=== PATIENT | female | born 2005 | race Caucasian/White ===

== ENCOUNTER → 2024-05-12 | Outpatient (CLI) | payer BC, SELFPAY ==
[2024-05-20 09:32] LABS: HPV Reflexed? NOT INDICATED
== END | disposition home or self-care (01) ==
PROVIDERS: PCP Physician Assistant Medical; Referring Provider Nurse Practitioner Family; Visit Provider Nurse Practitioner Family
DX: Z12.4 Encounter for screening for malignant neoplasm of cervix (principal)
CPT/HCPCS: 88175; G0145

== ENCOUNTER → 2024-06-06 | Outpatient (CLI) | payer BC, SELFPAY ==
--- NOTE | 2024-06-06 14:28 | US_ITS ---
STUDY: ULTRASOUND OF THE FEMALE PELVIS - COMPLETE REASON FOR EXAM: Female, 19 years old. Amenorrhea LMP: One year ago. TECHNIQUE: Transabdominal and Transvaginal TECHNICAL QUALITY: Adequate. COMPARISON: None. FINDINGS: The uterus is anteverted and is in a midline position. The uterus measures 6.2 cm x 4.4 cm x 2.9 cm. Normal uterine cervix. The endometrium measures 7.3 mm in thickness, and is hyperechoic. There is no demonstrated endometrial mass. There is no demonstrated myometrial mass. I.U.D. - The patient does not have an I.U.D. The right ovary is visualized. The right ovary measures 3.9 cm x 3.3 cm x 2.7 cm. There is no right ovarian cyst or ovarian mass. There is no visualized right adnexal mass or complex lesion. There is normal arterial and normal venous vascularity. The left ovary is visualized. The left ovary measures 3.5 cm x 3.4 cm x 2.2 cm. There is no left ovarian cyst or ovarian mass. There is no visualized left adnexal mass or complex lesion. There is normal arterial and normal venous vascularity. There is no fluid in the cul-de-sac. The pre void volume of the bladder was ml. The post void volume of the bladder was ml. Polycystic ovary disease: Yes. US/Pelvic w/ Transvaginal IMPRESSION: Multiple small follicles in the periphery of the ovary suggestive of a polycystic ovarian syndrome. Electronically Signed: Helio Palma MD at 14:46 EDT ,
== END | disposition home or self-care (01) ==
PROVIDERS: PCP Physician Assistant Medical; Referring Provider Nurse Practitioner Family; Visit Provider Nurse Practitioner Family
DX: N91.2 Amenorrhea, unspecified (principal)
CPT/HCPCS: 76830; 76856

== ENCOUNTER → 2024-09-21 | Outpatient (CLI) | payer BC, SELFPAY ==
[2024-09-25 07:06] LABS: Chlamydia By Nucleic Acid AMP Negative (Negative); Gonococcus By Nucleic Acid AMP Negative (Negative)
== END | disposition home or self-care (01) ==
PROVIDERS: PCP Physician Assistant Medical; Referring Provider Nurse Practitioner Family; Visit Provider Nurse Practitioner Family
DX: N89.8 Other specified noninflammatory disorders of vagina (principal); Z20.2 Contact with and (suspected) exposure to infections with a predominantly sexual mode of transmission
CPT/HCPCS: 87070; 87205; 87491; 87591

== ENCOUNTER → 2025-06-15 | Outpatient (CLI) | payer BC, SELFPAY ==
[2025-06-15 16:46] LABS: Hematocrit 39.1 % (37-47); Hemoglobin 13.4 g/dL (12.0-15.0); Immature Granulocytes Count 0.050 X10^3/uL (0.0-0.0); Mean Corp Hgb Conc 34.3 g/dL (32-36); Mean Corpuscular Volume 86.1 fL (81-99); Mean Platelet Vol. 10.0 fl (6.2-12.0); NRBC Flagged by Analyzer 0 % (0-5); Platelet Count 455 K/mm3 (150-450); RBC Distribution Width CV 12.7 % (11.6-14.6); RBC Distribution Width SD 39.8 fl (35.1-43.9); Red Blood Count 4.54 M/mm3 (4.2-5.4); White Blood Count 11.5 K/mm3 (4.4-11.0)
[2025-06-15 18:09] LABS: AST(SGOT) 86 U/L (<=31); Alanine Aminotransfer ALT/SGPT 149 U/L (<=34); Albumin, Serum 4.7 g/dL (3.5-5.0); Alkaline Phosphatase 43 U/L (35-104); Anion Gap 14 (5-15); BUN 10 mg/dL (4-19); BUN/Creat Ratio 15.4 RATIO (10-20); Calcium,Total 9.9 mg/dL (7.6-11.0); Carbon Dioxide 21.1 mmol/L (21.0-32.0); Chloride 103 mmol/L (98-108); Globulin 3.4 g/dL (2.2-4.2); Glucose 127 mg/dL (70-99); Potassium 3.6 mmol/L (3.3-5.1)
[2025-06-17 04:07] LABS: PROLACTIN 21.5 ng/mL (4.8-33.4)
== END | disposition home or self-care (01) ==
PROVIDERS: PCP Physician Assistant Medical; Visit Provider Nurse Practitioner Family
DX: E28.2 Polycystic ovarian syndrome (principal); Z31.9 Encounter for procreative management, unspecified
CPT/HCPCS: 36415; 80053; 82627; 82670; 83498; 84146; 84403; 84439; 84443; 85025; 82626

== ENCOUNTER → 2025-07-03 | Outpatient (CLI) | payer BC, SELFPAY ==
--- NOTE | 2025-07-03 07:49 | US_ITS ---
PROCEDURE: PELVIC W/ TRANSVAGINAL REASON FOR EXAM: INFERTILITY; HX PCOS TECHNIQUE: Procedure Code: [id number] Modality: US Procedure: PELVIC W/ TRANSVAGINAL COMPARISON: June 06, 2024. FINDINGS: LMP: June 12, 2025. Measurements: Uterus: 8.2 cm x 5.2 cm x 3.5 cm with a volume of 78.7 mL Endometrial Thickness: 11 mm. It is hyperechoic. Right Ovary: 4.4 cm x 3.3 cm x 2.4 cm with a volume of 18.1 mL. Left Ovary: 4.2 cm x 2.9 cm x 2.1 cm with a volume of 13.2 mL. TRANSABDOMINAL: Uterus: Normal size, myometrial echotexture, and contour. Endometrium: Unremarkable. Right ovary: Multiple small follicle seen along the peripheral aspect of the right ovary. Left ovary: Multiple small follicle seen along the peripheral aspect of the left ovary. Other: No large pelvic mass identified. Transvaginal sonography was performed to better visualize the endometrium. TRANSVAGINAL: Uterus: Anteverted. Endometrium: Normal echotexture. Right ovary: Multiple peripheral follicles. Left ovary: Multiple peripheral follicles. Other adnexal findings: None. Cul-de-sac: Minimal amount of free fluid in the cul-de-sac. Tenderness: No tenderness US/Pelvic w/ Transvaginal IMPRESSION: Multiple tiny peripheral follicles in both ovaries suggestive of polycystic ova ry. Reading Location: [id number]
[2025-07-04 04:07] LABS: PROGESTERONE 0.3 ng/mL (.)
== END | disposition home or self-care (01) ==
PROVIDERS: PCP Physician Assistant Medical; Referring Provider Nurse Practitioner Family; Visit Provider Nurse Practitioner Family
DX: Z31.9 Encounter for procreative management, unspecified (principal); E28.2 Polycystic ovarian syndrome
CPT/HCPCS: 36415; 76830; 76856; 84144

== ENCOUNTER → 2025-07-25 | Outpatient (CLI) | payer BC, SELFPAY ==
--- NOTE | 2025-07-25 07:30 | US_ITS ---
PROCEDURE: LIVER 07/25/2025 REASON FOR EXAM: ELEVATED LFTS TECHNIQUE: Procedure Code: USLI Modality: US Procedure: LIVER COMPARISON: None FINDINGS: Liver: The liver is enlarged measuring 23.6 cm in length. It is heterogeneous in echo architecture with increased echogenicity throughout the liver parenchyma consistent with underlying hepatic steatosis. No focal liver mass detected. Patent portal vein and hepatic veins. Gallbladder: Status post cholecystectomy Common bile duct: Normal measuring 3.2 mm. Pancreas: Increased echogenicity of the pancreas. No dominant mass. The right kidney is visualized and measures 11.8 x 6.1 x 4.7 cm. No hydronephrosis present. US/Liver IMPRESSION: Status post cholecystectomy. Hepatomegaly with diffuse hepatic steatosis. No focal liver mass. No biliary ductal dilatation. Reading Location: [id number]
--- OUTSIDE RECORDS SUMMARY | 2025-07-25 07:33 | XMS RPT_ITS | CCD ---
Author Organization [facility] Inform ion Partnership [facility] Care Team Providers Care Pediatric Registered Nurse Name Role Phone GUERA HERNANDEZY Unavailable Unavailable JAYLEN SEXTON Unavailable Unavailable Jose Ramesh Unavailable Unavailabl Jose Frias Unavailable Unavailabl e EladiaGueraNikita Unavailable Unavailable JORGE LUIS SHIELDS Unavailable Unavailable Eladia Nikita Unavailable Unavailable EladiaGueraNikita Unavailable Unavailable Loreto Scanlon Unavailable [phone] Unavailable Unavailable Sabina Lam Unavailable Sarah Alcazar MD Primary Care Provider Sabina Lam Unavailable Jourdan Koo APRN.CNP Primary Care Provider SARAH ALCAZAR Primary Care Unavailable JOSE MANUEL MOELLER Attending Unavailable SARAH ALCAZAR Primary Care Unavailable JOSE MANUEL MOELLER Attending Unavailable SARAH ALCAZAR Referring Unavailable HAYES, JOURDAN Primary Care Unavailable SARAH ALCAZAR Referring Unavailable HAYES JOURDAN Primary Care Unavailable SARAH ALCAZAR S Primary Care Unavailable SARAH ALCAZAR Referring Unavailable Sabina Lam Unavailable Sarah Alcazar MD Primary Care Provider JOURDAN KOO Primary Care Unavailable SARAH ALCAZAR Referring Unavailable Loreto Scanlon MD Primary Care Provider Ori Vidal PA-C Primary Care Provider EVE CRUZ Referring Unavailable LORETO SCANLON Primary Care Unavailable MARCY, ORI B Primary Care Unavailable MARCY ORI B Primary Care Unavailable Guera Gibson MD Unavailable [phone] Ori Vidal PA-C Primary Care Provider Guera Gibson MD Unavailable [phone] Ori Vidal PA-C Primary Care Provider Marcy SILVER, Ori Chopra Primary Care Provid er ORI VIDAL Referring Unavaila ble MARCY, ORI CHOPRA Primary Care Unavaila ble MARCY, ORI CHOPRA Admitting Unavaila ble SABINA PUENTE Attending Unavailable ORI VIDAL Referring Unavaila ble MARCY, ORI CHOPRA Primary Care Unavaila ble SABINA PUENTE Attending Unavailable ORI VIDAL Admitting Unavaila ble MARCY, ORI CHOPRA Referring Unavaila ble MARCY, ORI CHOPRA Primary Care Unavaila ble SABINA PUENTE Attending Unavailable ORI VIDAL Admitting Unavaila ble RYAN LOZANO Attending Unavailable ERIN LUTHER RYAN Referring Unavailable MARCY, ORI B Primary Care Unavailable MARCY, ORI B Attending Unavailable MARCY, ORI B Primary Care Unavailable GUERA GIBSON Attending Unavailable FAISAL RODRIGUEZ Referring Unavailable MARCY, ORI B Primary Care Unavailable ORI VIDAL B Attending Unavailable FAISAL RODRIGUEZ Referring Unavailable MARCY ORI B Primary Care Unavailable MITCHELL TELLES Attending Unavailable MARCY, ORI B Primary Care Unavailable MARCY, ORI B Attending Unavailable MARCY, ORI B Primary Care Unavailable RYAN LOZANO Attending Unavailable MARCY, ORI B Referring Unavailable MARCY, ORI B Primary Care Unavailable MARCY, ORI B Attending Unavailable MARCY, ORI B Primary Care Unavailable MARCY, ORI B Attending Unavailable MARCY, ORI B Primary Care Unavailable MARCY, ORI B Referring Unavailable MARCY, ORI B Primary Care Unavailable MARCY, ORI B Referring Unavailable MARCY, ORI B Primary Care Unavailable ERIN LUTHER, RYAN Referring Unavailable MARCY, ORI B Primary Care Unavailable ERIN LUTHERRYAN Referring Unavailable MARCY, ORI B Primary Care Unavailable MARCY, ORI B Primary Care Unavailable IVETTE HARDING Attending Unavailable MARCY, ORI B Referring Unavailable MARCY, ORI B Primary Care Unavailable MARCY, ORI B Primary Care Unavailable FAISAL RODRIGUEZ Attending Unavailable GUERA GIBSON Admitting Unavailable GUERA GIBSON Attending Unavailable FAISAL RODRIGUEZ Referring Unavailable MARCY, ORI B Primary Care Unavailable MARCY, ORI KEYSHA Referring Unavaila ble Marcy PA, Ori Primary Care Physician Hastings PA, Ori Referring Provider Barbara POWELL-C, Drea Attending Physician [phone] Drea Jimenez Attending Unavailable Marcy PA, Ori Primary Care Unavailabl e Hastings PA, Ori Referring Unavailabl e Drea Jimenez Referring Unavailable Drea Jimenez Attending Unavailable Hastings PA, Ori Primary Care Unavailabl e Drea Jimenez Attending Unavailable Hastings PA, Ori Primary Care Unavailabl e Drea Jimenez Attending Unavailable Marcy PA, Ori Primary Care Unavailabl e Marcy PA, Ori Referring Unavailabl e Drea Jimenez Attending Unavailable Marcy PA, Ori Primary Care Unavailabl e Hastings PA, Ori Referring Unavailabl e Drea Jimenez Attending Unavailable Drea Jimenez Referring Unavailable Hastings PA, Ori Primary Care Unavailabl e Allergies Allergy Classification Reported Allergen(s) Allergy Type Date of Onset Reaction(s) Facility (7 sources) house dust Allergy to substance (finding) [facility] Work Phone: (7 sources) Animal dander - Cats Allergy to substance (finding) [facility] Work Phone: (1 source) ALLERGIES NOT ON FILE; Translations: [ALLERGIES NOT ON FILE] Propensity to adverse reactions (disorder) [facility] Medications Current Medications Medication Drug Class(es) Dates Sig (Normalized) Sig (Original) acetaminophen 325 mg / oxyCODONE hydrochloride 5 mg oral tablet (1 source) Opioid Agonist Start: 09-07-2024 End: 09-09-2024 take 1 tablet by mouth every six hours for pain oxyCODONE-acetami nophen (Percocet) 5-325 mg tablet Indications: Post-operative pain Take 1 tablet by mouth every 6 hours if needed for severe pain (7 - 10) (post-operative pain) for up to 2 days. 8 tablet 09/07/2024 09/09/2024 Active amoxicillin 875 mg / clavulanate 125 mg oral tablet (3 sources) Penicillin-class Antibacterial Start: 04-14-2024 End: 04-24-2024 take 1 tablet by mouth twice daily amoxicillin-pot clavulanate (Augmentin) 875-125 mg tablet Indications: Rash and other nonspecific skin eruption Take 1 tablet (875 mg) by mouth 2 times a day for 10 days. 20 tablet 04/14/2024 04/24/2024 Active Start: 11-01-2021 take 1 tablet by shawna once daily Amoxicillin-Pot Clavulanate 875-125 MG Oral Tablet TAKE 1 TABLET EVERY 12 HOURS DAILY. Quantity: 20 Refills: 0 Ordered: 01-Nov-2021 [employer] SITE TECHNICIAN-TOURS CAPTAIN, Rita Start : 01-Nov-2021 Active blood-glucose meter misc (11 sources) Start: 10-21-2024 blood-glucose meter misc Indications: Type 2 diabetes mellitus with hyperglycemia, without long-term current use of insulin Use as directed- check BS daily and PRN symptoms 1 each 10/21/2024 Active calcium chloride 0.0014 meq/ml / potassium chloride 0.004 meq/ml / sodium chloride 0.103 meq/ml / sodium lactate 0.028 meq/ml injectable solution (1 source) Start: 09-07-2024 End: 09-08-2024 take 100 mL intravenously every hour 100 mL/hr, intravenous, Continuous, Starting on Thu09/07/24 at 1100, For 1 day, Recovery (only) cephalexin 500 mg oral capsule (1 source) Cephalosporin Antibacterial Start: 10-18-2024 End: 10-28-2024 take 1 capsule by mouth three times daily cephalexin (Keflex) 500 mg capsule Indications: Open abdominal incision with drainage, subsequent encounter Take 1 capsule (500 mg) by mouth 3 times a day for 10 days. 30 capsule 10/18/2024 10/28/2024 Active dicyclomine hydrochloride 20 mg oral tablet (4 sources) Anticholinergic Start: 08-18-2024 End: 09-22-2024 take 1 tablet by mouth four times daily before mealtime dicyclomine (Bentyl) 20 mg tablet Indications: Left flank pain Take 1 tablet (20 mg) by mouth 4 times a day before meals. 30 tablet 08/18/2024 09/22/2024 Discontinued (Therapy completed) ergocalciferol 1.25 mg oral capsule (20 sources) Provitamin D2 Compound Start: 12-18-2024 take 1 capsule by mouth every week ergocalciferol (Vitamin D-2) 1250 mcg (50,000 units) capsule Indications: Vitamin D deficiency TAKE 1 CAPSULE (10377 UNITS) BY MOUTH ONE TIME PER WEEK 4 capsule 12/18/2024 Active Start: 12-18-2024 take 1 capsule by mo uth every week ergocalciferol (Vitamin D-2) 1250 mcg (50,000 units) capsule Indications: Vitamin D deficiency TAKE 1 CAPSULE (01384 UNITS) BY MOUTH ONE TIME PER WEEK 4 capsule 12/18/2024 Active Start: 05-12-2024 Ergocalciferol (Vitamin D2) (Vitamin D2) 1,250 mcg (50,000 unit) capsule Active 1250 ug PO EVERY WEEK May 12, 2024 12:00am Complies with drug therapy Start: 01-17-2024 End: 12-13-2024 take 1 capsule by mouth every week ergocalciferol (Vitamin D-2) 1.25 MG (90015 UT) capsule Indications: Vitamin D deficiency Take 1 capsule (50,000 Units) by mouth 1 (one) time per week. 4 capsule 01/17/2024 12/13/2024 Discontinued Start: 01-17-2024 take 1 capsule by mo uth every week ergocalciferol (Vitamin D-2) 1.25 MG (94612 UT) capsule Indications: Vitamin D deficiency Take 1 capsule (50,000 Units) by mouth 1 (one) time per week. 4 capsule 01/17/2024 Active Start: 05-21-2020 End: 03-03-2022 take 1 capsule by mouth every week ergocalciferol 50,000 unit capsule (VITAMIN D2, DRISDOL) Take 1 capsule by mouth one time a week. 12 capsule 3 05/21/2020 03/03/2022 Discontinued Comment on above: Take 1 capsule by mo [facility] one time a week. flash glucose scanning reader (FREESTYLE IVAN 2 READER MISC) (7 sources) flash glucose scanning reader (FREESTYLE IVAN 2 READER MISC) Active fluticasone propionate 0.05 mg/actuat metered dose nasal spray (5 sources) Corticosteroid Start: 03-09-20 End: 04-06-20 take 1 spray(s) nasal route once daily at bedtime fluticasone (FLONASE) 50 mcg/actuation nasal spray Use 1 [place] in each nostril daily at bedtime for 28 days. Use before lying down for bed. 9.9 mL 0 03/09/2022 04/06/2022 Active Start: 05-29-2021 take 1 spray(s) nasa l route twice daily Fluticasone Propionate 50 MCG/ACT Nasal Suspension USE 1 SPRAY IN EACH NOSTRIL TWICE DAILY. Quantity: 1 Refills: 1 Ordered: 29-May-2021 Giovanna REILLY Pebbles Start : 29-May-2021 Active Start: 01-13-2020 End: 03-03-2022 take 1 spray(s) nasal route once daily at bedtime fluticasone (FLONASE) 50 mcg/actuation nasal spray Use 1 [place] in each nostril daily at bedtime. 1 Bottle 0 01/13/2020 03/03/2022 Discontinued Comment on above: Use 1 [place] in each nostril daily at bedtime. Use 1 [place] in each nostril daily at bedtime for 28 days. Use before lying down for bed. labetalol hydrochloride 5 mg/ml injectable solution (1 source) beta-Adrenergic Mariama Start: 2024 5 mg, intravenous, Administer over 1 Minutes, Once as needed, systolic blood pressure greater than 180 mmHg, dystolic blood pressure greater than 100 mmHg and heart rate greater than 60 BPM, Starting on Thu09/07/24 at 1032, For 1 dose, Recovery (only) lisinopril 10 mg oral tablet (18 sources) Angiotensin Converting Enzyme Inhibitor Start: 2023 take 1 tablet by mouth once daily lisinopril 10 mg tablet Indications: Hypertension associated with diabetes TAKE 1 TABLET BY MOUTH EVERY DAY 30 tablet 11 04/11/2025 Active Mecobalamin (Vitamin B12) (1 source) Start: 2023 Mecobalamin (Vitamin B12) 2,500 mcg tablet,chewable Active ug PO May 12, 2024 12:00am Complies with drug therapy medroxyPROGESTERone acetate 10 mg oral tablet (14 sources) Progestin Start: 2024 medroxyPROGESTERone (Provera) 10 mg tablet TAKE 1 TABLET ORALLY DAILY FOR 5 DAYS TAKE X 5 DAYS IF NO MENSES FOR GREATER THAN 60 DAYS. 09/22/2024 Active Start: 06-09-2024 End: 06-14-2024 take 1 tablet by mouth once daily Medroxyprogesterone 10 mg tablet Discontinued 10 mg PO daily 5 5 0 June 09, 2024 12:00am June 13, 2024 12:00am June 14, 2024 12:08am omeprazole 20 mg delayed release oral capsule (20 sources) Proton Pump Inhibitor Start: 12-24-2023 End: 10-10-2025 take 1 capsule by mouth once daily Omeprazole 20 mg capsule,delayed release(DR/EC) Active 20 mg PO daily May 12, 2024 12:00am Complies with drug therapy oxyCODONE hydrochloride 5 mg oral tablet (1 source) Opioid Agonist Start: 09-07-2024 take 1 tablet by mouth every four hours as needed 5 mg, oral, Every 4 hours PRN, pain mild (1-3), first line, Starting on Thu09/07/24 at 1032, Recovery (only), When able to take oral medications., If ordered PRN for pain, nurse is permitted to administer this medication for higher pain scores based on patient preference? Yes perflutren lipid microspheres 1.3 mL in NaCl (PF) 0.9% 10 mL injection (DEFINITY) (5 sources) Start: 03-03-2022 End: 06-02-2023 perflutren lipid microspheres 1.3 mL in NaCl (PF) 0.9% 10 mL injection (DEFINITY) polyethylene glycol 3350 04491 mg powder for oral solution (2 sources) Osmotic Laxative Start: 08-18-2024 End: 08-25-2024 polyethylene glycol (Glycolax, Miralax) 17 gram packet Indications: Constipation, unspecified constipation type Take 17 g by mouth once daily for 7 days. 7 packet 08/18/2024 08/24/2024 Discontinued (Therapy completed) 115/iron/folic acid ( 19 ORAL) (4 sources) take 1 tablet by mouth once daily 115/iron/folic acid ( 19 ORAL) Take 1 tablet by mouth once daily. Active 0.25 mg, 0.5 mg dose 1.5 ml semaglutide 1.34 mg/ml pen injector (1 source) Start: 05-12-2024 Semaglutide (Ozempic) 0.25 mg or 0.5 mg(2 mg/1.5 mL) pen injector Active 0.5 mg SC EVERY WEEK May 12, 2024 12:00am Complies with drug therapy semaglutide 0.25 mg or 0.5 mg (2 mg/3 mL) pen injector (14 sources) Start: 12-18-2024 inject 0.5 mg by subcutaneous injection every week semaglutide 0.25 mg or 0.5 mg (2 mg/3 mL) pen injector Indications: Type 2 diabetes mellitus with hyperglycemia, without long-term current use of insulin Inject 0.5 mg under the skin 1 (one) time per week. 3 mL 5 12/18/2024 Active Start: 02-15-2024 End: 08-24-2024 semaglutide 0.25 mg or 0.5 m g (2 mg/3 mL) pen injector Indications: PCOS (polycystic ovarian syndrome) , Type 2 diabetes mellitus with hyperglycemia, without long-term current use of insulin , Class 2 obesity due to excess calories without serious comorbidity with body mass index (BMI) of 39.0 to 39.9 in adult Inject 0.5 mg under the skin 1 (one) time per week. 3 mL 2 02/15/2024 08/24/2024 Discontinued (Therapy completed) Start: 02-15-2024 semaglutide 0. 25 mg or 0.5 mg (2 mg/3 mL) pen injector Indications: PCOS (polycystic ovarian syndrome) , Type 2 diabetes mellitus with hyperglycemia, without long-term current use of insulin , Class 2 obesity due to excess calories without serious comorbidity with body mass index (BMI) of 39.0 to 39.9 in adult Inject 0.5 mg under the skin 1 (one) time per week. 3 mL 2 02/15/2024 Active Start: 02-15-2024 semaglutide 0. 25 mg or 0.5 mg (2 mg/3 mL) pen injector Indications: PCOS (polycystic ovarian syndrome) , Type 2 diabetes mellitus with hyperglycemia, without long-term current use of insulin (Multi) , Class 2 obesity due to excess calories without serious comorbidity with body mass index (BMI) of 39.0 to 39.9 in adult Inject 0.5 mg under the skin 1 (one) time per week. 3 mL 2 02/15/2024 Active Start: 01-17-2024 semaglutide 0. 25 mg or 0.5 mg (2 mg/3 mL) pen injector Indications: PCOS (polycystic ovarian syndrome) , Type 2 diabetes mellitus with hyperglycemia, without long-term current use of insulin (Multi) , Class 2 obesity due to excess calories without serious comorbidity with body mass index (BMI) of 39.0 to 39.9 in adult Inject 0.25 mg under the skin 1 (one) time per week. 3 mL 1 01/17/2024 Active 125 ml sodium chloride 9 mg/ml prefilled syringe (5 sources) Start: 03-03-2022 End: 06-02-2023 sodium chloride 0.9 % (flush) 10 mL (BD POSIFLUSH) spironolactone 50 mg oral tablet (13 sources) Aldosterone Antagonist Start: 04-11-2025 take 1 tablet by mouth once daily spironolactone (Aldactone) 50 mg tablet Indications: PCOS (polycystic ovarian syndrome) , Type 2 diabetes mellitus with hyperglycemia, without long-term current use of insulin TAKE 1 TABLET BY MOUTH EVERY DAY 30 tablet 5 04/11/2025 Active Start: 10-18-2024 take 1 tablet by shawna th once daily spironolactone (Aldactone) 50 mg tablet Indications: PCOS (polycystic ovarian syndrome) , Type 2 diabetes mellitus with hyperglycemia, without long-term current use of insulin Take 1 tablet (50 mg) by mouth once daily. 30 tablet 5 10/18/2024 Active Start: 05-03-2020 End: 03-03-2022 take 1 tablet by mouth once daily spironolactone (ALDACTONE) 25 mg tablet Take 1 tablet by mouth once daily. 90 tablet 1 05/03/2020 03/03/2022 Discontinued Comment on above: Take 1 tablet by shawna once daily. traMADol hydrochloride 50 mg oral tablet (1 source) Opioid Agonist Start: 5 End: 5 take 1 tablet by mouth every eight hours for pain traMADol (Ultram) 50 mg tablet Indications: Flank pain Take 1 tablet (50 mg) by mouth every 8 hours if needed for severe pain (7 - 10) for up to 3 days. 9 tablet 03/01/2025 03/04/2025 Active vitamin b12 1 mg oral tablet (17 sources) Vitamin B12 Start: 4 End: 5 take 1 tablet by mouth once daily cyanocobalamin (Vitamin B-12) 1,000 mcg tablet Indications: Low vitamin B12 level TAKE 1 TABLET (1,000 MCG) BY MOUTH ONCE DAILY 30 tablet 11 04/11/2025 Active Completed/Discontinued Medications Medication Drug Class(es) Dates Sig (Normalized) Sig (Original) acetaminophen 325 mg oral tablet (1 source) Start: 09-07-2024 End: 09-07-2024 take 975 mg by mouth once as needed for pain 975 mg, oral, Once, On Thu09/07/24 at 0845, For 1 dose, Preprocedure, Administer with small amount of water preoperatively., If ordered PRN for pain, nurse is permitted to administer this medication for higher pain scores based on patient preference? Yes amitriptyline hydrochloride 10 mg oral tablet (1 source) Tricyclic Antidepressant End: 03-03-2022 take 2 tablets by mouth once daily at bedtime amitriptyline (ELAVIL) 10 mg tablet Take 20 mg by mouth daily at bedtime. 0 03/03/2022 Discontinued Comment on above: Take 20 mg by mouth daily at bedtime. amoxicillin 875 mg oral tablet (2 sources) Penicillin-class Antibacterial Start: 05-29-2021 take 1 tablet by mouth once daily Amoxicillin 875 MG Oral Tablet TAKE 1 TABLET EVERY 12 HOURS DAILY. Quantity: 20 Refills: 0 Ordered: 29-May-2021 Pebbles Godoy Start : 29-May-2021 Active brompheniramine maleate 0.4 mg/ml / dextromethorphan hydrobromide 2 mg/ml / pseudoephedrine hydrochloride 6 mg/ml oral solution (2 sources) alpha-Adrenergic Agonist, Uncompetitive A-urppyf-O-aspartat e Receptor Antagonist, Sigma-1 Agonist Start: 11-01-2021 take 5 mL by mouth every four to six hours as needed Pseudoeph-Bromphen -DM 30-2-10 MG/5ML Oral Syrup TAKE 5 ML EVERY 4 TO 6 HOURS NEEDED. Quantity: 3 Refills: 0 Ordered: 01-Nov-2021 [employer] SITE TECHNICIAN-TOURS CAPTAIN, Rita Start : 01-Nov-2021 Active cefdinir 300 mg oral capsule (2 sources) Cephalosporin Antibacterial Start: 09-26-2024 End: 10-18-2024 take 1 capsule by mouth once daily cefdinir (Omnicef) 300 mg capsule TAKE 1 CAPSULE BY MOUTH TWCIE DAILY FOR 7 DAYS 09/26/2024 10/18/2024 Discontinued (Therapy completed) Start: 09-26-2024 End: 10-03-2024 take 1 capsule by mouth twice daily Cefdinir 300 mg capsule Discontinued 300 mg PO TWICE A DAY 14 7 0 September 26, 2024 1:00am October 02, 2024 1:00am October 03, 2024 1:15am cefOXitin 2000 mg injection (1 source) Cephalosporin Antibacterial Start: 09-07-2024 End: 09-07-2024 2 g, intravenous, at 100 mL/hr, Administer over 30 Minutes, Once, On Thu09/07/24 at 0845, For 1 dose, Preprocedure, Duplex bag - activate before hanging., Suspected Indication (Select all that apply): Surgical Prophylaxis, Indications: Surgical Prophylaxis cetirizine hydrochloride 10 mg oral tablet (1 source) Histamine-1 Receptor Antagonist End: 03-03-2022 take 1 tablet by mouth once daily cetirizine (ZYRTEC) 10 mg tablet Take 10 mg by mouth once daily. 0 03/03/2022 Discontinued Comment on above: Take 10 mg by mouth once daily. 1 ml dexamethasone phosphate 10 mg/ml injection (1 source) Corticosteroid Start: 09-07-2024 End: 09-07-2024 8 mg, intravenous, Once, On Thu09/07/24 at 0845, For 1 dose, Preprocedure doxycycline monohydrate 100 mg oral tablet (3 sources) Tetracycline-class Drug Start: 10-10-2021 take 1 tablet by mouth once daily Doxycycline Monohydrate 100 MG Oral Tablet TAKE 1 TABLET EVERY 12 HOURS DAILY. Quantity: 20 Refills: 0 Ordered: 10-Oct-2021 [employer] SITE TECHNICIAN-TOURS CAPTAIN, Rita Start : 10-Oct-2021 Active Start: 03-06-2021 End: 03-16-2021 take 1 tablet by mouth twice daily Doxycycline Monohydrate 100 MG Oral Tablet TAKE 1 TABLET TWICE DAILY. Quantity: 20 Refills: 0 Ordered: 06-Mar-2021 [employer] SITE TECHNICIAN-TOURS CAPTAIN, Rita Start : 06-Mar-2021 End : 16-Mar-2021 Complete Ethinyl Estradiol / norgestimate (1 source) Progestin, Estrogen Start: 10-02-2020 End: 03-03-2022 take 1 tablet by mouth once daily Norgestimate-Ethinyl Estradiol (TRI FEMYNOR) 0.18/0.215/0.25 mg-35 mcg (28) Take 1 tablet by mouth once daily. 84 tablet 3 10/02/2020 03/03/2022 Discontinued Comment on above: Take 1 tablet by shawna th once daily. flash glucose scanning reader (FreeStyle Ivan 2 [place] [facility] [place] (17 sources) Start: 01-13-2024 End: 04-20-2025 flash glucose scanning reader (FreeStyle Ivan 2 [place]) [facility] [place] Indications: Type 2 diabetes mellitus with hyperglycemia, without long-term current use of insulin Use as instructed 1 each 01/13/2024 04/20/2025 Discontinued (Med List Cleanup) Start: 01-13-2024 flash glucose scanning reader (FreeStyle Ivan 2 [place]) [facility] [place] Indications: Type 2 diabetes mellitus with hyperglycemia, without long-term current use of insulin Use as instructed 1 each 01/13/2024 Active Start: 01-13-2024 flash glucose scanning reader (FreeStyle Ivan 2 [place]) [facility] [place] Indications: Type 2 diabetes mellitus with hyperglycemia, without long-term current use of insulin (Multi) Use as instructed 1 each 01/13/2024 Active flash glucose sensor kit (FreeStyle Ivan 2 Sensor) kit (17 sources) Start: 06-16-2024 End: 04-20-2025 flash glucose sensor kit (FreeStyle Ivan 2 Sensor) kit Indications: Type 2 diabetes mellitus with hyperglycemia, without long-term current use of insulin USE INSTRUCTED 2 each 5 06/16/2024 04/20/2025 Discontinued (Med List Cleanup) Start: 06-16-2024 flash glucose sensor kit (FreeStyle Ivan 2 Sensor) kit Indications: Type 2 diabetes mellitus with hyperglycemia, without long-term current use of insulin USE INSTRUCTED 2 each 5 06/16/2024 Active Start: 01-13-2024 flash glucose sensor kit (FreeStyle Ivan 2 Sensor) kit Indications: Type 2 diabetes mellitus with hyperglycemia, without long-term current use of insulin (Multi) Use as instructed 2 each 5 01/13/2024 Active FreeStyle Ivan 3 Sensor device (10 sources) Start: 10-21-2024 End: 04-20-2025 FreeStyle Ivan 3 Sensor dev ice Indications: Type 2 diabetes mellitus with hyperglycemia, without long-term current use of insulin USE TO CHECK GLUCOSE BID 2 each 3 10/21/2024 04/20/2025 Discontinued (Med List Cleanup) Start: 10-21-2024 FreeStyle Libr e 3 Sensor device Indications: Type 2 diabetes mellitus with hyperglycemia, without long-term current use of insulin USE TO CHECK GLUCOSE BID 2 each 3 10/21/2024 Active 0.5 ml HYDROmorphone hydrochloride 1 mg/ml prefilled syringe (1 source) Opioid Agonist Start: 03-01-2025 End: 03-01-2025 0.5 mg, intravenous, Once, On Thu03/01/25 at 1945, For 1 dose ibuprofen 400 mg oral tablet (4 sources) Nonsteroidal Anti-inflammatory Drug Start: 03-09-2022 take 1 tablet by mouth every six hours as needed ibuprofen (MOTRIN) 400 mg tablet Take 1 tablet by mouth every 6 hours as needed for pain or fever (specify). 30 tablet 0 03/09/2022 Active Comment on above: Take 1 tablet by shawna th every 6 hours as needed for pain or fever (specify). 1 ml ketorolac tromethamine 30 mg/ml injection (5 sources) Nonsteroidal Anti-inflammatory Drug, Cyclooxygenase Inhibitor Start: 03-01-2025 End: 03-01-2025 15 mg, intravenous, Once, On Thu03/01/25 at 1800, For 1 dose Start: 03-01-2025 End: 03-06-2025 take 1 tablet by mouth every six hours for pain ketorolac (Toradol) 10 mg tablet Indications: Flank pain Take 1 tablet (10 mg) by mouth every 6 hours if needed for moderate pain (4 - 6) for up to 5 days. 20 tablet 03/01/2025 03/06/2025 Active Start: 08-18-2024 End: 08-24-2024 take 1 tablet by mouth every six hours for pain ketorolac (Toradol) 10 mg tablet Indications: Left flank pain Take 1 tablet (10 mg) by mouth every 6 hours if needed for moderate pain (4 - 6) for up to 5 days. 20 tablet 08/18/2024 08/24/2024 Discontinued (Therapy completed) Start: 03-06-2021 Ketorolac Trom ethamine 10 MG Oral Tablet TAKE TABLET PRN Quantity: 0 Refills: 0 Ordered: 06-Mar-2021 DO Start : 06-Mar-2021 Active 5 ml midazolam 1 mg/ml injection (1 source) Benzodiazepine Start: 09-07-2024 End: 09-07-2024 1 mg, intravenous, Once, On Thu09/07/24 at 0845, For 1 dose, Preprocedure 1 ml morphine sulfate 4 mg/ml prefilled syringe (3 sources) Opioid Agonist Start: 03-01-2025 End: 03-01-2025 4 mg, intravenous, Once, On Thu03/01/25 at 1800, For 1 dose Start: 09-07-2024 4 mg, intraven ous, Every 5 min PRN, pain severe (7-10), first line, Starting on Thu09/07/24 at 1032, Recovery (only), Max total of 20 mg regardless of dose. Start: 09-07-2024 2 mg, intraven ous, Every 5 min PRN, pain moderate (4-6), first line, Starting on Thu09/07/24 at 1032, Recovery (only), Max total of 20 mg regardless of dose. mupirocin 0.02 mg/mg topical ointment (4 sources) RNA Synthetase Inhibitor Antibacterial Start: 10-10-2021 Mupirocin 2 % External Ointment APPLY A SMALL AMOUNT 3 TIMES DAILY DIRECTED. Quantity: 1 Refills: 0 Ordered: 10-Oct-2021 Rita Cazares Start : 10-Oct-2021 Active nebivolol 5 mg oral tablet (2 sources) Start: 11-03-2022 take 1 tablet by mouth once daily nebivolol (BYSTOLIC) 5 mg tablet TAKE 1 TABLET BY MOUTH EVERY DAY 30 tablet 0 11/03/2022 Active Comment on above: TAKE 1 TABLET BY SHAWNA TH EVERY DAY 2 ml ondansetron 2 mg/ml injection (7 sources) Serotonin-3 Receptor Antagonist Start: 03-01-2025 End: 03-01-2025 4 mg, intravenous, Once, On Thu03/01/25 at 1800, For 1 dose, When administering via IV Push, administer over 3-5 minutes. Start: 09-07-2024 End: 09-07-2024 4 mg, intravenous, Once as n eeded, nausea/vomiting, first line, Starting on Thu09/07/24 at 1032, For 1 dose, Recovery (only), When administering via IV Push, administer over 3-5 minutes. Start: 08-18-2024 End: 09-22-2024 take 1 tablet by mouth every eight hours for nausea ondansetron ODT (Zofran-ODT) 4 mg disintegrating tablet Indications: Left flank pain Dissolve 1 tablet (4 mg) in the mouth every 8 hours if needed for nausea or vomiting. 15 tablet 08/18/2024 09/22/2024 Discontinued (Therapy completed) 2 ml orphenadrine citrate 30 mg/ml injection (1 source) Muscle Relaxant Start: 03-01-2025 End: 03-01-2025 inject 60 mg by intramuscular injection once 60 mg, intramuscular, Once, On Thu03/01/25 at 1945, For 1 dose predniSONE 20 mg oral tablet (2 sources) Start: 03-01-2025 End: 03-01-2025 take 60 mg by mouth once 60 mg, oral, Once, On Thu03/01/25 at 194, For 1 dose Start: 03-01-2025 End: 03-06-2025 take 2 tablets by mouth once daily predniSONE (Deltasone) 20 mg tablet Indications: Flank pain Take 2 tablets (40 mg) by mouth once daily for 5 days. 10 tablet 03/01/2025 03/06/2025 Active promethazine (Phenergan) 6.2 5 mg in sodium chloride 0.9% 50 mL IV (1 source) Start: 09-07-2024 End: 09-07-2024 6.25 mg, intravenous, Admini ster over 15 Minutes, Once as needed, Nausea/vomiting, second line, Starting on Thu09/07/24 at 1032, For 1 dose, Recovery (only) semaglutide (OZEMPIC) 1 mg/dose (4 mg/3 mL) pen injector (8 sources) Start: 04-14-2024 End: 12-14-2024 semaglutide (OZEMPIC) 1 mg/d ose (4 mg/3 mL) pen injector Indications: Type 2 diabetes mellitus with hyperglycemia, without long-term current use of insulin , Class 2 obesity due to excess calories without serious comorbidity with body mass index (BMI) of 39.0 to 39.9 in adult Inject 1 mg under the skin 1 (one) time per week. 3 mL 04/14/2024 12/14/2024 Discontinued (Therapy completed) Start: 04-14-2024 semaglutide (O ZEMPIC) 1 mg/dose (4 mg/3 mL) pen injector Indications: Type 2 diabetes mellitus with hyperglycemia, without long-term current use of insulin , Class 2 obesity due to excess calories without serious comorbidity with body mass index (BMI) of 39.0 to 39.9 in adult Inject 1 mg under the skin 1 (one) time per week. 3 mL 04/14/2024 Active Start: 04-14-2024 semaglutide (O ZEMPIC) 1 mg/dose (4 mg/3 mL) pen injector Indications: Type 2 diabetes mellitus with hyperglycemia, without long-term current use of insulin (Multi) , Class 2 obesity due to excess calories without serious comorbidity with body mass index (BMI) of 39.0 to 39.9 in adult Inject 1 mg under the skin 1 (one) time per week. 3 mL 04/14/2024 Active tiZANidine 2 mg oral tablet (3 sources) Central alpha-2 Adrenergic Agonist Start: 03-01-2025 End: 04-20-2025 take 1 tablet by mouth every eight hours for muscle spasms tiZANidine (Zanaflex) 2 mg tablet Indications: Flank pain Take 1 tablet (2 mg) by mouth every 8 hours if needed for muscle spasms for up to 5 days. 15 tablet 03/01/2025 04/20/2025 Discontinued (Med List Cleanup) topiramate 50 mg oral tablet (6 sources) Start: 04-19-2022 topiramate (TOPAMAX) 50 mg tablet TAKE 1 AND 1/2 (HALF) TABLET BY MOUTH TWICE A DAY 0 04/19/2022 Active Start: 06-20-2020 End: 03-03-2022 take 1 tablet by mouth twice daily Topamax 25 MG Oral Tablet TAKE 1 TABLET TWICE DAILY. Quantity: 0 Refills: 0 Ordered: 06-Mar-2021 DO Start : 06-Mar-2021 Active Comment on above: TAKE 1 TABLET BY SHAWNA TWICE A DAY TAKE 1 AND 1/2 (HALF ) TABLET BY MOUTH TWICE A DAY Tri Femynor 0.18/0.215/0.25 MG-35 MCG Oral Tablet (4 sources) Start: 10-02-2020 Tri Femynor 0.18/0.215/0.25 MG-35 MCG Oral Tablet Quantity: 84 Refills: 0 Ordered: 23-Mar-2021 DO Start : 02-Oct-2020 Active triamcinolone acetonide 1 mg/ml topical cream (4 sources) Corticosteroid Start: 10-10-2021 Triamcinolone Acetonide 0.1 % External Cream APPLY 2-3 TIMES DAILY TO AFFECTED AREA(S). Quantity: 1 Refills: 0 Ordered: 10-Oct-2021 [employer] TECHNICIAN[employer]TOURS CAPTAIN, Rita Start : 10-Oct-2021 Active Problems Active Problems Problem Classification Problem Date Documented Da te Episodic/Chronic Abdominal pain (14 sources) Right upper quadrant pain; Translations: [Abdominal pain, right upper quadrant] Onset: 5 Resolved: 7 08-24-2024 Episodic Calculus of urinary tract (20 sources) Calculus of kidney; Translations: [Kidney stone] Onset: 2 04-24-2022 Episodic Contraceptive and procreative management (1 source) Encounter for procreative management, unspecified; Translations: [Encounter for procreative management, unspecified] Onset: 5 Episodic Diabetes mellitus with complications (20 sources) Type 2 diabetes mellitus; Translations: [Type 2 diabetes mellitus with hyperglycemia] Onset: 4 01-13-2024 Chronic Diabetes mellitus without complication (1 source) Diabetes mellitus without complication Onset: 8 Disorders of lipid metabolism (20 sources) Hypercholesterolemia; Translations: [Pure hypercholesterolemia, unspecified] Onset: 4 12-24-2023 Chronic Esophageal disorders (20 sources) Gastroesophageal reflux disease without esophagitis; Translations: [Gastro-esophageal reflux disease without esophagitis] Onset: 4 12-24-2023 Chronic Essential hypertension (20 sources) Hypertensive disorder; Translations: [Essential (primary) hypertension] Onset: 2 Chronic Genitourinary symptoms and ill-defined conditions (1 source) Hematuria, unspecified; Translations: [Urinary tract infection with hematuria, site unspecified] Onset: 2 Episodic Headache; including migraine (1 source) Migraine without aura, not refractory ; Translations: [Chronic migraine without aura, not intractable, without status migrainosus] Chronic Hypertension with complications and secondary hypertension (2 sources) Hypertension secondary to endocrine disorders; Translations: [Hypertension secondary to endocrine disorders] Onset: 4 Chronic Immunizations and screening for infectious disease (8 sources) Patient encounter status; Translations: [Other specified vaccination] Resolved: 7 12-14-2024 Episodic Menstrual disorders (5 sources) Missed period; Translations: [Irregular menstruation, unspecified] Onset: 4 12-24-2023 Chronic Comment on above: x 2 years. Mood disorders (3 sources) Mood disorders; Translations: [Major depressive disorder, single episode, unspecified] Onset: 8 Neoplasms of unspecified nature or uncertain behavior (1 source) Thrombocytosis; Translations: [Thrombocytosis] 10-18-2024 Episodic Nutritional deficiencies (20 sources) Vitamin D deficiency; Translations: [Vitamin D deficiency, unspecified] Onset: 4 12-24-2023 Chronic Other acquired deformities (1 source) Scoliosis deformity of spine; Translations: [Scoliosis, unspecified] Chronic Other aftercare (1 source) Postoperative visit; Translations: [Encounter for other specified surgical aftercare] 09-22-2024 Episodic Other aftercare (1 source) Open wound of abdomen; Translations: [Open abdominal incision with drainage, subsequent encounter] 10-18-2024 Episodic Other connective tissue disease (1 source) Spasm; Translations: [Other muscle spasm] 09-21-2024 Episodic Other ear and sense organ disorders (14 sources) Otalgia; Translations: [Otalgia, unspecified] Episodic Other ear and sense organ disorders (7 sources) Impacted cerumen; Translations: [Impacted cerumen] Episodic Other endocrine disorders (20 sources) Polycystic ovary syndrome; Translations: [Polycystic ovarian syndrome] Onset: 4 01-13-2024 Chronic Other endocrine disorders (1 source) Polycystic ovarian syndrome; Translations: [Polycystic ovarian syndrome] Onset: 5 Chronic Other female genital disorders (1 source) Vaginal discharge; Translations: [Other specified noninflammatory disorders of vagina] 09-21-2024 Episodic Other gastrointestinal disorders (1 source) Constipation; Translations: [Constipation, unspecified] 08-24-2024 Episodic Other liver diseases (1 source) Fatty (change of) liver, not elsewhere classified; Translations: [Fatty liver] Onset: 2 Chronic Other liver diseases (20 sources) Steatosis of liver; Translations: [Fatty (change of) liver, not elsewhere classified] Onset: 2 04-24-2022 Chronic Other non-traumatic joint disorders (2 sources) Pain in elbow; Translations: [Pain in left elbow] 11-09-2023 Episodic Other non-traumatic joint disorders (3 sources) Pain in right shoulder; Translations: [Pain in joint, shoulder region] Onset: 5 05-02-2025 Episodic Other nutritional; endocrine; and metabolic disorders (2 sources) Severe obesity; Translations: [Morbid (severe) obesity due to excess calories] Onset: 4 12-24-2023 Chronic Other nutritional; endocrine; and metabolic disorders (20 sources) Obesity caused by energy imbalance; Translations: [Other obesity due to excess calories] Onset: 4 01-13-2024 Chronic Other upper respiratory disease (1 source) Bleeding from nose; Translations: [Epistaxis] Episodic Residual codes; unclassified (1 source) Treatment not available; Translations: [Procedure and treatment not carried out for other reasons] Episodic Unclassified (1 source) Anxiety disorder, unspecified / F41.9(ICD-9) Onset: 8 Unclassified (1 source) Poisoning by propionic acid derivatives, self-harm, init / T39.312A(ICD-9) Onset: 8 Unclassified (1 source) Patient encounter status 12-14-2024 Unclassified (2 sources) Low back pain, unspecified; Translations: [Low back pain, unspecified] Onset: 5 Unclassified (1 source) Disruption or dehiscence of closure of internal operation (surgical) wound of abdominal wall muscle or fascia, subsequent encounter; Translations: [Disruption or dehiscence of closure of internal operation (surgical) wound of abdominal wall muscle or fascia, subsequent encounter] Onset: 5 Unclassified (1 source) Acute pain of right shoulder 05-02-2025 Past or Other Problems Problem Classification Problem Date Documented Da te Episodic/Chronic Administrative/social admission (3 sources) Encounter for other administrative examinations; Translations: [Dietary counseling and surveillance] Onset: 2 Episodic Anxiety disorders (20 sources) Anxiety disorder, unspecified; Translations: [Anxiety] Onset: 8 Resolved: 4 12-24-2023 Chronic Biliary tract disease (20 sources) Calculus of gallbladder without cholecystitis without obstruction; Translations: [Gallstone] Onset: 2 04-24-2022 Episodic Blindness and vision defects (7 sources) Disorder of vision; Translations: [Problems with sight] Resolved: 7 Chronic Diabetes mellitus without complication (4 sources) Impaired glucose tolerance; Translations: [Impaired glucose tolerance (oral)] Onset: 4 12-24-2023 Episodic Other ear and sense organ disorders (20 sources) Pain of ear structure; Translations: [Otalgia, bilateral] Onset: 4 Resolved: 4 12-24-2023 Episodic Other ear and sense organ disorders (19 sources) Impacted cerumen in left ear; Translations: [Impacted cerumen, left ear] Onset: 4 Resolved: 4 12-24-2023 Episodic Other female genital disorders (1 source) Other specified noninflammatory disorders of vagina; Translations: [Other specified noninflammatory disorders of vagina] Onset: 5 Episodic Other gastrointestinal disorders (7 sources) Diarrhea; Translations: [Diarrhea] Resolved: 7 Episodic Other gastrointestinal disorders (7 sources) H/O: gastrointestinal disease; Translations: [Personal history of other diseases of digestive system] Resolved: 7 Episodic Other gastrointestinal disorders (4 sources) Constipation, unspecified; Translations: [Constipation, unspecified] Onset: 5 Episodic Other inflammatory condition of skin (20 sources) Acute erythematous eruption of skin; Translations: [Other specified erythematous conditions] Onset: 4 Resolved: 4 12-24-2023 Episodic Other nervous system disorders (16 sources) Postoperative pain ; Translations: [Other acute postprocedural pain] Onset: 5 09-07-2024 Episodic Other non-traumatic joint disorders (2 sources) Pain in left elbow; Translations: [Pain in left elbow] Onset: 4 Episodic Other nutritional; endocrine; and metabolic disorders (20 sources) Insulin resistance; Translations: [Dysmetabolic syndrome X] Onset: 4 Resolved: 4 12-24-2023 Chronic Other nutritional; endocrine; and metabolic disorders (20 sources) Body mass index 30+ - obesity; Translations: [Body Mass Index 35.0-35.9, adult] Onset: 4 Resolved: 4 12-24-2023 Chronic Other nutritional; endocrine; and metabolic disorders (20 sources) Obesity; Translations: [Obesity, unspecified] Onset: 4 Resolved: 4 12-24-2023 Chronic Other nutritional; endocrine; and metabolic disorders (20 sources) Obese class II; Translations: [Obesity, unspecified] Onset: 2 Resolved: 4 04-07-2022 Chronic Other nutritional; endocrine; and metabolic disorders (20 sources) Overweight; Translations: [Overweight] Onset: 4 Resolved: 4 12-24-2023 Episodic Other nutritional; endocrine; and metabolic disorders (20 sources) Abnormal weight gain; Translations: [Abnormal weight gain] Onset: 4 Resolved: 12-24-2023 Episodic Other screening for suspected conditions (not mental disorders or infectious disease) (20 sources) Decreased vitamin B12 level; Translations: [Other specified abnormal findings of blood chemistry] Onset: 4 01-13-2024 Episodic Other skin disorders (20 sources) Acquired acanthosis nigricans; Translations: [Acquired acanthosis nigricans] Onset: 4 Resolved: 4 12-24-2023 Episodic Other skin disorders (10 sources) H/O: skin disorder; Translations: [Personal history of diseases of skin and subcutaneous tissue] Resolved: Episodic Other skin disorders (20 sources) Folliculitis; Translations: [Other specified diseases of hair and hair follicles] Onset: 4 Resolved: 12-24-2023 Episodic Other skin disorders (20 sources) Hypertrichosis; Translations: [Hypertrichosis, unspecified] Onset: 4 12-24-2023 Episodic Other skin disorders (2 sources) Hypertrichosis, unspecified; Translations: [Hypertrichosis, unspecified] Onset: Episodic Other skin disorders (1 source) Eruption; Translations: [Rash and other nonspecific skin eruption] 04-14-2024 Episodic Other upper respiratory disease (20 sources) Allergic rhinitis; Translations: [Allergic rhinitis, cause unspecified] Onset: Resolved: 4 12-24-2023 Chronic Other upper respiratory infections (20 sources) Acute bacterial sinusitis; Translations: [Acute sinusitis, unspecified] Onset: 4 Resolved: 4 12-24-2023 Episodic Comment on above: Added by Rodney Nava t Migration; 2012-11-14; Moved to [facility] Jul 11 2013 9:35PM; Otitis media and related conditions (20 sources) Acute bilateral otitis media ; Translations: [Unspecified otitis media] Onset: Resolved: 12-24-2023 Episodic Residual codes; unclassified (20 sources) H/O: endocrine disorder; Translations: [Personal history of other endocrine, metabolic, and immunity disorders] Onset: 4 Resolved: 4 12-24-2023 Episodic Skin and subcutaneous tissue infections (20 sources) Paronychia of toe of right foot; Translations: [Onychia and paronychia of toe] Onset: 4 Resolved: 4 12-24-2023 Episodic Spondylosis; intervertebral disc disorders; other back problems (17 sources) Acute low back pain; Translations: [Acute thoracic back pain] Onset: 5 01-18-2025 Episodic Unclassified (1 source) Poisoning by propionic acid derivatives, self-harm, init; Translations: [Poisoning by propionic acid derivatives, self-harm, init] Onset: 8 Unclassified (19 sources) Onset: 4 Resolved: 5 12-24-2023 Unclassified (2 sources) Low back pain, unspecified; Translations: [Low back pain, unspecified] Onset: 5 Unclassified (1 source) Disruption or dehiscence of closure of internal operation (surgical) wound of abdominal wall muscle or fascia, subsequent encounter; Translations: [Disruption or dehiscence of closure of internal operation (surgical) wound of abdominal wall muscle or fascia, subsequent encounter] Onset: 5 Urinary tract infections (20 sources) Urinary tract infection, site not specified; Translations: [Urinary tract infectious disease] Onset: 2 Resolved: 4 04-24-2022 Episodic Results Test Name Value Interpretation Reference Range Facility 17-Hydroxyprogesteroneon 17ALPHA [place]-PROG 34 ng/dL Normal . [facility] Comment on above: Order Comment: Test( s) [id number] Progesterone LCMS was developed and its performance characteristics determined by [facility]. It has not been cleared or approved by the Food and Drug Administration. day 3 N Result Comment: Adul t Female Follicular 15 - 70 Luteal 35 - 290 Performed at: [address] [id number] Marriage Therapist: Rena Enriquez MD, Phone: [phone] Performed By: #### L 900.0111, L3300.1500, L100.0100, L3100.9000, L509.3001, L506.0400, L500.4050, L3100.5400, L501.9520, L3300.1750 #### [facility] [address] [place], [place], [id number] DHEA Sulfateon 06-17-2025 DHEA SULFATE 515.0 ug/dL High 110.0-431.7 [facility] Comment on above: Order Comment: day 3 N Performed By: #### L 900.0111, L3300.1500, L100.0100, L3100.9000, L509.3001, L506.0400, L500.4050, L3100.5400, L501.9520, L3300.1750 #### [facility] [address] [place], [place], [id number] PROLACTIN 4465on 06-17-2025 PROLACTIN 21.5 ng/mL Normal 4.8-33.4 [facility] Comment on above: Result Comment: Perf ormed at: [facility] [id number] Marriage Therapist: Daryl Hatfield PhD, Phone: [phone] Performed By: #### L 900.0111, L3300.1500, L100.0100, L3100.9000, L509.3001, L506.0400, L500.4050, L3100.5400, L501.9520, L3300.1750 #### [facility] [address] [place], [place], [id number] CBC W/Diff, Automatedon 10-3 Absolute Lymph 2.85 X10 3/uL Normal 0.83-4.51 [facility] Comment on above: Performed By: #### L 900.0111, L3300.1500, L100.0100, L3100.9000, L509.3001, L506.0400, L500.4050, L3100.5400, L501.9520, L3300.1750 #### [facility] [address] [place], [address] Absolute Neut 7.6 X10 3/uL Normal 2.0-7.7 [facility] Comment on above: Performed By: #### L 900.0111, L3300.1500, L100.0100, L3100.9000, L509.3001, L506.0400, L500.4050, L3100.5400, L501.9520, L3300.1750 #### [facility] [address] [place], [address] Basophils/100 WBC (Bld) 0.4 % Normal 0-1 [facility] Comment on above: Performed By: #### L 900.0111, L3300.1500, L100.0100, L3100.9000, L509.3001, L506.0400, L500.4050, L3100.5400, L501.9520, L3300.1750 #### [facility] [address] [place], [address] Eosinophils/100 WBC (Bld) 2.4 % Normal 0-5 [facility] Comment on above: Performed By: #### L 900.0111, L3300.1500, L100.0100, L3100.9000, L509.3001, L506.0400, L500.4050, L3100.5400, L501.9520, L3300.1750 #### [facility] [address] [place], [address] Erythrocyte distribution width (RBC) [Ratio] 12.7 % Normal 11.6-14.6 [facility] Comment on above: Performed By: #### L 900.0111, L3300.1500, L100.0100, L3100.9000, L509.3001, L506.0400, L500.4050, L3100.5400, L501.9520, L3300.1750 #### [facility] [address] [place], [address] Hematocrit (Bld) [Volume fraction] 39.1 % Normal 37-47 [facility] Comment on above: Performed By: #### L 900.0111, L3300.1500, L100.0100, L3100.9000, L509.3001, L506.0400, L500.4050, L3100.5400, L501.9520, L3300.1750 #### [facility] [address] [place], [address] Hemoglobin (Bld) [Mass/Vol] 13.4 g/dL Normal 12.0-15.0 [facility] Comment on above: Performed By: #### L 900.0111, L3300.1500, L100.0100, L3100.9000, L509.3001, L506.0400, L500.4050, L3100.5400, L501.9520, L3300.1750 #### [facility] [address] [place], [address] IG% 0.400 Normal 0.0-0.9 [facility] Comment on above: Result Comment: IG% - Immature Granulocytes (promyelocytes, myelocytes and metamyelocytes) > 1% indicates that a LEFT SHIFT is Present. Performed By: #### L 900.0111, L3300.1500, L100.0100, L3100.9000, L509.3001, L506.0400, L500.4050, L3100.5400, L501.9520, L3300.1750 #### [facility] [address] [place], [address] Lymphocytes/100 WBC (Bld) 24.7 % Normal 19-41 [facility] Comment on above: Performed By: #### L 900.0111, L3300.1500, L100.0100, L3100.9000, L509.3001, L506.0400, L500.4050, L3100.5400, L501.9520, L3300.1750 #### [facility] [address] [place], [address] MCH (RBC) [Entitic mass] 29.5 pg Normal 27.0-32.0 [facility] Comment on above: Performed By: #### L 900.0111, L3300.1500, L100.0100, L3100.9000, L509.3001, L506.0400, L500.4050, L3100.5400, L501.9520, L3300.1750 #### [facility] [address] [place], [address] MCHC (RBC) [Mass/Vol] 34.3 g/dL Normal 32-36 [facility] Comment on above: Performed By: #### L 900.0111, L3300.1500, L100.0100, L3100.9000, L509.3001, L506.0400, L500.4050, L3100.5400, L501.9520, L3300.1750 #### [facility] [address] [place], [address] MCV (RBC) [Entitic vol] 86.1 fL Normal 81-99 [facility] Comment on above: Performed By: #### L 900.0111, L3300.1500, L100.0100, L3100.9000, L509.3001, L506.0400, L500.4050, L3100.5400, L501.9520, L3300.1750 #### [facility] [address] [place], [address] Monocytes/100 WBC (Bld) 6.2 % Normal 0-10 [facility] Comment on above: Performed By: #### L 900.0111, L3300.1500, L100.0100, L3100.9000, L509.3001, L506.0400, L500.4050, L3100.5400, L501.9520, L3300.1750 #### [facility] [address] [place], [address] Neutrophils/100 WBC (Bld) 65.9 % Normal 47-70 [facility] Comment on above: Performed By: #### L 900.0111, L3300.1500, L100.0100, L3100.9000, L509.3001, L506.0400, L500.4050, L3100.5400, L501.9520, L3300.1750 #### [facility] [address] [place], [address] Nucleated RBC (Bld) [#/Vol] 0 10*3/uL Normal 0-5 [facility] Comment on above: Performed By: #### L 900.0111, L3300.1500, L100.0100, L3100.9000, L509.3001, L506.0400, L500.4050, L3100.5400, L501.9520, L3300.1750 #### [facility] [address] [place], [address] Platelet mean volume (Bld) [Entitic vol] 10.0 fL Normal 6.2-12.0 [facility] Comment on above: Performed By: #### L 900.0111, L3300.1500, L100.0100, L3100.9000, L509.3001, L506.0400, L500.4050, L3100.5400, L501.9520, L3300.1750 #### [facility] [address] [place], [address] Platelets (Bld) [#/Vol] 455 10*3/uL High 150-450 [facility] [facility] Comment on above: Performed By: #### L 900.0111, L3300.1500, L100.0100, L3100.9000, L509.3001, L506.0400, L500.4050, L3100.5400, L501.9520, L3300.1750 #### [facility] [address] [place], [address] RBC (Bld) [#/Vol] 4.54 10*6/uL Normal 4.2-5.4 [facility] Comment on above: Performed By: #### L 900.0111, L3300.1500, L100.0100, L3100.9000, L509.3001, L506.0400, L500.4050, L3100.5400, L501.9520, L3300.1750 #### [facility] [address] [place], [address] RDW SD 39.8 fl Normal 35.1-43.9 [facility] Comment on above: Performed By: #### L 900.0111, L3300.1500, L100.0100, L3100.9000, L509.3001, L506.0400, L500.4050, L3100.5400, L501.9520, L3300.1750 #### [facility] [address] [place], [address] WBC (Bld) [#/Vol] 11.5 10*3/uL High 4.4-11.0 [facility] Comment on above: Performed By: #### L 900.0111, L3300.1500, L100.0100, L3100.9000, L509.3001, L506.0400, L500.4050, L3100.5400, L501.9520, L3300.1750 #### [facility] [address] [place], [address] Comprehensive Metabolic Prof ilon 06-15-2025 Albumin [Mass/Vol] 4.7 g/dL Normal 3.5-5.0 [facility] Comment on above: Order Comment: day 3 Performed By: #### L 900.0111, L3300.1500, L100.0100, L3100.9000, L509.3001, L506.0400, L500.4050, L3100.5400, L501.9520, L3300.1750 #### [facility] [address] [place], [place], [id number] Albumin/Globulin [Mass ratio] 1.4 {ratio} Normal 0.9-2.4 [facility] Comment on above: Order Comment: day 3 Performed By: #### L 900.0111, L3300.1500, L100.0100, L3100.9000, L509.3001, L506.0400, L500.4050, L3100.5400, L501.9520, L3300.1750 #### [facility] [address] [facility] [place], [address] ALK PHOS 43 U/L Normal 35-104 [facility] Comment on above: Order Comment: day 3 Performed By: #### L 900.0111, L3300.1500, L100.0100, L3100.9000, L509.3001, L506.0400, L500.4050, L3100.5400, L501.9520, L3300.1750 #### [facility] [address] [facility] [place], [address] ALT [Catalytic activity/Vol] 149 U/L High <=34 [facility] Comment on above: Order Comment: day 3 Performed By: #### L 900.0111, L3300.1500, L100.0100, L3100.9000, L509.3001, L506.0400, L500.4050, L3100.5400, L501.9520, L3300.1750 #### [facility] [address] [place], [address] AST [Catalytic activity/Vol] 86 U/L High <=31 [facility] Comment on above: Order Comment: day 3 Performed By: #### L 900.0111, L3300.1500, L100.0100, L3100.9000, L509.3001, L506.0400, L500.4050, L3100.5400, L501.9520, L3300.1750 #### [facility] [address] [place], [address] Bilirubin [Mass/Vol] 0.54 mg/dL Normal 0.00-1.30 [facility] Comment on above: Order Comment: day 3 Performed By: #### L 900.0111, L3300.1500, L100.0100, L3100.9000, L509.3001, L506.0400, L500.4050, L3100.5400, L501.9520, L3300.1750 #### [facility] [address] [place], [address] BUN/CRE 15.4 RATIO Normal 10-20 [facility] Comment on above: Order Comment: day 3 Performed By: #### L 900.0111, L3300.1500, L100.0100, L3100.9000, L509.3001, L506.0400, L500.4050, L3100.5400, L501.9520, L3300.1750 #### [facility] [address] [place], [address] Calcium [Mass/Vol] 9.9 mg/dL Normal 7.6-11.0 [facility] Comment on above: Order Comment: day 3 Performed By: #### L 900.0111, L3300.1500, L100.0100, L3100.9000, L509.3001, L506.0400, L500.4050, L3100.5400, L501.9520, L3300.1750 #### [facility] [address] [place], [address] Chloride [Moles/Vol] 103 mmol/L Normal 98-108 [facility] Comment on above: Order Comment: day 3 Performed By: #### L 900.0111, L3300.1500, L100.0100, L3100.9000, L509.3001, L506.0400, L500.4050, L3100.5400, L501.9520, L3300.1750 #### [facility] [address] [place], [address] (368) CO2 [Moles/Vol] 21.1 mmol/L Normal 21.0-32.0 [facility] Comment on above: Order Comment: day 3 Performed By: #### L 900.0111, L3300.1500, L100.0100, L3100.9000, L509.3001, L506.0400, L500.4050, L3100.5400, L501.9520, L3300.1750 #### [facility] [address] [place], [address] (623) Creatinine [Mass/Vol] 0.66 mg/dL Low 0.70-1.20 [facility] Comment on above: Order Comment: day 3 Performed By: #### L 900.0111, L3300.1500, L100.0100, L3100.9000, L509.3001, L506.0400, L500.4050, L3100.5400, L501.9520, L3300.1750 #### [facility] [address] [place], [address] GAP 14 Normal 5-15 [facility] Comment on above: Order Comment: day 3 Performed By: #### L 900.0111, L3300.1500, L100.0100, L3100.9000, L509.3001, L506.0400, L500.4050, L3100.5400, L501.9520, L3300.1750 #### [facility] [address] [place], [address] (056) GFR/1.73 sq M.predicted among non-blacks MDRD (S/P/Bld) [Vol rate/Area] 127 mL/min/{1.73_m2} Normal >60 [facility] Comment on above: Order Comment: day 3 Result Comment: mL/m in/1.73m2 CKD-EPI Creatinine Equation (2020) Performed By: #### L 900.0111, L3300.1500, L100.0100, L3100.9000, L509.3001, L506.0400, L500.4050, L3100.5400, L501.9520, L3300.1750 #### [facility] [address] [place], [address] Globulin (S) [Mass/Vol] 3.4 g/dL Normal 2.2-4.2 [facility] Comment on above: Order Comment: day 3 Performed By: #### L 900.0111, L3300.1500, L100.0100, L3100.9000, L509.3001, L506.0400, L500.4050, L3100.5400, L501.9520, L3300.1750 #### [facility] [address] [place], [place], [id number] (133) Glucose [Mass/Vol] 127 mg/dL High 70-99 [facility] Comment on above: Order Comment: day 3 Performed By: #### L 900.0111, L3300.1500, L100.0100, L3100.9000, L509.3001, L506.0400, L500.4050, L3100.5400, L501.9520, L3300.1750 #### [facility] [address] [place], [address] Potassium [Moles/Vol] 3.6 mmol/L Normal 3.3-5.1 [facility] Comment on above: Order Comment: day 3 Performed By: #### L 900.0111, L3300.1500, L100.0100, L3100.9000, L509.3001, L506.0400, L500.4050, L3100.5400, L501.9520, L3300.1750 #### [facility] [address] [place], [place], [id number] (037) Sodium [Moles/Vol] 138 mmol/L Normal 133-145 [facility] Comment on above: Order Comment: day 3 Performed By: #### L 900.0111, L3300.1500, L100.0100, L3100.9000, L509.3001, L506.0400, L500.4050, L3100.5400, L501.9520, L3300.1750 #### [facility] [address] [facility] [place], [place], [id number] T PROT 8.2 g/dL Normal 5.9-8.4 [facility] Comment on above: Order Comment: day 3 Performed By: #### L 900.0111, L3300.1500, L100.0100, L3100.9000, L509.3001, L506.0400, L500.4050, L3100.5400, L501.9520, L3300.1750 #### [facility] [address] [facility] [place], [place], [id number] Urea nitrogen [Mass/Vol] 10 mg/dL Normal 4-19 [facility] Comment on above: Order Comment: day 3 Performed By: #### L 900.0111, L3300.1500, L100.0100, L3100.9000, L509.3001, L506.0400, L500.4050, L3100.5400, L501.9520, L3300.1750 #### [facility] [address] [place], [address] Estradiolon 06-15-2025 ESTRADIOL 44.4 pg/mL Normal [facility] Comment on above: Result Comment: FEMA LES ADULT FEMALE: Premenopausal: 15-350 pg/mL(E2 levels vary widely through the menstrual cycle) Postmenopausal: <10 pg/mL HERB STAGES MEAN AGE REFERENCE RANGES Stage I(>14 days and prepubertal) 7.1 years Undetectable-20 pg/mLL Stage II 10.5 years Undetectable-24 pg/mL Stage III 11.6 years Undetectable-60 pg/mL Stage IV 12.3 years 15-85 pg/mL Stage V 14.5 years 15-350 pg/mL Puberty onset (transition from Herb stage I to Herb stage II) occurs for girls at a median age of 10.5 (/- 2) years. There is evidence that it may occur up to 1 year earlier in obese girls and in girls. Progression through Herb stages is variable. Herb stage V (adult) should be reached by age 18. Performed By: #### L 900.0111, L3300.1500, L100.0100, L3100.9000, L509.3001, L506.0400, L500.4050, L3100.5400, L501.9520, L3300.1750 #### [facility] [address] [place], [address] L509.3001on 06-15-2025 Testosterone [Mass/Vol] 67.10 ng/dL High 9-58 [facility] Comment on above: Performed By: #### L 900.0111, L3300.1500, L100.0100, L3100.9000, L509.3001, L506.0400, L500.4050, L3100.5400, L501.9520, L3300.1750 #### [facility] [address] [place], [address] L900.0111on 06-15-2025 REPROSOURCE SEE SCANNED REPORT Normal [facility] Comment on above: Order Comment: Comme nts: day 3 Performed By: #### L 900.0111, L3300.1500, L100.0100, L3100.9000, L509.3001, L506.0400, L500.4050, L3100.5400, L501.9520, L3300.1750 #### [facility] [address] [place], [address] T4 Free Directon 06-15-2025 T4 FREE DIRECT 0.80 ng/dL Normal 0.76-1.46 [facility] Comment on above: Order Comment: day 3 Performed By: #### L 900.0111, L3300.1500, L100.0100, L3100.9000, L509.3001, L506.0400, L500.4050, L3100.5400, L501.9520, L3300.1750 #### [facility] [address] [place], [address] Thyroid Stim Hormone (TSH)on 06-15-2025 TSH 2.340 uIU/mL Normal 0.300-4.200 [facility] Comment on above: Performed By: #### L 900.0111, L3300.1500, L100.0100, L3100.9000, L509.3001, L506.0400, L500.4050, L3100.5400, L501.9520, L3300.1750 #### [facility] [address] 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 Is patient in pain?: No Allergies No Known Allergies Allergy (Verified 05/18/25 15:39) Medications ???Medication ???Instructions ???Recorded ???Confirmed ???Type ergocalciferol (vitamin D2) 1,250 1,250 mcg PO QWEEK 05/12/2405/18 History mcg (50,000 unit) capsule (Vitamin D2) lisinopril 10 mg tablet 10 mg PO QDAY 05/12/24 05/18/25 Hi story mecobalamin (vitamin B12) 2,500 mcg PO 05/12/24 05/18/25 History mcg chewable tablet omeprazole 20 mg capsule,delayed 20 mg PO QDAY 05/12/24 05/18/25 Hi story release semaglutide 0.25 mg or 0.5 mg (2 0.5 mg subcut QWEEK 05/12/2405/18 History mg/1.5 mL) subcutaneous pen injector ([employer]) medroxyprogesterone 10 mg tablet 10 mg PO QDAY 5 days #5 tabs 09/2205/18/25 Rx Is last menstrual period known: Yes Last Menstrual Period: 04/13/25 Post menopausal: No Patient : No : No PFSH Medical History Diabetes Surgical History Hx of cholecystectomy Family History Grandfather CVA (cerebral vascular accident) Social History adopted: No household members: significant other number of children: 0 current occupational status: employed current occupation: [employer] current occupational exposures/hazards: No pets and animals: No sexually active: Yes Smoking Status: Never smoker alcohol intake: current alcohol intake frequency: holidays/special occasions only substance use type: does not use caffeine: No what type of physical activity do you participate in: walking khushboo/synagogue: AGNOSTIC seatbelt use: always do you feel safe at home: Yes History 0 Elective abortions Hx Para 0 Spontaneous abortions Hx # Term Pregnancies Ectopic pregnancies Hx # Pregnancies Multiple births # of living children 0 HPI Encounter for routine gynecological examination Details: GREGORY LACY is a 20 year old who presents for annual exam. She continues to have infertility issues. Has been utilizing progesterone to initiate her periods. Does have menses after taking this. Interested in perusing infertility work up. Had some spotting a few days ago and again today but does not feel she has started a full menses. Last PAP: 2023; normal HPV neg History of abnormal PAP: no Last mammogram: age 38 History of abnormal mammogram: no Colon cancer screening: age 43 Other preventative health care screenings: ROYAL Ronquillo; PCP Female Reproductive History Last Menstrual Period: 04/13/25 Cycle Length: >35 Questions: metrorrhagia: No, sexually active: Yes, dyspareunia: No and PCB: No ROS Const Constitutional: Denies chills, fatigue, fever(s), headache(s) or weight loss Eyes Eyes: Denies change in vision ENT ENT: Denies dizziness Resp Resp: Denies cough GI GI: Denies abdominal pain, constipation or nausea : Denies difficulty voiding, dysuria, hematuria, nipple discharge, pelvic pain, prolapse symptoms, urinary incontinence, vaginal discharge, vaginal dryness, vaginal odor or vaginal pruritus Skin Skin/Breast: Denies alopecia, rash, breast mass, breast pain, breast skin changes or nipple discharge Neuro Neuro: Denies dizziness Psych Psych: Denies anxiety or depression Endo Endo: Denies cold intolerance, excessive sweating or heat intolerance Exam Const General: cooperative, healthy appearing, comfortable, no acute distress, well groomed and well hydrated Nutritional Appearance: well nourished Orientation: alert, awake and oriented x3 HENMT Head: normal to inspection and normocephalic Ears: hearing grossly normal bilaterally and external ears normal Nose: external nose normal Face and sinus: normal facial exam Eyes General: appearance normal, both eyes and all related structures Neck Neck: normal visual inspection, full ROM and no lymphadenopathy Thyroid: thyroid normal Chest Chest palpation inspection: normal inspection of the chest Breast inspection: normal inspection of the breasts and normal inspection of the axillae Breast palpation: normal palpation of the b (more content not included)... Normal [facility] XR SHOULDER RIGHT 2+ VIEWSon 05-02-2025 XR SHOULDER RIGHT 2+ VIEWS Interpreted By: Myriam Rodriguez, STUDY: XR SHOULDER RIGHT 2+ VIEWS INDICATION: Signs/Symptoms:pain. COMPARISON: None. ACCESSION NUMBER(S): [id number] ORDERING CLINICIAN: ORI VIDAL FINDINGS: No acute fracture or malalignment. No significant degenerative changes. Soft tissues are unremarkable. IMPRESSION: 1. Unremarkable right shoulder radiographs. MACRO: None. Signed by: Myriam Rodriguez 05/05/2025 7:01 AM Dictation workstation: [id number] [facility], RANDOM URINE W/CREA Bárbara 04-18-2025 ALBUMIN, URINE 3.9 mg/dL Normal See Note: [facility] Comment on above: Result Comment: Jaxon khoruy Range: Reference Range Not established Performed By: #### 9 27, 622, 25356, 42728, 6517, 7600, 6399, 00428, 866, 899 #### [facility] [address], [address] [place] [address] Lead Java J2Ee Developer: Chalo Riddle MD ALBUMIN/CREATININE RATIO, RANDOM URINE 105 mg/g creat High <30 [facility] Comment on above: Result Comment: The ADA defines abnormalities in albumin excretion as follows: Albuminuria Category Result (mg/g creatinine) Normal to Mildly increased <30 Moderately increased 30-299 Severely increased > OR = 300 The ADA recommends that at least two of three specimens collected within a 3-6 month period be abnormal before considering a patient to be within a diagnostic category. Performed By: #### 9 27, 622, 88438, 20453, 6517, 7600, 6399, 07448, 866, 899 #### [facility] [address], [address] [place] [address] Lead Java J2Ee Developer: Chalo Riddle MD Creatinine (U) [Mass/Vol] 37 mg/dL Normal 20-275 [facility] Comment on above: Performed By: #### 9 27, 622, 72169, 25694, 6517, 7600, 6399, 19569, 866, 899 #### [facility] [address], [address] [place] [address] Lead Java J2Ee Developer: Chalo Riddle MD CBC (INCLUDES DIFF/PLT)on Basophils (Bld) [#/Vol] 0.044 10*3/uL Normal 0-200 [facility] Comment on above: Performed By: #### 9 27, 622, 61922, 10182, 6517, 7600, 6399, 32301, 866, 899 #### [facility] [address], [address] [place] [address] Lead Java J2Ee Developer: Chalo Riddle MD Basophils/100 WBC (Bld) 0.5 % Normal [facility] Comment on above: Performed By: #### 9 27, 622, 03568, 25058, 6517, 7600, 6399, 99649, 866, 899 #### [facility] [place] [address] Lead Java J2Ee Developer: Chalo Riddle MD Eosinophils (Bld) [#/Vol] 0.238 10*3/uL Normal 15-500 [facility] Comment on above: Performed By: #### 9 27, 622, 64663, 84495, 6517, 7600, 6399, 73470, 866, 899 #### [facility] [place] [address] Lead Java J2Ee Developer: Chalo Riddle MD Eosinophils/100 WBC (Bld) 2.7 % Normal [facility] Comment on above: Performed By: #### 9 27, 622, 51806, 21484, 6517, 7600, 6399, 27546, 866, 899 #### [facility] [place] [address] Lead Java J2Ee Developer: Chalo Riddle MD Erythrocyte distribution width (RBC) [Ratio] 12.8 % Normal 11.0-15.0 [facility] Comment on above: Performed By: #### 9 27, 622, 41192, 20096, 6517, 7600, 6399, 00531, 866, 899 #### [facility] [place] [address] Lead Java J2Ee Developer: Chalo Riddle MD Hematocrit (Bld) [Volume fraction] 40.5 % Normal 35.0-45.0 [facility] Comment on above: Performed By: #### 9 27, 622, 13172, 15398, 6517, 7600, 6399, 09713, 866, 899 #### [facility] [place] [address] Lead Java J2Ee Developer: Chalo Riddle MD Hemoglobin (Bld) [Mass/Vol] 13.2 g/dL Normal 11.7-15.5 [facility] Comment on above: Performed By: #### 9 27, 622, 11913, 43820, 6517, 7600, 6399, 52120, 866, 899 #### [facility] [place] [address] Lead Java J2Ee Developer: Chalo Riddle MD Lymphocytes (Bld) [#/Vol] 2.473 10*3/uL Normal 850-3900 [facility] Comment on above: Performed By: #### 9 27, 622, 54613, 10596, 6517, 7600, 6399, 22709, 866, 899 #### [facility] [place] [address] Lead Java J2Ee Developer: Chalo Riddle MD Lymphocytes/100 WBC (Bld) 28.1 % Normal [facility] Comment on above: Performed By: #### 9 27, 622, 33174, 56284, 6517, 7600, 6399, 13526, 866, 899 #### [facility] [place] [address] Lead Java J2Ee Developer: Chalo Riddle MD MCH (RBC) [Entitic mass] 29.3 pg Normal 27.0-33.0 [facility] Comment on above: Performed By: #### 9 27, 622, 67222, 00576, 6517, 7600, 6399, 48997, 866, 899 #### [facility] [place] [address] Lead Java J2Ee Developer: Chalo Riddle MD MCHC (RBC) [Mass/Vol] 32.6 g/dL Normal 32.0-36.[address] [facility] Comment on above: Result Comment: For adults, a slight decrease in the calculated MCHC value (in the range of 30 to 32 g/dL) is most likely not clinically significant; however, it should be interpreted with caution in correlation with other red cell parameters and the patient's clinical condition. Performed By: #### 9 27, 622, 61241, 00177, 6517, 7600, 6399, 23101, 866, 899 #### [facility] [place] [address] Lead Java J2Ee Developer: Chalo Riddle MD MCV (RBC) [Entitic vol] 90.0 fL Normal 80.0-100.0 [facility] Comment on above: Performed By: #### 9 27, 622, 03908, 03353, 6517, 7600, 6399, 06662, 866, 899 #### [facility] [place] [address] Lead Java J2Ee Developer: Chalo Riddle MD Monocytes (Bld) [#/Vol] 0.81 10*3/uL Normal 200-950 [facility] Comment on above: Performed By: #### 9 27, 622, 13003, 61636, 6517, 7600, 6399, 14555, 866, 899 #### [facility] [place] [address] Lead Java J2Ee Developer: Chalo Riddle MD Monocytes/100 WBC (Bld) 9.2 % Normal [facility] Comment on above: Performed By: #### 9 27, 622, 44540, 93466, 6517, 7600, 6399, 35982, 866, 899 #### [facility] [place] [address] Lead Java J2Ee Developer: Chalo Riddle MD Neutrophils (Bld) [#/Vol] 5.236 10*3/uL Normal 7546-6919 [facility] Comment on above: Performed By: #### 9 27, 622, 64007, 53254, 6517, 7600, 6399, 59689, 866, 899 #### [facility] [place] [address] Lead Java J2Ee Developer: Chalo Riddle MD Neutrophils/100 WBC (Bld) 59.5 % Normal [facility] Comment on above: Performed By: #### 9 27, 622, 75114, 81272, 6517, 7600, 6399, 95542, 866, 899 #### [facility] [place] [address] Lead Java J2Ee Developer: Chalo Riddle MD Platelet mean volume (Bld) [Entitic vol] 9.6 fL Normal 7.5-12.5 [facility] Comment on above: Performed By: #### 9 27, 622, 02617, 80673, 6517, 7600, 6399, 22039, 866, 899 #### [facility] [place] [address] Lead Java J2Ee Developer: Chalo Riddle MD Platelets (Bld) [#/Vol] 418 10*3/uL High 140-400 [facility] Comment on above: Performed By: #### 9 27, 622, 64022, 35783, 6517, 7600, 6399, 31843, 866, 899 #### [facility] [place] [address] Lead Java J2Ee Developer: Chalo Riddle MD RBC (Bld) [#/Vol] 4.50 10*6/uL Normal 3.80-5.10 [facility] Comment on above: Performed By: #### 9 27, 622, 70228, 42447, 6517, 7600, 6399, 39297, 866, 899 #### [facility] [place] [address] Lead Java J2Ee Developer: Chalo Riddle MD WBC (Bld) [#/Vol] 8.8 10*3/uL Normal 3.8-10.8 [facility] Comment on above: Performed By: #### 9 27, 622, 51993, 57536, 6517, 7600, 6399, 68682, 866, 899 #### [facility] [place] [address] Lead Java J2Ee Developer: Chalo Riddle MD COMPREHENSIVE METABOLIC PANE L W/ANION GAPon 04-18-2025 Albumin [Mass/Vol] 4.4 g/dL Normal 3.6-5.1 [facility] Comment on above: Performed By: #### 9 27, 622, 12703, 24011, 6517, 7600, 6399, 55386, 866, 899 #### [facility] [place] [address] Lead Java J2Ee Developer: Chalo Riddle MD ALP [Catalytic activity/Vol] 29 U/L Low 31-125 [facility] Comment on above: Performed By: #### 9 27, 622, 03596, 88726, 6517, 7600, 6399, 22477, 866, 899 #### [facility] [place] [address] Lead Java J2Ee Developer: Chalo Riddle MD ALT [Catalytic activity/Vol] 86 U/L High 6-29 [facility] Comment on above: Performed By: #### 9 27, 622, 22489, 61794, 6517, 7600, 6399, 11914, 866, 899 #### [facility] [place] [address] Lead Java J2Ee Developer: Chalo Riddle MD AST [Catalytic activity/Vol] 51 U/L High 10-30 [facility] Comment on above: Performed By: #### 9 27, 622, 56131, 87012, 6517, 7600, 6399, 77322, 866, 899 #### [facility] [place] [address] Lead Java J2Ee Developer: Chalo Riddle MD Bilirubin [Mass/Vol] 0.5 mg/dL Normal 0.2-1.2 [facility] Comment on above: Performed By: #### 9 27, 622, 87623, 55865, 6517, 7600, 6399, 42083, 866, 899 #### [facility] [place] [address] Lead Java J2Ee Developer: Chalo Riddle MD Calcium [Mass/Vol] 9.8 mg/dL Normal 8.6-10.2 [facility] Comment on above: Performed By: #### 9 27, 622, 44354, 54949, 6517, 7600, 6399, 77985, 866, 899 #### [facility] [place] [address] Lead Java J2Ee Developer: Chalo Riddle MD Chloride [Moles/Vol] 107 mmol/L Normal 98-110 [facility] Comment on above: Performed By: #### 9 27, 622, 55303, 23623, 6517, 7600, 6399, 44596, 866, 899 #### [facility] [place] [address] Lead Java J2Ee Developer: Chalo Riddle MD CO2 [Moles/Vol] 25 mmol/L Normal 20-32 [facility] Comment on above: Performed By: #### 9 27, 622, 42298, 47479, 6517, 7600, 6399, 08218, 866, 899 #### [facility] [place] [address] Lead Java J2Ee Developer: Chalo Riddle MD Creatinine [Mass/Vol] 0.60 mg/dL Normal 0.50-0.96 [facility] st [facility] Comment on above: Performed By: #### 9 27, 622, 81967, 33629, 6517, 7600, 6399, 39150, 866, 899 #### [facility] [place] [address] Lead Java J2Ee Developer: Chalo Riddle MD ELECTROLYTE BALANCE 9 mmol/L (calc) Normal 7-17 [facility] Comment on above: Performed By: #### 9 27, 622, 26923, 26599, 6517, 7600, 6399, 38026, 866, 899 #### [facility] [place] [address] Lead Java J2Ee Developer: Chalo Riddle MD GFR/1.73 sq M.predicted among non-blacks MDRD (S/P/Bld) [Vol rate/Area] 130 mL/min/{1.73_m2} Normal > OR = 60 [facility] Comment on above: Performed By: #### 9 27, 622, 58997, 48340, 6517, 7600, 6399, 26086, 866, 899 #### [facility] [place] [address] Lead Java J2Ee Developer: Chalo Riddle MD Glucose [Mass/Vol] 87 mg/dL Normal 65-99 [facility] Comment on above: Result Comment: Fasting reference interval Performed By: #### 9 27, 622, 90113, 63018, 6517, 7600, 6399, 89828, 866, 899 #### [facility] [place] [address] Lead Java J2Ee Developer: Chalo Riddle MD Potassium [Moles/Vol] 4.2 mmol/L Normal 3.5-5.3 [facility] st [facility] Comment on above: Performed By: #### 9 27, 622, 66013, 38468, 6517, 7600, 6399, 51535, 866, 899 #### [facility] [place] [address] Lead Java J2Ee Developer: Chalo Riddle MD Protein [Mass/Vol] 7.3 g/dL Normal 6.1-8.1 [facility] Comment on above: Performed By: #### 9 27, 622, 42060, 19641, 6517, 7600, 6399, 35606, 866, 899 #### [facility] [place] [address] Lead Java J2Ee Developer: Chalo Riddle MD Sodium [Moles/Vol] 141 mmol/L Normal 135-146 [facility] Comment on above: Performed By: #### 9 27, 622, 41080, 79101, 6517, 7600, 6399, 33358, 866, 899 #### [facility] [place] [id number] Lead Java J2Ee Developer: Chalo Riddle MD Urea nitrogen [Mass/Vol] 9 mg/dL Normal 7-25 [facility] Comment on above: Performed By: #### 9 27, 622, 68561, 95511, 6517, 7600, 6399, 19009, 866, 899 #### [facility] [address], [address] [place] [address] Lead Java J2Ee Developer: Chalo Riddle MD HEMOGLOBIN A1c WITH eAGon eAG (mmol/L) 6.6 mmol/L Normal [facility] Comment on above: Performed By: #### 9 27, 622, 75029, 28302, 6517, 7600, 6399, 72922, 866, 899 #### [facility] [address], [address] [place] [address] Lead Java J2Ee Developer: Chalo Riddle MD HbA1c (Bld) [Mass fraction] 5.8 % High <5.7 [facility] Comment on above: Result Comment: For someone without known diabetes, a hemoglobin A1c value between 5.7% and 6.4% is consistent with prediabetes and should be confirmed with a follow-up test. For someone with known diabetes, a value <7% indicates that their diabetes is well controlled. A1c targets should be individualized based on duration of diabetes, age, comorbid conditions, and other considerations. This assay result is consistent with an increased risk of diabetes. Currently, no consensus exists regarding use of hemoglobin A1c for diagnosis of diabetes for children. Performed By: #### 9 27, 622, 79275, 06202, 6517, 7600, 6399, 12369, 866, 899 #### [facility] [address], [address] [place] [address] Lead Java J2Ee Developer: Chalo Riddle MD Magnesium [Mass/Vol] 120 mg/dL Normal [facility] Comment on above: Performed By: #### 9 27, 622, 81019, 08677, 6517, 7600, 6399, 25573, 866, 899 #### [facility] [address], [address] [place] [address] Lead Java J2Ee Developer: Chalo Riddle MD LIPID PANEL, [facility] [place] Cholesterol [Mass/Vol] 157 mg/dL Normal <200 [facility] Comment on above: Order Comment: FASTI NG:YES FASTING: YES Performed By: #### 9 27, 622, 81547, 23479, 6517, 7600, 6399, 79377, 866, 899 #### [facility] [place] [address] Lead Java J2Ee Developer: Chalo Riddle MD Cholesterol in HDL [Mass/Vol] 41 mg/dL Low > OR = 50 [facility] Comment on above: Order Comment: FASTI NG:YES FASTING: YES Performed By: #### 9 27, 622, 15073, 56438, 6517, 7600, 6399, 38765, 866, 899 #### [facility] [place] [address] Lead Java J2Ee Developer: Chalo Riddle MD Cholesterol in LDL [Mass/Vol] 98 mg/dL Normal [facility] Comment on above: Order Comment: FASTI NG:YES FASTING: YES Result Comment: Refe rence range: <100 Desirable range <100 mg/dL for primary prevention; <70 mg/dL for patients with CHD or diabetic patients with > or = 2 CHD risk factors. LDL-C is now calculated using the Emil-Nikko calculation, which is a validated novel method providing better accuracy than the Friedewald equation in the estimation of LDL-C. Emil JAUREGUI et al. ZAFAR. 2013;310(19): 7051-2161 (http://education.Racktivity.OrthoSensor/faq/WJY143) Performed By: #### 9 27, 622, 92707, 94802, 6517, 7600, 6399, 81739, 866, 899 #### [facility] [address], [address] [place] [address] Lead Java J2Ee Developer: Chalo Riddle MD Cholesterol.total/Chol esterol in HDL [Mass ratio] 3.8 {ratio} Normal <5.0 [facility] Comment on above: Order Comment: FASTI NG:YES FASTING: YES Performed By: #### 9 27, 622, 00529, 71184, 6517, 7600, 6399, 76558, 866, 899 #### [facility] [place] [address] Lead Java J2Ee Developer: Chalo Riddle MD NON HDL CHOLESTEROL 116 mg/dL (calc) Normal <130 [facility] Comment on above: Order Comment: FASTI NG:YES FASTING: YES Result Comment: For patients with diabetes plus 1 major ASCVD risk factor, treating to a non-HDL-C goal of <100 mg/dL (LDL-C of <70 mg/dL) is considered a therapeutic option. Performed By: #### 9 27, 622, 40375, 04105, 6517, 7600, 6399, 23150, 866, 899 #### [facility] [place] [address] Lead Java J2Ee Developer: Chalo Riddle MD Triglyceride [Mass/Vol] 90 mg/dL Normal <150 [facility] Comment on above: Order Comment: FASTI NG:YES FASTING: YES Performed By: #### 9 27, 622, 86184, 02383, 6517, 7600, 6399, 70075, 866, 899 #### [facility] [place] [address] Lead Java J2Ee Developer: Chalo Riddle MD MAGNESIUMon 04-18-2025 Magnesium [Mass/Vol] 2.0 mg/dL Normal 1.5-2.5 [facility] Comment on above: Performed By: #### 9 27, 622, 30782, 29579, 6517, 7600, 6399, 80062, 866, 899 #### [facility] [place] [address] Lead Java J2Ee Developer: Chalo Riddle MD T4, FREEon 04-18-2025 Free T4 [Mass/Vol] 1.0 ng/dL Normal 0.8-1.8 [facility] Comment on above: Performed By: #### 9 27, 622, 16413, 95734, 6517, 7600, 6399, 51445, 866, 899 #### [facility] [place] [address] Lead Java J2Ee Developer: Chalo Riddle MD TSHon 04-18-2025 TSH Qn 2.57 m[IU]/L Normal [facility] Comment on above: Result Comment: Refe rence Range > or = 20 Years 0.40-4.50 Ranges First trimester 0.26-2.66 Second trimester 0.55-2.73 Third trimester 0.43-2.91 Performed By: #### 9 27, 622, 91722, 69630, 6517, 7600, 6399, 80796, 866, 899 #### [facility] [place] [address] Lead Java J2Ee Developer: Chalo Riddle MD VITAMIN B12on 04-18-2025 Cobalamin (Vitamin B12) [Mass/Vol] 580 pg/mL Normal 200-1100 [facility] Comment on above: Performed By: #### 9 27, 622, 39320, 93617, 6517, 7600, 6399, 50120, 866, 899 #### [facility] [place] [address] Lead Java J2Ee Developer: Chalo Riddle MD VITAMIN D,25-OH,TOTAL,IAon 0 04-18-2025 VITAMIN D,25-OH,TOTAL,IA 42 ng/mL Normal 30-100 [facility] Comment on above: Result Comment: Felicita min D Status 25-OH Vitamin D: Deficiency: <20 ng/mL Insufficiency: 20 - 29 ng/mL Optimal: > or = 30 ng/mL For 25-OH Vitamin D testing on patients on D2-supplementation and patients for whom quantitation of D2 and D3 fractions is required, the QuestAssureD(TM) 25-OH VIT D, (D2,D3), LC/MS/MS is recommended: order code 10334 (patients >2yrs). See Note 1 Note 1 For additional information, please refer to http://education.Racktivity.OrthoSensor/faq/UWY657 (This link is being provided for informational/ educational purposes only.) Performed By: #### 9 89, 934, 29708, 37250, 7916, 3287, 0158, 38250, 860, 914 #### [facility] [address] [facility], [address] [place] [address] Lead Java J2Ee Developer: Chalo Riddle MD CBC W Auto Differential pane l (Bld)on 03-01-2025 Basophils (Bld) [#/Vol] 0.07 10*3/uL [facility] Basophils/100 WBC (Bld) 0.6 % 0.0 - 2.0 % [facility] Eosinophils (Bld) [#/Vol] 0.40 10*3/uL [facility] Eosinophils/100 WBC (Bld) 3.3 % 0.0 - 6.0 % [facility] Erythrocyte distribution width (RBC) [Ratio] 12.6 % 11.5 - 14.5 % [facility] Hematocrit (Bld) [Volume fraction] 39.3 % 36.0 - 46.0 % [facility] Hemoglobin (Bld) [Mass/Vol] 13.5 g/dL 12.0 - 16.0 g/dL [facility] Immature granulocytes (Bld) [#/Vol] 0.04 10*3/uL [facility] Immature granulocytes/100 WBC (Bld) 0.3 % 0.0 - 0.9 % [facility] Comment on above: Immature Granulocyte Count (IG) includes promyelocytes, myelocytes and metamyelocytes but does not include bands. Percent differential counts (%) should be interpreted in the context of the absolute cell counts (cells/UL). Interpretation and review of laboratory results Abnormal [facility] Lymphocytes (Bld) [#/Vol] 3.41 10*3/uL [facility] Lymphocytes/100 WBC (Bld) 28.2 % 13.0 - 44.0 % [facility] MCH (RBC) [Entitic mass] 29.0 pg 26.0 - 34.0 pg [facility] MCHC (RBC) [Mass/Vol] 34.4 g/dL 32.0 - 36.0 g/dL [facility] MCV (RBC) [Entitic vol] 84 fL 80 - 100 fL [facility] Monocytes (Bld) [#/Vol] 1.07 10*3/uL High [facility] Monocytes/100 WBC (Bld) 8.9 % 2.0 - 10.0 % [facility] Neutrophils (Bld) [#/Vol] 7.10 10*3/uL [facility] Comment on above: Percent differential counts (%) should be interpreted in the context of the absolute cell counts (cells/uL). Neutrophils/100 WBC (Bld) 58.7 % 40.0 - 80.0 % [facility] Nucleated RBC/100 WBC (Bld) [Ratio] 0.0 % [facility] Platelets (Bld) [#/Vol] 441 10*3/uL [facility] RBC (Bld) [#/Vol] 4.66 10*6/uL [facility] WBC (Bld) [#/Vol] 12.1 10*3/uL High [facility] Basophils (Bld) [#/Vol] 0.07 x10*3/uL Normal 0.00-0.10 [facility] Comment on above: Performed By: #### 2 4323-8 #### JIMMY RODRIGUEZ ([id number]) [facility] ([facility]) [address] [place] [address] Basophils/100 WBC (Bld) 0.6 % Normal 0.0-2.0 [facility] Comment on above: Performed By: #### 2 4323-8 #### JIMMY RODRIGUEZ ([id number]) [facility] ([facility]) [facility] [place] [address] Eosinophils (Bld) [#/Vol] 0.40 x10*3/uL Normal 0.00-0.70 [facility] Comment on above: Performed By: #### 2 4323-8 #### JIMMY RODRIGUEZ ([id number]) [facility] ([facility]) [facility] [place] [address] Eosinophils/100 WBC (Bld) 3.3 % Normal 0.0-6.0 [facility] Comment on above: Performed By: #### 2 4323-8 #### JIMMY RODRIGUEZ ([id number]) [facility] ([facility]) [address] [place] [address]67[address] Erythrocyte distribution width (RBC) [Ratio] 12.6 % Normal 11.5-14.5 [facility] Comment on above: Performed By: #### 2 4323-8 #### JIMMY RODRIGUEZ ([id number]) [facility] ([facility]) [address] [place] [address] Hematocrit (Bld) [Volume fraction] 39.3 % Normal 36.0-46.0 [facility] Comment on above: Performed By: #### 2 432-8 #### JIMMY RODRIGUEZ ([id number]) [facility] ([facility]) [address] [place] [address] Hemoglobin (Bld) [Mass/Vol] 13.5 g/dL Normal 12.0-16.0 [facility] Comment on above: Performed By: #### 2 432-8 #### JIMMY RODRIGUEZ ([id number]) [facility] ([facility]) [address] [place] [address]56[address] Immature granulocytes (Bld) [#/Vol] 0.04 x10*3/uL Normal 0.00-0.70 [facility] Comment on above: Performed By: #### 2 4323-8 #### JIMMY RODRIGUEZ ([id number]) [facility] ([facility]) [address] [place] [address] Immature granulocytes/100 WBC (Bld) 0.3 % Normal 0.0-0.9 [facility] Comment on above: Result Comment: Lisa ture Granulocyte Count (IG) includes promyelocytes, myelocytes and metamyelocytes but does not include bands. Percent differential counts (%) should be interpreted in the context of the absolute cell counts (cells/UL). Performed By: #### 2 4323-8 #### JIMMY RODRIGUEZ ([id number]) [facility] ([facility]) [address] [place] [address] Lymphocytes (Bld) [#/Vol] 3.41 x10*3/uL Normal 1.20-4.80 [facility] Comment on above: Performed By: #### 2 4323-8 #### JIMMY RODRIGUEZ ([id number]) [facility] ([facility]) [address] [place] [address] Lymphocytes/100 WBC (Bld) 28.2 % Normal 13.0-44.0 [facility] Comment on above: Performed By: #### 2 432-8 #### JIMMY RODRIGUEZ ([id number]) [facility] ([facility]) [address] [place] [address] 96909 MCH (RBC) [Entitic mass] 29.0 pg Normal 26.0-34.0 [facility] Comment on above: Performed By: #### 2 432-8 #### JIMMY RODRIGUEZ ([id number]) [facility] ([facility]) [address] [place] [address] 29786 MCHC (RBC) [Mass/Vol] 34.4 g/dL Normal 32.0-36.0 [facility] Comment on above: Performed By: #### 2 432-8 #### JIMMY RODRIGUEZ ([id number]) [facility] ([facility]) [address] [place] [address] 33331 MCV (RBC) [Entitic vol] 84 fL Normal 80-100 [facility] Comment on above: Performed By: #### 2 4323-8 #### JIMMY RODRIGUEZ ([id number]) [facility] ([facility]) [address] [place] [address] 79723 Monocytes (Bld) [#/Vol] 1.07 x10*3/uL High 0.10-1.00 [facility] Comment on above: Performed By: #### 2 432-8 #### JIMMY RODRIGUEZ ([id number]) [facility] ([facility]) [address] [place] [address] Monocytes/100 WBC (Bld) 8.9 % Normal 2.0-10.0 [facility] Comment on above: Performed By: #### 2 4323-8 #### JIMMY RODRIGUEZ ([id number]) [facility] ([facility]) [address] [place] [address] Neutrophils (Bld) [#/Vol] 7.10 x10*3/uL Normal 1.20-7.70 [facility] Comment on above: Result Comment: Perc ent differential counts (%) should be interpreted in the context of the absolute cell counts (cells/uL). Performed By: #### 2 4323-8 #### JIMMY RODRIGUEZ ([id number]) [facility] ([facility]) [address] [place] [address] Neutrophils/100 WBC (Bld) 58.7 % Normal 40.0-80.0 [facility] Comment on above: Performed By: #### 2 4323-8 #### JIMMY RODRIGUEZ ([id number]) [facility] ([facility]) [address] [place] [address] 35023 Nucleated RBC/100 WBC (Bld) [Ratio] 0.0 /100 WBCs Normal 0.0-0.0 [facility] Comment on above: Performed By: #### 2 4323-8 #### JIMMY RODRIGUEZ ([id number]) [facility] ([facility]) [address] [place] [address] 31321 Platelets (Bld) [#/Vol] 441 x10*3/uL Normal 150-450 [facility] Comment on above: Performed By: #### 2 4323-8 #### JIMMY RODRIGUEZ ([id number]) [facility] ([facility]) [address] [place] [address] 95783 RBC (Bld) [#/Vol] 4.66 x10*6/uL Normal 4.00-5.20 [facility] Comment on above: Performed By: #### 2 4323-8 #### JIMMY RORDIGUEZ ([id number]) [facility] ([facility]) [address] [place] [address] 18845 WBC (Bld) [#/Vol] 12.1 x10*3/uL High 4.4-11.3 [facility] Comment on above: Performed By: #### 2 4323-8 #### MARQUEZ MICHAEL ([id number]) [facility] ([facility]) [address] [place] [address] CT ABDOMEN PELVIS WO IV CONT RASNelson 03-01-2025 CT ABDOMEN PELVIS WO IV CONTRAST Interpreted By: Han Ag, STUDY: CT ABDOMEN PELVIS WO IV CONTRAST; 03/01/2025 6:29 pm INDICATION: Signs/Symptoms:Left flank pain COMPARISON: None. ACCESSION NUMBER(S): [id number] ORDERING CLINICIAN: IVETTE HARDING TECHNIQUE: CT of the abdomen and pelvis was performed. Contiguous axial images were obtained at 3 mm through the abdomen and pelvis. Coronal and sagittal reconstructions at 3 mm slice thickness were performed. FINDINGS: URINARY TRACT: No hydronephrosis or hydroureter. No ureteral stones. Small nonobstructing left kidney stone. No suspicious appearing renal masses. No bladder focal wall thickening or mass. LUNG BASES: No mass, consolidation or pleural effusion. ABDOMEN: No free air. No free fluid. Gallbladder absent. Liver enlarged 24 cm, diffusely low-density. Stomach unremarkable. Noncontrast appearance of the spleen, adrenal glands, and pancreas is unremarkable. No bowel obstruction, mass, or inflammation. PELVIS: No significant pelvic free fluid. No bowel mass or inflammation. Uterus unremarkable. No adnexal mass. BONES AND VESSELS: No destructive osseous lesions or acute osseous abnormalities. No aneurysms. IMPRESSION: 1. No acute findings or obstructive uropathy. 2. Small nonobstructing left kidney stone. 3. Hepatic steatosis and mild hepatomegaly. MACRO: None Signed by: Han Ag 03/01/2025 6:51 PM Dictation workstation: [id number] [facility] CT Abdomen WO contraston 1. No acute findings or obstructive uropathy. 2. Small nonobstructing left kidney stone. 3. Hepatic steatosis and mild hepatomegaly. MACRO: None Signed by: Han Ag 03/01/2025 6:51 PM Dictation workstation: [id number] MMODAL Interpreted By: Han Ag, STUDY: CT ABDOMEN PELVIS WO IV CONTRAST; 03/01/2025 6:29 pm INDICATION: Signs/Symptoms:Left flank pain COMPARISON: None. ACCESSION NUMBER(S): [id number] ORDERING CLINICIAN: IVETTE HARDING TECHNIQUE: CT of the abdomen and pelvis was performed. Contiguous axial images were obtained at 3 mm through the abdomen and pelvis. Coronal and sagittal reconstructions at 3 mm slice thickness were performed. FINDINGS: URINARY TRACT: No hydronephrosis or hydroureter. No ureteral stones. Small nonobstructing left kidney stone. No suspicious appearing renal masses. No bladder focal wall thickening or mass. LUNG BASES: No mass, consolidation or pleural effusion. ABDOMEN: No free air. No free fluid. Gallbladder absent. Liver enlarged 24 cm, diffusely low-density. Stomach unremarkable. Noncontrast appearance of the spleen, adrenal glands, and pancreas is unremarkable. No bowel obstruction, mass, or inflammation. PELVIS: No significant pelvic free fluid. No bowel mass or inflammation. Uterus unremarkable. No adnexal mass. BONES AND VESSELS: No destructive osseous lesions or acute osseous abnormalities. No aneurysms. MMODAL Han Ag M D - 03/01/2025 Interpreted By: Han Ag, STUDY: CT ABDOMEN PELVIS WO IV CONTRAST; 03/01/2025 6:29 pm INDICATION: Signs/Symptoms:Left flank pain COMPARISON: None. ACCESSION NUMBER(S): [id number] ORDERING CLINICIAN: IVETTE HARDING TECHNIQUE: CT of the abdomen and pelvis was performed. Contiguous axial images were obtained at 3 mm through the abdomen and pelvis. Coronal and sagittal reconstructions at 3 mm slice thickness were performed. FINDINGS: URINARY TRACT: No hydronephrosis or hydroureter. No ureteral stones. Small nonobstructing left kidney stone. No suspicious appearing renal masses. No bladder focal wall thickening or mass. LUNG BASES: No mass, consolidation or pleural effusion. ABDOMEN: No free air. No free fluid. Gallbladder absent. Liver enlarged 24 cm, diffusely low-density. Stomach unremarkable. Noncontrast appearance of the spleen, adrenal glands, and pancreas is unremarkable. No bowel obstruction, mass, or inflammation. PELVIS: No significant pelvic free fluid. No bowel mass or inflammation. Uterus unremarkable. No adnexal mass. BONES AND VESSELS: No destructive osseous lesions or acute osseous abnormalities. No aneurysms. IMPRESSION: 1. No acute findings or obstructive uropathy. 2. Small nonobstructing left kidney stone. 3. Hepatic steatosis and mild hepatomegaly. MACRO: None Signed by: Han Ag 03/01/2025 6:51 PM Dictation workstation: [id number] [facility] Work Phone: Radiology Study observation (narrative) [facility] Work Phone: CT Abdomen WO contrastOrdere d By: Han Ag on 03-01-2025 [facility] Work Phone: Comprehensive metabolic 2000 panelon 03-01-2025 Albumin BCP dye [Mass/Vol] 4.8 g/dL 3.4 - 5.0 g/dL [facility] ALP [Catalytic activity/Vol] 36 U/L 33 - 110 U/L [facility] ALT With P-5'-P [Catalytic activity/Vol] 96 U/L High 7 - 45 U/L [facility] Comment on above: Patients treated wit h Sulfasalazine may generate falsely decreased results for ALT. Anion gap [Moles/Vol] 13 mmol/L 10 - 20 mmol/L [facility] AST With P-5'-P [Catalytic activity/Vol] 45 U/L High 9 - 39 U/L [facility] Bilirubin [Mass/Vol] 0.8 mg/dL 0.0 - 1 .2 mg/dL [facility] Calcium [Mass/Vol] 9.9 mg/dL 8.6 - 10. 3 mg/dL [facility] Chloride [Moles/Vol] 104 mmol/L 98 - 10 7 mmol/L [facility] CO2 [Moles/Vol] 25 mmol/L 21 - 32 mmol/L [facility] Creatinine [Mass/Vol] 0.68 mg/dL 0.50 - 1.05 mg/dL [facility] eGFR - PINF [facility] Comment on above: Calculations of mumtaz mated GFR are performed using the 2020 CKD-EPI Study Refit equation without the race variable for the IDMS-Traceable creatinine methods. https://jasn.asnjournals.org/content//ASN.03902 03898 Glucose [Mass/Vol] 86 mg/dL 74 - 99 mg/dL [facility] Interpretation and review of laboratory results Abnormal [facility] Potassium [Moles/Vol] 3.9 mmol/L 3.5 - 5.3 mmol/L [facility] Protein [Mass/Vol] 8.3 g/dL High 6.4 - 8.2 g/dL Un [facility] Sodium [Moles/Vol] 138 mmol/L 136 - 145 mmol/L [facility] Urea nitrogen [Mass/Vol] 10 mg/dL 6 - 23 mg/dL [facility] Albumin BCP dye [Mass/Vol] 4.8 g/dL Normal 3.4-5.0 [facility] Comment on above: Performed By: #### 2 4323-8 #### JIMMY RODRIGUEZ ([id number]) [facility] ([facility]) [address] [place] [address] ALP [Catalytic activity/Vol] 36 U/L Normal 33-110 [facility] Comment on above: Performed By: #### 2 4323-8 #### JIMMY RODRIGUEZ ([id number]) [facility] ([facility]) [facility] [place] [address] ALT With P-5'-P [Catalytic activity/Vol] 96 U/L High 7-45 [facility] Comment on above: Result Comment: Gabrielle ents treated with Sulfasalazine may generate falsely decreased results for ALT. Performed By: #### 2 4323-8 #### JIMMY RODRIGUEZ ([id number]) [facility] [facility] [address] [place] [address] 23154 Anion gap [Moles/Vol] 13 mmol/L Normal 10-20 [facility] Comment on above: Performed By: #### 2 4323-8 #### JIMMY RODRIGUEZ ([id number]) [facility] ([facility]) [address] [place] [address] 20880 AST With P-5'-P [Catalytic activity/Vol] 45 U/L High 9-39 [facility] Comment on above: Performed By: #### 2 4323-8 #### JIMMY RODRIGUEZ ([id number]) [facility] ([facility]) [address] [place] [address] Bilirubin [Mass/Vol] 0.8 mg/dL Normal 0.0-1.2 [facility] Comment on above: Performed By: #### 2 4323-8 #### JIMMY RODRIGUEZ ([id number]) [facility] ([facility]) [address] [place] [address] Calcium [Mass/Vol] 9.9 mg/dL Normal 8.6-10.3 [facility] Comment on above: Performed By: #### 2 4323-8 #### JIMMY RODRIGUEZ ([id number]) [facility] ([facility]) [facility] [place] [address] Chloride [Moles/Vol] 104 mmol/L Normal 98-107 [facility] Comment on above: Performed By: #### 2 4323-8 #### JIMMY RODRIGUEZ ([id number]) [facility] ([facility]) [address] [place] [address] CO2 [Moles/Vol] 25 mmol/L Normal 21-32 [facility] Comment on above: Performed By: #### 2 4323-8 #### JIMMY RODRIGUEZ ([id number]) [facility] ([facility]) [address] [place] [address] Creatinine [Mass/Vol] 0.68 mg/dL Normal 0.50-1.05 [facility] Comment on above: Performed By: #### 2 4323-8 #### JIMMY RODRIGUEZ ([id number]) [facility] ([facility]) [address] [place] [address] GFR/1.73 sq M.predicted MDRD (S/P/Bld) [Vol rate/Area] mL/min/{1.73_m2} Normal >60 [facility] Comment on above: Result Comment: Calc ulations of estimated GFR are performed using the 2020 CKD-EPI Study Refit equation without the race variable for the IDMS-Traceable creatinine methods. https://jasn.asnjournals.org/content/early//ASN.15074 73963 Performed By: #### 2 4323-8 #### JIMMY RODRIGUEZ ([id number]) [facility] ([facility]) [address] [place] [address] 71051 Glucose [Mass/Vol] 86 mg/dL Normal 74-99 [facility] Comment on above: Performed By: #### 2 4323-8 #### JIMMY RODRIGUEZ ([id number]) [facility] ([facility]) [address] [place] [address] 53025 Potassium [Moles/Vol] 3.9 mmol/L Normal 3.5-5.3 [facility] Comment on above: Performed By: #### 2 4323-8 #### JIMMY RODRIGUEZ ([id number]) [facility] ([facility]) [address] [place] [address] 00677 Protein [Mass/Vol] 8.3 g/dL High 6.4-8.2 [facility] Comment on above: Performed By: #### 2 4323-8 #### JIMMY RODRIGUEZ ([id number]) [facility] ([facility]) [address] [place] [address] 66940 Sodium [Moles/Vol] 138 mmol/L Normal 136-145 [facility] Comment on above: Performed By: #### 2 4323-8 #### JIMMY RODRIGUEZ ([id number]) [facility] ([facility]) [address] [place] [address] 81905 Urea nitrogen [Mass/Vol] 10 mg/dL Normal 6-23 [facility] Comment on above: Performed By: #### 2 4323-8 #### JIMMY RODRIGUEZ ([id number]) [facility] ([facility]) [address] [place] [address] 50966 HCG ( test) Christiano phelan Ql (U)Ordered By: Vernon Nguyen on 03-01-2025 HCG ( test) Ql (U) Negative NEGATIVE [facility] Interpretation and review of laboratory results Normal [facility] HCG ( test) [place].rapi d Ql (U)on 03-01-2025 HCG ( test) Ql (U) Negative Normal NEGATIVE [facility] Comment on above: Performed By: #### 2 4323-8 #### JIMMY RODRIGUEZ ([id number]) [facility] ([facility]) [address] [place] [address] Urinalysis complete W Reflex Culture panel (U)on 03-01-2025 Appearance (U) Clear Clear [facility] Bilirubin (U) [Mass/Vol] Negative NEGATIVE mg/dL [facility] Color (U) Light-Yellow Light-Yellow, Yellow, Dark-Yellow [facility] Glucose Auto test strip (U) [Mass/Vol] Normal Normal mg/dL [facility] Interpretation and review of laboratory results Normal [facility] Ketones (U) [Mass/Vol] Negative NEGATIVE mg/d L [facility] Leukocyte esterase Auto test strip Ql (U) Negative NEGATIVE [facility] Nitrite Auto test strip Ql (U) Negative NEGATIVE [facility] pH (U) 6.0 [pH] 5.0, 5.5, 6.0, 6.5, 7.0, 7.5, 8.0 [facility] Protein (U) [Mass/Vol] Negative NEGAT ELDER, 10 (TRACE), 20 (TRACE) mg/dL [facility] RBC (U) [#/Vol] Negative NEGATIVE mg/dL [facility] Specific gravity (U) [Rel density] 1.014 1.005 - 1.035 [facility] Urobilinogen (U) [Mass/Vol] Normal Normal mg/dL [facility] Appearance (U) Clear Normal Clear [facility] Comment on above: Performed By: #### 2 4323-8 #### JIMMY RODRIGUEZ ([id number]) [facility] ([facility]) [address] [place] [address] Bilirubin (U) [Mass/Vol] Negative Normal NEGATIVE [facility] Comment on above: Performed By: #### 2 4323-8 #### JIMMY RODRIGUEZ ([id number]) [facility] ([facility]) [address] [place] [address] 02170 Color (U) Light-Yellow Normal Light-Yellow, Yellow, Dark-Yellow [facility] Comment on above: Performed By: #### 2 432-8 #### JIMMY RODRIGUEZ ([id number]) [facility] ([facility]) [address] [place] [address] 57208 Glucose Auto test strip (U) [Mass/Vol] Normal Normal Normal [facility] Comment on above: Performed By: #### 2 4323-8 #### JIMMY RODRIGUEZ ([id number]) [facility] ([facility]) [address] [place] [address] 07284 Ketones (U) [Mass/Vol] Negative Normal NEGATIVE [facility] Comment on above: Performed By: #### 2 432-8 #### JIMMY RODRIGUEZ ([id number]) [facility] ([facility]) [address] [place] [address] 37192 Leukocyte esterase Auto test strip Ql (U) Negative Normal NEGATIVE [facility] Comment on above: Performed By: #### 2 432-8 #### JIMMY RODRIGUEZ ([id number]) [facility] ([facility]) [address] [place] [address] 78369 Nitrite Auto test strip Ql (U) Negative Normal NEGATIVE [facility] Comment on above: Performed By: #### 2 4323-8 #### JIMMY RODRIGUEZ ([id number]) [facility] ([facility]) [address] [place] [address] 71991 pH (U) 6.0 [pH] Normal 5.0, 5.5, 6.0, 6.5, 7.0, 7.5, 8.0 [facility] Comment on above: Performed By: #### 2 4323-8 #### JIMMY RODRIGUEZ ([id number]) [facility] ([facility]) [address] [place] [address] 83286 Protein (U) [Mass/Vol] Negative Normal NEGAT ELDER, 10 (TRACE), 20 (TRACE) [facility] Comment on above: Performed By: #### 2 4323-8 #### JIMMY RODRIGUEZ ([id number]) [facility] ([facility]) [address] [place] [address] RBC (U) [#/Vol] Negative Normal NEGATIVE [facility] Comment on above: Performed By: #### 2 4323-8 #### JIMMY RODRIGUEZ ([id number]) [facility] ([facility]) [address] [place] [address] Specific gravity (U) [Rel density] 1.014 Normal 1.005-1.035 [facility] Comment on above: Performed By: #### 2 4323-8 #### JIMMY RODRIGUEZ ([id number]) [facility] ([facility]) [address] [place] [address] Urobilinogen (U) [Mass/Vol] Normal Normal Normal [facility] Comment on above: Performed By: #### 2 4323-8 #### JIMMY RODRIGUEZ ([id number]) [facility] ([facility]) [address] [place] [address] US RENAL COMPLETEon 02-17-20 US RENAL COMPLETE Interpreted By: Salvatore Dias, STUDY: US RENAL COMPLETE; 02/16/2025 4:00 pm INDICATION: Signs/Symptoms:Kidney Stone. COMPARISON: CT abdomen and pelvis 08/18/2024 ACCESSION NUMBER(S): [id number] ORDERING CLINICIAN: RYAN LUTHER TECHNIQUE: Grayscale and color Doppler sonographic images of the kidneys were obtained . FINDINGS: RIGHT KIDNEY: The right kidney measures 11.7 cm in length. The renal cortical echogenicity and thickness are within normal limits. No hydronephrosis. No sonographic evidence of nephrolithiasis. LEFT KIDNEY: The left kidney measures 11.6 cm in length. The renal cortical echogenicity and thickness are within normal limits. No hydronephrosis. 7 x 7 x 3 mm upper pole calculus. BLADDER: The urinary bladder is unremarkable in appearance. Bilateral ureteral jets visualized. Prevoid volume 704 cc, postvoid volume 3 cc. IMPRESSION: 7 mm left upper pole calculus, without hydronephrosis. Signed by: Salvatore Dias 02/17/2025 1:22 PM Dictation workstation: [id number] [facility] XR ABDOMEN 1 VIEWon 02-17-20 XR ABDOMEN 1 VIEW Interpreted By: Jaqueline Lujan, STUDY: XR ABDOMEN 1 VIEW; 02/16/2025 2:42 pm INDICATION: Signs/Symptoms:Kidney Stone. ,N20.0 Calculus of kidney COMPARISON: 10/19/2016 ACCESSION NUMBER(S): [id number] ORDERING CLINICIAN: RYAN LUTHER FINDINGS: Nonobstructive bowel gas pattern. Limited evaluation of pneumoperitoneum on supine imaging, however no gross evidence of free air is noted. Visualized lungs are clear. No definite renal stones are visualized over the expected course of the bilateral kidneys or ureters or bladder. Surgical clips overlie the right upper abdominal quadrant. Osseous structures demonstrate no acute bony changes. IMPRESSION: 1. No definite nephroureteral stones are visualized. CT of the abdomen and pelvis can be considered for more sensitive characterization. MACRO: None Signed by: Jaqueline Lujan 02/17/2025 9:30 AM Dictation workstation: [id number] [facility] XR LUMBAR SPINE 2-3 VIEWSon 01-25-2025 XR LUMBAR SPINE 2-3 VIEWS Interpreted By: Peter Bhakta, STUDY: XR LUMBAR SPINE 2-3 VIEWS; ; 01/25/2025 3:45 pm INDICATION: Signs/Symptoms:pain. ,M54.50 Low back pain, unspecified COMPARISON: None. ACCESSION NUMBER(S): [id number] ORDERING CLINICIAN: ORI VIDAL FINDINGS: Lumbar spine, three views There is mild scoliosis. There is no fracture. There is no spondylolisthesis. There is no disc space narrowing or osteophytosis. The prevertebral soft tissues are within normal limits. IMPRESSION: Mild scoliosis. No acute abnormality MACRO: None Signed by: Peter Bhakta 01/26/2025 5:42 PM Dictation workstation: [id number] [facility] XR THORACIC SPINE 3 VIEWSon 01-25-2025 XR THORACIC SPINE 3 VIEWS Interpreted By: Peter Bhakta, STUDY: XR THORACIC SPINE 3 VIEWS; ; 01/25/2025 3:47 pm INDICATION: Signs/Symptoms:pain. ,M54.9 Dorsalgia, unspecified COMPARISON: None. ACCESSION NUMBER(S): [id number] ORDERING CLINICIAN: ORI VIDAL FINDINGS: Thoracic spine, three views There is mild scoliosis. There is no fracture. There is no spondylolisthesis. There is no disc space narrowing or osteophytosis. The prevertebral soft tissues are within normal limits. IMPRESSION: Mild thoracolumbar scoliosis. No other abnormality seen. MACRO: None Signed by: Peter Bhakta 01/26/2025 5:42 PM Dictation workstation: [id number] [facility] CBC (INCLUDES DIFF/PLT)on Basophils (Bld) [#/Vol] 0.047 10*3/uL Normal 0-200 [facility] Comment on above: Order Comment: FASTI NG:YES FASTING: YES Performed By: #### 9 27, 622, 03771, 00640, 6517, 7600, 6399, 66954, 866, 899 #### [facility] [address], [address] [place] [address] Lead Java J2Ee Developer: Chalo Riddle MD Basophils/100 WBC (Bld) 0.5 % Normal [facility] Comment on above: Order Comment: FASTI NG:YES FASTING: YES Performed By: #### 9 27, 622, 37901, 87311, 6517, 7600, 6399, 63188, 866, 899 #### [facility] [address], [address] [place] [address] Lead [employer] J[employer] Developer: Chalo Riddle MD Eosinophils (Bld) [#/Vol] 0.316 10*3/uL Normal 15-500 [facility] Comment on above: Order Comment: FASTI NG:YES FASTING: YES Performed By: #### 9 27, 622, 82396, 89264, 6517, 7600, 6399, 50514, 866, 899 #### [facility] [address], [address] [place] [address] Lead [employer] J[employer] Developer: Chalo Riddle MD Eosinophils/100 WBC (Bld) 3.4 % Normal [facility] Comment on above: Order Comment: FASTI NG:YES FASTING: YES Performed By: #### 9 27, 622, 36207, 78176, 6517, 7600, 6399, 48178, 866, 899 #### [facility] [place] [address] Lead [employer] J2[employer] Developer: Chalo Riddle MD Erythrocyte distribution width (RBC) [Ratio] 12.3 % Normal 11.0-15.0 [facility] Comment on above: Order Comment: FASTI NG:YES FASTING: YES Performed By: #### 9 27, 622, 82455, 39201, 6517, 7600, 6399, 64215, 866, 899 #### [facility] [place] [address] Lead [employer] J[employer] Developer: Cahlo Riddle MD Hematocrit (Bld) [Volume fraction] 41.5 % Normal 35.0-45.0 [facility] Comment on above: Order Comment: FASTI NG:YES FASTING: YES Performed By: #### 9 27, 622, 56910, 71128, 6517, 7600, 6399, 23669, 866, 899 #### [facility] [place] [address] Lead [employer] J[employer] Developer: Chalo Riddle MD Hemoglobin (Bld) [Mass/Vol] 13.4 g/dL Normal 11.7-15.5 [facility] Comment on above: Order Comment: FASTI NG:YES FASTING: YES Performed By: #### 9 27, 622, 66992, 43597, 6517, 7600, 6399, 83082, 866, 899 #### [facility] [place] [address] Lead [employer] J[employer] Developer: Chalo Riddle MD Lymphocytes (Bld) [#/Vol] 2.446 10*3/uL Normal 850-3900 [facility] Comment on above: Order Comment: FASTI NG:YES FASTING: YES Performed By: #### 9 27, 622, 23483, 98798, 6517, 7600, 6399, 58115, 866, 899 #### [facility] [address], [address] [place] [address] Lead Java J2E[employer] Developer: Chalo Riddle MD Lymphocytes/100 WBC (Bld) 26.3 % Normal [facility] Comment on above: Order Comment: FASTI NG:YES FASTING: YES Performed By: #### 9 27, 622, 75323, 66066, 6517, 7600, 6399, 76192, 866, 899 #### [facility] [address], [address] [place] [address] Lead [employer] J[employer] Developer: Chalo Riddle MD MCH (RBC) [Entitic mass] 28.7 pg Normal 27.0-33.0 [facility] Comment on above: Order Comment: FASTI NG:YES FASTING: YES Performed By: #### 9 27, 622, 72565, 98584, 6517, 7600, 6399, 56506, 866, 899 #### [facility] [address], [address] [place] [address] Lead [employer] J[employer] Developer: Chalo Riddle MD MCHC (RBC) [Mass/Vol] 32.3 g/dL Normal 32.0-36.[address] [facility] Comment on above: Order Comment: FASTI NG:YES FASTING: YES Result Comment: For adults, a slight decrease in the calculated MCHC value (in the range of 30 to 32 g/dL) is most likely not clinically significant; however, it should be interpreted with caution in correlation with other red cell parameters and the patient's clinical condition. Performed By: #### 9 27, 622, 54566, 50432, 6517, 7600, 6399, 26897, 866, 899 #### [facility] [address], [address] [place] [address] Lead [employer] J[employer] Developer: Chalo Riddle MD MCV (RBC) [Entitic vol] 88.9 fL Normal 80.0-100.0 [facility] Comment on above: Order Comment: FASTI NG:YES FASTING: YES Performed By: #### 9 27, 622, 10906, 79699, 6517, 7600, 6399, 04587, 866, 899 #### [facility] [address], [address] [place] [address] Lead [employer] J[employer] Developer: Chalo Riddle MD Monocytes (Bld) [#/Vol] 0.679 10*3/uL Normal 200-950 [facility] Comment on above: Order Comment: FASTI NG:YES FASTING: YES Performed By: #### 9 27, 622, 80271, 84703, 6517, 7600, 6399, 75608, 866, 899 #### [facility] [address], [address] [place] [address] Lead [employer] J[employer] Developer: Chalo Riddle MD Monocytes/100 WBC (Bld) 7.3 % Normal [facility] Comment on above: Order Comment: FASTI NG:YES FASTING: YES Performed By: #### 9 27, 622, 03408, 69429, 6517, 7600, 6399, 88401, 866, 899 #### [facility] [place] [address] Lead [employer] J[employer] Developer: Chalo Riddle MD Neutrophils (Bld) [#/Vol] 5.813 10*3/uL Normal 9458-2024 [facility] Comment on above: Order Comment: FASTI NG:YES FASTING: YES Performed By: #### 9 27, 622, 95843, 27707, 6517, 7600, 6399, 35493, 866, 899 #### [facility] [address], [address] [place] [address] Lead [employer] J[employer] Developer: Chalo Riddle MD Neutrophils/100 WBC (Bld) 62.5 % Normal [facility] Comment on above: Order Comment: FASTI NG:YES FASTING: YES Performed By: #### 9 27, 622, 22258, 53899, 6517, 7600, 6399, 50316, 866, 899 #### [facility] [address], [address] [place] [address] Lead [employer] J[employer] Developer: Chalo Riddle MD Platelet mean volume (Bld) [Entitic vol] 9.9 fL Normal 7.5-12.5 [facility] Comment on above: Order Comment: FASTI NG:YES FASTING: YES Performed By: #### 9 27, 622, 84481, 01350, 6517, 7600, 6399, 09223, 866, 899 #### [facility] [place] [address] Lead [employer] J[employer] Developer: Chalo Riddle MD Platelets (Bld) [#/Vol] 449 10*3/uL High 140-400 [facility] Comment on above: Order Comment: FASTI NG:YES FASTING: YES Performed By: #### 9 27, 622, 09532, 89094, 6517, 7600, 6399, 28068, 866, 899 #### [facility] [place] [address] Lead [employer] J2[employer] Developer: Chalo Riddle MD RBC (Bld) [#/Vol] 4.67 10*6/uL Normal 3.80-5.10 [facility] Comment on above: Order Comment: FASTI NG:YES FASTING: YES Performed By: #### 9 27, 622, 86217, 99496, 6517, 7600, 6399, 70844, 866, 899 #### [facility] [place] [address] Lead [employer] J[employer] Developer: Chalo Riddle MD WBC (Bld) [#/Vol] 9.3 10*3/uL Normal 3.8-10.8 [facility] Comment on above: Order Comment: FASTI NG:YES FASTING: YES Performed By: #### 9 27, 622, 66722, 85688, 6517, 7600, 6399, 01649, 866, 899 #### [facility] [place] [address] Lead [employer] J2E[employer] Developer: Chalo Riddle MD HEMOGLOBIN A1c WITH eAGon eAG (mmol/L) 6.5 mmol/L Normal [facility] Comment on above: Performed By: #### 1 6802 #### [facility] [place] [address] Lead [employer] J2[employer] Developer: Chalo Riddle MD HbA1c (Bld) [Mass fraction] 5.7 % High <5.7 [facility] Comment on above: Result Comment: For someone without known diabetes, a hemoglobin A1c value between 5.7% and 6.4% is consistent with prediabetes and should be confirmed with a follow-up test. For someone with known diabetes, a value <7% indicates that their diabetes is well controlled. A1c targets should be individualized based on duration of diabetes, age, comorbid conditions, and other considerations. This assay result is consistent with an increased risk of diabetes. Currently, no consensus exists regarding use of hemoglobin A1c for diagnosis of diabetes for children. Performed By: #### 1 6802 #### [facility] [place] [address] Lead Java J2E[employer] Developer: Chalo Riddle MD Magnesium [Mass/Vol] 117 mg/dL Normal [facility] Comment on above: Performed By: #### 1 6802 #### [facility] [place] [address] Lead Java J2E[employer] Developer: Chalo Riddle MD CBC (INCLUDES DIFF/PLT)on Basophils (Bld) [#/Vol] 0.053 10*3/uL Normal 0-200 [facility] Comment on above: Performed By: #### 9 27, 622, 90556, 41165, 6517, 7600, 6399, 07444, 866, 899 #### [facility] [place] [address] Lead [employer] J2E[employer] Developer: Chalo Riddle MD Basophils/100 WBC (Bld) 0.5 % Normal [facility] Comment on above: Performed By: #### 9 27, 622, 31720, 80593, 6517, 7600, 6399, 00299, 866, 899 #### [facility] [place] [address] Lead [employer] J[employer] Developer: Chalo Riddle MD Eosinophils (Bld) [#/Vol] 0.223 10*3/uL Normal 15-500 [facility] Comment on above: Performed By: #### 9 27, 622, 69492, 37381, 6517, 7600, 6399, 45539, 866, 899 #### [facility] [place] [address] Lead Java J2E[employer] Developer: Chalo Riddle MD Eosinophils/100 WBC (Bld) 2.1 % Normal [facility] Comment on above: Performed By: #### 9 27, 622, 86265, 93783, 6517, 7600, 6399, 30059, 866, 899 #### [facility] [place] [address] Lead Java J2[employer] Developer: Chalo Riddle MD Erythrocyte distribution width (RBC) [Ratio] 12.7 % Normal 11.0-15.0 [facility] Comment on above: Performed By: #### 9 27, 622, 11271, 90548, 6517, 7600, 6399, 67146, 866, 899 #### [facility] [place] [address] Lead [employer] J2[employer] Developer: Chalo Riddle MD Hematocrit (Bld) [Volume fraction] 42.8 % Normal 35.0-45.0 [facility] Comment on above: Performed By: #### 9 27, 622, 67064, 76314, 6517, 7600, 6399, 23484, 866, 899 #### [facility] [place] [address] Lead [employer] J[employer] Developer: Chalo Riddle MD Hemoglobin (Bld) [Mass/Vol] 14.0 g/dL Normal 11.7-15.5 [facility] Comment on above: Performed By: #### 9 27, 622, 74051, 77002, 6517, 7600, 6399, 55496, 866, 899 #### [facility] [place] [address] Lead Java J2[employer] Developer: Chalo Riddle MD Lymphocytes (Bld) [#/Vol] 3.053 10*3/uL Normal 850-3900 [facility] Comment on above: Performed By: #### 9 27, 622, 15659, 18928, 6517, 7600, 6399, 94186, 866, 899 #### [facility] [place] [address] Lead Java J2E[employer] Developer: Chalo Riddle MD Lymphocytes/100 WBC (Bld) 28.8 % Normal [facility] Comment on above: Performed By: #### 9 27, 622, 94566, 43878, 6517, 7600, 6399, 89525, 866, 899 #### [facility] [place] [address] Lead [employer] J[employer] Developer: Chalo Riddle MD MCH (RBC) [Entitic mass] 29.4 pg Normal 27.0-33.0 [facility] Comment on above: Performed By: #### 9 27, 622, 29581, 40481, 6517, 7600, 6399, 51000, 866, 899 #### [facility] [place] [address] Lead [employer] J[employer] Developer: Chalo Riddle MD MCHC (RBC) [Mass/Vol] 32.7 g/dL Normal 32.0-36.[address] [facility] Comment on above: Result Comment: For adults, a slight decrease in the calculated MCHC value (in the range of 30 to 32 g/dL) is most likely not clinically significant; however, it should be interpreted with caution in correlation with other red cell parameters and the patient's clinical condition. Performed By: #### 9 27, 622, 55140, 53112, 6517, 7600, 6399, 83357, 866, 899 #### [facility] [place] [address] Lead [employer] J[employer] Developer: Chalo Riddle MD MCV (RBC) [Entitic vol] 89.9 fL Normal 80.0-100.0 [facility] Comment on above: Performed By: #### 9 27, 622, 48829, 97552, 6517, 7600, 6399, 72848, 866, 899 #### [facility] [place] [address] Lead Java J[employer] Developer: Chalo Riddle MD Monocytes (Bld) [#/Vol] 0.806 10*3/uL Normal 200-950 [facility] Comment on above: Performed By: #### 9 27, 622, 67277, 71090, 6517, 7600, 6399, 06720, 866, 899 #### [facility] [place] [address] Lead Java J[employer] Developer: Chalo Riddle MD Monocytes/100 WBC (Bld) 7.6 % Normal [facility] Comment on above: Performed By: #### 9 27, 622, 24109, 36110, 6517, 7600, 6399, 94700, 866, 899 #### [facility] [place] [address] Lead [employer] J[employer] Developer: Chalo Riddle MD Neutrophils (Bld) [#/Vol] 6.466 10*3/uL Normal 4608-0024 [facility] Comment on above: Performed By: #### 9 27, 622, 78973, 24950, 6517, 7600, 6399, 59977, 866, 899 #### [facility] [place] [address] Lead [employer] J[employer] Developer: Chalo Riddle MD Neutrophils/100 WBC (Bld) 61 % Normal [facility] Comment on above: Performed By: #### 9 27, 622, 08515, 82960, 6517, 7600, 6399, 32000, 866, 899 #### [facility] [place] [address] Lead [employer] J[employer] Developer: Chalo Riddle MD Platelet mean volume (Bld) [Entitic vol] 10.1 fL Normal 7.5-12.5 [facility] Comment on above: Performed By: #### 9 27, 622, 26619, 33260, 6517, 7600, 6399, 81390, 866, 899 #### [facility] [place] [address] Lead Java J2Ee Developer: Chalo Riddle MD Platelets (Bld) [#/Vol] 503 10*3/uL High 140-400 [facility] Comment on above: Performed By: #### 9 27, 622, 64698, 09521, 6517, 7600, 6399, 96272, 866, 899 #### [facility] [place] [address] Lead Java J2Ee Developer: Chalo Riddle MD RBC (Bld) [#/Vol] 4.76 10*6/uL Normal 3.80-5.10 [facility] Comment on above: Performed By: #### 9 27, 622, 74688, 51300, 6517, 7600, 6399, 43143, 866, 899 #### [facility] [place] [address] Lead Java J2Ee Developer: Chalo Riddle MD WBC (Bld) [#/Vol] 10.6 10*3/uL Normal 3.8-10.8 [facility] Comment on above: Performed By: #### 9 27, 622, 31718, 69640, 6517, 7600, 6399, 01967, 866, 899 #### [facility] [place] [address] Lead Java J2Ee Developer: Chalo Riddle MD COMPREHENSIVE METABOLIC PANE L W/ANION GAPon 10-05-2024 Albumin [Mass/Vol] 4.9 g/dL Normal 3.6-5.1 [facility] Comment on above: Performed By: #### 9 27, 622, 96475, 40152, 6517, 7600, 6399, 41130, 866, 899 #### [facility] [place] [address] Lead Java J2Ee Developer: Chalo Riddle MD ALP [Catalytic activity/Vol] 31 U/L Normal 31-125 [facility] Comment on above: Performed By: #### 9 27, 622, 84516, 76210, 6517, 7600, 6399, 23299, 866, 899 #### [facility] [place] [address] Lead Java J2Ee Developer: Chalo Riddle MD ALT [Catalytic activity/Vol] 49 U/L High 6-29 [facility] Comment on above: Performed By: #### 9 27, 622, 84875, 87625, 6517, 7600, 6399, 18597, 866, 899 #### [facility] [place] [address] Lead Java J2Ee Developer: Chalo Riddle MD AST [Catalytic activity/Vol] 28 U/L Normal 10-30 [facility] Comment on above: Performed By: #### 9 27, 622, 14873, 29314, 6517, 7600, 6399, 04980, 866, 899 #### [facility] [place] [address] Lead Java J2Ee Developer: Chalo Riddle MD Bilirubin [Mass/Vol] 0.7 mg/dL Normal 0.2-1.2 [facility] Comment on above: Performed By: #### 9 27, 622, 13272, 66116, 6517, 7600, 6399, 64298, 866, 899 #### [facility] [place] [address] Lead Java J2Ee Developer: Chalo Riddle MD Calcium [Mass/Vol] 9.8 mg/dL Normal 8.6-10.2 [facility] Comment on above: Performed By: #### 9 27, 622, 13491, 69733, 6517, 7600, 6399, 26483, 866, 899 #### [facility] [place] [address] Lead Java J2Ee Developer: Chalo Riddle MD Chloride [Moles/Vol] 104 mmol/L Normal 98-110 [facility] Comment on above: Performed By: #### 9 27, 622, 45224, 11451, 6517, 7600, 6399, 10612, 866, 899 #### [facility] [address], [address] [place] [address] Lead Java J2Ee Developer: Chalo Riddle MD CO2 [Moles/Vol] 26 mmol/L Normal 20-32 [facility] Comment on above: Performed By: #### 9 27, 622, 16778, 22319, 6517, 7600, 6399, 93900, 866, 899 #### [facility] [place] [address] Lead Java J2Ee Developer: Chalo Riddle MD Creatinine [Mass/Vol] 0.68 mg/dL Normal 0.50-0.96 [facility] Comment on above: Performed By: #### 9 27, 622, 95141, 57701, 6517, 7600, 6399, 99666, 866, 899 #### [facility] [place] [address] Lead Java J2Ee Developer: Chalo Riddle MD ELECTROLYTE BALANCE 9 mmol/L (calc) Normal 7-17 [facility] Comment on above: Performed By: #### 9 27, 622, 12884, 43169, 6517, 7600, 6399, 01087, 866, 899 #### [facility] [place] [address] Lead Java J2Ee Developer: Chalo Riddle MD GFR/1.73 sq M.predicted among non-blacks MDRD (S/P/Bld) [Vol rate/Area] 127 mL/min/{1.73_m2} Normal > OR = 60 [facility] Comment on above: Performed By: #### 9 27, 622, 21039, 06757, 6517, 7600, 6399, 46993, 866, 899 #### [facility] [place] [address] Lead Java J2Ee Developer: Chalo Riddle MD Glucose [Mass/Vol] 94 mg/dL Normal 65-99 [facility] Comment on above: Result Comment: Fasting reference interval Performed By: #### 9 27, 622, 32239, 37954, 6517, 7600, 6399, 33834, 866, 899 #### [facility] [address], [address] [place] [address] Lead Java J2Ee Developer: Chalo Riddle MD Potassium [Moles/Vol] 4.3 mmol/L Normal 3.5-5.3 [facility] Comment on above: Performed By: #### 9 27, 622, 86206, 26874, 6517, 7600, 6399, 49010, 866, 899 #### [facility] [address], [address] [place] [address] Lead Java J2Ee Developer: Chalo Riddle MD Protein [Mass/Vol] 8.0 g/dL Normal 6.1-8.1 [facility] Comment on above: Performed By: #### 9 27, 622, 85992, 81711, 6517, 7600, 6399, 97664, 866, 899 #### [facility] [address], [address] [place] [address] Lead Java J2Ee Developer: Chalo Riddle MD Sodium [Moles/Vol] 139 mmol/L Normal 135-146 [facility] Comment on above: Performed By: #### 9 27, 622, 29881, 40579, 6517, 7600, 6399, 07822, 866, 899 #### [facility] [address], [address] [place] [address] Lead Java J2Ee Developer: Chalo Riddle MD Urea nitrogen [Mass/Vol] 11 mg/dL Normal 7-25 [facility] Comment on above: Performed By: #### 9 27, 622, 95377, 26888, 6517, 7600, 6399, 50746, 866, 899 #### [facility] [address], [address] [place] [address] Lead Java J2Ee Developer: Chalo Riddle MD HEMOGLOBIN A1c WITH eAGon eAG (mmol/L) 6.2 mmol/L Normal [facility] Comment on above: Performed By: #### 9 27, 622, 90182, 33241, 6517, 7600, 6399, 06464, 866, 899 #### [facility] [place] [address] Lead Java J2Ee Developer: Chalo Riddle MD HEMOGLOBIN A1c 5.5 % of total Hgb Normal <5.7 [facility] Comment on above: Result Comment: For the purpose of screening for the presence of diabetes: <5.7% Consistent with the absence of diabetes 5.7-6.4% Consistent with increased risk for diabetes (prediabetes) > or =6.5% Consistent with diabetes This assay result is consistent with a decreased risk of diabetes. Currently, no consensus exists regarding use of hemoglobin A1c for diagnosis of diabetes in children. According to [place] Diabetes [employer] (ADA) guidelines, hemoglobin A1c <7.0% represents optimal control in non- diabetic patients. Different metrics may apply to specific patient populations. Standards of Medical Care in Diabetes(ADA). Performed By: #### 9 27, 622, 79866, 87159, 6517, 7600, 6399, 04054, 866, 899 #### [facility] [place] [address] Lead Java J2Ee Developer: Chalo Riddle MD Magnesium [Mass/Vol] 111 mg/dL Normal [facility] Comment on above: Performed By: #### 9 27, 622, 88539, 07493, 6517, 7600, 6399, 96200, 866, 899 #### [place] [address] Lead Java J2Ee Developer: Chalo Riddle MD MAGNESIUMon 10-05-2024 Magnesium [Mass/Vol] 1.8 mg/dL Normal 1.5-2.5 [facility] Comment on above: Performed By: #### 9 27, 622, 06652, 82079, 6517, 7600, 6399, 75194, 866, 899 #### [facility] [address], [address] [place] [address] Lead Java J2Ee Developer: Chalo Riddle MD VITAMIN B12on 10-05-2024 Cobalamin (Vitamin B12) [Mass/Vol] 557 pg/mL Normal 200-1100 [facility] Comment on above: Performed By: #### 9 27, 622, 51703, 61762, 6517, 7600, 6399, 20058, 866, 899 #### [facility] [address], [address] [place], [place] [address] Lead Java J2Ee Developer: Chalo Riddle MD VITAMIN D,25-OH,TOTAL,IAon 0 10-05-2024 VITAMIN D,25-OH,TOTAL,IA 43 ng/mL Normal 30-100 [facility] Comment on above: Result Comment: Felicita min D Status 25-OH Vitamin D: Deficiency: <20 ng/mL Insufficiency: 20 - 29 ng/mL Optimal: > or = 30 ng/mL For 25-OH Vitamin D testing on patients on D2-supplementation and patients for whom quantitation of D2 and D3 fractions is required, the QuestAssureD(TM) 25-OH VIT D, (D2,D3), LC/MS/MS is recommended: order code 36628 (patients >2yrs). See Note 1 Note 1 For additional information, please refer to http://education.Racktivity.OrthoSensor/faq/AEJ244 (This link is being provided for informational/ educational purposes only.) Performed By: #### 9 27, 622, 65256, 62307, 6517, 7600, 6399, 81026, 866, 899 #### [facility] [address] [place] [address] Lead Java J2Ee Developer: Chalo Riddle MD Chlamydia/GC MEREDITH aptimaon CHLAMY,NUC ACID Negative Normal Negative [facility] Comment on above: Performed By: #### L 900.0111, L3300.1500, L100.0100, L3100.9000, L509.3001, L506.0400, L500.4050, L3100.5400, L501.9520, L3300.1750 #### [facility] [address] [place], [place], [id number] GC BY NUC ACID Negative Normal Negative [facility] Comment on above: Result Comment: Perf ormed at: =G - [facility] [address] [place] [id number] Marriage Therapist: Ariana Chery MD, Phone: [phone] Performed By: #### L 900.0111, L3300.1500, L100.0100, L3100.9000, L509.3001, L506.0400, L500.4050, L3100.5400, L501.9520, L3300.1750 #### [facility] [address] [place], [place], [id number] Genital Culture Comprehensiv seven 09-23-2024 [facility] Reason for Exam: vaginal discharge Normal vaginal mariela isolated. No yeast, Gardnerella, Neisseria or beta-hemolytic Streptococcus isolated. 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 [place], [place], [id number] Gram Stainon 09-21-2024 Reason for Exam: vaginal discharge Gram Stain Rare Epithelial cells 2+ Gram positive rods 1+ Gram positive cocci Score =2 Interpretation: 0-3 Normal, 4-6 Intermediate, 7-10 Positive BV Normal [facility] Comment on above: Performed By: #### L 900.0111, L3300.1500, L100.0100, L3100.9000, L509.3001, L506.0400, L500.4050, L3100.5400, L501.9520, L3300.1750 #### [facility] [address] 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 Is patient in pain?: No Allergies No Known Allergies Allergy (Verified 09/21/24 15:54) Medications ???Medication ???Instructions ???Recorded ???Confirmed ???Type ergocalciferol (vitamin D2) 1,250 1,250 mcg PO QWEEK 05/12/2409/21 History mcg (50,000 unit) capsule (Vitamin D2) lisinopril 10 mg tablet 10 mg PO QDAY 05/12/24 09/21/24 Hi story mecobalamin (vitamin B12) 2,500 mcg PO 05/12/24 09/21/24 History mcg chewable tablet omeprazole 20 mg capsule,delayed 20 mg PO QDAY 05/12/24 09/21/24 Hi story release semaglutide 0.25 mg or 0.5 mg (2 0.5 mg subcut QWEEK 05/12/2409/21 History mg/1.5 mL) subcutaneous pen injector (Ozempic) Is last menstrual period known: Yes Last Menstrual Period: 06/29/24 Post menopausal: No Patient : No : No PFSH Medical History (Updated 09/21/24 @ 17:00 by SARAN Duggan) Diabetes Surgical History (Updated 09/21/24 @ 16:02 by Mima Deleon) Hx of cholecystectomy Family History Grandfather CVA (cerebral vascular accident) Social History adopted: No household members: significant other number of children: 0 current occupational status: employed current occupation: [employer] current occupational exposures/hazards: No pets and animals: No sexually active: Yes Smoking Status: Never smoker alcohol intake: current alcohol intake frequency: holidays/special occasions only substance use type: does not use caffeine: No what type of physical activity do you participate in: walking khushboo/synagogue: AGNOSTIC seatbelt use: always do you feel safe at home: Yes HPI 12 week follow up cycles Details: GREGORY LACY is a 19 year old who presents for painful intercourse; she reports there is pain with insertion as well as penetration--she reports this has been going on for a couple months. She denies odor, discharge, fever, chills. Denies concerns for STI's She recently had cholecystectomy 2 weeks ago as well. She reports her menses continue to be irregular; she will go greater than 60 days at a time without a menses-her last menses was in June after provera challenge--interested in treatment for this. Female Reproductive History Last Menstrual Period: 06/29/24 History 0 Elective abortions Hx Para 0 Spontaneous abortions Hx # Term Pregnancies Ectopic pregnancies Hx # Pregnancies Multiple births # of living children 0 ROS Const Constitutional: Denies body ache, fatigue or fever(s) GI GI: Denies constipation, cramping or nausea : Reports as per HPI and sexual dysfunction (painful); Denies pelvic pain, vaginal discharge, vaginal dryness, vaginal odor or vaginal pruritus Exam Const General: cooperative, healthy appearing, comfortable, no acute distress, well groomed and well hydrated Nutritional Appearance: well nourished Orientation: alert, awake and oriented x3 Resp Effort Inspection: normal respiratory effort, able to speak in complete sentences and symmetric chest movement General: bladder normal to palpation External Female Exam: normal external appearance and normal appearance of the urethra Urethra: normal appearance of the urethra Speculum Exam - Vagina: normal appearance of the vagina, normal vaginal discharge, no lesions, nontender and other (de dios discharge) Speculum Exam - Cervix: normal appearance of the cervix, no lesions and no masses Bimanual Exam- Vagina Uterus: normal bimanual exam, uterine size normal, bladder normal to palpation, normal palpation and non-tender Bimanual Exam- Adnexa, other: normal adnexae, no masses, normal and non-tender Pelvic Support: normal Skin General: no rashes or lesions noted Neuro General: patient alert, patient awake, patient oriented x3 and moves all extremities Psych Appearance: grossly normal Mental Status: mental status grossly normal Affect: normal affect Speech and Movement: speech and movement normal Attitude: cooperative Coding Level of Care Code Established Pt Off vis,est,level 3 Patient Type Established Diagnoses Amenorrhea N91.2 PCOS (polycystic ovarian syndrome) E28.2 Leva (more content not included)... Normal [facility] Glucose Test strip manual (B ld) [Mass/Vol]on 09-07-2024 Glucose [Mass/Vol] 100 mg/dL High 74 - 99 mg/dL [facility] Interpretation and review of laboratory results Abnormal [facility] Glucose [Mass/Vol] 100 mg/dL High 74-99 [facility] Comment on above: Performed By: #### 2 341-6 #### JIMMY RODRIGUEZ ([id number]) [facility] ([facility]) [facility] [place] [address] HCG ( test) IA.rapi d Ql (U)Ordered By: Doris Sutton on 09-07-2024 HCG ( test) Ql (U) Negative NEGATIVE [facility] Interpretation and review of laboratory results Normal [facility] HCG ( test) IA.rapi d Ql (U)on 09-07-2024 HCG ( test) Ql (U) Negative Normal NEGATIVE [facility] Comment on above: Performed By: #### 8 0384-1 #### JIMMY RODRIGUEZ ([id number]) [facility] ([facility]) [address] [place] [address] Surgical pathology studyon 0 09-07-2024 Surgical pathology study Pathology report.total SEE COMMENT Surgical Pathology Case: [id number] Authorizing Provider: Mitchell Telles MD Collected: 09/07/2024 0930 Ordering Location: [facility] Received: 09/07/2024 1620 Center OR Pathologist: Leela Johnson MD PhD Specimen: GALLBLADDER CHOLECYSTECTOMY, gallbladder Path report.final diagnosis SEE COMMENT A. Gallbladder, cholecystectomy: -Cholelithiasis. Laboratory comment By the signature on this report, the individual or group listed as making the Final Interpretation/Diagnos is certifies that they have reviewed this case. Path report.relevant Hx SEE COMMENT Pre-op diagnosis: Calculus of gallbladder without cholecystitis without obstruction [K80.20] Path report.gross observation SEE COMMENT A: Received in formalin, labeled with the patient's name and hospital number and gallbladder, is an intact gallbladder, opened for fixation, measuring 5.8 x 3.9 x 2.6 cm. The serosal surface is green, smooth and glistening. There are no transmural defects grossly identified. The hepatic surface is inked black. The wall measures up to 0.2 cm in greatest thickness. The lumen contains green bile. Calculi are present and are brown-black, roughened, ovoid and range from 0.3 cm to 0.9 cm in greatest dimension with brown crystalline cut surfaces. The mucosal surface is bile-stained and velvety. 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 [facility] Comment on above: Order Comment: Pre-o p diagnosis: Calculus of gallbladder without cholecystitis without obstruction [K80.20] CBC W Auto Differential pane l (Bld)on 08-18-2024 Basophils (Bld) [#/Vol] 0.05 x10*3/uL Normal 0.00-0.10 [facility] Comment on above: Performed By: #### 5 7021-8 #### JIMMY RODRIGUEZ ([id number]) [facility] ([facility]) [address] [place] [address] Basophils/100 WBC (Bld) 0.5 % Normal 0.0-2.0 [facility] Comment on above: Performed By: #### 5 7021-8 #### JIMMY RODRIGUEZ ([id number]) [facility] ([facility]) [address] [place] [address]167 Eosinophils (Bld) [#/Vol] 0.31 x10*3/uL Normal 0.00-0.70 [facility] Comment on above: Performed By: #### 5 7021-8 #### JIMMY RODRIGUEZ ([id number]) [facility] ([facility]) [address] [place] [address] 22482 Eosinophils/100 WBC (Bld) 3.0 % Normal 0.0-6.0 [facility] Comment on above: Performed By: #### 5 7021-8 #### JIMMY RODRIGUEZ ([id number]) [facility] ([facility]) [address] [place] [address] 63513 Erythrocyte distribution width (RBC) [Ratio] 12.2 % Normal 11.5-14.5 [facility] Comment on above: Performed By: #### 5 7021-8 #### JIMMY RODRIGUEZ ([id number]) [facility] ([facility]) [address] [place] [address] 77149 Hematocrit (Bld) [Volume fraction] 41.0 % Normal 36.0-46.0 [facility] Comment on above: Performed By: #### 5 7021-8 #### JIMMY RODRIGUEZ ([id number]) [facility] ([facility]) [address] [place] [address] 01985 Hemoglobin (Bld) [Mass/Vol] 13.9 g/dL Normal 12.0-16.0 [facility] Comment on above: Performed By: #### 5 7021-8 #### JIMMY RODRIGUEZ ([id number]) [facility] ([facility]) [address] [place] [address] 14152 Immature granulocytes (Bld) [#/Vol] 0.02 x10*3/uL Normal 0.00-0.70 [facility] Comment on above: Performed By: #### 5 7021-8 #### JIMMY RODRIGUEZ ([id number]) [facility] ([facility]) [address] [place] [address] 17676 Immature granulocytes/100 WBC (Bld) 0.2 % Normal 0.0-0.9 [facility] Comment on above: Result Comment: Lisa ture Granulocyte Count (IG) includes promyelocytes, myelocytes and metamyelocytes but does not include bands. Percent differential counts (%) should be interpreted in the context of the absolute cell counts (cells/UL). Performed By: #### 5 7021-8 #### JIMMY RODRIGUEZ ([id number]) [facility] ([facility]) [address] [place] [address] Lymphocytes (Bld) [#/Vol] 2.94 x10*3/uL Normal 1.20-4.80 [facility] Comment on above: Performed By: #### 5 7021-8 #### JIMMY RODRIGUEZ ([id number]) [facility] ([facility]) [address] [place], [place] [address] Lymphocytes/100 WBC (Bld) 28.4 % Normal 13.0-44.0 [facility] Comment on above: Performed By: #### 5 7021-8 #### JIMMY RODRIGUEZ ([id number]) [facility] ([facility]) [address] [place] [address] 68148 MCH (RBC) [Entitic mass] 29.6 pg Normal 26.0-34.0 [facility] Comment on above: Performed By: #### 5 7021-8 #### JIMMY RODRIGUEZ ([id number]) [facility] ([facility]) [address] [place] [address] 78776 MCHC (RBC) [Mass/Vol] 33.9 g/dL Normal 32.0-36.0 [facility] Comment on above: Performed By: #### 5 7021-8 #### JIMMY RODRIGUEZ ([id number]) [facility] ([facility]) [address] [place] [address] 69097 MCV (RBC) [Entitic vol] 87 fL Normal 80-100 [facility] Comment on above: Performed By: #### 5 7021-8 #### JIMMY RODRIGUEZ ([id number]) [facility] ([facility]) [address] [place] [address] 56137 Monocytes (Bld) [#/Vol] 0.75 x10*3/uL Normal 0.10-1.00 [facility] Comment on above: Performed By: #### 5 7021-8 #### JIMMY RODRIGUEZ ([id number]) [facility] ([facility]) [address] [place] [address] 04578 Monocytes/100 WBC (Bld) 7.2 % Normal 2.0-10.0 [facility] Comment on above: Performed By: #### 5 7021-8 #### JIMMY RODRIGUEZ ([id number]) [facility] ([facility]) [address] [place] [address] 00507 Neutrophils (Bld) [#/Vol] 6.28 x10*3/uL Normal 1.20-7.70 [facility] Comment on above: Result Comment: Perc ent differential counts (%) should be interpreted in the context of the absolute cell counts (cells/uL). Performed By: #### 5 7021-8 #### JIMMY RODRIGUEZ ([id number]) [facility] ([facility]) [address] [place] [address] 23523 Neutrophils/100 WBC (Bld) 60.7 % Normal 40.0-80.0 [facility] Comment on above: Performed By: #### 5 7021-8 #### JIMMY RODRIGUEZ ([id number]) [facility] ([facility]) [address] [place] [address] 02991 Nucleated RBC/100 WBC (Bld) [Ratio] 0.0 /100 WBCs Normal 0.0-0.0 [facility] Comment on above: Performed By: #### 5 7021-8 #### JIMMY RODRIGUEZ ([id number]) [facility] ([facility]) [address] [place] [address] 67444 Platelets (Bld) [#/Vol] 452 x10*3/uL High 150-450 [facility] Comment on above: Performed By: #### 5 7021-8 #### JIMMY RODRIGUEZ ([id number]) [facility] ([facility]) [address] [place] [address] 17415 RBC (Bld) [#/Vol] 4.70 x10*6/uL Normal 4.00-5.20 [facility] Comment on above: Performed By: #### 5 7021-8 #### JIMMY SUNGA ([id number]) [facility] ([facility]) [facility] [place] [address] WBC (Bld) [#/Vol] 10.4 x10*3/uL Normal 4.4-11.3 [facility] Comment on above: Performed By: #### 5 7021-8 #### JIMMY MICHAEL ([id number]) [facility] ([facility]) [address] [place] [address] CT ABDOMEN PELVIS WO IV CONT [facility] 08-18-2024 CT ABDOMEN PELVIS WO IV CONTRAST Interpreted By: Urban Ewing, STUDY: CT ABDOMEN PELVIS WO IV CONTRAST; 08/18/2024 1:15 pm INDICATION: Signs/Symptoms:left flank pain. COMPARISON: None. ACCESSION NUMBER(S): [id number] ORDERING CLINICIAN: FAISAL RODRIGUEZ TECHNIQUE: Helical acquisition of data was obtained with multiplanar reconstructions. No oral or intravenous contrast material was utilized. One or more of the following dose reduction techniques were used: Automated exposure control Adjustment of the mA and/or kV according to patient size, and/or use of iterative reconstruction technique. FINDINGS: The visualized portions of the pulmonary bases are clear. Within limits of this unenhanced study no focal masses are identified within the liver, spleen, pancreas, or adrenal glands. There is mild diffuse diminished attenuation of the hepatic parenchyma suggesting underlying fatty infiltration of the liver. Multiple gallstones are identified with each stone measuring on the order of 5 mm. No pericholecystic fluid is noted. No gallbladder wall thickening is identified. Urinary Tract Assessment: RT KIDNEY: No right sided urinary tract stones are identified. Within the limits of this unenhanced exam no solid renal masses are identified. LT KIDNEY: There is nonobstructing 5 mm upper pole caliceal stone left kidney. Within the limits of this unenhanced exam no solid renal masses are identified. There is no evidence for abdominal aortic aneurysm. No retroperitoneal lymphadenopathy is identified. There is normal appearance of the appendix and terminal ileum. There is a large amount of stool throughout the colon. PELVIC CT: No pathologic masses or fluid collections are identified. No fractures or destructive lesions are identified. The spine is tilted to the right. IMPRESSION: 1. Cholelithiasis. 2. Nonobstructing 5 mm upper pole left renal stone. 3. Large amount of stool within the colon. MACRO: none Signed by: Urban Ewing 08/18/2024 2:08 PM Dictation workstation: [id number] Normal [facility] Comprehensive metabolic 2000 panelon 08-18-2024 Albumin BCP dye [Mass/Vol] 4.9 g/dL Normal 3.4-5.0 [facility] Comment on above: Performed By: #### 2 4323-8 #### JIMMY RODRIGUEZ ([id number]) [facility] ([facility]) [address] [place] [address] 90599 ALP [Catalytic activity/Vol] 37 U/L Normal 33-110 [facility] Comment on above: Performed By: #### 2 4323-8 #### JIMMY RODRIGUEZ ([id number]) [facility] ([facility]) [address] [place] [address] 29598 ALT With P-5'-P [Catalytic activity/Vol] 63 U/L High 7-45 [facility] Comment on above: Result Comment: Gabrielle ents treated with Sulfasalazine may generate falsely decreased results for ALT. Performed By: #### 2 4323-8 #### JIMMY RODRIGUEZ ([id number]) [facility] ([facility]) [facility] [place] [address] Anion gap [Moles/Vol] 11 mmol/L Normal 10-20 [facility] Comment on above: Performed By: #### 2 4323-8 #### JIMMY RODRIGUEZ ([id number]) [facility] ([facility]) [facility] [place] [address] AST With P-5'-P [Catalytic activity/Vol] 35 U/L Normal 9-39 [facility] Comment on above: Performed By: #### 2 4323-8 #### JIMMY RODRIGUEZ ([id number]) [facility] ([facility]) [address] [place] [address] 22130 Bilirubin [Mass/Vol] 0.8 mg/dL Normal 0.0-1.2 [facility] Comment on above: Performed By: #### 2 4323-8 #### JIMMY RODRIGUEZ ([id number]) [facility] ([facility]) [facility] [place] [address] Calcium [Mass/Vol] 10.4 mg/dL High 8.6-10.3 [facility] Comment on above: Performed By: #### 2 4323-8 #### JIMMY RODRIGUEZ ([id number]) [facility] ([facility]) [address] [place] [address] Chloride [Moles/Vol] 102 mmol/L Normal 98-107 [facility] Comment on above: Performed By: #### 2 4323-8 #### JIMMY RODRIGUEZ ([id number]) [facility] ([facility]) [address] [place] [address] CO2 [Moles/Vol] 29 mmol/L Normal 21-32 [facility] Comment on above: Performed By: #### 2 4323-8 #### JIMMY RODRIGUEZ ([id number]) [facility] ([facility]) [address] [place] [address] Creatinine [Mass/Vol] 0.65 mg/dL Normal 0.50-1.05 [facility] Comment on above: Performed By: #### 2 4323-8 #### JIMMY RODRIGUEZ ([id number]) [facility] ([facility]) [address] [place] [address] 91413 GFR/1.73 sq M.predicted MDRD (S/P/Bld) [Vol rate/Area] mL/min/{1.73_m2} Normal >60 [facility] Comment on above: Result Comment: Calc ulations of estimated GFR are performed using the 2020 CKD-EPI Study Refit equation without the race variable for the IDMS-Traceable creatinine methods. https://jasn.asnjournals.org/content//ASN.04228 64706 Performed By: #### 2 4323-8 #### JIMMY RODRIGUEZ ([id number]) [facility] ([facility]) [address] [place] [address] 42719 Glucose [Mass/Vol] 83 mg/dL Normal 74-99 [facility] Comment on above: Performed By: #### 2 4323-8 #### IJMMY RODRIGUEZ ([id number]) [facility] ([facility]) [address] [place] [address] 36270 Potassium [Moles/Vol] 4.2 mmol/L Normal 3.5-5.3 [facility] Comment on above: Performed By: #### 2 4323-8 #### JIMMY RODRIGUEZ ([id number]) [facility] ([facility]) [address] [place] [address] 10999 Protein [Mass/Vol] 8.5 g/dL High 6.4-8.2 [facility] Comment on above: Performed By: #### 2 4323-8 #### JIMMY RODRIGUEZ ([id number]) [facility] ([facility]) [address] [place] [address] 59422 Sodium [Moles/Vol] 138 mmol/L Normal 136-145 [facility] Comment on above: Performed By: #### 2 4323-8 #### JIMMY RODRIGUEZ ([id number]) [facility] ([facility]) [address] [place] [address] 83063 Urea nitrogen [Mass/Vol] 9 mg/dL Normal 6-23 [facility] Comment on above: Performed By: #### 2 4323-8 #### JIMMY RODRIGUEZ ([id number]) [facility] ([facility]) [address] [place], [place] [address] HCG ( test) IA.rapi d Ql (U)on 08-18-2024 HCG ( test) Ql (U) Negative Normal NEGATIVE [facility] Comment on above: Performed By: #### 8 0384-1 #### JIMMY RODRIGUEZ ([id number]) [facility] ([facility]) [address] [place] [address] 98233 Urinalysis complete W Reflex Culture panel (U)on 08-18-2024 Appearance (U) Clear Normal Clear [facility] Comment on above: Performed By: #### 5 8077-9 #### JIMMY RODRIGUEZ ([id number]) [facility] ([facility]) [address] [place] [address] 11844 Bilirubin (U) [Mass/Vol] Negative Normal NEGATIVE [facility] Comment on above: Performed By: #### 5 8077-9 #### JIMMY RODRIGUEZ ([id number]) [facility] ([facility]) [address] [place], [place] [address] Color (U) Colorless Normal Light-Yellow, Yellow, Dark-Yellow [facility] Comment on above: Performed By: #### 5 8077-9 #### JIMMY RODRIGUEZ ([id number]) [facility] ([facility]) [address] [place] [address] Glucose Auto test strip (U) [Mass/Vol] Normal Normal Normal [facility] Comment on above: Performed By: #### 5 8077-9 #### JIMMY RODRIGUEZ ([id number]) [facility] ([facility]) [address] [place], [place] [address] Ketones (U) [Mass/Vol] Negative Normal NEGATIVE [facility] Comment on above: Performed By: #### 5 8077-9 #### JIMMY RODRIGUEZ ([id number]) [facility] ([facility]) [address] [place] [address] 28887 Leukocyte esterase Auto test strip Ql (U) Negative Normal NEGATIVE [facility] Comment on above: Performed By: #### 5 8077-9 #### JIMMY RODRIGUEZ ([id number]) [facility] ([facility]) [address] [place] [address] 60009 Nitrite Auto test strip Ql (U) Negative Normal NEGATIVE [facility] Comment on above: Performed By: #### 5 8077-9 #### JIMMY RODRIGUEZ ([id number]) [facility] ([facility]) [address] [place] [address] 69912 pH (U) 7.0 [pH] Normal 5.0, 5.5, 6.0, 6.5, 7.0, 7.5, 8.0 [facility] Comment on above: Performed By: #### 5 8077-9 #### JIMMY RODRIGUEZ ([id number]) [facility] ([facility]) [address] [place] [address] 11883 Protein (U) [Mass/Vol] Negative Normal NEGAT ELDER, 10 (TRACE), 20 (TRACE) [facility] Comment on above: Performed By: #### 5 8077-9 #### JIMMY RODRIGUEZ ([id number]) [facility] ([facility]) [address] [place] [address] 09652 RBC (U) [#/Vol] Negative Normal NEGATIVE [facility] Comment on above: Performed By: #### 5 8077-9 #### JIMMY RODRIGUEZ ([id number]) [facility] ([facility]) [address] [place] [address] 16238 Specific gravity (U) [Rel density] 1.009 Normal 1.005-1.035 [facility] Comment on above: Performed By: #### 5 8077-9 #### JIMMY RODRIGUEZ ([id number]) [facility] ([facility]) [address] [place] [address] 91224 Urobilinogen (U) [Mass/Vol] Normal Normal Normal [facility] Comment on above: Performed By: #### 5 8077-9 #### JIMMY RODRIGUEZ ([id number]) [facility] ([facility]) [address] [place] [address] 04152 Albumin/Creatinineon 024 Albumin/Creatinine DL <= 20 mg/L (U) [Mass ratio] Normal [facility] Comment on above: Result Comment: One or more analytes used in this calculation is outside of the analytical measurement range. Calculation cannot be performed. Performed By: #### 4 548-4 #### JIMMY RODRIGUEZ ([id number]) [facility] ([facility]) [address] [place] [address] 75338 Albumin/Creatinine DL <= 20 mg/L (U) [Mass ratio]on 04-09-2024 Albumin DL <= 20 mg/L (U) [Mass/Vol] mg/dL Normal Not established [facility] Comment on above: Performed By: #### 4 548-4 #### JIMMY RODRIGUEZ ([id number]) [facility] ([facility]) [address] [place] [address] 46501 Creatinine (U) [Mass/Vol] 71.3 mg/dL Normal 20.0-320.0 [facility] Comment on above: Performed By: #### 4 548-4 #### JIMMY RODRIGUEZ ([id number]) [facility] ([facility]) [address] [place] [address] 66673 CBC W Auto Differential pane l (Bld)on 04-09-2024 Basophils (Bld) [#/Vol] 0.06 x10*3/uL Normal 0.00-0.10 [facility] Comment on above: Performed By: #### 5 7021-8 #### JIMMY RODRIGUEZ ([id number]) [facility] ([facility]) [address] [place] [address] 95694 Basophils/100 WBC (Bld) 0.5 % Normal 0.0-2.0 [facility] Comment on above: Performed By: #### 5 7021-8 #### JIMMY RODRIGUEZ ([id number]) [facility] ([facility]) [address] [place] [address] 76790 Eosinophils (Bld) [#/Vol] 0.21 x10*3/uL Normal 0.00-0.70 [facility] Comment on above: Performed By: #### 5 7021-8 #### JIMMY RODRIGUEZ ([id number]) [facility] ([facility]) [address] [place] [address] 51382 Eosinophils/100 WBC (Bld) 1.8 % Normal 0.0-6.0 [facility] Comment on above: Performed By: #### 5 7021-8 #### JIMMY RODRIGUEZ ([id number]) [facility] ([facility]) [address] [place] [address] 80300 Erythrocyte distribution width (RBC) [Ratio] 12.4 % Normal 11.5-14.5 [facility] Comment on above: Performed By: #### 5 7021-8 #### JIMMY RODRIGUEZ ([id number]) [facility] ([facility]) [address] [place] [address] 96355 Hematocrit (Bld) [Volume fraction] 41.8 % Normal 36.0-46.0 [facility] Comment on above: Performed By: #### 5 7021-8 #### JIMMY RODRIGUEZ ([id number]) [facility] ([facility]) [address] [place] [address] 24835 Hemoglobin (Bld) [Mass/Vol] 14.0 g/dL Normal 12.0-16.0 [facility] Comment on above: Performed By: #### 5 7021-8 #### JMIMY RODRIGUEZ ([id number]) [facility] ([facility]) [address] [place] [address] 75627 Immature granulocytes (Bld) [#/Vol] 0.02 x10*3/uL Normal 0.00-0.70 [facility] Comment on above: Performed By: #### 5 7021-8 #### JIMMY RODRIGUEZ ([id number]) [facility] ([facility]) [address] [place] [address] 28514 Immature granulocytes/100 WBC (Bld) 0.2 % Normal 0.0-0.9 [facility] Comment on above: Result Comment: Lisa ture Granulocyte Count (IG) includes promyelocytes, myelocytes and metamyelocytes but does not include bands. Percent differential counts (%) should be interpreted in the context of the absolute cell counts (cells/UL). Performed By: #### 5 7021-8 #### JIMMY RODRIGUEZ ([id number]) [facility] ([facility]) [address] [place] [address] 87820 Lymphocytes (Bld) [#/Vol] 3.28 x10*3/uL Normal 1.20-4.80 [facility] Comment on above: Performed By: #### 5 7021-8 #### JIMMY RODRIGUEZ ([id number]) [facility] ([facility]) [address] [place] [address] 89790 Lymphocytes/100 WBC (Bld) 27.7 % Normal 13.0-44.0 [facility] Comment on above: Performed By: #### 5 7021-8 #### JIMMY RODRIGUEZ ([id number]) [facility] ([facility]) [address] [place] [address] 13194 MCH (RBC) [Entitic mass] 29.7 pg Normal 26.0-34.0 [facility] Comment on above: Performed By: #### 5 7021-8 #### JIMMY RODRIGUEZ ([id number]) [facility] ([facility]) [address] [place] [address] 11562 MCHC (RBC) [Mass/Vol] 33.5 g/dL Normal 32.0-36.0 [facility] Comment on above: Performed By: #### 5 7021-8 #### JIMMY RODRIGUEZ ([id number]) [facility] ([facility]) [address] [place] [address] 61778 MCV (RBC) [Entitic vol] 89 fL Normal 80-100 [facility] Comment on above: Performed By: #### 5 7021-8 #### JIMMY RODRIGUEZ ([id number]) [facility] ([facility]) [address] [place] [address] 41350 Monocytes (Bld) [#/Vol] 0.82 x10*3/uL Normal 0.10-1.00 [facility] Comment on above: Performed By: #### 5 7021-8 #### JIMMY RODRIGUEZ ([id number]) [facility] ([facility]) [address] [place] [address] 56156 Monocytes/100 WBC (Bld) 6.9 % Normal 2.0-10.0 [facility] Comment on above: Performed By: #### 5 7021-8 #### JIMMY RODRIGUEZ ([id number]) [facility] ([facility]) [address] [place] [address] 42838 Neutrophils (Bld) [#/Vol] 7.46 x10*3/uL Normal 1.20-7.70 [facility] Comment on above: Result Comment: Perc ent differential counts (%) should be interpreted in the context of the absolute cell counts (cells/uL). Performed By: #### 5 7021-8 #### JIMMY RODRIGUEZ ([id number]) [facility] ([facility]) [address] [place] [address] 42117 Neutrophils/100 WBC (Bld) 62.9 % Normal 40.0-80.0 [facility] Comment on above: Performed By: #### 5 7021-8 #### JIMMY RODRIGUEZ ([id number]) [facility] ([facility]) [address] [place] [address] 84111 Nucleated RBC/100 WBC (Bld) [Ratio] 0.0 /100 WBCs Normal 0.0-0.0 [facility] Comment on above: Performed By: #### 5 7021-8 #### JIMMY RODRIGUEZ ([id number]) [facility] ([facility]) [address] [place] [address] 19472 Platelets (Bld) [#/Vol] 476 x10*3/uL High 150-450 [facility] Comment on above: Performed By: #### 5 7021-8 #### JIMMY RODRIGUEZ ([id number]) [facility] ([facility]) [address] [place] [address] 41352 RBC (Bld) [#/Vol] 4.71 x10*6/uL Normal 4.00-5.20 [facility] Comment on above: Performed By: #### 5 7021-8 #### JIMMY RODRIGUEZ ([id number]) [facility] ([facility]) [address] [place] [address] 90357 WBC (Bld) [#/Vol] 11.9 x10*3/uL High 4.4-11.3 [facility] Comment on above: Performed By: #### 5 7021-8 #### JIMMY RODRIGUEZ ([id number]) [facility] ([facility]) [address] [place] [address] 71268 Calcidiolon 04-09-2024 25-hydroxyvitamin D3 [Mass/Vol] 48 ng/mL Normal 30-100 [facility] Comment on above: Order Comment: Diagn osis of Diabetes-Adults Non-Diabetic: < or = 5.6% Increased risk for developing diabetes: 5.7-6.4% Diagnostic of diabetes: > or = 6.5% Monitoring of Diabetes Age (y)....................... Therapeutic Goal (%) Adults: >18.........................<7.0 Pediatrics: 13-18...................<7.5 Pediatrics: 7-12....................<8.0 Pediatrics: 0-6..................... 7.5-8.5 [employer]. Diabetes Care 33(S1), Aug 2009 Performed By: #### 4 548-4 #### JIMMY RODRIGUEZ ([id number]) [facility] ([facility]) [address] [place], [place] [address] Cobalaminson 04-09-2024 Cobalamin (Vitamin B12) [Mass/Vol] 345 pg/mL Normal 211-911 [facility] Comment on above: Performed By: #### 5 7021-8 #### JIMMY RODRIGUEZ ([id number]) [facility] ([facility]) [address] [place] [address] 28197 Comprehensive metabolic 2000 panelon 04-09-2024 Albumin BCP dye [Mass/Vol] 4.5 g/dL Normal 3.4-5.0 [facility] Comment on above: Performed By: #### 5 7021-8 #### JIMMY RODRIGUEZ ([id number]) [facility] ([facility]) [facility] [place] [address] ALP [Catalytic activity/Vol] 45 U/L Normal 33-110 [facility] Comment on above: Performed By: #### 5 7021-8 #### JIMMY RODRIGUEZ ([id number]) [facility] ([facility]) [facility] [place] [address] ALT With P-5'-P [Catalytic activity/Vol] 87 U/L High 7-45 [facility] Comment on above: Result Comment: Gabrielle ents treated with Sulfasalazine may generate falsely decreased results for ALT. Performed By: #### 5 7021-8 #### JIMMY RODRIGUEZ ([id number]) [facility] ([facility]) [address] [place] [address] Anion gap [Moles/Vol] 12 mmol/L Normal 10-20 [facility] Comment on above: Performed By: #### 5 7021-8 #### JIMMY RODRIGUEZ ([id number]) [facility] ([facility]) [address] [place] [address] 63025 AST With P-5'-P [Catalytic activity/Vol] 48 U/L High 9-39 [facility] Comment on above: Performed By: #### 5 7021-8 #### JIMMY RODRIGUEZ ([id number]) [facility] ([facility]) [address] [place] [address] 42379 Bilirubin [Mass/Vol] 1.2 mg/dL Normal 0.0-1.2 [facility] Comment on above: Performed By: #### 5 7021-8 #### JIMMY RODRIGUEZ ([id number]) [facility] ([facility]) [address] [place] [address] 62555 Calcium [Mass/Vol] 9.7 mg/dL Normal 8.6-10.3 [facility] Comment on above: Performed By: #### 5 7021-8 #### JIMMY RODRIGUEZ ([id number]) [facility] ([facility]) [address] [place] [address] 61230 Chloride [Moles/Vol] 104 mmol/L Normal 98-107 [facility] Comment on above: Performed By: #### 5 7021-8 #### JIMMY RODRIGUEZ ([id number]) [facility] ([facility]) [address] [place] [address] 53686 CO2 [Moles/Vol] 26 mmol/L Normal 21-32 [facility] Comment on above: Performed By: #### 5 7021-8 #### JIMMY RODRIGUEZ ([id number]) [facility] ([facility]) [facility] [place] [address] Creatinine [Mass/Vol] 0.65 mg/dL Normal 0.50-1.05 [facility] Comment on above: Performed By: #### 5 7021-8 #### JIMMY RODRIGUEZ ([id number]) [facility] ([facility]) [address] [place] [address] 59061 GFR/1.73 sq M.predicted MDRD (S/P/Bld) [Vol rate/Area] mL/min/{1.73_m2} Normal >60 [facility] Comment on above: Result Comment: Calc ulations of estimated GFR are performed using the 2020 CKD-EPI Study Refit equation without the race variable for the IDMS-Traceable creatinine methods. https://jasn.asnjournals.org/content/early/ASN.33231 69799 Performed By: #### 5 7021-8 #### JIMMY RODRIGUEZ ([id number]) [facility] ([facility]) [address] [place] [address] 82295 Glucose [Mass/Vol] 89 mg/dL Normal 74-99 [facility] Comment on above: Performed By: #### 5 7021-8 #### JIMMY RODRIGUEZ ([id number]) [facility] ([facility]) [address] [place] [address] 11049 Potassium [Moles/Vol] 3.9 mmol/L Normal 3.5-5.3 [facility] Comment on above: Performed By: #### 5 7021-8 #### JIMMY RODRIGUEZ ([id number]) [facility] ([facility]) [address] [place] [address] 49755 Protein [Mass/Vol] 7.9 g/dL Normal 6.4-8.2 [facility] Comment on above: Performed By: #### 5 7021-8 #### JIMMY RODRIGUEZ ([id number]) [facility] ([facility]) [address] [place] [address] 08172 Sodium [Moles/Vol] 138 mmol/L Normal 136-145 [facility] Comment on above: Performed By: #### 5 7021-8 #### JIMMY RODRIGUEZ ([id number]) [facility] ([facility]) [address] [place] [address] 13928 Urea nitrogen [Mass/Vol] 10 mg/dL Normal 6- [facility] Comment on above: Performed By: #### 5 7021-8 #### JIMMY RODRIGUEZ ([id number]) [facility] ([facility]) [address] [place] [address] 34708 HbA1c (Bld) [Mass fraction]o n 04-09-2024 Average glucose Estimated from glycated hemoglobin (Bld) [Mass/Vol] 123 mg/dL Normal Not Established [facility] Comment on above: Order Comment: Diagn osis of Diabetes-Adults Non-Diabetic: < or = 5.6% Increased risk for developing diabetes: 5.7-6.4% Diagnostic of diabetes: > or = 6.5% Monitoring of Diabetes Age (y)....................... Therapeutic Goal (%) Adults: >18.........................<7.0 Pediatrics: 13-18...................<7.5 Pediatrics: 7-12....................<8.0 Pediatrics: 0-6..................... 7.5-8.5 [employer]. Diabetes Care 33(S1), Aug 2009 Performed By: #### [id number] #### JIMMY RODRIGUEZ ([id number]) [facility] ([facility]) [address] [place] [id number] Hemoglobin A1c/Hemoglobin.to nathan 04-09-2024 HbA1c (Bld) [Mass fraction] 5.9 % High see below [facility] Comment on above: Order Comment: Diagn osis of Diabetes-Adults Non-Diabetic: < or = 5.6% Increased risk for developing diabetes: 5.7-6.4% Diagnostic of diabetes: > or = 6.5% Monitoring of Diabetes Age (y)....................... Therapeutic Goal (%) Adults: >18.........................<7.0 Pediatrics: 13-18...................<7.5 Pediatrics: 7-12....................<8.0 Pediatrics: 0-6..................... 7.5-8.5 [place] Diabetes Association. Diabetes Care 33(S1), Aug 2009 Performed By: #### 4 548-4 #### JIMMY RODRIGUEZ ([id number]) [facility] ([facility]) [address] [place] [address] 84855 CBC W Auto Differential pane l (Bld)on 01-04-2024 Basophils (Bld) [#/Vol] 0.04 x10*3/uL Normal 0.00-0.10 [facility] Comment on above: Performed By: #### 5 7021-8 #### JIMMY RODRIGUEZ ([id number]) [facility] ([facility]) [address] [place] [address] 68585 Basophils/100 WBC (Bld) 0.5 % Normal 0.0-2.0 [facility] Comment on above: Performed By: #### 5 7021-8 #### JIMMY RODRIGUEZ ([id number]) [facility] ([facility]) [address] [place] [address] 77373 Eosinophils (Bld) [#/Vol] 0.26 x10*3/uL Normal 0.00-0.70 [facility] Comment on above: Performed By: #### 5 7021-8 #### JIMMY RODRIGUEZ ([id number]) [facility] ([facility]) [address] [place] [address] 81211 Eosinophils/100 WBC (Bld) 3.1 % Normal 0.0-6.0 [facility] Comment on above: Performed By: #### 5 7021-8 #### JIMMY RODRIGUEZ ([id number]) [facility] ([facility]) [address] [place] [address] 60094 Erythrocyte distribution width (RBC) [Ratio] 12.4 % Normal 11.5-14.5 [facility] Comment on above: Performed By: #### 5 7021-8 #### JIMMY RODRIGUEZ ([id number]) [facility] ([facility]) [address] [place] [address] Hematocrit (Bld) [Volume fraction] 42.9 % Normal 36.0-46.0 [facility] Comment on above: Performed By: #### 5 7021-8 #### JIMMY RODRIGUEZ ([id number]) [facility] ([facility]) [address] [place] [address] 69619 Hemoglobin (Bld) [Mass/Vol] 14.1 g/dL Normal 12.0-16.0 [facility] Comment on above: Performed By: #### 5 7021-8 #### JIMMY RODRIGUEZ ([id number]) [facility] ([facility]) [address] [place] [address] 66607 Immature granulocytes (Bld) [#/Vol] 0.02 x10*3/uL Normal 0.00-0.70 [facility] Comment on above: Performed By: #### 5 7021-8 #### JIMMY RODRIGUEZ ([id number]) [facility] ([facility]) [address] [place] [address] 31130 Immature granulocytes/100 WBC (Bld) 0.2 % Normal 0.0-0.9 [facility] Comment on above: Result Comment: Lisa ture Granulocyte Count (IG) includes promyelocytes, myelocytes and metamyelocytes but does not include bands. Percent differential counts (%) should be interpreted in the context of the absolute cell counts (cells/UL). Performed By: #### 5 7021-8 #### JIMMY RODIRGUEZ ([id number]) [facility] ([facility]) [address] [place] [address] 27200 Lymphocytes (Bld) [#/Vol] 2.66 x10*3/uL Normal 1.20-4.80 [facility] Comment on above: Performed By: #### 5 7021-8 #### JIMMY RODRIGUEZ ([id number]) [facility] ([facility]) [address] [place] [address] 43661 Lymphocytes/100 WBC (Bld) 31.3 % Normal 13.0-44.0 [facility] Comment on above: Performed By: #### 5 7021-8 #### JIMMY RODRIGUEZ ([id number]) [facility] ([facility]) [address] [place] [address] 96779 MCH (RBC) [Entitic mass] 29.3 pg Normal 26.0-34.0 [facility] Comment on above: Performed By: #### 5 7021-8 #### JIMMY RODRIGUEZ ([id number]) [facility] ([facility]) [address] [place] [address] 28396 MCHC (RBC) [Mass/Vol] 32.9 g/dL Normal 32.0-36.0 [facility] Comment on above: Performed By: #### 5 7021-8 #### JIMMY RODRIGUEZ ([id number]) [facility] ([facility]) [address] [place] [address] 28283 MCV (RBC) [Entitic vol] 89 fL Normal 80-100 [facility] Comment on above: Performed By: #### 5 7021-8 #### JIMMY RODRIGUEZ ([id number]) [facility] ([facility]) [address] [place] [address] 35978 Monocytes (Bld) [#/Vol] 0.64 x10*3/uL Normal 0.10-1.00 [facility] Comment on above: Performed By: #### 5 7021-8 #### JIMMY RODRIGUEZ ([id number]) [facility] ([facility]) [address] [place] [address] 42576 Monocytes/100 WBC (Bld) 7.5 % Normal 2.0-10.0 [facility] Comment on above: Performed By: #### 5 7021-8 #### JIMMY RODRIGUEZ ([id number]) [facility] ([facility]) [address] [place] [address] 73135 Neutrophils (Bld) [#/Vol] 4.89 x10*3/uL Normal 1.20-7.70 [facility] Comment on above: Result Comment: Perc ent differential counts (%) should be interpreted in the context of the absolute cell counts (cells/uL). Performed By: #### 5 7021-8 #### JIMMY RODRIGUEZ ([id number]) [facility] ([facility]) [address] [place] [address] 37285 Neutrophils/100 WBC (Bld) 57.4 % Normal 40.0-80.0 [facility] Comment on above: Performed By: #### 5 7021-8 #### JIMMY RODRIGUEZ ([id number]) [facility] ([facility]) [address] [place] [address] 59421 Nucleated RBC/100 WBC (Bld) [Ratio] 0.0 /100 WBCs Normal 0.0-0.0 [facility] Comment on above: Performed By: #### 5 7021-8 #### JIMMY RODRIGUEZ ([id number]) [facility] ([facility]) [address] [place] [address] 52319 Platelets (Bld) [#/Vol] 394 x10*3/uL Normal 150-450 [facility] Comment on above: Performed By: #### 5 7021-8 #### JIMMY RODRIGUEZ ([id number]) [facility] ([facility]) [address] [place] [address] 32173 RBC (Bld) [#/Vol] 4.81 x10*6/uL Normal 4.00-5.20 [facility] Comment on above: Performed By: #### 5 7021-8 #### JIMMY RODRIGUEZ ([id number]) [facility] ([facility]) [address] [place] [address] 82398 WBC (Bld) [#/Vol] 8.5 x10*3/uL Normal 4.4-11.3 [facility] Comment on above: Performed By: #### 5 7021-8 #### JIMMY RODRIGUEZ ([id number]) [facility] ([facility]) [address] [place] [address] 77969 Calcidiolon 01-04-2024 25-hydroxyvitamin D3 [Mass/Vol] 21 ng/mL Low 30-100 [facility] Comment on above: Order Comment: Defic iency: < 20 ng/mlInsufficiency: 20-29 ng/mlSufficiency: 30-100 ng/mlThis assay accurately quantifies the sum of Vitamin D3, 25-Hydroxy and Vitamin D2,25-Hydroxy. Performed By: #### 5 7021-8 #### JIMMY RODRIGUEZ ([id number]) [facility] ([facility]) [address] [place] [address] 61197 Choriogonadotropin.beta subu niton 01-04-2024 HCG.beta subunit Qn m[IU]/mL Normal <5 [facility] Comment on above: Order Comment: Total HCG measurement is performed using the [employer] Access Immunoassay which detects intact HCG and free beta HCG subunit. This test is not indicated for use as a tumor marker. HCG testing is performed using a different test methodology at [facility] than other [facility]. Direct result comparison should only be made within the same method. Performed By: #### 2 1198-7 #### JIMMY RODRIGUEZ ([id number]) [facility] ([facility]) [address] [place] [address] 95567 Cobalaminson 01-04-2024 Cobalamin (Vitamin B12) [Mass/Vol] 369 pg/mL Normal 211-911 [facility] Comment on above: Performed By: #### 2 132-9 #### JIMMY RODRIGUEZ ([id number]) [facility] ([facility]) [address] [place] [address] 99294 Comprehensive metabolic 2000 panelon 01-04-2024 Albumin BCP dye [Mass/Vol] 4.4 g/dL Normal 3.4-5.0 [facility] Comment on above: Performed By: #### 2 4323-8 #### JIMMY RODRIGUEZ ([id number]) [facility] ([facility]) [address] [place] [address] 29696 ALP [Catalytic activity/Vol] 53 U/L Normal 33-110 [facility] Comment on above: Performed By: #### 2 4323-8 #### JIMMY RODRIGUEZ ([id number]) [facility] ([facility]) [address] [place] [address] 02240 ALT With P-5'-P [Catalytic activity/Vol] 217 U/L High 7-45 [facility] Comment on above: Result Comment: Gabrielle ents treated with Sulfasalazine may generate falsely decreased results for ALT. Performed By: #### 2 4322-8 #### JIMMY RODRIGUEZ ([id number]) [facility] ([facility]) [address] [place] [address] 12869 Anion gap [Moles/Vol] 15 mmol/L Normal 10-20 [facility] Comment on above: Performed By: #### 2 432-8 #### JIMMY RODRIGUEZ ([id number]) [facility] ([facility]) [address] [place] [address] 22726 AST With P-5'-P [Catalytic activity/Vol] 180 U/L High 9-39 [facility] Comment on above: Performed By: #### 2 432-8 #### JIMMY RODRIGUEZ ([id number]) [facility] ([facility]) [address] [place] [address] 99588 Bilirubin [Mass/Vol] 1.0 mg/dL Normal 0.0-1.2 [facility] Comment on above: Performed By: #### 2 4322-8 #### JIMMY RODRIGUEZ ([id number]) [facility] ([facility]) [address] [place] [address] 20101 Calcium [Mass/Vol] 9.4 mg/dL Normal 8.6-10.3 [facility] Comment on above: Performed By: #### 2 432-8 #### JIMMY RODRIGUEZ ([id number]) [facility] ([facility]) [address] [place] [address] 11386 Chloride [Moles/Vol] 103 mmol/L Normal 98-107 [facility] Comment on above: Performed By: #### 2 432-8 #### JIMMY RODRIGUEZ ([id number]) [facility] ([facility]) [facility] [place] [address] CO2 [Moles/Vol] 23 mmol/L Normal 21-32 [facility] Comment on above: Performed By: #### 2 4323-8 #### JIMMY RODRIGUEZ ([id number]) [facility] ([facility]) [address] [place] [address] 13877 Creatinine [Mass/Vol] 0.62 mg/dL Normal 0.50-1.05 [facility] Comment on above: Performed By: #### 2 4323-8 #### JIMMY RODRIGUEZ ([id number]) [facility] ([facility]) [address] [place] [address] 17520 GFR/1.73 sq M.predicted MDRD (S/P/Bld) [Vol rate/Area] mL/min/{1.73_m2} Normal >60 [facility] Comment on above: Result Comment: Calc ulations of estimated GFR are performed using the 2020 CKD-EPI Study Refit equation without the race variable for the IDMS-Traceable creatinine methods. https://jasn.asnjournals.org/content//ASN.16297 90204 Performed By: #### 2 4323-8 #### JIMMY RODRIGUEZ ([id number]) [facility] ([facility]) [address] [place] [address] 93521 Glucose [Mass/Vol] 171 mg/dL High 74-99 [facility] Comment on above: Performed By: #### 2 4323-8 #### JIMMY RODRIGUEZ ([id number]) [facility] ([facility]) [address] [place] [address] 23278 Potassium [Moles/Vol] 4.4 mmol/L Normal 3.5-5.3 [facility] Comment on above: Performed By: #### 2 4323-8 #### JIMMY RODRIGUEZ ([id number]) [facility] ([facility]) [address] [place] [address] 87983 Protein [Mass/Vol] 7.3 g/dL Normal 6.4-8.2 [facility] Comment on above: Performed By: #### 2 4323-8 #### JIMMY RODRIGUEZ ([id number]) [facility] ([facility]) [address] [place] [address] 85117 Sodium [Moles/Vol] 137 mmol/L Normal 136-145 [facility] Comment on above: Performed By: #### 2 4323-8 #### JIMMY RODRIGUEZ ([id number]) [facility] ([facility]) [address] [place] [address] 57805 Urea nitrogen [Mass/Vol] 7 mg/dL Normal 6-23 [facility] Comment on above: Performed By: #### 2 4323-8 #### JIMMY RODRIGUEZ ([id number]) [facility] ([facility]) [address] [place] [address] 61040 Dehydroepiandrosteroneon DHEA [Mass/Vol] 6.141 ng/mL Normal 1.330-7.780 [facility] Comment on above: Result Comment: INTERPRETIVE INFORMATION: Dehydroepiandrosterone, Females 18 years and older: Postmenopausal: 0.60-5.73 ng/mL REFERENCE INTERVAL: Dehydroepiandrosterone by TMS Access complete set of age- and/or gender-specific reference intervals for this test in the [facility] Test Directory (ftopia). This test was developed and its performance characteristics determined by [facility]. It has not been cleared or approved by the US Food and Drug Administration. This test was performed in a CLIA certified laboratory and is intended for clinical purposes. Performed By: [facility] [address] [place] [address]15 Teller Supervisor: Edy Maldonado MD, PhD CLIA Number: [id number] Performed By: #### 5 7021-8 #### JMIMY RODRIGUEZ ([id number]) [facility] ([facility]) [address] [place] [address] 20278 Estrogenon 01-04-2024 Estrogen [Mass/Vol] 291 pg/mL Normal [facility] Comment on above: Order Comment: Perfo rmed at: [address], [place], [place] [id number] Director: Rena Enriquez MD, Phone: [phone] Result Comment: Prep ubertal < 40 Female Cycle: 1-10 Days 16 - 328 11-20 Days 34 - 501 21-30 Days 48 - 350 Post-Menopausal 40 - 244 Performed By: #### 5 7021-8 #### JIMMY RODRIGUEZ ([id number]) [facility] ([facility]) [address] [place] [address] Follitropinon 01-04-2024 Follitropin Qn 4.8 IU/L Normal [facility] Comment on above: Result Comment: FSH Ref Values Follicular 2.0-12.0 IU/L Mid-Cycle 12.0-25.0 IU/L Luteal Phase 2.0-12.0 IU/L Menopause 30.0-150.0 IU/L Pre-puberty 50% Adult IU/L Adult Male 2.0-10.0 IU/L Infants 0.0-1.0 IU/L Performed By: #### 5 7021-8 #### JIMMY RODRIGUEZ ([id number]) [facility] ([facility]) [address] [place] [address] HbA1c (Bld) [Mass fraction]o n 01-04-2024 Average glucose Estimated from glycated hemoglobin (Bld) [Mass/Vol] 203 mg/dL Normal Not Established [facility] Comment on above: Order Comment: Diagn osis of Diabetes-Adults Non-Diabetic: < or = 5.6% Increased risk for developing diabetes: 5.7-6.4% Diagnostic of diabetes: > or = 6.5% Monitoring of Diabetes Age (y)....................... Therapeutic Goal (%) Adults: >18.........................<7.0 Pediatrics: 13-18...................<7.5 Pediatrics: 7-12....................<8.0 Pediatrics: 0-6..................... 7.5-8.5 [place] [employer]. Diabetes Care 33(S1), Aug 2009 Performed By: #### 4 548-4 #### JIMMY RODRIGUEZ ([id number]) [facility] ([facility]) [address] [place] [id number] Hemoglobin A1c/Hemoglobin.to nathan 01-04-2024 HbA1c (Bld) [Mass fraction] 8.7 % High see below [facility] Comment on above: Order Comment: Diagn osis of Diabetes-Adults Non-Diabetic: < or = 5.6% Increased risk for developing diabetes: 5.7-6.4% Diagnostic of diabetes: > or = 6.5% Monitoring of Diabetes Age (y)....................... Therapeutic Goal (%) Adults: >18.........................<7.0 Pediatrics: 13-18...................<7.5 Pediatrics: 7-12....................<8.0 Pediatrics: 0-6..................... 7.5-8.5 [place] [employer]. Diabetes Care 33(S1), Aug 2009 Performed By: #### 4 548-4 #### JIMMY RODRIGUEZ ([id number]) [facility] ([facility]) [address] [place] [address] Lipid 1996 panelon 4 Cholesterol [Mass/Vol] 153 mg/dL Normal 0-199 [facility] Comment on above: Result Comment: Age Desirable Borderline High High 0-19 Y 0 - 169 170 - 199 >/= 200 20-24 Y 0 - 189 190 - 224 >/= 225 >24 Y 0 - 199 200 - 239 >/= 240 All ranges are based on fasting samples. Specific therapeutic targets will vary based on patient-specific cardiac risk. Pediatric guidelines reference:Pediatrics 2011, 128(S5).Adult guidelines reference: NCEP ATPIII Guidelines,ZAFAR 2001, 258:2486-16 Venipuncture immediately after or during the administration of Metamizole may lead to falsely low results. Testing should be performed immediately prior to Metamizole dosing. Performed By: #### 2 4331-1 #### JIMMY RODRIGUEZ ([id number]) [facility] ([facility]) [address] [place] [address] 57988 Cholesterol in HDL [Mass/Vol] 33.0 mg/dL Normal [facility] Comment on above: Result Comment: Age Very Low Low Normal High 0-19 Y < 35 < 40 40-45 ---- 20-24 Y ---- < 40 >45 ---- >24 Y ---- < 40 40-60 >60 Performed By: #### 2 4331-1 #### JIMMY RODRIGUEZ ([id number]) [facility] ([facility]) [address] [place] [address] 55543 Cholesterol in LDL [Mass/Vol] 92 mg/dL Normal <=109 [facility] Comment on above: Result Comment: Near Borderline AGE Desirable Optimal High High Very High 0-19 Y 0 - 109 --- 110-129 >/= 130 ---- 20-24 Y 0 - 119 --- 120-159 >/= 160 ---- >24 Y 0 - 99 100-129 130-159 160-189 >/=190 Performed By: #### 2 4331-1 #### JIMMY RODRIGUEZ ([id number]) [facility] ([facility]) [address] [place] [address] 02767 Cholesterol in VLDL [Mass/Vol] 28 mg/dL Normal 0-40 [facility] Comment on above: Performed By: #### 2 4331-1 #### JIMMY RODRIGUEZ ([id number]) [facility] ([facility]) [address] [place] [address] 30517 CHOLESTEROL/HDL RATIO 4.6 Normal [facility] Comment on above: Result Comment: Ref Values Desirable < 3.4 High Risk > 5.0 Performed By: #### 2 4331-1 #### JIMMY RODRIGUEZ ([id number]) [facility] ([facility]) [address] [place] [address] NON HDL CHOLESTEROL 120 mg/dL High 0-119 [facility] Comment on above: Result Comment: Age Desirable Borderline High High Very High 0-19 Y 0 - 119 120 - 144 >/= 145 >/= 160 20-24 Y 0 - 149 150 - 189 >/= 190 ---- >24 Y 30 mg/dL above LDL Cholesterol goal Performed By: #### 2 4331-1 #### JIMMY RODRIGUEZ ([id number]) [facility] ([facility]) [address] [place] [address] Triglyceride [Mass/Vol] 141 mg/dL Normal 0-149 [facility] Comment on above: Result Comment: Age Desirable Borderline High High Very High 0 D-90 D 19 - 174 ---- ---- ---- 91 D- 9 Y 0 - 74 75 - 99 >/= 100 ---- 10-19 Y 0 - 89 90 - 129 >/= 130 ---- 20-24 Y 0 - 114 115 - 149 >/= 150 ---- >24 Y 0 - 149 150 - 199 200- 499 >/= 500 Venipuncture immediately after or during the administration of Metamizole may lead to falsely low results. Testing should be performed immediately prior to Metamizole dosing. Performed By: #### 2 4331-1 #### JIMMY RODRIGUEZ ([id number]) [facility] ([facility]) [facility] [place] [address] Lutropinon 01-04-2024 Lutropin Qn 6.1 IU/L Normal [facility] Comment on above: Result Comment: LH R eference Values Follicular Phase 1.9-12.5 IU/L Mid-Cycle 8.7-76.3 IU/L Luteal Phase 0.5-16.9 IU/L Post Menopause 5.0-55.2 IU/L Children 0- 6.0 IU/L Adult Male 18-70 years 1.5- 9.3 IU/L Adult Male >70 years 3.1-34.6 IU/L Performed By: #### 5 7021-8 #### JIMMY RODRIGUEZ ([id number]) [facility] ([facility]) [address] [place] [address] Magnesiumon 01-04-2024 Magnesium [Mass/Vol] 1.72 mg/dL Normal 1.60-2.40 [facility] Comment on above: Performed By: #### 1 9123-9 #### JIMMY RODRIGUEZ ([id number]) [facility] ([facility]) [address] [place] [address] 38135 Progesteroneon 01-04-2024 Progesterone [Mass/Vol] 0.6 ng/mL Normal [facility] Comment on above: Result Comment: Ref Values Male <0.3- 1.2 Follicular Phase <0.3- 1.4 Luteal Phase 3.3-25.6 Mid-Luteal Phase 4.4-28.0 Postmenopausal <0.3- 0.7 Females: 1st Trimester 11.2- 90.0 2nd Trimester 25.6- 89.4 3RD Trimester 48.4-422.5 Patients receiving DHEA-S supplements may show false elevation of progesterone for results near 1.0 ng/mL. Contact laboratory at [phone] if alternative testing is needed. Performed By: #### 5 7021-8 #### JIMMY RODRIGUEZ ([id number]) [facility] ([facility]) [address] [place] [address] 05214 Testosterone Free/Testostero ne.total [Mass fraction]on 01-04-2024 Testosterone [Mass/Vol] 45 ng/dL Normal 2-45 [facility] Comment on above: Result Comment: For additional information, please refer to [email or web address]/faq/ [email or web address] (This link is being provided for informational/ educational purposes only.) This test was developed and its analytical performance characteristics have been determined by [employer] [place], [place]. It has not been cleared or approved by the U.S. Food and Drug Administration. This assay has been validated pursuant to the CLIA regulations and is used for clinical purposes. Performed By: #### 5 7021-8 #### JIMMY RODRIGUEZ ([id number]) [facility] ([facility]) [address] [place] [address] Testosterone Free [Mass/Vol] 12.2 pg/mL High 0.1-6.4 [facility] Comment on above: Result Comment: This test was developed and its analytical performance characteristics have been determined by [employer]. It has not been cleared or approved by the U.S. Food and Drug Administration. This assay has been validated pursuant to the CLIA regulations and is used for clinical purposes. Performed By: #### 5 7021-8 #### JIMMY RODRIGUEZ ([id number]) [facility] ([facility]) [address] [place] [address] Thyrotropinon 01-04-2024 TSH Qn 3.02 m[IU]/L Normal 0.44-3.98 [facility] Comment on above: Order Comment: TSH t esting is performed using different testing methodology at [facility] than at [facility]. Direct result comparisons should only be made within the same method. Performed By: #### 3 016-3 #### JIMMY RODRIGUEZ ([id number]) [facility] ([facility]) [address] [place] [address] Thyroxine.freeon 01-04-2024 Free T4 [Mass/Vol] 0.63 ng/dL Normal 0.61-1.12 [facility] Comment on above: Order Comment: Thyro xine Free testing is performed using different testing methodology at [facility] than at [facility]. Direct result comparisons should only be made within the same method. Biotin can cause falsely elevated free T4 results. Patients taking a Biotin dose of up to 10 mg/day should refrain from taking Biotin for 24 hours before sample collection. Patient taking a Biotin dose of >10 mg/day should consult with their physician or the laboratory before the blood draw. Performed By: #### 3 024-7 #### JIMMY RODRIGUEZ ([id number]) [facility] ([facility]) [address] [place] [address] No Panel Informationon 11-08 No acute osseous injury of the left elbow identified. MACRO: None Signed by: Darrius Obrien 11/09/2023 3:54 PM Dictation workstation: [id number] MMODAL Interpreted By: Darrius bOrien, STUDY: [facility] XRAY; 11/09/2023 3:33 pm INDICATION: Signs/Symptoms:anterio r pain after heavy lefting 3 days ago. COMPARISON: None. ACCESSION NUMBER(S): [id number] ORDERING CLINICIAN: EVE CRUZ FINDINGS: No acute fracture or dislocation. No joint effusion. MMODAL Darrius Obrien MD - 11/09/2023 Interpreted By: Darrius Obrien, STUDY: [facility] XRAY; 11/09/2023 3:33 pm INDICATION: Signs/Symptoms:anterio r pain after heavy lefting 3 days ago. COMPARISON: None. ACCESSION NUMBER(S): [id number] ORDERING CLINICIAN: EVE CRUZ FINDINGS: No acute fracture or dislocation. No joint effusion. IMPRESSION: No acute osseous injury of the left elbow identified. MACRO: None Signed by: Darrius Obrien 11/09/2023 3:54 PM Dictation workstation: [id number] [facility] Work Phone: Radiology Study observation (narrative) [facility] Work Phone: No Panel InformationOrdered By: Darrius Obrien on 11-09-2023 [facility] Work Phone: XR URGENT CARE XRAYon 2023 XR URGENT CARE XRAY Interpreted By: Darrius Obrien, STUDY: XR URGENT CARE XRAY; 11/09/2023 3:33 pm INDICATION: Signs/Symptoms:anterio r pain after heavy lefting 3 days ago. COMPARISON: None. ACCESSION NUMBER(S): [id number] ORDERING CLINICIAN: EVE CRUZ FINDINGS: No acute fracture or dislocation. No joint effusion. IMPRESSION: No acute osseous injury of the left elbow identified. MACRO: None Signed by: Darrius Obrien 11/09/2023 3:54 PM Dictation workstation: [id number] [facility] Comment on above: Order Comment: anter ior pain after heavy lifting 2 days ago BLOOD TB SCREENon 05-09-2022 M. tuberculosis tuberculin stim IFN-g Ql (Bld) Negative [facility] Comment on above: Order Comment: Speci men Type: BLOOD SPECIMEN Ordering Facility: [facility] Address: [address] [place] [address] Performed By: #### I NFTBP #### [facility] CLIA [id number] [address] [place] [address] [facility] MITOGEN MINUS NIL 8.24 IU/mL Normal >=0.50 [facility] Comment on above: Order Comment: Speci men Type: BLOOD SPECIMEN Ordering Facility: [facility] Address: [address] [place] [address] Performed By: #### I NFTBP #### [facility] CLIA [id number] [address] [place] [address] TB GAMMA INTERPRETATION Infection with M. tuberculosis complex is unlikely. If latent tuberculosis infection is highly suspected, a negative result does not rule out the infection. Specimens from immunocompromised patients and those <5 years of age may show false negative results. In case of a contact investigation, please repeat 8-12 weeks after a known exposure. [facility] Comment on above: Order Comment: Speci charly Type: BLOOD SPECIMEN Ordering Facility: [facility] Address: [address] [place] [address] Performed By: #### I NFTBP #### [facility] CLIA [id number] [address] [place] [address] TB NIL <0.00 Normal <=8.00 [facility] Comment on above: Order Comment: Speci men Type: BLOOD SPECIMEN Ordering Facility: [facility] Address: [address] [place], [place] [address] Performed By: #### I NFTBP #### [facility] CLIA [id number] [address] [place] [address] TB1 AG MINUS NIL <0.00 Normal <0.35 [facility] Comment on above: Order Comment: Speci men Type: BLOOD SPECIMEN Ordering Facility: [facility] Address: [address] [place] [address] Performed By: #### I NFTBP #### [facility] CLIA [id number] [address] [place] [address] OF [place] TB2 AG MINUS NIL <0.00 Normal <0.35 [facility] Comment on above: Order Comment: Speci men Type: BLOOD SPECIMEN Ordering Facility: [facility] Address: [address] [place] [address] Performed By: #### I NFTBP #### [facility] CLIA [id number] [address] [place] [address] AMY MUMPS IGG ABon 05-09-2022 MUMPS IGG, QUAL Positive Normal Positive [facility] Comment on above: Order Comment: Speci men Type: BLOOD SPECIMEN Ordering Facility: [facility] Address: [address] [place] [address] Result Comment: The result suggests recent or past exposure to Mumps virus or Mumps vaccination. The current test does not detect neutralizing antibodies. Positive result may also be seen due to presence of passively-transferred antibodies. Please correlate with patient's history. Performed By: #### M EASLG, MUMPSG, RUBIGG #### [facility] CLIA [id number] [address] [place] [address] OF [place] RUBELLA IGG ABon 05-09-2022 RUBELLA IGG AB, QUAL Positive Normal Positive [facility] Comment on above: Order Comment: Speci [facility] Type: BLOOD SPECIMEN Ordering Facility: [facility] Address: [address] [place] [address] Result Comment: The result suggests recent or past exposure to Rubella virus or history of Rubella vaccination. Positive result may also be seen due to presence of passively-transferred antibodies. Please correlate with patient's history. Performed By: #### M EASLG, MUMPSG, RUBIGG #### [facility] CLIA [id number] [address] [place] [address] [place] RUBEOLA (MEASLES)IGGon 05-09 MEASLES IGG AB, QUAL Positive Normal Positive [facility] Comment on above: Order Comment: Speci men Type: BLOOD SPECIMEN Ordering Facility: [facility] Address: [address] [place] [address] Result Comment: The result suggests recent or past exposure to Measles virus or Measles vaccination. The current test does not detect neutralizing antibodies. Positive result may also be seen due to presence of passively-transferred antibodies. Please correlate with patient's history. Performed By: #### M EASLG, MUMPSG, RUBIGG #### [facility] CLIA [id number] [address] [place] [address] [place] Bacteria Ur Culton 2 Bacteria identified Cx Nom (U) Abnormal [facility] Comment on above: Order Comment: Speci men Type: URINE SPECIMEN Ordering Facility: [facility] Address: [address] [place] [address] Result Comment: [id number] 10,000 -<50,000 CFU/ml Lactose fermenting gram negative rods Insignificant colony count. No further workup. [id number] 10,000 -<50,000 CFU/ml Normal urogenital mariela Performed By: #### 2 4356-8 #### [facility] CLIA [id number] [address] [place] [address] [place] Basic metabolic 2000 panelon 04-24-2022 Anion gap [Moles/Vol] 17 mmol/L Normal 9-18 [facility] Comment on above: Order Comment: Speci men Type: BLOOD SPECIMEN Ordering Facility: [facility] Address: [address] [place] [address] Performed By: #### 2 4321-2 #### [facility] CLIA [id number] [address] [place] [address] [place] Calcium [Mass/Vol] 10.1 mg/dL Normal 8.5-10.2 [facility] Comment on above: Order Comment: Speci men Type: BLOOD SPECIMEN Ordering Facility: [facility] Address: [address] [address] Performed By: #### 2 4321-2 #### [facility] CLIA [id number] [address] [place] [address] [place] Chloride [Moles/Vol] 104 mmol/L Normal 97-105 [facility] Comment on above: Order Comment: Speci men Type: BLOOD SPECIMEN Ordering Facility: [facility] Address: [address] [place] [address] Performed By: #### 2 4321-2 #### [facility] CLIA [id number] [address] [place] [address] [place] CO2 [Moles/Vol] 20 mmol/L Low 22-30 [facility] Comment on above: Order Comment: Speci men Type: BLOOD SPECIMEN Ordering Facility: [facility] Address: [address] [place] [address] Performed By: #### 2 4321-2 #### [facility] CLIA [id number] [address] [id number] [place] Creatinine [Mass/Vol] 0.71 mg/dL Normal 0.58-0.96 [facility] Comment on above: Order Comment: Speci men Type: BLOOD SPECIMEN Ordering Facility: [facility] Address: [address] [place] [address] Performed By: #### 2 4321-2 #### [facility] CLIA [id number] [address] [id number] [facility] OF [place] ESTIMATED GLOMERULAR FILTRATION RATE 126 mL/min/1.73m??? Normal >=60 [facility] Comment on above: Order Comment: Speci men Type: BLOOD SPECIMEN Ordering Facility: [facility] Address: [address] [place] [address] Result Comment: Mumtaz mated Glomerular Filtration Rate (eGFR) is calculated using the 2020 CKD-EPI creatinine equation. This equation utilizes serum creatinine, sex, and age as parameters. The creatinine assay has traceable calibration to isotope dilution-mass spectrometry. Refer to KDIGO guidelines for clinical interpretation. In patients with unstable renal function, e.g. those with acute kidney injury, the eGFR may not accurately reflect actual GFR. Performed By: #### 2 4321-2 #### [facility] CLIA [id number] [address] [place] [address] [place] Glucose [Mass/Vol] 105 mg/dL High 74-99 [facility] Comment on above: Order Comment: [place] Type: BLOOD SPECIMEN Ordering Facility: [facility] Address: [address] [place], [place] [phone] Result Comment: The [place] Diabetes [employer] (ADA) provides guidance for cutoff values for fasting glucose and random glucose. The ADA defines fasting as no caloric intake for at least 8 hours. Fasting plasma glucose results between 100 to 125 mg/dL indicate increased risk for diabetes (prediabetes). Fasting plasma glucose results greater than or equal to 126 mg/dL meet the criteria for diagnosis of diabetes. In the absence of unequivocal hyperglycemia, results should be confirmed by repeat testing. In a patient with classic symptoms of hyperglycemia or hyperglycemic crisis, random plasma glucose results greater than or equal to 200 mg/dL meet the criteria for diagnosis of diabetes. Reference: Standards of Medical Care in Diabetes 2016, [place] [employer] Association. Diabetes Care. 2016.39(Suppl 1). Performed By: #### 2 4321-2 #### [facility] CLIA [id number] [address] [place] [address] [place] Potassium [Moles/Vol] 4.1 mmol/L Normal 3.7-5.1 [facility] Comment on above: Order Comment: [place] Type: BLOOD SPECIMEN Ordering Facility: [facility] Address: [address] [id number] Performed By: #### 2 4321-2 #### [facility] CLIA [id number] [address] [place] [address] [place] Sodium [Moles/Vol] 141 mmol/L Normal 136-144 [facility] Comment on above: Order Comment: [place] Type: BLOOD SPECIMEN Ordering Facility: [facility] Address: [address] [place] [address] Performed By: #### 2 4321-2 #### [facility] CLIA [id number] [address] [place] [address] STATES [facility] Urea nitrogen [Mass/Vol] 8 mg/dL Normal 7-21 [facility] Comment on above: Order Comment: Speci men Type: BLOOD SPECIMEN Ordering Facility: [facility] Address: [address] [place] [address] Performed By: #### 2 4321-2 #### [facility] CLIA [id number] [address] [place] [address] OF [place] C. trachomatis+N. gonorrhoea e DNA MEREDITH+probe Ql (Unsp spec)on 04-24-2022 C. trachomatis DNA MEREDITH+probe Ql (Unsp spec) Negative Normal Negative for Chlamydia trachomatis by amplificaton [facility] Comment on above: Order Comment: Speci men Type: SWAB Ordering Facility: [facility] Address: [address] [place] [address] Performed By: #### 3 6902-5 #### [facility] CLIA [id number] [address] N. gonorrhoeae DNA MEREDITH+probe Ql (Unsp spec) Negative Normal Negative for Neisseria gonorrhoeae by amplification [facility] Comment on above: Order Comment: Speci men Type: SWAB Ordering Facility: [facility] Address: [address] [place], [place] [address] Performed By: #### 3 6902-5 #### [facility] CLIA [id number] [address] OF [place] CBC W Auto Differential pane l (Bld)on 04-24-2022 Basophils (Bld) [#/Vol] 0.04 10*3/uL Normal <0.11 [facility] Comment on above: Order Comment: Speci men Type: BLOOD SPECIMEN Ordering Facility: [facility] Address: [address] [place] [address] Performed By: #### 5 7021-8 #### [facility] CLIA [id number] [address] [place] [address] [place] Basophils/100 WBC (Bld) 0.4 % Normal [facility] Comment on above: Order Comment: Speci men Type: BLOOD SPECIMEN Ordering Facility: [facility] Address: [address] [place] [address] Performed By: #### 5 7021-8 #### [facility] CLIA [id number] [address] [place] [address] [place] Differential cell count method Nom (Bld) Auto Normal [facility] Comment on above: Order Comment: Speci men Type: BLOOD SPECIMEN Ordering Facility: [facility] Address: [address] [place] [address] Performed By: #### 5 7021-8 #### [facility] CLIA [id number] [address] [place] [address] [place] Eosinophils (Bld) [#/Vol] 0.17 10*3/uL Normal <0.46 [facility] Comment on above: Order Comment: Speci men Type: BLOOD SPECIMEN Ordering Facility: [facility] Address: [address] [place] [address] Performed By: #### 5 7021-8 #### [facility] CLIA [id number] [address] OF [place] Eosinophils/100 WBC (Bld) 1.6 % Normal [facility] Comment on above: Order Comment: Speci men Type: BLOOD SPECIMEN Ordering Facility: [facility] Address: [address] [place] [address] Performed By: #### 5 7021-8 #### [facility] CLIA [id number] [address] OF [place] Erythrocyte distribution width (RBC) [Ratio] 12.6 % Normal 11.5-15.0 [facility] Comment on above: Order Comment: Speci men Type: BLOOD SPECIMEN Ordering Facility: [facility] Address: [address] [place] [address] Performed By: #### 5 7021-8 #### [facility] CLIA [id number] [address] [place], [place] [address] [place] [address] Hematocrit (Bld) [Volume fraction] 40.8 % Normal 36.0-46.0 [facility] Comment on above: Order Comment: Speci men Type: BLOOD SPECIMEN Ordering Facility: [facility] Address: [address] [place] [address] Performed By: #### 5 7021-8 #### [facility] CLIA [id number] [address] OF [place] Hemoglobin (Bld) [Mass/Vol] 13.8 g/dL Normal 11.5-15.5 [facility] Comment on above: Order Comment: Speci men Type: BLOOD SPECIMEN Ordering Facility: [facility] Address: [address] [place] [address] Performed By: #### 5 7021-8 #### [facility] CLIA [id number] [address] STATES OF [place] Lymphocytes (Bld) [#/Vol] 3.00 10*3/uL Normal 1.00-4.00 [facility] Comment on above: Order Comment: Speci men Type: BLOOD SPECIMEN Ordering Facility: [facility] Address: [address] [place] [address] Performed By: #### 5 7021-8 #### [facility] CLIA [id number] [address] OF [place] Lymphocytes/100 WBC (Bld) 28.4 % Normal [facility] Comment on above: Order Comment: Speci men Type: BLOOD SPECIMEN Ordering Facility: [facility] Address: [address] [place] [address] Performed By: #### 5 7021-8 #### [facility] CLIA [id number] [address] MCH (RBC) [Entitic mass] 29.0 pg Normal 26.0-34.0 [facility] Comment on above: Order Comment: Speci men Type: BLOOD SPECIMEN Ordering Facility: [facility] Address: [address] [place] [address] Performed By: #### 5 7021-8 #### [facility] CLIA [id number] [address] [place] MCHC (RBC) [Mass/Vol] 33.8 g/dL Normal 30.5-36.0 [facility] Comment on above: Order Comment: Speci men Type: BLOOD SPECIMEN Ordering Facility: [facility] Address: [address] [place] [address] Performed By: #### 5 7021-8 #### [facility] CLIA [id number] [address] [place] [address] MCV (RBC) [Entitic vol] 85.7 fL Normal 80.0-100.0 [facility] Comment on above: Order Comment: Speci men Type: BLOOD SPECIMEN Ordering Facility: [facility] Address: [address] [place] [address] Performed By: #### 5 7021-8 #### [facility] CLIA [id number] [address] [place] [address] Monocytes (Bld) [#/Vol] 0.84 10*3/uL Normal <0.87 [facility] Comment on above: Order Comment: Speci men Type: BLOOD SPECIMEN Ordering Facility: [facility] Address: [address] [place] [address] Performed By: #### 5 7021-8 #### [facility] CLIA [id number] [address] [place] [address] Monocytes/100 WBC (Bld) 8.0 % Normal [facility] Comment on above: Order Comment: Speci men Type: BLOOD SPECIMEN Ordering Facility: [facility] Address: [address] [place], [place] [address] Performed By: #### 5 7021-8 #### [facility] CLIA [id number] [address] [place] [address] [place] Neutrophils (Bld) [#/Vol] 6.51 10*3/uL Normal 1.45-7.50 [facility] Comment on above: Order Comment: Speci men Type: BLOOD SPECIMEN Ordering Facility: [facility] Address: [address] [place] [address] Performed By: #### 5 7021-8 #### [facility] CLIA [id number] [address] [place] [address] [place] Neutrophils/100 WBC (Bld) 61.6 % Normal [facility] Comment on above: Order Comment: Speci men Type: BLOOD SPECIMEN Ordering Facility: [facility] Address: [address] [place] [address] Performed By: #### 5 7021-8 #### [facility] CLIA [id number] [address] [place] [address] [place] Platelet mean volume (Bld) [Entitic vol] 9.8 fL Normal 9.0-12.7 [facility] Comment on above: Order Comment: Speci men Type: BLOOD SPECIMEN Ordering Facility: [facility] Address: [address] [place] [address] Performed By: #### 5 7021-8 #### [facility] CLIA [id number] [address] [place] [address] [place] Platelets (Bld) [#/Vol] 496 10*3/uL High 150-400 [facility] Comment on above: Order Comment: Speci men Type: BLOOD SPECIMEN Ordering Facility: [facility] Address: [address] [place] [address] Performed By: #### 5 7021-8 #### [facility] CLIA [id number] [address] [place] [address] [place] RBC (Bld) [#/Vol] 4.76 10*6/uL Normal 3.90-5.20 [facility] Comment on above: Order Comment: Speci men Type: BLOOD SPECIMEN Ordering Facility: [facility] Address: [address] [place] [id number] Performed By: #### 5 7021-8 #### [facility] CLIA [id number] [address] [place] [address] [facility] WBC (Bld) [#/Vol] 10.56 10*3/uL Normal 3.70-11.00 [facility] Comment on above: Order Comment: Speci men Type: BLOOD SPECIMEN Ordering Facility: [facility] Address: [address] [place] [address] Performed By: #### 5 7021-8 #### [facility] CLIA [id number] [address] [place] [address] [facility] CT FLANK WO IVCONon 04-24-[address] FLANK WO IVCON * * *Final Report* * * DATE OF EXAM: Apr 24 2022 3:59PM [facility] 0529 - CT FLANK WO IVCON / PROCEDURE REASON: Flank pain, kidney stone suspected * * * * Physician Interpretation * * * * EXAMINATION: CT ABDOMEN AND PELVIS WITHOUT IV CONTRAST (Renal stone protocol) CLINICAL HISTORY: Unspecified flank pain. Hematuria. TECHNIQUE: Non-contrast imaging of the abdomen and pelvis was performed through the urinary tract. Study performed without intravenous or oral contrast to evaluate for urinary tract calculus. MQ: [id number] Contrast: IV contrast: None Oral contrast: None CT Radiation dose: Integrated dose-length product (DLP) for this visit = 775.58 mGy*cm. CT Dose Reduction Employed: Automated exposure control (AEC) COMPARISON: None. RESULT: Limitations: Unenhanced imaging is limited for the evaluation of some renal and other intra-abdominal and pelvic pathology. Urinary Tract: Right kidney and ureter: No calculus. No hydronephrosis. No finding to suggest cyst or mass in the unenhanced kidney. Left kidney and ureter: A 3.5 mm nonobstructing renal stone is present. No ureteral stone is identified. No hydronephrosis. No finding to suggest cyst or mass in the unenhanced kidney. Bladder: No calculus. Abdomen and Pelvis: Liver: There is significant fatty infiltration of the liver parenchyma. Associated hepatomegaly is present. Biliary: Multiple gallstones are present. There is no CT evidence to suggest acute cholecystitis. Spleen: No splenomegaly. Pancreas: Unremarkable. Adrenals: Normal. GI Tract: No bowel dilation. Normal appendix. No diverticulosis. Lymph Nodes: No lymphadenopathy. Mesentery/peritoneum: No ascites. Vasculature: No abdominal aortic or iliac artery aneurysm. Pelvis: No mass or ascites. Bones and Soft Tissues: No acute abnormality. Lower thorax: Unremarkable. Dinkey Engine Operator (topogram) images: No additional findings. IMPRESSION: 1. Nonobstructing left renal stone. 2. Significant fatty infiltration of liver parenchyma. Ultrasonic Hand Solderer: JULIA Transcribe Date/Time: Apr 24 2022 4:02P Dictated by : FELECIA VACA MD This examination was interpreted and the report reviewed and electronically signed by: FELECIA VACA MD on Apr 24 2022 4:10PM EST [id number] Normal [facility] ED NOTEon 04-24-2022 ED NOTE HNO ID: [id number] Author: Lilia Blandon RN Service: Nursing Author Type: Registered Nurse Type: ED Notes Filed: 04/24/2022 3:38 PM Note Text: Normal [facility] ED NOTE HNO ID: [id number] Author: An Tran RN Service: Emergency Medicine Author Type: Registered Nurse Type: ED Notes Filed: 04/24/2022 2:45 PM Note Text: Pt is currently being treated for a uti with macrobid. Pt is not feeling better and has b flank pain now Normal [facility] ED PROV NOTEon 04-24-2022 ED PROV NOTE HNO ID: [id number] Author: Jose Manuel Moeller MD Service: Emergency Medicine Author Type: Physician Type: ED Provider Notes Filed: 04/24/2022 9:15 PM Note Text: ED Provider Note Patient Name: Gregory Lacy : 2005 SERVICE DATE: 04/24/22 History Patient presents with: Flank Pain Urinary Problem This is a 17-year-old female recently diagnosed with a urinary tract infection currently taking Macrobid and states that she is not feeling better and she has bilateral flank pain now. She did have left flank pain and dysuria when she first presented but the dysuria was the first symptom. She continues to have dysuria and now bilateral flank pain. She denies fevers chills nausea or vomiting. Last menstrual period was the end of February but patient states that she gets very irregular menses. She is sexually active with 1 male partner, denies vaginal discharge or rash or history of sexually transmitted infection. Denies a history of ovarian cyst. She denies a history of kidney stone. Denies history of ovarian torsion. She states that she has been taking her Macrobid as prescribed. PAST MEDICAL HISTORY Diagnosis Date Hypertension Migraines History reviewed. No pertinent surgical history. No family history on file. Social History Tobacco Use Smoking status: Never Smokeless tobacco: Never Vaping Use Vaping Use: Never used Substance and Sexual Activity Alcohol use: Never Drug use: Never Sexual activity: Not on file ALLERGIES No Known Allergies Review of Systems All other systems reviewed and are negative. Physical Exam Vitals [04/24/22 1442] BP Pulse Temp Temp src Resp SpO2 Weight Height 153/90 (!) 94 36.7 ?C (98 ?F) Temporal Art 18 97 % 90.7 kg (200 lb) 1.6 m (5' 3) Physical Exam Vitals and nursing note reviewed. Exam conducted with a visual stylist present. Constitutional: Appearance: She is well-developed. She is not toxic-appearing or diaphoretic. HENT: Head: Normocephalic and atraumatic. Right Ear: Tympanic membrane, ear canal and external ear normal. Left Ear: Tympanic membrane, ear canal and external ear normal. Mouth/Throat: Mouth: Mucous membranes are moist. Mucous membranes are not dry. Pharynx: Uvula midline. No oropharyngeal exudate or posterior oropharyngeal erythema. Eyes: General: No scleral icterus. Extraocular Movements: Extraocular movements intact. Conjunctiva/sclera: Conjunctivae normal. Right eye: Right conjunctiva is not injected. Left eye: Left conjunctiva is not injected. Pupils: Pupils are equal, round, and reactive to light. Neck: Vascular: No JVD. Cardiovascular: Rate and Rhythm: Normal rate and regular rhythm. Pulses: Normal pulses. Heart sounds: Normal heart sounds. No murmur heard. No friction rub. No gallop. Pulmonary: Effort: Pulmonary effort is normal. No respiratory distress. Breath sounds: Normal breath sounds. No stridor. No wheezing, rhonchi or rales. Abdominal: General: Bowel sounds are normal. There is no distension. Palpations: Abdomen is soft. Tenderness: There is no abdominal tenderness. There is right CVA tenderness (Very mild) and left CVA tenderness (Very mild). Hernia: No hernia is present. Genitourinary: Vagina: Vaginal discharge (Scant mucoid) present. No erythema or bleeding. Cervix: No cervical motion tenderness or friability. Uterus: Normal. Adnexa: Right adnexa normal and left adnexa normal. Musculoskeletal: General: No swelling or tenderness. Cervical back: Neck supple. Lymphadenopathy: Cervical: No cervical adenopathy. Skin: General: Skin is warm and dry. Capillary Refill: Capillary refill takes less than 2 seconds. Findings: No rash. Neurological: Mental Status: She is alert and oriented to person, place, and time. Cranial Nerves: No cranial nerve deficit. Sensory: No sensory deficit. Motor: No weakness. Gait: Gait normal. Psychiatric: Mood and Affect: Mood normal. Diagnostic Testing ED Labs Ordered and Reviewed URINALYSIS, WITH MICROSCOPIC - Abnormal; Notable for the following components: Result Value Ref Range Leuk Esterase Trace (*) Negative Bacteria Few (*) None Seen /HPF All other components within normal limits BASIC METABOLIC PNL - Abnormal; Notable for the following components: Glucose 105 (*) 74 - 99 mg/dL CO2 20 (*) 22 - 30 mmol/L All other components within normal limits CBC + DIFF - Abnormal; Notable for the following components: Platelet Count 496 (*) 150 - 400 k/uL All other components within normal limits HCG QUAL UR - Normal TRICHOMONAS PREP/ANTIGEN - Normal GC/CHLAMYDIA DNA DET RAPID BACT VAGINOSIS ([place]) URINE CULTURE Procedures ED Course / Clinical Impression Clinical Impressions as of 04/24/222109 Urinary tract infection without hematuria, site unspecified Kidney stone Gallstones Fatty liver MDM / Disposition / Plan 17-year-old female I recently saw for urinary symptoms (more content not included)... Normal [facility] HCG Preg Ur Qlon 04-24-2022 HCG ( test) Ql (U) Negative Normal Negative [facility] Comment on above: Order Comment: Speci men Type: URINE SPECIMEN Ordering Facility: [facility] Address: [address] [place] [address] Result Comment: This test is intended to aid in the early detection of . Very dilute urine samples, as indicated by a low specific gravity, may not contain accounts receivable representative levels of hCG. This test detects intact hCG only. This test does not reliably detect hCG degradation products, including free-beta subunit and beta-core fragment. Therefore, this test may show reduced reactivity in urine after 8 weeks gestation. A number of conditions other than , including trophoblastic disease and certain non-trophoblastic neoplasms cause elevated levels of hCG. As with any assay employing mouse antibodies, the possibility exists for interference by human anti-mouse antibodies (HAMA) in the specimen. The test provides a presumptive diagnosis for . Performed By: #### 2 106-3 #### [facility] CLIA [id number] [address] [place] [address] [place] RAPID BACT VAGINOSIS ([place])on 04-24-2022 Bacterial sialidase Ql (Unsp spec) Negative Normal Negative for the presence of bacterial vaginosis. [facility] Comment on above: Order Comment: Speci men Type: MICROBIAL ISOLATE Ordering Facility: [facility] Address: [address] [place] [address] Performed By: #### R APBVAG #### [facility] CLIA [id number] [address] T vaginalis Ag Genital Ql [place] on 04-24-2022 T. vaginalis Ag IA Ql (Genital specimen) Negative Normal Negative for Trichomonas Antigen [facility] Comment on above: Order Comment: Speci [facility] Type: MICROBIAL ISOLATE Ordering Facility: [facility] Address: [address] [place] [address] Performed By: #### 6 566-4 #### [facility] CLIA [id number] [address] STATES OF [facility] Urinalysis complete panel (U )on 04-24-2022 Bacteria LM.HPF (Urine sed) [#/Area] Few Abnormal None Seen [facility] Comment on above: Order Comment: Speci men Type: URINE SPECIMEN Ordering Facility: [facility] Address: [address] [place] [address] Performed By: #### 2 4356-8 #### [facility] CLIA [id number] [address] [place] [address] [place] Bilirubin Ql (U) Negative Normal Negative [facility] Comment on above: Order Comment: Speci men Type: URINE SPECIMEN Ordering Facility: [facility] Address: [address] [place] [address] Performed By: #### 2 4356-8 #### [facility] CLIA [id number] [address] Clarity (Unsp spec) Clear Normal Clear [facility] Comment on above: Order Comment: Speci men Type: URINE SPECIMEN Ordering Facility: [facility] Address: [address] [place] [address] Performed By: #### 2 4356-8 #### [facility] CLIA [id number] [address] [place] Color (U) Yellow Normal Yellow [facility] Comment on above: Order Comment: Speci men Type: URINE SPECIMEN Ordering Facility: [facility] Address: [address] [place] [address] Performed By: #### 2 4356-8 #### [facility] CLIA [id number] [address] [place] [id number] [facility] Epithelial cells LM.HPF (Urine sed) [#/Area] Few Normal [facility] Comment on above: Order Comment: Speci men Type: URINE SPECIMEN Ordering Facility: [facility] Address: [address] [place] [address] Performed By: #### 2 4356-8 #### [facility] CLIA [id number] [address] [place] [address] [place] Glucose Test strip (U) [Mass/Vol] Negative Normal Negative [facility] Comment on above: Order Comment: Speci men Type: URINE SPECIMEN Ordering Facility: [facility] Address: [address] [place] [address] Performed By: #### 2 4356-8 #### [facility] CLIA [id number] [address] [place] [address] [facility] [place] Hemoglobin Ql (U) Negative Normal Negative [facility] Comment on above: Order Comment: Speci men Type: URINE SPECIMEN Ordering Facility: [facility] Address: [address] [place] [address] Performed By: #### 2 4356-8 #### [facility] CLIA [id number] [address] Ketones Ql (U) Negative Normal Negative [facility] Comment on above: Order Comment: Speci men Type: URINE SPECIMEN Ordering Facility: [facility] Address: [address] [place] [address] Performed By: #### 2 4356-8 #### [facility] CLIA [id number] [address] [place] [phone] [place] Leukocyte esterase Test strip Ql (U) Trace Abnormal Negative [facility] Comment on above: Order Comment: Speci men Type: URINE SPECIMEN Ordering Facility: [facility] Address: [address] [place] [address] Performed By: #### 2 4356-8 #### [facility] CLIA [id number] [address] [place] [address] [place] Nitrite Ql (U) Negative Normal Negative [facility] Comment on above: Order Comment: Speci men Type: URINE SPECIMEN Ordering Facility: [facility] Address: [address] [place] [address] Performed By: #### 2 4356-8 #### [facility] CLIA [id number] [address] [place] [address] [place] pH (U) 5.0 [pH] Normal 5.0-8.0 [facility] Comment on above: Order Comment: Speci men Type: URINE SPECIMEN Ordering Facility: [facility] Address: [address] [place] [address] Performed By: #### 2 4356-8 #### [facility] CLIA [id number] [address] [place] [id number] [place] [address] Protein (U) [Mass/Vol] Negative Normal Negative [facility] Comment on above: Order Comment: Speci men Type: URINE SPECIMEN Ordering Facility: [facility] Address: [address] [place] [address] Performed By: #### 2 4356-8 #### [facility] CLIA [id number] [address] [place] [address] [place] RBC LM.HPF (Urine sed) [#/Area] 0-3 /HPF Normal 0-3 /HPF [facility] Comment on above: Order Comment: Speci men Type: URINE SPECIMEN Ordering Facility: [facility] Address: [address] [place] [address] Performed By: #### 2 4356-8 #### [facility] CLIA [id number] [address] [place] [address] [place] Specific gravity (U) [Rel density] 1.020 Normal 1.005-1.030 [facility] Comment on above: Order Comment: Speci men Type: URINE SPECIMEN Ordering Facility: [facility] Address: [address] [place] [address] Performed By: #### 2 4356-8 #### [facility] CLIA [id number] [address] [place] [phone] [facility] Urobilinogen Ql (U) 0.2 EU/dL Normal 0.2-1.0 EU/dL [facility] Comment on above: Order Comment: Speci men Type: URINE SPECIMEN Ordering Facility: [facility] Address: [address] [place] [address] Performed By: #### 2 4356-8 #### [facility] CLIA [id number] [address] [place] [address] [facility] WBC LM.HPF (Urine sed) [#/Area] 0-5 /HPF Normal 0-5 /HPF [facility] Comment on above: Order Comment: Speci men Type: URINE SPECIMEN Ordering Facility: [facility] Address: [address] [place], [place] [id number] Performed By: #### 2 4356-8 #### [facility] CLIA [id number] [address] [place] [address] [facility] ED NOTEon 04-22-2022 ED NOTE HNO ID: [id number] Author: Henry Rivera RN Service: Emergency Medicine Author Type: Registered Nurse Type: ED Notes Filed: 04/22/2022 1:19 AM Note Text: Patient discharge instructions given to patient, patient educated on discharge instructions. Patient denied having questions at this time regarding discharge instructions. Patient discharged home at this time. Patient ambulated out of the emergency department with a steady gait at this time. [facility] ED NOTE HNO ID: [id number] Author: Henry Rivera RN Service: Emergency Medicine Author Type: Registered Nurse Type: ED Notes Filed: 04/22/2022 1:10 AM Note Text: Physician at bedside. [facility] ED NOTE HNO ID: [id number] Author: Henry Rivera RN Service: Emergency Medicine Author Type: Registered Nurse Type: ED Notes Filed: 04/22/2022 1:08 AM Note Text: Patient informed about the name of the medication(s), what the medication(s) is(are) for, and what to expect with/from med administration. Patient given opportunity to ask questions. Medication(s) include: Macrobid. [facility] ED NOTE HNO ID: [id number] Author: Henry Rivera RN Service: Emergency Medicine Author Type: Registered Nurse Type: ED Notes Filed: 04/22/2022 1:18 AM Note Text: Patient informed about the name of the medication(s), what the medication(s) is(are) for, and what to expect with/from med administration. Patient given opportunity to ask questions. Medication(s) include: Motrin. Normal [facility] ED PROV NOTEon 04-22-2022 ED PROV NOTE HNO ID: [id number] Author: Jose Manuel Moeller MD Service: Emergency Medicine Author Type: Physician Type: ED Provider Notes Filed: 04/22/2022 2:05 AM Note Text: ED Provider Note Patient Name: Gregory Lacy : 2005 SERVICE DATE: 04/21/22 History Patient presents with: Urinary Problem This is a 17-year-old white female presenting with dysuria that started earlier today. She states it initially started with dysuria while voiding and then she had a burning sensation in her urethra bladder area even when not voiding. She states then when she started peeing she noted some blood tinged urine. She states she started taking Azo but symptoms persisted and then prior to coming and it started to feel like it was going to her left flank slightly. She denied vomiting but had some slight nausea associated with it. Last menstrual period was approximately 4 weeks ago patient states her menses are irregular. She denies a history of kidney stones. She denies vaginal discharge or vaginal bleeding or rash. She denies diarrhea or abnormal bowel movements. She states that she recently had a renal ultrasound for high blood pressure. PAST MEDICAL HISTORY Diagnosis Date Hypertension Migraines History reviewed. No pertinent surgical history. No family history on file. Social History Tobacco Use Smoking status: Never Smokeless tobacco: Never Vaping Use Vaping Use: Never used Substance and Sexual Activity Alcohol use: Never Drug use: Never Sexual activity: Not on file ALLERGIES No Known Allergies Review of Systems All other systems reviewed and are negative. Physical Exam Vitals [04/21/22 2339] BP Pulse Temp Temp src Resp SpO2 Weight Height 128/81 (!) 111 37.2 ?C (98.9 ?F) Temporal 18 99 % 90.7 kg (200 lb) 1.6 m (5' 3) Physical Exam Vitals and nursing note reviewed. Constitutional: Appearance: She is well-developed. She is obese. She is not toxic-appearing or diaphoretic. HENT: Head: Normocephalic and atraumatic. Right Ear: Tympanic membrane, ear canal and external ear normal. Left Ear: Tympanic membrane, ear canal and external ear normal. Mouth/Throat: Mouth: Mucous membranes are moist. Mucous membranes are not dry. Pharynx: Uvula midline. No oropharyngeal exudate or posterior oropharyngeal erythema. Eyes: General: No scleral icterus. Extraocular Movements: Extraocular movements intact. Conjunctiva/sclera: Conjunctivae normal. Right eye: Right conjunctiva is not injected. Left eye: Left conjunctiva is not injected. Pupils: Pupils are equal, round, and reactive to light. Neck: Vascular: No JVD. Cardiovascular: Rate and Rhythm: Normal rate and regular rhythm. Pulses: Normal pulses. Heart sounds: Normal heart sounds. No murmur heard. No friction rub. No gallop. Pulmonary: Effort: Pulmonary effort is normal. No respiratory distress. Breath sounds: Normal breath sounds. No stridor. No wheezing, rhonchi or rales. Abdominal: General: Bowel sounds are normal. There is no distension. Palpations: Abdomen is soft. Tenderness: There is no abdominal tenderness. There is no right CVA tenderness or left CVA tenderness. Comments: Minimal left flank tenderness but not abdominal tenderness nor CVA region tenderness Musculoskeletal: General: No swelling or tenderness. Cervical back: Neck supple. Lymphadenopathy: Cervical: No cervical adenopathy. Skin: General: Skin is warm and dry. Capillary Refill: Capillary refill takes less than 2 seconds. Findings: No rash. Neurological: Mental Status: She is alert and oriented to person, place, and time. Cranial Nerves: No cranial nerve deficit. Sensory: No sensory deficit. Motor: No weakness. Gait: Gait normal. Psychiatric: Mood and Affect: Mood normal. Diagnostic Testing ED Labs Ordered and Reviewed - No data to display Limited Renal Ultrasound US KIDNEY (POC) ED USE ONLY ([place], NO AC) Date/Time: 04/22/2022 12:00 AM Performed by: Jose Manuel Moeller MD Authorized by: Jose Manuel Moeller MD Indication: Flank pain. Procedure in detail: Using the cruvilinear probe, axial and sagittal planes of the kidney were obtained of the Bilateral kidney. The calyces and ureter were identified and hydronephrosis was Not present. Yes still images or video images were saved for this exam.. Conclusion: Based on this limited bedside ultrasound of the kidneys findings were normal without Hydronephrosis. Other Findings include: Other (see comments). This limited imaging study was performed by: Attending only. Echotexture and attenuation of right liver suggesting fatty liver. This limited visualization of right kidney. ED Course / Clinical Impression Clinical Impressions as of 04/22/22 0201 Urinary tract infection with hematuria, site unspecified MDM / Disposition / Plan 17-year-old female with urinary symptoms now progressing to a feeling of flank pain all within today' (more content not included)... Normal [facility] HCG Preg Ur Qlon 04-22-2022 HCG ( test) Ql (U) Negative Normal Negative [facility] Comment on above: Order Comment: [place] Type: URINE SPECIMEN Ordering Facility: [facility] Address: [address] [place], [place] [id number] Result Comment: This test is intended to aid in the early detection of . Very dilute urine samples, as indicated by a low specific gravity, may not contain accounts receivable representative levels of hCG. This test detects intact hCG only. This test does not reliably detect hCG degradation products, including free-beta subunit and beta-core fragment. Therefore, this test may show reduced reactivity in urine after 8 weeks gestation. A number of conditions other than , including trophoblastic disease and certain non-trophoblastic neoplasms cause elevated levels of hCG. As with any assay employing mouse antibodies, the possibility exists for interference by human anti-mouse antibodies (HAMA) in the specimen. The test provides a presumptive diagnosis for . Performed By: #### 2 106-3 #### [facility] CLIA [id number] [address] [place] [address] [place] Urinalysis complete panel (U )on 04-22-2022 Bacteria LM.HPF (Urine sed) [#/Area] Few Abnormal None Seen [facility] Comment on above: Order Comment: [place] Type: URINE SPECIMEN Ordering Facility: [facility] Address: [address] [place] [address] Performed By: #### 2 4356-8 #### [facility] CLIA [id number] [address] [place] [address] [place] Bilirubin Ql (U) Normal [facility] Comment on above: Order Comment: [place] Type: URINE SPECIMEN Ordering Facility: [facility] Address: [address] [place] [address] Result Comment: Unab le to perform macroscopic analysis???due to abnormal color. Performed By: #### 2 4356-8 #### [facility] CLIA [id number] [address] [place] [address] [facility] [place] Clarity (Unsp spec) Cloudy Abnormal Clear [facility] Comment on above: Order Comment: Speci men Type: URINE SPECIMEN Ordering Facility: [facility] Address: [address] [place] [address] Performed By: #### 2 4356-8 #### [facility] CLIA [id number] [address] [place] [address] [facility] Color (U) Electra Abnormal Yellow [facility] Comment on above: Order Comment: Speci men Type: URINE SPECIMEN Ordering Facility: [facility] Address: [address] [place] [address] Performed By: #### 2 4356-8 #### [facility] CLIA [id number] [address] [place] [phone] [facility] Glucose Test strip (U) [Mass/Vol] Normal [facility] Comment on above: Order Comment: Speci men Type: URINE SPECIMEN Ordering Facility: [facility] Address: [address] [place] [address] Result Comment: Unab le to perform macroscopic analysis???due to abnormal color. Performed By: #### 2 4356-8 #### [facility] CLIA [id number] [address] [place] [phone] [facility] Hemoglobin Ql (U) Normal [facility] Comment on above: Order Comment: Speci men Type: URINE SPECIMEN Ordering Facility: [facility] Address: [address] [place] [address] Result Comment: Unab le to perform macroscopic analysis???due to abnormal color. Performed By: #### 2 4356-8 #### [facility] CLIA [id number] [address] [place] [address] [facility] [place] Ketones Ql (U) Normal [facility] Comment on above: Order Comment: Speci men Type: URINE SPECIMEN Ordering Facility: [facility] Address: [address] [place] [address] Result Comment: Unab le to perform macroscopic analysis???due to abnormal color. Performed By: #### 2 4356-8 #### [facility] CLIA [id number] [address] [place] [address] [place] [address] [facility] Leukocyte esterase Test strip Ql (U) Normal [facility] Comment on above: Order Comment: Speci men Type: URINE SPECIMEN Ordering Facility: [facility] Address: [address] [place] [address] Result Comment: Unab le to perform macroscopic analysis???due to abnormal color. Performed By: #### 2 4356-8 #### [facility] CLIA [id number] [address] [place] [address] [place] Nitrite Ql (U) Normal [facility] Comment on above: Order Comment: Speci men Type: URINE SPECIMEN Ordering Facility: [facility] Address: [address] [place] [address] Result Comment: Unab le to perform macroscopic analysis???due to abnormal color. Performed By: #### 2 4356-8 #### [facility] CLIA [id number] [address] [place] [address] [place] pH (U) Normal [facility] Comment on above: Order Comment: Speci men Type: URINE SPECIMEN Ordering Facility: [facility] Address: [address] [place] [address] Result Comment: Unab le to perform macroscopic analysis???due to abnormal color. Performed By: #### 2 4356-8 #### [facility] CLIA [id number] [address] [place] [address] [place] Protein (U) [Mass/Vol] Normal [facility] Comment on above: Order Comment: Speci men Type: URINE SPECIMEN Ordering Facility: [facility] Address: [address] [place] [address] Result Comment: Unab le to perform macroscopic analysis???due to abnormal color. Performed By: #### 2 4356-8 #### [facility] CLIA [id number] [address] [place] [address] RBC LM.HPF (Urine sed) [#/Area] /[HPF] Abnormal 0-3 /HPF [facility] Comment on above: Order Comment: Speci men Type: URINE SPECIMEN Ordering Facility: [facility] Address: [address] [place] [address] Performed By: #### 2 4356-8 #### [facility] CLIA [id number] [address] [place] [address] Specific gravity (U) [Rel density] Normal [facility] Comment on above: Order Comment: Speci men Type: URINE SPECIMEN Ordering Facility: [facility] Address: [address] [place] [address] Result Comment: Unab le to perform macroscopic analysis???due to abnormal color. Performed By: #### 2 4356-8 #### [facility] CLIA [id number] [address] [place] [address] Urobilinogen Ql (U) Normal [facility] Comment on above: Order Comment: Speci men Type: URINE SPECIMEN Ordering Facility: [facility] Address: [address] [place] [address] Result Comment: Unab le to perform macroscopic analysis???due to abnormal color. Performed By: #### 2 4356-8 #### [facility] CLIA [id number] [address] [place] [address] AMY WBC LM.HPF (Urine sed) [#/Area] /[HPF] Abnormal 0-5 /HPF [facility] Comment on above: Order Comment: Speci men Type: URINE SPECIMEN Ordering Facility: [facility] Address: [address] [place] [address] Performed By: #### 2 4356-8 #### [facility] CLIA [id number] [address] [place] [address] [place] US RENAL ARTERY [facility] n 03-28-2022 [facility] Non-Invasive Vascular Laboratory [facility] Renal or Mesenteric Duplex Bilateral/Complete Date of service/time: 03/28/2022 8:13:04 AM Name: GREGORY LACY Date of : 2005 Age: 17 years Gender: F Clinical Indication Hypertension not responding to medical management. TECHNIQUE -------- A visceral duplex ultrasound examination was performed, including grayscale imaging and color Doppler and spectral Doppler examination of the below mentioned arteries and veins. FINDINGS -------- Aorta at renals PSV: 80 cm/s. EDV: 17 cm/s. 1.38 cm x 1.40 cm Right renal artery origin PSV: 101 cm/s. EDV: 37 cm/s. Right renal artery proximal PSV: 127 cm/s. EDV: 51 cm/s. Right renal artery mid PSV: 112 cm/s. EDV: 53 cm/s. Right renal artery distal PSV: 82 cm/s. EDV: 39 cm/s. Right renal artery to aortic ratio (RAR): 1.6 Right kidney: Size: 12.0 cm. Right parenchyma resistive index and acceleration time Upper pole RI: 0.59 AT: 36 msec. Mid pole RI: 0.59 AT: 44 msec. Lower pole RI: 0.51 AT: 56 msec. Right renal vein patent. Left renal artery origin PSV: 138 cm/s. EDV: 50 cm/s. Left renal artery proximal PSV: 162 cm/s. EDV: 60 cm/s. Left renal artery mid PSV: 178 cm/s. EDV: 61 cm/s. Left renal artery distal PSV: 147 cm/s. EDV: 54 cm/s. Left renal artery to aortic ratio (RAR): 2.2 Left kidney: Size: 12.0 cm. Left parenchyma resistive index and acceleration time Upper pole RI: 0.56 AT: 36 msec. Mid pole RI: 0.57 AT: 40 msec. Lower pole RI: 0.61 AT: 24 msec. Left renal vein patent. IMPRESSION Compared to prior study, no previous study. AORTA Patent. RIGHT RENAL Right renal artery: 0-59% stenosis. No evidence of hemodynamically significant stenosis. LEFT RENAL Left renal artery: 0-59% stenosis. No evidence of hemodynamically significant stenosis. Technologist: Antonio Springer RVT, [facility] Ordering physician: SARAH ALCAZAR Interpreting physician: Ed Dan MD Final [facility] : [id number] sSISUID See Link below for Image Normal [facility] 25(OH)D3 [facility] 25-hydroxyvitamin D3 [Mass/Vol] 23.6 ng/mL Low 31.0-80.0 [facility] Comment on above: Order Comment: Speci men Type: BLOOD SPECIMEN Ordering Facility: [facility] Address: [address] [place] [address] Result Comment: Clas sification of 25 [place] Vitamin D status: Deficiency/Insufficiency: < or = 30 ng/ml. Sufficiency/Optimal Levels: 31-80 ng/mL Toxicity: > 100 ng/mL. Test performed by chemiluminescent immunoassay. Performed By: #### 1 989-3 #### [facility] CLIA [id number] [address] [place] [address] [place] ALBUMIN/CREAT RATIO RND URon 03-24-2022 Albumin DL <= 20 mg/L (U) [Mass/Vol] mg/dL Normal [facility] Comment on above: Order Comment: Speci men Type: URINE SPECIMEN Ordering Facility: [facility] Address: [address] [place] [address] Performed By: #### U ACR #### [facility] CLIA [id number] [address] [place] [address] [place] Albumin/Creatinine (U) [Mass ratio] <9 Normal <30 [facility] Comment on above: Order Comment: Speci men Type: URINE SPECIMEN Ordering Facility: [facility] Address: [address] [place] [address] Result Comment: Adul t Male and Female Nephrotic Criteria: <30 mg/g is considered normal to mildly increased 30-300 mg/g is considered moderately increased >300 mg/g is considered severely increased KDIGO. (2013). KDIGO 2012 Clinical Practice Guideline for the Evaluation and Management of Chronic Kidney Disease. Official Journal of the International Society of Nephrology, 3(1), 1-150. Performed By: #### U ACR #### [facility] CLIA [id number] [address] [place] [address] [place] Creatinine (U) [Mass/Vol] 135.2 mg/dL Normal 20.0-300.0 [facility] Comment on above: Order Comment: Speci men Type: URINE SPECIMEN Ordering Facility: [facility] Address: [address] [place] [address] Performed By: #### U ACR #### [facility] CLIA [id number] [address] [place] [address] [place] CBC W Auto Differential pane l (Bld)on 03-24-2022 Basophils (Bld) [#/Vol] 0.05 10*3/uL Normal <0.11 [facility] Comment on above: Order Comment: Speci men Type: BLOOD SPECIMEN Ordering Facility: [facility] Address: [address] [place], [place] [address] Performed By: #### 5 7021-8 #### [facility] CLIA [id number] [address] [place] [address] [place] Basophils/100 WBC (Bld) 0.6 % Normal [facility] Comment on above: Order Comment: Speci men Type: BLOOD SPECIMEN Ordering Facility: [facility] Address: [address] [place], [place] [address] Performed By: #### 5 7021-8 #### [facility] CLIA [id number] [address] [place] [address] [place] Differential cell count method Nom (Bld) Auto Normal [facility] Comment on above: Order Comment: Speci men Type: BLOOD SPECIMEN Ordering Facility: [facility] Address: [address] [place], [place] [address] Performed By: #### 5 7021-8 #### [facility] CLIA [id number] [address] [place] [address] [place] Eosinophils (Bld) [#/Vol] 0.30 10*3/uL Normal <0.46 [facility] Comment on above: Order Comment: Speci men Type: BLOOD SPECIMEN Ordering Facility: [facility] Address: [address] [place], [place] [address] Performed By: #### 5 7021-8 #### [facility] CLIA [id number] [address] [place] [address] [place] Eosinophils/100 WBC (Bld) 3.6 % Normal [facility] Comment on above: Order Comment: Speci men Type: BLOOD SPECIMEN Ordering Facility: [facility] Address: [address] [place], [place] [address] Performed By: #### 5 7021-8 #### [facility] CLIA [id number] [address] [place] [address] [place] Erythrocyte distribution width (RBC) [Ratio] 12.4 % Normal 11.5-15.0 [facility] Comment on above: Order Comment: Speci men Type: BLOOD SPECIMEN Ordering Facility: [facility] Address: [address] [place], [place] [address] Performed By: #### 5 7021-8 #### [facility] CLIA [id number] [address] [place] [address] [place] Hematocrit (Bld) [Volume fraction] 40.6 % Normal 36.0-46.0 [facility] Comment on above: Order Comment: Speci men Type: BLOOD SPECIMEN Ordering Facility: [facility] Address: [address] [place] [address] Performed By: #### 5 7021-8 #### [facility] CLIA [id number] [address] [place] [address] [place] Hemoglobin (Bld) [Mass/Vol] 13.6 g/dL Normal 11.5-15.5 [facility] Comment on above: Order Comment: Speci men Type: BLOOD SPECIMEN Ordering Facility: [facility] Address: [address] [place] [address] Performed By: #### 5 7021-8 #### [facility] CLIA [id number] [address] [place] [address] [facility] IMMATURE GRAN % 0.2 % Normal [facility] Comment on above: Order Comment: Speci men Type: BLOOD SPECIMEN Ordering Facility: [facility] Address: [address] [place] [address] Performed By: #### 5 7021-8 #### [facility] CLIA [id number] [address] [place] [address] [place] IMMATURE GRAN ABS <0.03 Normal <0.10 [facility] Comment on above: Order Comment: Speci men Type: BLOOD SPECIMEN Ordering Facility: [facility] Address: [address] [place] [address] Performed By: #### 5 7021-8 #### [facility] CLIA [id number] [address] [place] [address] OF [place] Lymphocytes (Bld) [#/Vol] 2.66 10*3/uL Normal 1.00-4.00 [facility] Comment on above: Order Comment: Speci men Type: BLOOD SPECIMEN Ordering Facility: [facility] Address: [address] [place], [place] [address] Performed By: #### 5 7021-8 #### [facility] CLIA [id number] [address] [place] [address] [place] Lymphocytes/100 WBC (Bld) 31.7 % Normal [facility] Comment on above: Order Comment: Speci men Type: BLOOD SPECIMEN Ordering Facility: [facility] Address: [address] [place], [place] [address] Performed By: #### 5 7021-8 #### [facility] CLIA [id number] [address] [place] [address] [place] MCH (RBC) [Entitic mass] 28.7 pg Normal 26.0-34.0 [facility] Comment on above: Order Comment: Speci men Type: BLOOD SPECIMEN Ordering Facility: [facility] Address: [address] [place], [place] [address] Performed By: #### 5 7021-8 #### [facility] CLIA [id number] [address] [place] [address] [place] MCHC (RBC) [Mass/Vol] 33.5 g/dL Normal 30.5-36.0 [facility] Comment on above: Order Comment: Speci men Type: BLOOD SPECIMEN Ordering Facility: [facility] Address: [address] [place], [place] [address] Performed By: #### 5 7021-8 #### [facility] CLIA [id number] [address] [place] [address] [place] MCV (RBC) [Entitic vol] 85.7 fL Normal 80.0-100.0 [facility] Comment on above: Order Comment: Speci men Type: BLOOD SPECIMEN Ordering Facility: [facility] Address: [address] [place], [place] [address] Performed By: #### 5 7021-8 #### [facility] CLIA [id number] [address] [place] [address] [place] Monocytes (Bld) [#/Vol] 0.72 10*3/uL Normal <0.87 [facility] Comment on above: Order Comment: Speci men Type: BLOOD SPECIMEN Ordering Facility: [facility] Address: [address] [place] [address] Performed By: #### 5 7021-8 #### [facility] CLIA [id number] [address] [place] [address] [place] Monocytes/100 WBC (Bld) 8.6 % Normal [facility] Comment on above: Order Comment: Speci men Type: BLOOD SPECIMEN Ordering Facility: [facility] Address: [address] [place] [address] Performed By: #### 5 7021-8 #### [facility] CLIA [id number] [address] [place] [address] [place] Neutrophils (Bld) [#/Vol] 4.65 10*3/uL Normal 1.45-7.50 [facility] Comment on above: Order Comment: Speci men Type: BLOOD SPECIMEN Ordering Facility: [facility] Address: [address] [place], [place] [address] Performed By: #### 5 7021-8 #### [facility] CLIA [id number] [address] [place] [address] [place] Neutrophils/100 WBC (Bld) 55.3 % Normal [facility] Comment on above: Order Comment: Speci men Type: BLOOD SPECIMEN Ordering Facility: [facility] Address: [address] [place], [place] [address] Performed By: #### 5 7021-8 #### [facility] CLIA [id number] [address] [place] [address] [place] Nucleated RBC (Bld) [#/Vol] 10*3/uL Normal <0.01 [facility] Comment on above: Order Comment: Speci men Type: BLOOD SPECIMEN Ordering Facility: [facility] Address: [address] [place] [address] Performed By: #### 5 7021-8 #### [facility] CLIA [id number] [address] [place], [place] [address] [place] Nucleated RBC/100 WBC (Bld) [Ratio] 0.0 /100 WBC Normal [facility] Comment on above: Order Comment: Speci men Type: BLOOD SPECIMEN Ordering Facility: [facility] Address: [address] [place], [place] [address] Performed By: #### 5 7021-8 #### [facility] CLIA [id number] [address] [place] [address] [place] Platelet mean volume (Bld) [Entitic vol] 10.0 fL Normal 9.0-12.7 [facility] Comment on above: Order Comment: Speci men Type: BLOOD SPECIMEN Ordering Facility: [facility] Address: [address] [place] [address] Performed By: #### 5 7021-8 #### [facility] CLIA [id number] [address] [place] [address] [place] Platelets (Bld) [#/Vol] 477 10*3/uL High 150-400 [facility] Comment on above: Order Comment: Speci men Type: BLOOD SPECIMEN Ordering Facility: [facility] Address: [address] [place] [address] Performed By: #### 5 7021-8 #### [facility] CLIA [id number] [address] [place] [address] [place] RBC (Bld) [#/Vol] 4.74 10*6/uL Normal 3.90-5.20 [facility] Comment on above: Order Comment: Speci men Type: BLOOD SPECIMEN Ordering Facility: [facility] Address: [address] [place], [place] [address] Performed By: #### 5 7021-8 #### [facility] CLIA [id number] [address] [place] [address] [place] WBC (Bld) [#/Vol] 8.40 10*3/uL Normal 3.70-11.00 [facility] Comment on above: Order Comment: Speci men Type: BLOOD SPECIMEN Ordering Facility: [facility] Address: [address] [place], [place] [address] Performed By: #### 5 7021-8 #### [facility] CLIA [id number] [address] [place] [address] [place] Comprehensive metabolic 2000 panelon 03-24-2022 Albumin [Mass/Vol] 4.9 g/dL Normal 3.9-4.9 [facility] Comment on above: Order Comment: Speci men Type: BLOOD SPECIMEN Ordering Facility: [facility] Address: [address] [place], [place] [address] Performed By: #### 2 132-9, 68460-2, 48185-4, 3016-3 #### [facility] CLIA [id number] [address] [place] [address] [place] ALP [Catalytic activity/Vol] 54 U/L Normal 34-123 [facility] Comment on above: Order Comment: Speci men Type: BLOOD SPECIMEN Ordering Facility: [facility] Address: [address] [place], [place] [address] Performed By: #### 2 132-9, 04634-9, 18998-7, 3016-3 #### [facility] CLIA [id number] [address] [place] [address] [place] ALT [Catalytic activity/Vol] 81 U/L High 7-38 [facility] Comment on above: Order Comment: Speci men Type: BLOOD SPECIMEN Ordering Facility: [facility] Address: [address] [place], [place] [address] Performed By: #### 2 132-9, 86542-1, 99040-8, 3016-3 #### [facility] CLIA [id number] [address] [place] [address] [place] Anion gap [Moles/Vol] 14 mmol/L Normal 9-18 [facility] Comment on above: Order Comment: Speci men Type: BLOOD SPECIMEN Ordering Facility: [facility] Address: [address] [place] [address] Performed By: #### 2 132-9, 04714-0, 24301-4, 3016-3 #### [facility] CLIA [id number] [address] [place] [address] [place] AST [Catalytic activity/Vol] 52 U/L High 13-35 [facility] Comment on above: Order Comment: Speci men Type: BLOOD SPECIMEN Ordering Facility: [facility] Address: [address] [place] [address] Performed By: #### 2 132-9, 39947-2, 76880-0, 3016-3 #### [facility] CLIA [id number] [address] [place] [address] [place] Bilirubin [Mass/Vol] 0.6 mg/dL Normal 0.2-1.3 [facility] Comment on above: Order Comment: Speci men Type: BLOOD SPECIMEN Ordering Facility: [facility] Address: [address] [place] [address] Performed By: #### 2 132-9, 32477-1, 07950-5, 3016-3 #### [facility] CLIA [id number] [address] [place] [address] [place] Calcium [Mass/Vol] 10.3 mg/dL High 8.5-10.2 [facility] Comment on above: Order Comment: Speci men Type: BLOOD SPECIMEN Ordering Facility: [facility] Address: [address] [place] [address] Performed By: #### 2 132-9, 82299-3, 07791-1, 3016-3 #### [facility] CLIA [id number] [address] [place] [address] [place] Chloride [Moles/Vol] 103 mmol/L Normal 97-105 [facility] Comment on above: Order Comment: Speci men Type: BLOOD SPECIMEN Ordering Facility: [facility] Address: [address] [place] [address] Performed By: #### 2 132-9, 27130-3, 37265-9, 3016-3 #### [facility] CLIA [id number] [address] [place] [address] [place] CO2 [Moles/Vol] 21 mmol/L Low 22-30 [facility] Comment on above: Order Comment: Speci men Type: BLOOD SPECIMEN Ordering Facility: [facility] Address: [address] [place] [address] Performed By: #### 2 132-9, 67575-3, 23291-5, 3016-3 #### [facility] CLIA [id number] [address] [place] [address] [place] Creatinine [Mass/Vol] 0.73 mg/dL Normal 0.58-0.96 [facility] Comment on above: Order Comment: Speci men Type: BLOOD SPECIMEN Ordering Facility: [facility] Address: [address] [place], [place] [address] Performed By: #### 2 132-9, 84891-3, 22117-7, 3016-3 #### [facility] CLIA [id number] [address] [place] [address] [place] ESTIMATED GLOMERULAR FILTRATION RATE 122 mL/min/1.73m??? Normal >=60 [facility] Comment on above: Order Comment: Speci men Type: BLOOD SPECIMEN Ordering Facility: [facility] Address: [address] [place] [address] Result Comment: Mumtaz mated Glomerular Filtration Rate (eGFR) is calculated using the 2020 CKD-EPI creatinine equation. This equation utilizes serum creatinine, sex, and age as parameters. The creatinine assay has traceable calibration to isotope dilution-mass spectrometry. Refer to KDIGO guidelines for clinical interpretation. In patients with unstable renal function, e.g. those with acute kidney injury, the eGFR may not accurately reflect actual GFR. Performed By: #### 2 132-9, 18828-4, 87080-2, 6-3 #### [facility] CLIA [id number] [address] [place], [place] [address] [place] Glucose [Mass/Vol] 104 mg/dL High 74-99 [facility] Comment on above: Order Comment: [place] Type: BLOOD SPECIMEN Ordering Facility: [facility] Address: [address] [place] [address] Result Comment: The [place] Diabetes Association (ADA) provides guidance for cutoff values for fasting glucose and random glucose. The ADA defines fasting as no caloric intake for at least 8 hours. Fasting plasma glucose results between 100 to 125 mg/dL indicate increased risk for diabetes (prediabetes). Fasting plasma glucose results greater than or equal to 126 mg/dL meet the criteria for diagnosis of diabetes. In the absence of unequivocal hyperglycemia, results should be confirmed by repeat testing. In a patient with classic symptoms of hyperglycemia or hyperglycemic crisis, random plasma glucose results greater than or equal to 200 mg/dL meet the criteria for diagnosis of diabetes. Reference: Standards of Medical Care in Diabetes 2016, [place] [employer]. Diabetes Care. 2016.39(Suppl 1). Performed By: #### 2 132-9, 83879-8, 97238-5, 6-3 #### [facility] CLIA [id number] [address] [place], [place] [address] [place] Potassium [Moles/Vol] 3.7 mmol/L Normal 3.7-5.1 [facility] Comment on above: Order Comment: [place] Type: BLOOD SPECIMEN Ordering Facility: [facility] Address: [address] [place] [place] [address] Performed By: #### 2 132-9, 57367-8, 99579-2, 3016-3 #### [facility] CLIA [id number] [address] [place] [address] [place] Protein [Mass/Vol] 7.9 g/dL Normal 6.3-8.0 [facility] Comment on above: Order Comment: Speci men Type: BLOOD SPECIMEN Ordering Facility: [facility] Address: [address] [place] [address] Performed By: #### 2 132-9, 38362-6, 94096-4, 3016-3 #### [facility] CLIA [id number] [address] [place] [address] [place] Sodium [Moles/Vol] 138 mmol/L Normal 136-144 [facility] Comment on above: Order Comment: Speci men Type: BLOOD SPECIMEN Ordering Facility: [facility] Address: [address] [place] [address] Performed By: #### 2 132-9, 69588-6, 03595-3, 3016-3 #### [facility] CLIA [id number] [address] [place] [address] [place] Urea nitrogen [Mass/Vol] 12 mg/dL Normal 7-21 [facility] Comment on above: Order Comment: Speci men Type: BLOOD SPECIMEN Ordering Facility: [facility] Address: [address] [place] [address] Performed By: #### 2 132-9, 72579-3, 01883-7, 3016-3 #### [facility] CLIA [id number] [address] [place] [address] [place] ECHOon 03-24-2022 Echocardiography Echocardiography Report: Transthoracic [facility] Date of service: 03/24/2022 11:02:24 AM Ordering physician: SARAH ALCAZAR Indication: Hypertensive heart disease Technologist: Irena Terry [facility] Interpreting physician: Kathleen Decker MD PATIENT: Name: GREGORY LACY : 2005 Age: 17 years Gender: F Primary rhythm: sinus. Height: 160.00 cm BSA: 2.05 m? Weight: 94.80 kg BMI: 37.0 kg/m? Heart rate 91 bpm Blood pressure 132/67 mmHg Technically difficult exam due to body habitus. Color Doppler was utilized to interrogate the cardiac valves assessed and spectral Doppler was utilized to determine the flow velocities and pressure gradients reported in this exam. MEASUREMENTS: Value Indexed Normal Max aortic dimension 2.3 cm Ao < 3.8 Left atrial volume 45 ml (4ch A-L) 22 ml/m? Michelle <= 34 LV ID (diastole) 4.0 cm (2D) 1.95 cm/m? LV ID (systole) 2.5 cm (2D) 1.22 cm/m? IVS, leaflet tips 1.2 cm (2D) Posterior wall thickness 0.8 cm (2D) Left ventricular mass 127 g (2D) 62 g/m? Ejection Fraction 60 % (visual est.) EF > 54 FINDINGS: LEFT VENTRICLE The left ventricle is normal in size. Left ventricular systolic function is normal. Normal left ventricular diastolic function. Mitral annular lateral E/e': 6.6. Mitral annular septal E/e': 10.5. Wall Motion: All scored segments are normal. RIGHT VENTRICLE The right ventricle is normal in size. Right ventricular systolic function is normal. Estimated right atrial pressure is 3 mmHg based on IVC assessment. LEFT ATRIUM The left atrial cavity is normal in size. RIGHT ATRIUM The right atrial cavity is normal in size. Inferior Vena Cava: The inferior vena cava appears normal measuring 1.7 cm. The vessel decreases greater than 50 percent with inspiration. MITRAL VALVE The mitral valve leaflets are structurally normal. There is no mitral valve regurgitation. The pressure half time is 49 msec. The peak mitral E/A ratio is 1.50. The average mitral E/e' ratio is 8.6. The mitral flow deceleration time is 169 msec. TRICUSPID VALVE The tricuspid valve leaflets are structurally normal. There is no tricuspid valve regurgitation. AORTIC VALVE The aortic valve cusps are structurally normal. There is no aortic valve regurgitation. Tricuspid aortic valve. The LVOT diameter is 2.0 cm. PULMONIC VALVE The pulmonic valve cusps are structurally normal. There is no pulmonic valve regurgitation. AORTA The visualized aorta is normal in size. Measurements - Sinus: 2.3 cm. Sinotubular junction 2.0 cm. Mid ascending aorta 2.0 cm. PULMONARY ARTERIES The pulmonary arteries are unseen or not interrogated. PERICARDIUM There is no pericardial effusion. CONCLUSIONS: - Technically difficult exam due to body habitus. - Exam indication: Hypertensive heart disease - The left ventricle is normal in size. Left ventricular systolic function is normal. EF = 60 ? 5% (visual est.) Normal left ventricular diastolic function. - The right ventricle is normal in size. Right ventricular systolic function is normal. - There are no significant valvular abnormalities. - The patient has not had a prior CC echocardiographic exam for comparison. * * * Final * * * [facility] : [id number] sSISUID Normal [facility] Lipid 1996 panelon 2 Cholesterol [Mass/Vol] 184 mg/dL High <170 [facility] Comment on above: Order Comment: [place] Type: BLOOD SPECIMENOrdering Facility: [facility] Address: [address] [place] [address] Result Comment: <170 mg/dL, Acceptable 170-199 mg/dL, Borderline high >199 mg/dL, High Performed By: #### 2 4331-1 ####[facility] [id number] [facility] [place] [address] [place] Cholesterol in HDL [Mass/Vol] 33 mg/dL Low >45 [facility] Comment on above: Order Comment: [place] Type: BLOOD SPECIMENOrdering Facility: [facility] Address: [address] [place] [address] Result Comment: >45 mg/dL, Acceptable 40-45 mg/dL, Borderline <40 mg/dL, Low Performed By: #### 2 4331-1 ####[facility] [id number] [address] OF [place] Cholesterol in LDL [Mass/Vol] 114 mg/dL High <110 [facility] Comment on above: Order Comment: Speci men Type: BLOOD SPECIMENOrdering Facility: [facility] Address: [address] [place] [address] Result Comment: <110 mg/dL, Acceptable 110-129 mg/dL, Borderline high >129 mg/dL, High Performed By: #### 2 4331-1 ####[facility] [id number] [address] [place] Cholesterol in LDL/Cholesterol in HDL [Mass ratio] 3.45 {ratio} High <2.42 [facility] Comment on above: Order Comment: Speci men Type: BLOOD SPECIMENOrdering Facility: [facility] Address: [address] [place] [address] Result Comment: Refe rence: 1. Expert Panel on Integrated Guidelines for Cardiovascular Health and Risk Reduction in Children and Adolescents: National Heart, Lung and Blood [place]. Pediatrics. 2011: 128(Suppl 5):J277-156. Performed By: #### 2 4331-1 ####[facility] [id number] [address] [place] Cholesterol in VLDL [Mass/Vol] 37 mg/dL High <18 [facility] Comment on above: Order Comment: Speci men Type: BLOOD SPECIMENOrdering Facility: [facility] Address: [address] [address] Performed By: #### 2 4331-1 ####[facility] [id number] [address] [place] Cholesterol non HDL [Mass/Vol] 151 mg/dL High <120 [facility] Comment on above: Order Comment: Speci men Type: BLOOD SPECIMENOrdering Facility: [facility] Address: [address] [id number] Result Comment: <120 mg/dL, Acceptable 120-144 mg/dL, Borderline high >144 mg/dL, High Performed By: #### 2 4331-1 ####[facility] [id number] [place] [address] [place] Cholesterol.total/Chol esterol in HDL [Mass ratio] 5.58 {ratio} High <3.76 [facility] Comment on above: Order Comment: Speci men Type: BLOOD SPECIMENOrdering Facility: [facility] Address: [address] [place], [place] [address] Performed By: #### 2 4331-1 ####[facility] [id number] [place] [address] [place] [address] [facility] FASTING TIME 13 hrs Normal [facility] Comment on above: Order Comment: Speci men Type: BLOOD SPECIMENOrdering Facility: [facility] Address: [address] [place], [place] [address] Performed By: #### 2 4331-1 ####[facility] [id number] [place] [address] [place] Triglyceride [Mass/Vol] 187 mg/dL High <90 [facility] Comment on above: Order Comment: Speci men Type: BLOOD SPECIMENOrdering Facility: [facility] Address: [address] [place], [place] [address] Result Comment: <90 mg/dL, Acceptable 90-129 mg/dL, Borderline high >129 mg/dL, High Performed By: #### 2 4331-1 ####[facility] [id number] [place] [address] [place] Magnesium SerPl-mCncon 03-24 Magnesium [Mass/Vol] 2.0 mg/dL Normal 1.7-2.3 [facility] Comment on above: Order Comment: Speci men Type: BLOOD SPECIMEN [facility] Address: [address] [place], [place] [phone] Performed By: #### 2 132-9, 89159-6, 92053-4, 3016-3 #### [facility] CLIA [id number] [address] [place] [address] [place] TSH SerPl-aCncon 03-24-2022 TSH Qn 2.750 m[IU]/L Normal 0.510-4.300 [facility] Comment on above: Order Comment: Speci men Type: BLOOD SPECIMEN [facility] Address: [address] [place], [place] [address] Result Comment: If t he patient is , TSH reference range varies by gestational period: First Trimester (weeks 9-12): 0.180-2.990 mIU/L Second Trimester: 0.110-3.980 mIU/L Third Trimester: 0.480-4.710 mIU/L Esteban Dallas et al. A Practical Approach for the Verifications and Determination of Site- and Trimester-Specific Reference Intervals for Thyroid Function tests in . Thyroid, 2019:29:3:412-420. Camron E, et al. 2017 Guidelines of the [place] Thy[employer] for the Diagnosis and Management of Thyroid Disease during and the . Thyroid, 2017:27:3:315-389. Reference ranges were not locally established for this patient's age group. The normal values are based on the following source: Wilver W, Giles V. Reference Ranges for Adults and Children: Pre-analytical Considerations. [facility] Performed By: #### 2 132-9, 88970-6, 37345-2, 3016-3 #### [facility] CLIA [id number] [address] [place], [place] [address] [place] URINALYSIS, DIPSTICK ONLYon 03-24-2022 Bilirubin Ql (U) Negative Normal Negative Amanda phelan [facility] Comment on above: Order Comment: Speci men Type: URINE SPECIMEN [facility] Address: [address] [place], [place] [phone] Performed By: #### U A #### [facility] CLIA [id number] [address] [place] [address] [place] Clarity (Unsp spec) Clear Normal Clear [facility] Comment on above: Order Comment: Speci men Type: URINE SPECIMEN [facility] Address: [address] [place] [address] Performed By: #### U A #### [facility] CLIA [id number] [address] [place] [address] [place] Color (U) Yellow Normal Yellow [facility] Comment on above: Order Comment: Speci men Type: URINE SPECIMEN [facility] Address: [address] [place] [address] Performed By: #### U A #### [facility] CLIA [id number] [address] [place] [address] [place] Glucose Test strip (U) [Mass/Vol] Negative Normal Negative [facility] Comment on above: Order Comment: Speci men Type: URINE SPECIMEN [facility] Address: [address] [place] [address] Performed By: #### U A #### [facility] CLIA [id number] [address] [place] [address] [place] Hemoglobin Ql (U) Negative Normal Negative [facility] Comment on above: Order Comment: Speci men Type: URINE SPECIMEN [facility] Address: [address] [place] [address] Performed By: #### U A #### [facility] CLIA [id number] [address] [place] [address] [place] Ketones Ql (U) Negative Normal Negative [facility] Comment on above: Order Comment: Speci men Type: URINE SPECIMEN [facility] Address: [address] [place], [place] [address] Performed By: #### U A #### [facility] CLIA [id number] [address] [place] [address] [place] Leukocyte esterase Test strip Ql (U) Negative Normal Negative [facility] Comment on above: Order Comment: Speci men Type: URINE SPECIMEN [facility] Address: [address] [place] [address] Performed By: #### U A #### [facility] CLIA [id number] [address] [place] [address] [place] Nitrite Ql (U) Negative Normal Negative [facility] Comment on above: Order Comment: Speci men Type: URINE SPECIMEN [facility] Address: [address] [place] [address] Performed By: #### U A #### [facility] CLIA [id number] [address] [place] [address] [place] pH (U) 6.0 [pH] Normal 5.0-8.0 [facility] Comment on above: Order Comment: Speci men Type: URINE SPECIMEN [facility] Address: [address] [place] [address] Performed By: #### U A #### [facility] CLIA [id number] [address] [place] [address] [place] Protein (U) [Mass/Vol] Negative Normal Negative [facility] Comment on above: Order Comment: Speci men Type: URINE SPECIMEN [facility] Address: [address] [place], [place] [address] Performed By: #### U A #### [facility] CLIA [id number] [address] [place] [address] [place] Specific gravity (U) [Rel density] 1.018 Normal 1.005-1.030 [facility] Comment on above: Order Comment: Speci men Type: URINE SPECIMEN [facility] Address: [address] [place], [place] [phone] Performed By: #### U A #### [facility] CLIA [id number] [address] [place] [address] [place] Urobilinogen Ql (U) Negative Normal Negative [facility] Comment on above: Order Comment: Speci men Type: URINE SPECIMEN [facility] Address: [address] [place] [address] Performed By: #### U A #### [facility] CLIA [id number] [address] [place] [address] [place] Vit B12 [facility] 08- 022 Cobalamin (Vitamin B12) [Mass/Vol] 451 pg/mL Normal 232-1245 [facility] Comment on above: Order Comment: Speci men Type: BLOOD SPECIMEN [facility] Address: [address] [place] [address] Performed By: #### 2 132-9, 83100-0, 93974-3, 3016-3 #### [facility] CLIA [id number] [address] [place] [address] [place] ED NOTEon 03-10-2022 ED NOTE HNO ID: [id number] Author: Vito Mae RN Service: ? Author Type: Registered Nurse Type: ED Notes Filed: 03/09/2022 11:33 PM Note Text: Pt discharge information reviewe with pt including follow up care, when to return to ED and prescirbed medications. Pt verbalized understanding. Pt IV removed in tact, site dressed. Pt ambulated out of department. [facility] ED NOTE HNO ID: [id number] Author: Vito Mae RN Service: ? Author Type: Registered Nurse Type: ED Notes Filed: 03/09/2022 10:11 PM Note Text: Pt presents to ED with c/o chest pain, nausea. Pt onset today. Pt stated pain was midsternal, non-radiating, sharp in nature. Pain was reproduced with palpation of mid chest. Pt parents stated pt had high BP readings at home and was scheduled for a echo test. Pt resting in bed, bed low locked, call light in reach. Normal [facility] HIGH SENSITIVITY TROPONIN To n 03-10-2022 HIGH SENSITIVITY ZONIA <6 Normal <12 [facility] Comment on above: Order Comment: Speci men Type: BLOOD SPECIMEN [facility] Address: [address] [place] [address] Result Comment: When assessing risk for acute coronary syndromes: In patients undergoing blood draw greater than or equal to 2 hours from symptom onset, with history of very low to moderate risk and non-ischemic ECG, an initial hs-Troponin T less than 12 ng/L AND a 1 hour delta hs-Troponin T less than 3 ng/L should be considered very low risk for 30 day MACE. Performed By: #### 2 4323-8, 67850-7 #### [facility] CLIA [id number] [address] [place] [address] [place] XR CHEST 1V FRONTAL PORTon 0 03-10-2022 XR CHEST 1V FRONTAL PORT * * *Final Report* * * DATE OF EXAM: Mar 09 2022 10:26PM VHX [id number] - XR CHEST 1V FRONTAL PORT / PROCEDURE REASON: Chest pain, nonspecific * * * * Physician Interpretation * * * * EXAMINATION: CHEST RADIOGRAPH (PORTABLE SINGLE VIEW AP) CLINICAL HISTORY: Pain Chest pain, nonspecific Comparison: None RESULT: Lines, tubes, and devices: None. Lungs and pleura: Lungs are clear. No pneumothorax. Cardiomediastinal silhouette: Normal cardiomediastinal silhouette. Other: No bony abnormalities. IMPRESSION: No acute abnormality Ultrasonic Hand Solderer: JULIA Transcribe Date/Time: Mar 09 2022 10:32P Dictated by : RAYMON BARBA MD This examination was interpreted and the report reviewed and electronically signed by: RAYMON BARBA MD on Mar 09 2022 10:32PM EST [id number] Normal [facility] CBC W Auto Differential pane l (Bld)on 03-09-2022 Basophils (Bld) [#/Vol] 0.06 10*3/uL Normal <0.11 [facility] Comment on above: Order Comment: Speci men Type: BLOOD SPECIMEN [facility] Address: [address] [place] [address] Performed By: #### 5 7021-8 #### [facility] [place] [id number] [address] [place] [address] [place] Basophils/100 WBC (Bld) 0.4 % Normal [facility] Comment on above: Order Comment: Speci men Type: BLOOD SPECIMEN [facility] Address: [address] [place] [address] Performed By: #### 5 7021-8 #### [facility] IA [id number] [address] [place] [address] [place] Differential cell count method Nom (Bld) Auto Normal [facility] Comment on above: Order Comment: Speci men Type: BLOOD SPECIMEN [facility] Address: [address] [place] [address] Performed By: #### 5 7021-8 #### [facility] IA [id number] [address] [place] [address] [place] Eosinophils (Bld) [#/Vol] 0.21 10*3/uL Normal <0.46 [facility] Comment on above: Order Comment: Speci men Type: BLOOD SPECIMEN [facility] Address: [address] [place], [place] [address] Performed By: #### 5 7021-8 #### [facility] IA [id number] [address] [place] [address] [place] Eosinophils/100 WBC (Bld) 1.4 % Normal [facility] Comment on above: Order Comment: Speci men Type: BLOOD SPECIMEN [facility] Address: [address] [place] [address] Performed By: #### 5 7021-8 #### [facility] IA [id number] [address] [place] [address] [place] Erythrocyte distribution width (RBC) [Ratio] 12.5 % Normal 11.5-15.0 [facility] Comment on above: Order Comment: Speci men Type: BLOOD SPECIMEN [facility] Address: [address] [place] [address] Performed By: #### 5 7021-8 #### [facility] IA [id number] [address] [place] [address] [place] Hematocrit (Bld) [Volume fraction] 39.6 % Normal 36.0-46.0 [facility] Comment on above: Order Comment: Speci men Type: BLOOD SPECIMEN [facility]: [facility] Address: [address] [place] [address] Performed By: #### 5 7021-8 #### [facility] [id number] [address] [place] [address] [place] Hemoglobin (Bld) [Mass/Vol] 13.5 g/dL Normal 11.5-15.5 [facility] Comment on above: Order Comment: Speci men Type: BLOOD SPECIMEN [facility] Address: [address] [place] [address] Performed By: #### 5 7021-8 #### [facility] [id number] [address] [place] [address] [place] IMMATURE GRAN % 0.3 % Normal [facility] Comment on above: Order Comment: Speci men Type: BLOOD SPECIMEN [facility] Address: [address] [place] [address] Performed By: #### 5 7021-8 #### [facility] IA [id number] [address] [place] [address] [place] IMMATURE GRAN ABS 0.05 k/uL Normal <0.10 [facility] Comment on above: Order Comment: Speci men Type: BLOOD SPECIMEN [facility] Address: [address] [place] [address] Performed By: #### 5 7021-8 #### [facility] IA [id number] [address] [place] [address] [place] Lymphocytes (Bld) [#/Vol] 2.46 10*3/uL Normal 1.00-4.00 [facility] Comment on above: Order Comment: Speci men Type: BLOOD SPECIMEN [facility]: [facility] Address: [address] [place] [address] Performed By: #### 5 7021-8 #### [facility] IA [id number] [place] [address] [place] Lymphocytes/100 WBC (Bld) 16.4 % Normal [facility] Comment on above: Order Comment: Speci men Type: BLOOD SPECIMEN [facility]: [facility] Address: [address] [place] [address] Performed By: #### 5 7021-8 #### [facility] IA [id number] [address] [place] [address] [place] MCH (RBC) [Entitic mass] 29.2 pg Normal 26.0-34.0 [facility] Comment on above: Order Comment: Speci men Type: BLOOD SPECIMEN [facility] Address: [address] [place] [address] Performed By: #### 5 7021-8 #### [facility] IA [id number] [address] [place] [address] [place] MCHC (RBC) [Mass/Vol] 34.1 g/dL Normal 30.5-36.0 [facility] Comment on above: Order Comment: Speci men Type: BLOOD SPECIMEN [facility] Address: [address] [place] [address] Performed By: #### 5 7021-8 #### [facility] IA [id number] [address] [place] [address] [place] MCV (RBC) [Entitic vol] 85.7 fL Normal 80.0-100.0 [facility] Comment on above: Order Comment: Speci men Type: BLOOD SPECIMEN Ordering Facility: [facility] Address: [address] Performed By: #### 5 7021-8 #### [facility] IA [id number] [address] [place] [address] [place] Monocytes (Bld) [#/Vol] 1.11 10*3/uL High <0.87 [facility] Comment on above: Order Comment: Speci men Type: BLOOD SPECIMEN Ordering Facility: [facility] Address: [address] [place], [place] [address] Performed By: #### 5 7021-8 #### [facility] IA [id number] [address] [place] [address] [place] Monocytes/100 WBC (Bld) 7.4 % Normal [facility] Comment on above: Order Comment: Speci men Type: BLOOD SPECIMEN Ordering Facility: [facility] Address: [address] [place], [place] [address] Performed By: #### 5 7021-8 #### [facility] IA [id number] [address] [place] [address] [place] Neutrophils (Bld) [#/Vol] 11.08 10*3/uL High 1.45-7.50 [facility] Comment on above: Order Comment: Speci men Type: BLOOD SPECIMEN Order[facility] Facility: [facility] Address: [address] [place], [place] [address] Performed By: #### 5 7021-8 #### [facility] IA [id number] [address] [place] [address] [place] Neutrophils/100 WBC (Bld) 74.1 % Normal [facility] Comment on above: Order Comment: Speci men Type: BLOOD SPECIMEN Ordering Facility: [facility] Address: [address] [place], [place] [address] Performed By: #### 5 7021-8 #### [facility] IA [id number] [address] [facility] [place] [address] [place] Nucleated RBC (Bld) [#/Vol] 10*3/uL Normal <0.01 [facility] Comment on above: Order Comment: Speci men Type: BLOOD SPECIMEN Ordering Facility: [facility] Address: [address] Performed By: #### 5 7021-8 #### [facility] CLIA [id number] [address] [place] [address] [place] Nucleated RBC/100 WBC (Bld) [Ratio] 0.0 /100 WBC Normal [facility] Comment on above: Order Comment: Speci men Type: BLOOD SPECIMEN Ordering Facility: [facility] Address: [address] [place], [place] [address] Performed By: #### 5 7021-8 #### [facility] CLIA [id number] [address] [place] [address] [place] Platelet mean volume (Bld) [Entitic vol] 9.5 fL Normal 9.0-12.7 [facility] Comment on above: Order Comment: Speci men Type: BLOOD SPECIMEN Ordering Facility: [facility] Address: [address] [place], [place] [address] Performed By: #### 5 7021-8 #### [facility] CLIA [id number] [address] [place] [address] [place] Platelets (Bld) [#/Vol] 420 10*3/uL High 150-400 [facility] Comment on above: Order Comment: Speci men Type: BLOOD SPECIMEN Ordering Facility: [facility] Address: [address] [place], [place] [id number] Performed By: #### 5 7021-8 #### [facility] CLIA [id number] [address] [place] [address] [place] RBC (Bld) [#/Vol] 4.62 10*6/uL Normal 3.90-5.20 [facility] Comment on above: Order Comment: Speci men Type: BLOOD SPECIMEN Ordering Facility: [facility] Address: [address] [place], [place] [phone] Performed By: #### 5 7021-8 #### [facility] CLIA [id number] [address] [facility] [place] [address] [place] WBC (Bld) [#/Vol] 14.97 10*3/uL High 3.70-11.00 [facility] Comment on above: Order Comment: Speci men Type: BLOOD SPECIMEN Ordering Facility: [facility] Address: [address] [place] [address] Performed By: #### 5 7021-8 #### [facility] IA [id number] [address] [place] [address] [facility] Comprehensive metabolic 2000 panelon 03-09-2022 Albumin [Mass/Vol] 4.7 g/dL Normal 3.9-4.9 [facility] Comment on above: Order Comment: Speci men Type: BLOOD SPECIMEN Ordering Facility: [facility] Address: [address] [place] [address] Performed By: #### 2 4323-8, #### [facility] IA [id number] [address] [place] [address] [place] ALP [Catalytic activity/Vol] 55 U/L Normal 34-123 [facility] Comment on above: Order Comment: Speci men Type: BLOOD SPECIMEN Ordering Facility: [facility] Address: [address] [place] [address] Performed By: #### 2 4323-8, 86001-6 #### [facility] IA [id number] [address] [place] [address] [place] ALT [Catalytic activity/Vol] 87 U/L High 7-38 [facility] Comment on above: Order Comment: Speci men Type: BLOOD SPECIMEN Ordering Facility: [facility] Address: [address] [place], [place] [phone] Performed By: #### 2 4323-8, #### [facility] CLIA [id number] [address] [place] [address] [place] Anion gap [Moles/Vol] 15 mmol/L Normal 9-18 [facility] Comment on above: Order Comment: Speci men Type: BLOOD SPECIMEN Ordering Facility: [facility] Address: [address] Performed By: #### 2 8, #### [facility] CLIA [id number] [address] [place] [address] [place] AST [Catalytic activity/Vol] 58 U/L High 13-35 [facility] Comment on above: Order Comment: Speci men Type: BLOOD SPECIMEN Ordering Facility: [facility] Address: [address] [place], [place] [phone] Performed By: #### 2 4323-03, #### [facility] CLIA [id number] [address] [place] [address] [place] Bilirubin [Mass/Vol] 0.6 mg/dL Normal 0.2-1.3 [facility] Comment on above: Order Comment: Speci men Type: BLOOD SPECIMEN Ordering Facility: [facility] Address: [address] [place], [place] [phone] Performed By: #### 2 4323-03, #### [facility] CLIA [id number] [address] [place] [address] [place] Calcium [Mass/Vol] 9.5 mg/dL Normal 8.5-10.2 [facility] Comment on above: Order Comment: Speci men Type: BLOOD SPECIMEN Ordering Facility: [facility] Address: [address] [place], [place] [phone] Performed By: #### 2 4323-03, #### [facility] CLIA [id number] [address] [place] [address] [place] Chloride [Moles/Vol] 103 mmol/L Normal 97-105 [facility] Comment on above: Order Comment: Speci men Type: BLOOD SPECIMEN Ordering Facility: [facility] Address: [address] [place], [place] [phone] Performed By: #### 2 4323-03, #### [facility] CLIA [id number] [address] [place] [address] [place] CO2 [Moles/Vol] 20 mmol/L Low 22-30 [facility] Comment on above: Order Comment: Speci men Type: BLOOD SPECIMEN Ordering Facility: [facility] Address: [address] [place] [address] Performed By: #### 2 4323-8, #### [facility] CLIA [id number] [address] [place] [address] [place] Creatinine [Mass/Vol] 0.62 mg/dL Normal 0.58-0.96 [facility] Comment on above: Order Comment: Speci men Type: BLOOD SPECIMEN Ordering Facility: [facility] Address: [address] [place] [address] Performed By: #### 2 4323-8, #### [facility] CLIA [id number] [address] [place] ESTIMATED GLOMERULAR FILTRATION RATE 132 mL/min/1.73m??? Normal >=60 [facility] Comment on above: Order Comment: Speci men Type: BLOOD SPECIMEN Ordering Facility: [facility] Address: [address] [place] [address] Result Comment: Mumtaz mated Glomerular Filtration Rate (eGFR) is calculated using the 2020 CKD-EPI creatinine equation. This equation utilizes serum creatinine, sex, and age as parameters. The creatinine assay has traceable calibration to isotope dilution-mass spectrometry. Refer to KDIGO guidelines for clinical interpretation. In patients with unstable renal function, e.g. those with acute kidney injury, the eGFR may not accurately reflect actual GFR. Performed By: #### 2 4323-8, #### [facility] CLIA [id number] [address] [place] [address] [place] Glucose [Mass/Vol] 108 mg/dL High 74-99 [facility] Comment on above: Order Comment: Speci men Type: BLOOD SPECIMEN Ordering Facility: [facility] Address: [address] [place], [place] [phone] Result Comment: The [place] Diabetes [employer] (ADA) provides guidance for cutoff values for fasting glucose and random glucose. The ADA defines fasting as no caloric intake for at least 8 hours. Fasting plasma glucose results between 100 to 125 mg/dL indicate increased risk for diabetes (prediabetes). Fasting plasma glucose results greater than or equal to 126 mg/dL meet the criteria for diagnosis of diabetes. In the absence of unequivocal hyperglycemia, results should be confirmed by repeat testing. In a patient with classic symptoms of hyperglycemia or hyperglycemic crisis, random plasma glucose results greater than or equal to 200 mg/dL meet the criteria for diagnosis of diabetes. Reference: Standards of Medical Care in Diabetes 2016, [place] [employer]. Diabetes Care. 2016.39(Suppl 1). Performed By: #### 2 43210-22, #### [facility] CLIA [id number] [address] [place] [address] [place] Potassium [Moles/Vol] 3.7 mmol/L Normal 3.7-5.1 [facility] Comment on above: Order Comment: [place] Type: BLOOD SPECIMEN Ordering Facility: [facility] Address: [address] [place] [phone] Performed By: #### 2 4323-03, #### [facility] CLIA [id number] [address] [place] [address] [place] Protein [Mass/Vol] 7.9 g/dL Normal 6.3-8.0 [facility] Comment on above: Order Comment: Daniali charly Type: BLOOD SPECIMEN Ordering Facility: [facility] Address: [address] [place] [address] Performed By: #### 2 4323-03, #### [facility] CLIA [id number] [address] [place] [address] [place] Sodium [Moles/Vol] 138 mmol/L Normal 136-144 [facility] Comment on above: Order Comment: Rubens men Type: BLOOD SPECIMEN Ordering Facility: [facility] Address: [address] [place], [place] Performed By: #### 2 4323-03, #### [facility] CLIA [id number] [address] [place], [place] [address] [place] [address] [place] [facility] Urea nitrogen [Mass/Vol] 10 mg/dL Normal 7-21 [facility] Comment on above: Order Comment: Speci men Type: BLOOD SPECIMEN Ordering Facility: [facility] Address: [address] [place] [address] Performed By: #### 2 4323-8, #### [facility] CLIA [id number] [place] D dimer FEU PPP-mCncon 03-09 Fibrin D-dimer FEU (PPP) [Mass/Vol] 390 ng/mL FEU Normal <500 [facility] Comment on above: Order Comment: Speci men Type: BLOOD SPECIMEN Ordering Facility: [facility] Address: [address] [place] [address] Performed By: #### 4 8065-7 #### [facility] IA [id number] [address] [place] ED NOTEon 03-09-2022 ED NOTE HNO ID: [id number] Author: Candace Fenton RN Service: ? Author Type: Registered Nurse Type: ED Notes Filed: 03/09/2022 9:39 PM Note Text: Patient presents to ED via private car with mom c/o midsternal stabbing chest pain and SOB that started 1 hours CLEARANCE REPRESENTATIVE while the patient was laying down watching TV. Patient is awake and alert, ambulatory with a steady gait. Normal [facility] ED PROV NOTEon 03-09-2022 ED PROV NOTE HNO ID: [id number] Author: Nino Mcmahon MD Service: Emergency Medicine Author Type: Physician Type: ED Provider Notes Filed: 03/09/2022 11:25 PM Note Text: ED Provider Note Patient Name: Gregory Lacy : 2005 SERVICE DATE: 03/09/22 History Patient presents with: Chest Pain: c/o midsternal stabbing chest pain and SOB starting 1 hours CLEARANCE REPRESENTATIVE Gregory Lacy is a 17 year old female with hx of previously healthy that presented to the ED for chest pain and shortness of breath. Began 1 hour prior to arrival. Feels like a stabbing pain in the middle of her chest which is worse with exertion or deep breathing at times but not always. She has had chills but no fever. She does have a cough which is nonproductive. Also admits to sore throat runny nose, nausea with no vomiting and some diarrhea today. No urinary symptoms. No vaginal bleeding or discharge. No abdominal pain. No leg swelling or leg pain. No history of blood clots or cancer. No known heart or lung disease. No clear nausea vomiting or heavy sweating with the chest pain itself. Not COVID or influenza vaccinated. 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 No past surgical history on file. No family history on file. Social History Tobacco Use - Smoking status: Never Smoker - Smokeless tobacco: Never Used Substance and Sexual Activity - Alcohol use: Never - Drug use: Not on file - Sexual activity: Not on file ALLERGIES No Known Allergies Review of Systems Constitutional: Positive for chills and fatigue. Negative for activity change, appetite change and fever. HENT: Positive for rhinorrhea and sore throat. Eyes: Negative for pain and visual disturbance. Respiratory: Positive for shortness of breath. Negative for cough and wheezing. Cardiovascular: Positive for chest pain. Negative for palpitations and leg swelling. Gastrointestinal: Positive for diarrhea, nausea and vomiting. Negative for abdominal pain. Genitourinary: Negative for dysuria and frequency. Musculoskeletal: Negative for arthralgias and myalgias. Skin: Negative for color change, rash and wound. Neurological: Negative for weakness and numbness. Psychiatric/Behavioral : Negative for confusion and hallucinations. All other systems reviewed and are negative. Physical Exam Vitals BP Pulse Temp Temp src Resp SpO2 Weight Height 03/09/223 03/09/22213203/09/22213203/09/22213203/09/22213203/09/22213203/09/222134 -- 152/95 (!) 128 37 ?C (98.6 ?F) Oral (!) 26 97 % 93.9 kg (207 lb) Physical Exam Vitals and nursing note reviewed. Constitutional: General: She is not in acute distress. Appearance: She is not ill-appearing. HENT: Head: Normocephalic. Nose: No congestion. Mouth/Throat: Mouth: Mucous membranes are moist. Pharynx: Oropharynx is clear. Uvula midline. No pharyngeal swelling or posterior oropharyngeal erythema. Tonsils: No tonsillar exudate or tonsillar abscesses. Eyes: Conjunctiva/sclera: Conjunctivae normal. Cardiovascular: Rate and Rhythm: Regular rhythm. Tachycardia present. Heart sounds: Normal heart sounds. No murmur heard. Pulmonary: Effort: Pulmonary effort is normal. No respiratory distress. Breath sounds: Normal breath sounds. No decreased breath sounds, wheezing, rhonchi or rales. Chest: Chest wall: No tenderness or crepitus. Abdominal: General: There is no distension. Palpations: Abdomen is soft. Tenderness: There is no abdominal tenderness. There is no guarding or rebound. Musculoskeletal: General: No swelling, tenderness or deformity. Normal range of motion. Cervical back: Normal range of motion and neck supple. No rigidity. Right lower leg: No tenderness. No edema. Left lower leg: No tenderness. No edema. Skin: General: Skin is warm and dry. Findings: No rash. Neurological: General: No focal deficit present. Mental Status: She is alert and oriented to person, place, and time. GCS: GCS eye subscore is 4. GCS verbal subscore is 5. GCS motor subscore is 6. Psychiatric: Attention and Perception: Attention normal. Mood and Affect: Mood is anxious. Speech: Speech normal. Behavior: Behavior normal. Behavior is cooperative. Thought Content: Thought content normal. Cognition and Memory: Cognition and memory normal. Judgment: Judgment normal. DECISION SUPPORT - ED (all recorded) Pulmonary Embolism Row Name 03/09/22 4928 PERC Is pretest probability for PE > than 15% ? Age > 50 0 HR >= 100 1 spO2 on room air < 95% ? History of prior PE or DVT 0 Recent Trauma or Surgery ? Hemoptysis? ? Exogenous Estrogen? ? Unilateral leg swelling ? PERC Score = ? If PERC Score > 0 - The PERC rule is not satisfied and cannot be used to rule out Pulmonary Embolism for this patient Proceed to [place] Clinical signs and symptoms of DVT 0 PE is #1 Diagnosis, or equally likely (more content not included)... Normal [facility] HIGH SENSITIVITY TROPONIN To n 03-09-2022 HIGH SENSITIVITY ZONIA <6 Normal <12 [facility] Comment on above: Order Comment: [place] Type: BLOOD SPECIMEN Ordering Facility: [facility] Address: [address] [place] [phone] Result Comment: When assessing risk for acute coronary syndromes: In patients undergoing blood draw greater than or equal to 2 hours from symptom onset, with history of very low to moderate risk and non-ischemic ECG, an initial hs-Troponin T less than 12 ng/L AND a 1 hour delta hs-Troponin T less than 3 ng/L should be considered very low risk for 30 day MACE. Performed By: #### H STNT #### [facility] CLIA [id number] [facility] [place] [address] [facility] Magnesium SerPl-mCncon 03-09 Magnesium [Mass/Vol] 1.9 mg/dL Normal 1.7-2.3 [facility] Comment on above: Order Comment: [place] Type: BLOOD SPECIMEN Ordering Facility: [facility] Address: [address] [place], [place] [address] [place] [address] Performed By: #### 2 4323-8, 25492-0 #### [facility] CLIA [id number] [facility] [place] [id number] [facility] Office Visiton 11-01-2021 Follow-up visit Diagnoses/Problems Acute sinusitis (461.9) (J01.90) Added by Problem List Migration; 2012-11-14; Moved to [facility] Jul 11 2013 9:35PM Sore throat (462) (J02.9) Class 1 obesity with body mass index (BMI) of 34.0 to 34.9 in adult (278.00,V85.34) (E66.9,Z68.34) Orders Acute sinusitis Start: Amoxicillin-Pot Clavulanate 875-125 MG Oral Tablet; TAKE 1 TABLET EVERY 12 HOURS DAILY Sore throat Start: Atpbpuonl-Wymtikkt-OR 30-2-10 MG/5ML Oral Syrup; TAKE 5 ML EVERY 4 TO 6 HOURS NEEDED Patient Discussion/Summary Increase Fluids (water, body [place], Gatorade, poweraide) and get plenty of rest. Mucinex D is an expectorant and a cough suppressant. It will help decrease your cough and thin out secretions. Tylenol or Motrin/Ibuprofen/Advil for pain and fever. Take as directed. Practice good hand hygiene. Flonase/ SensiMist 2 sprays to each nostril at night. Saline nasal spray to loosen nasal mucous in the morning. Research has shown the use of neti pots help decreased the risk of developing a sinus infection. Neti pot can be purchased at your local drug store. Use vaporizer/ humidifier in bedroom at night. Use [employer] VapoRub as directed. Sucrets, Cepacol, Chloraseptic throat spray as needed for throat pain. Honey has been shown to be just as effective as cough medicine but without side effect. DO NOT USE HONEY in any under 12 months due to risk of botulism because immune system is not yet mature at this age. Warm salt water gargles will help to reduce swelling and pain in the throat (/4-1/2 tsp salt in 8 ounces warm water, gargle and spit out the solution at least 3 times per day). You are considered contagious until you have been on antibiotic for 24 hours. When taking antibiotics please eat a yogurt a day or take a probiotic pill of your choice. Finish entire course of antibiotics. Pt was given an opportunity to ask questions and receive answers, pt instructed to F/U with PCP and to report immediately to ER with the following concerning symptoms but not limited to: Temp > 104, chest pain, shortness of breath or difficulty breathing. Pt verbalizes understanding of POC. Vitamin b,c,d and zinc Chief Complaint EAR ACHE Adult Risk Screening Pain Scale: On a scale of 0 to 10, the patient rates the pain at 8. Please identify location of pain: bilateral ears. Tobacco Screening: GREGORY does not use tobacco. Blood Pressure monitoring Blood Pressure Controlled, Systolic = 130-139 mm Hg Blood Pressure Controlled, Diastolic 80-89mm Hg History of Present Illness Patient is a 16 Y/O Presenting for EAR ACHE. Patient was last seen by LM on 11.01.2021. Patient's PCP is Patient is currently taking all medications without difficulty. Symptoms: dry cough, bilateral ear ache 8 out of 10, sore throat, fever 99.8, nausea, Length of Symptoms: 2 weeks Denies: sinus pressure, SOB, diarrhea, vomiting Factors that effect symptoms: Sudafed with minimal relief of symptoms Related Information: Quality Metrics AWV: N/A BMI: 35.07 Colon CA Screening: N/A HgB A1C: N/A LMP: N/A Mammogram: N/A Review of Systems As stated in HPI along with: General: no weight loss, generally healthy, no change in strength or exercise tolerance, AANDO X3 HEENT: as noted in HPI Respiratory: as noted in HPI Cardiac: no chest pain, no palpitations, no syncope, no orthopnea Abdomen: no change in appetite, no dysphagia, no abdominal pains, no diarrhea/ constipation, no emesis, no melena, no nausea : no dysuria, no urinary urgency, no nocturia, no incontinence, no change in nature of urine Musculoskeletal: no malaise, no joint pain, no limitation of range of motion, no paresthesia, no numbness Constitutional: no fever, no chills, no night sweats, no fatigue All other systems have been reviewed and are negative for complaint Active Problems Abnormal weight gain (783.1) (R63.5) Acquired acanthosis nigricans (701.2) (L83) Acute bacterial sinusitis (461.9) (J01.90,B96.89) Acute bilateral otitis media (382.9) (H66.93) Acute erythematous eruption of skin (695.89) (L53.9) Acute pain of both ears (388.70) (H92.03) Allergic rhinitis (477.9) (J30.9) Anxiety (300.00) (F41.9) Encounter for routine child health examination without abnormal findings (V20.2) (Z00.129) Folliculitis (704.8) (L73.9) History of prediabetes (V12.29) (Z87.898) Impacted cerumen of left ear (380.4) (H61.22) Insulin resistance (277.7) (E88.81) Overweight (278.02) (E66.3) Paronychia of toe of right foot (681.11) (L03.031) Sore throat (462) (J02.9) Unilateral otalgia (388.70) (H92.09) Past Medical History History of Abdominal pain, RUQ (789.01) (R10.11) Resolved Date: 14 Feb 2017 History of Diarrhea, unspecified type (787.91) (R19.7) Resolved Date: 29 Oct 2016 History of Encounter for immunization (V03.89) (Z23) Resolved Date: 01 Oct 2016 History of constipation (V12.79) (Z87.19) Resolved Date: 14 Feb 2017 Histor (more content not included)... Normal [facility] Office Visiton 10-10-2021 Follow-up visit Diagnoses/Problems Folliculitis (704.8) (L73.9) Acute erythematous eruption of skin (695.89) (L53.9) Class 2 obesity with body mass index (BMI) of 35.0 to 35.9 in adult (278.00,V85.35) (E66.9,Z68.35) Orders Folliculitis Start: Doxycycline Monohydrate 100 MG Oral Tablet; TAKE 1 TABLET EVERY 12 HOURS DAILY Start: Mupirocin 2 % External Ointment; APPLY A SMALL AMOUNT 3 TIMES DAILY DIRECTED Start: Triamcinolone Acetonide 0.1 % External Cream; APPLY 2-3 TIMES DAILY TO AFFECTED AREA(S) Patient Discussion/Summary Wash with non scented soap Take antibiotic with food, finish antibiotic, eat a yogurt daily and/or probiotic daily Use ointment on open sores Use cream on itchy skin Pt was given an opportunity to ask questions and receive answers, pt instructed to F/U with PCP and to report immediately to ER with the following concerning symptoms but not limited to: Temp > 104, chest pain, shortness of breath or difficulty breathing. Pt verbalizes understanding of POC. Chief Complaint RASH Adult Risk Screening Pain Scale: On a scale of 0 to 10, the patient rates the pain at 2. Pain Quality: burning. Tobacco Screening: GREGORY does not use tobacco. Blood Pressure monitoring Blood Pressure Controlled, Systolic = 130-139 mm Hg Blood Pressure Controlled, Diastolic 80-89mm Hg Depression/Suicide Screening: During the past 2 weeks, the patient has not felt down, depressed or hopeless. During the past 2 weeks, the patient has not felt little interest or pleasure in doing things. She does not have a risk of suicide. History of Present Illness Patient is a 16 Y/O Presenting for RASH. Patient was last seen by ADARSH on 05.29.2021. Patient's PCP is [email or web address] Patient is currently taking all medications without difficulty. Symptoms: bilateral itchy rash that spreads down the side and under the armpits, rash initially started on neck but has since resolved. Length of Symptoms: 1 week Denies: changes in food, laundry soap, body wash, shampoo Factors that effect symptoms: Hydrogen peroxide with minimal relief of symptoms Quality Metrics BMI: 34.37 LMP:2 weeks ago Review of Systems As stated in HPI along with: General: no weight loss, generally healthy, no change in strength or exercise tolerance Head: no headaches, no vertigo, no injury Eyes: normal vision, no diplopia, no tearing, no pain Ears: no change in hearing, no tinnitus, no bleeding, no vertigo Mouth: no dental difficulties, no gingival bleeding Nose: no discharge, no congestion, no bleeding, no obstruction Neck: no stiffness, no pain, no tenderness, no masses, no bruit Chest: no dyspnea, no wheezing, no hemoptysis, no cough Heart: no chest pain, no palpitations, no syncope, no orthopnea Abdomen: no change in appetite, no dysphagia, no abdominal pains, no bowel habit changes, no emesis, no melena : no dysuria, no urinary urgency, no nocturia, no incontinence, no change in nature of urine Musculoskeletal: no muscle pain, no joint pain, no limitation of range of motion, no paresthesia, no numbness Constitutional: no fever, no chills, no night sweats Skin: (+) pruritic skin rash on bilateral abdominal sides starting under axilla and extending to mid abdomen All other systems have been reviewed and are negative for complaint Active Problems Abnormal weight gain (783.1) (R63.5) Acquired acanthosis nigricans (701.2) (L83) Acute bacterial sinusitis (461.9) (J01.90,B96.89) Acute bilateral otitis media (382.9) (H66.93) Acute pain of both ears (388.70) (H92.03) Allergic rhinitis (477.9) (J30.9) Anxiety (300.00) (F41.9) Body mass index (BMI) of 35.0 to 35.9 in adult (V85.35) (Z68.35) Encounter for routine child health examination without abnormal findings (V20.2) (Z00.129) History of prediabetes (V12.29) (Z87.898) Impacted cerumen of left ear (380.4) (H61.22) Insulin resistance (277.7) (E88.81) Overweight (278.02) (E66.3) Paronychia of toe of right foot (681.11) (L03.031) Sore throat (462) (J02.9) Unilateral otalgia (388.70) (H92.09) Past Medical History History of Abdominal pain, RUQ (789.01) (R10.11) Resolved Date: 14 Feb 2017 History of Diarrhea, unspecified type (787.91) (R19.7) Resolved Date: 29 Oct 2016 History of Encounter for immunization (V03.89) (Z23) Resolved Date: 01 Oct 2016 History of constipation (V12.79) (Z87.19) Resolved Date: 14 Feb 2017 History of seborrheic dermatitis (V13.3) (Z87.2) Resolved Date: 04 Oct 2016 History of Vision problems (V41.0) (H54.7) Resolved Date: 04 Oct 2016 Surgical History Denied: History of Surgery Social History Currently In School Public Living With Parents Never a smoker Allergies No Known Drug Allergies Recorded By: Joi Naranjo; 04/30/2013 9:37:54 AM Animal dander - Cats Recorded By: Joi Naranjo; 04/30/2013 9:37:54 AM Dust Recorded By: Joi Naranjo; 04/30/2013 9:37:54 AM Vitals Vital Signs Recorded: [id number] 06:36PM (more content not included)... Normal [employer] Tobacco Screening.on 022 Adult depression screening assessment [facility]: [facility] use status [facility] b[facility] Work Phone: NM HEPATOBILIARY W EF AND/OR RXon 09-11-2021 NM HEPATOBILIARY W EF AND/OR RX * * *Final Report* * * * * * SEE BOTTOM OF REPORT FOR ADDENDED TEXT * * * DATE OF EXAM: Sep 11 2021 12:04PM FVN 0021 - NM HEPATOBILIARY W EF AND/OR RX / PROCEDURE REASON: RUQ PAIN * * * * Physician Interpretation * * * * * * * * * * * * ORIGINAL REPORT * * * * * * * * HEPATOBILIARY SCAN WITH GALLBLADDER EJECTION FRACTION: CLINICAL HISTORY: Right upper quadrant pain. TECHNIQUE: 5.3 mCi Tc-99m Choletec IV followed by 60 minutes of abdominal imaging This was followed by a fatty meal of 8 fl oz Ensure Plus and additional imaging to calculate a gallbladder ejection fraction FINDINGS: There is prompt and homogeneous uptake by the liver, which appears grossly normal in size and shape. Gallbladder, and proximal small bowel activity is visualized indicating cystic duct and common bile duct patency. Evaluation challenging on the anterior images secondary to partially overlapping the bladder and extrahepatic activity. Adequate separation feasible on the oblique images. After the fatty meal, there is reduced emptying from the gallbladder with a calculated gallbladder ejection fraction of 52% (normal > 35%). IMPRESSION: * Decreased gallbladder functional response/EF is compatible with chronic cholecystitis, in the appropriate clinical setting. * Patent cystic duct and CBD. * * * * * * * * ADDENDUM #1 * * * * * * * * * Normal gallbladder functional response/EF of 52% (normal > 35%). * Patent cystic CBD. Ultrasonic Hand Solderer: JULIA Transcribe Date/Time: Sep 12 2021 3:56P Dictated by : ANGELIA MONTES MD This examination was interpreted and the report reviewed and electronically signed by: ANGELIA MONTES MD on Sep 11 2021 1:28PM EST This document has been addended by: ANGELIA MONTES MD on Sep 12 2021 3:58PM EST [id number] Normal [facility] US ABD RIGHT UPPER QUADRANTo n 07-28-2021 US ABD RIGHT UPPER QUADRANT * * *Final Report* * * DATE OF EXAM: Jul 28 2021 7:50AM VHU 1032 - US ABD RIGHT UPPER QUADRANT / PROCEDURE REASON: RUQ pain * * * * Physician Interpretation * * * * EXAMINATION: RIGHT UPPER QUADRANT ULTRASOUND CLINICAL HISTORY: Abdominal pain TECHNIQUE: Sonography of the right upper quadrant was performed. Images were obtained and stored in a permanent archive. MQ: URUQ_2 COMPARISON: None. RESULT: Pancreas: Normal sonographic appearance. Portions obscured: tail Liver: Echotexture: Homogeneous. Echogenicity: Increased Surface contour: Smooth Lesions: Focal fat near the falciform ligament. Biliary: No intrahepatic biliary duct dilation. CBD: 0.3 cm at the hilum. Gallbladder: Normal caliber -Contents: No cholelithiasis -Wall: Normal -Other: No pericholecystic fluid. Right Kidney: No hydronephrosis. Measures 11.7 cm. Ascites: None. IMPRESSION: Hepatic steatosis. Ultrasonic Hand Solderer: JULIA Transcribe Date/Time: Jul 28 2021 8:22A Dictated by : DOLLY ZAMUDIO MD This examination was interpreted and the report reviewed and electronically signed by: DOLLY ZAMUDIO MD on Jul 28 2021 8:24AM EST [id number] Normal [facility] Office Visiton 05-29-2021 Follow-up visit Diagnoses/Problems Sore throat (462) (J02.9) Orders Sore throat Start: Amoxicillin 875 MG Oral Tablet; TAKE 1 TABLET EVERY 12 HOURS DAILY IO Rapid Strep; Status:Active - Perform Order; Requested for:29May2021; Start: Fluticasone Propionate 50 MCG/ACT Nasal Suspension (Flonase Allergy Relief); USE 1 SPRAY IN EACH NOSTRIL TWICE DAILY Patient Discussion/Summary - ok to use OTC Sudafed - ok to use OTC Motrin for pain Chief Complaint ear ache History of Present IllnessCC: ear ache Symptoms: both ears hurt, right is worse, sore throat, occasional cough, Onset of Symptoms: few weeks ago Denies: runny / stuffy, fever, chills, headache, nausea, vomiting, diarrhea, sob Factors that Affect Symptoms: sudafed with minimal relief of symptoms Rate of Pain: 7.5 out of 10 Related Info: Active Problems Abnormal weight gain (783.1) (R63.5) Acquired acanthosis nigricans (701.2) (L83) Acute bacterial sinusitis (461.9) (J01.90,B96.89) Acute bilateral otitis media (382.9) (H66.93) Acute pain of both ears (388.70) (H92.03) Allergic rhinitis (477.9) (J30.9) Anxiety (300.00) (F41.9) Body mass index (BMI) of 35.0 to 35.9 in adult (V85.35) (Z68.35) Encounter for routine child health examination without abnormal findings (V20.2) (Z00.129) History of prediabetes (V12.29) (Z87.898) Impacted cerumen of left ear (380.4) (H61.22) Insulin resistance (277.7) (E88.81) Overweight (278.02) (E66.3) Paronychia of toe of right foot (681.11) (L03.031) Sore throat (462) (J02.9) Unilateral otalgia (388.70) (H92.09) Past Medical History History of Abdominal pain, RUQ (789.01) (R10.11) Resolved Date: 14 Feb 2017 History of Diarrhea, unspecified type (787.91) (R19.7) Resolved Date: 29 Oct 2016 History of Encounter for immunization (V03.89) (Z23) Resolved Date: 01 Oct 2016 History of constipation (V12.79) (Z87.19) Resolved Date: 14 Feb 2017 History of folliculitis (V13.3) (Z87.2) Resolved Date: 01 Oct 2016 History of seborrheic dermatitis (V13.3) (Z87.2) Resolved Date: 04 Oct 2016 History of Vision problems (V41.0) (H54.7) Resolved Date: 04 Oct 2016 Surgical History Denied: History of Surgery Social History Currently In School Public Living With Parents Never a smoker Allergies No Known Drug Allergies Recorded By: Joi Naranjo; 04/30/2013 9:37:54 AM Animal dander - Cats Recorded By: Joi Naranjo; 04/30/2013 9:37:54 AM Dust Recorded By: Joi Naranjo; 04/30/2013 9:37:54 AM Current Meds Medication NameInstruction Topamax 25 MG Oral TabletTAKE 1 TABLET TWICE DAILY. Vitals Vital Signs Recorded: [id number] 06:22PM Ujoooqqibxk09.9 F Heart Wzze894 Sllwlbqfuvf75 Lkyxmqvl614 Bsazdazjz09 Height5 ft 3 in 2-20 Stature Einztsxgjg32 % Htmbjd673 lb 2-20 Weight Djsafkhlpe66 % BMI Uhooelnshx42.37 kg/m2 BMI Hshpbkfjws06 % BSA Calculated1.91 Tobacco Useb) No O2 Sjgrazlrnw16 Physical Exam left tonsil exudate ears look fine slight swelling / tenderness to right jaw Signatures Electronically signed by : TOMMIE Neves; Jun 16 2021 11:50PM EST (Author) Normal [employer] Tobacco Screening.on 021 Tobacco use status [facility] b) No [facility] drew 100 Work Phone: Office Visiton 03-06-2021 Follow-up visit Diagnoses/Problems Paronychia of toe of right foot (681.11) (L03.031) Sore throat (462) (J02.9) Acute pain of both ears (388.70) (H92.03) Body mass index (BMI) of 35.0 to 35.9 in adult (V85.35) (Z68.35) Patient Discussion/Summary Increase Fluids (water, body [place], Gatorade, poweraide) and get plenty of rest. Tylenol or Motrin/Ibuprofen/Advil for pain and fever. Take as directed. Practice good hand hygiene. Flonase/ SensiMist 2 sprays to each nostril at night. Saline nasal spray to loosen nasal mucous in the morning. Research has shown the use of neti pots help decreased the risk of developing a sinus infection. Neti pot can be purchased at your local drug store. Use vaporizer/ humidifier in bedroom at night. Use [employer] VapoRub as directed. Sucrets, Cepacol, Chloraseptic throat spray as needed for throat pain. Honey has been shown to be just as effective as cough medicine but without side effect. DO NOT USE HONEY in any infant under 12 months due to risk of botulism because immune system is not yet mature at this age. Warm salt water gargles will help to reduce swelling and pain in the throat (1/4-1/2 tsp salt in 8 ounces warm water, gargle and spit out the solution at least 3 times per day). You are considered contagious until you have been on antibiotic for 24 hours. When taking antibiotics please eat a yogurt a day or take a probiotic pill of your choice. Finish entire course of antibiotics. You are considered contagious until you have been afebrile for 24 hours. Pt was given an opportunity to ask questions and receive answers, pt instructed to F/U with PCP and to report immediately to ER with the following concerning symptoms but not limited to: Temp > 104, chest pain, shortness of breath or difficulty breathing. Pt verbalizes understanding of POC. [facility] Coronavirus information line: [phone] ( ). Chief Complaint Sick Adult Risk Screening Pain Scale: On a scale of 0 to 10, the patient rates the pain at 5. Please identify location of pain: bilateral ears. Tobacco Screening: GREGORY does not use tobacco. Blood Pressure monitoring Blood Pressure Controlled, Systolic <130 mm Hg Blood Pressure Controlled, Diastolic < 80mm Hg History of Present Illness CC:bilateral Ear Pain Symptoms: headache (pt has history of migraines), stabbing pain in bilateral ears, feels like fluid in ear, sore throat, jaw pain Onset of Symptoms: two days ago Rate of pain: 7 out of 10 Left Ear. 5 out of 10 Right Ear. OTC Medicines: Topamax for migraine with minimal relief of symptoms strep negative Review of Systems As stated in HPI along with: General: no weight loss, generally healthy, no change in strength or exercise tolerance, AANDO X3 Head: (+) headache, no vertigo, no injury, no sinus pressure, no loss of taste or smell Eyes: normal vision, no diplopia, no tearing, no pain Ears: no change in hearing, no tinnitus, no bleeding, (+) bilateral otalgia, (+) clogged sensation in both ears Mouth: no dental difficulties, no gingival bleeding, (+) sore throat, (+) bilateral jaw pain Nose: no discharge, no sinus congestion, no bleeding, no obstruction, no PND Neck: no stiffness, no pain, no tenderness, no masses, no bruit Chest: no dyspnea, no wheezing, no hemoptysis, no chest congestion, no cough, no SOB Heart: no chest pain, no palpitations, no syncope, no orthopnea Abdomen: no change in appetite, no dysphagia, no abdominal pains, no diarrhea/ constipation, no emesis, no melena, no nausea : no dysuria, no urinary urgency, no nocturia, no incontinence, no change in nature of urine Musculoskeletal: no malaise, no joint pain, no limitation of range of motion, no paresthesia, no numbness Constitutional: no fever, no chills, no night sweats, no fatigue Active Problems Abnormal weight gain (783.1) (R63.5) Acquired acanthosis nigricans (701.2) (L83) Acute bacterial sinusitis (461.9) (J01.90,B96.89) Acute bilateral otitis media (382.9) (H66.93) Allergic rhinitis (477.9) (J30.9) Anxiety (300.00) (F41.9) Encounter for routine child health examination without abnormal findings (V20.2) (Z00.129) History of prediabetes (V12.29) (Z87.898) Impacted cerumen of left ear (380.4) (H61.22) Insulin resistance (277.7) (E88.81) Overweight (278.02) (E66.3) Unilateral otalgia (388.70) (H92.09) Past Medical History History of Abdominal pain, RUQ (789.01) (R10.11) Resolved Date: 14 Feb 2017 History of Diarrhea, unspecified type (787.91) (R19.7) Resolved Date: 29 Oct 2016 History of Encounter for immunization (V03.89) (Z23) Resolved Date: 01 Oct 2016 History of constipation (V12.79) (Z87.19) Resolved Date: 14 Feb 2017 History of folliculitis (V13.3) (Z87.2) Resolved Date: 01 Oct 2016 History of seborrheic dermatitis (V13.3) (Z87.2) Resolved Date: 04 Oct 2016 History of Vision problems (V41.0) (H54.7) Resolved Date: 04 Oct 2016 Surgical History Denied: Hist (more content not included)... Normal [facility] PROGRESSon 04-25-2019 PROGRESS HNO ID: [id number] Author: Jourdan Koo Service: ? Author Type: Nurse Practitioner Type: Progress Notes Filed: 04/28/2019 9:18 PM Note Text: DATE: 04/28/2019 CHIEF COMPLAINT: Physical HPI: Gregory Lacy is a 14 year old female who presents presumed school physical. She is now in the 11th grade. She is doing well, grades are good. States her mood has been okay, she is on Wellbutrin XL 300 mg once daily for the past year. However, she is interested in switching medications. She still feels anxiety, has difficulty sleeping at night. She also has headaches. She is a monogamous relationship with her boyfriend. Her boyfriend is in the [employer] and is stationed in [place]. 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 Denies any suicidal behavior or substance abuse. Her periods are regular. REVIEW OF SYSTEMS: Review of Systems Constitutional: Negative for appetite change, chills, fatigue, fever and unexpected weight change. HENT: Negative for congestion, ear pain, postnasal drip, rhinorrhea, sinus pressure, sinus pain and sore throat. Eyes: Negative for pain and visual disturbance. Respiratory: Negative for cough, shortness of breath and wheezing. Cardiovascular: Negative for chest pain, palpitations and leg swelling. Gastrointestinal: Negative for abdominal pain, blood in stool, constipation, diarrhea, nausea and vomiting. Endocrine: Negative for cold intolerance, heat intolerance, polydipsia, polyphagia and polyuria. Genitourinary: Negative for difficulty urinating, frequency and urgency. Musculoskeletal: Negative for arthralgias, back pain, joint swelling and myalgias. Skin: Negative for rash and wound. Neurological: Negative for dizziness, syncope, weakness, light-headedness, numbness and headaches. Hematological: Negative for adenopathy. Does not bruise/bleed easily. Psychiatric/Behavioral : Positive for dysphoric mood and sleep disturbance. Negative for self-injury and suicidal ideas. The patient is nervous/anxious. NURSING NOTES: There are no exam notes on file for this visit. AMB ROOMING INTAKE FLOWSHEET DATA ALLERGIES: ALLERGIES No Known Allergies MEDICATIONS: Current Outpatient Medications on File Prior to Visit: ergocalciferol 50,000 unit capsule (VITAMIN D2, DRISDOL) TAKE ONE CAPSULE BY MOUTH ONE TIME PER WEEK TRI FEMYNOR 0.18/0.215/0.25 mg-35 mcg (28) tab Take 1 tablet by mouth once daily. No current facility-administered medications on file prior to visit. HISTORIES History reviewed. No pertinent past medical history. History reviewed. No pertinent surgical history. History reviewed. No pertinent family history. Social History Socioeconomic History Marital status: Single Spouse name: Not on file Number of children: Not on file Years of education: Not on file Highest education level: Not on file Occupational History Not on file Social Needs Financial resource strain: Not on file Food insecurity: Worry: Not on file Inability: Not on file Transportation needs: Medical: Not on file Non-medical: Not on file Tobacco Use Smoking status: Never Smoker Smokeless tobacco: Never Used Substance and Sexual Activity Alcohol use: Never Frequency: Never Drug use: Not on file Sexual activity: Not on file Lifestyle Physical activity: Days per week: Not on file Minutes per session: Not on file Stress: Not on file Relationships Social connections: Talks on phone: Not on file Gets together: Not on file Attends shinto service: Not on file Active member of club or organization: Not on file Attends meetings of clubs or organizations: Not on file Relationship status: Not on file Intimate partner violence: Fear of current or ex partner: Not on file Emotionally abused: Not on file Physically abused: Not on file Forced sexual activity: Not on file Other Topics Concerns: Not on file Social History Narrative Not on file There is no problem list on file for this patient. HEALTH MAINTENANCE: HEPATITIS B(1 of 3 - 3-dose primary series) due on 2003 POLIO(1 of 3 - 4-dose series) due on 2003 MMR(1 of 2 - Standard series) due on 02/21/2004 DTAP,TDAP,TD(1 - Tdap) due on 2010 PHQ-A due on 2015 VARICELLA(1 of 2 - 13+ 2-dose series) due on 02/21/2016 GC (GONORRHEA) SCREENING (<18) due on 2018 HPV VACCINE(1 - Female 3-dose series) due on 2018 CHLAMYDIA SCREENING (<18) due on 2018 MENINGOCOCCAL CONJUGATE(1 - 2-dose series) due on 2019 INFLUENZA(1) due on 04/17/2019 There is no immunization history on file for this patient. PHYSICAL EXAMINATION: BP 108/78 Pulse 118 Ht 5' 3 (1.60m) Wt 118 lb (53.5kg) SpO2 99% BMI 20.91 kg/(m2). Physical Exam Constitutional: She is oriented to person, place, and time. She appears well-developed and well-nourished. No distress. HENT: Head: Normocephalic. Right Ear: External ear normal. Left Ear: External ear normal. Mouth/Throat: Oropharynx is clear and moist. No oropharyngeal exudate. Eyes: Pupils are equal, round, and reactive to light. Conjunctivae and EOM are normal. Neck: Normal range of motion. Neck supple. No thyromegaly present. Cardiovascular: Normal rate, regular rhythm, normal heart sounds and intact distal pulses. Pulmonary/Chest: Effort normal and breath sounds normal. No respiratory distress. She has no wheezes. She has no rales. Abdominal: Soft. Bowel sounds are normal. She exhibits no distension. There is no tenderness. There is no guarding. No hernia. Musculoskeletal: Normal range of motion. She exhibits no edema, tenderness or deformity. Lymphadenopathy: She has no cervical adenopathy. Neurological: She is alert and oriented to person, place, and time. No cranial nerve deficit. Skin: Skin is warm and dry. No rash noted. She is not diaphoretic. Psychiatric: She has a normal mood and affect. Judgment and thought content normal. FOLLOW UP: Return in about 4 weeks (around 05/23/2019), or if symptoms worsen or fail to improve. ASSESSMENT/PLAN: 1. Depression with anxiety - ICD9: 300.4, ICD10: F41.8 (primary diagnosis) - Decrease Wellbutrin XL to 150 mg x 1 week, then stop completely. - Start Zoloft 50 mg daily in one week - Declines therapist referral 2. School physical exam - ICD9: V70.5, ICD10: Z02.0 - Cleared for school physical Jourdan Koo APRN.TOURS CAPTAIN Normal [facility] Acetaminophenon 12-29-2017 Acetaminophen mass conc <10.0 Normal 10.0-30.0 [facility] Comment on above: Performed By: #### 1 [id number] ####[facility] [address] [place] [address] Alcoholon 12-29-2017 Ethanol mg/dL Normal <10 [facility] Comment on above: Performed By: #### 1 [id number] ####[facility] [address] [facility] [place] [address] CBC With Differentialon - Basophils Auto #/vol (Bld) 0.03 10*3/uL Normal 0.01-0.07 [facility] Comment on above: Performed By: #### 2 [id number] ####[facility] [address] [facility] [place] [address] Basophils/100 WBC Auto (Bld) 0.3 % Normal 0.1-1.2 [facility] Comment on above: Performed By: #### 2 [id number] ####[facility] [address] [facility] [place] [address] Eosinophils 0.12 10*3/uL Normal 0.04-0.50 [facility] Comment on above: Performed By: #### 2 [id number] ####[facility] [address] [facility] [place] [address] Eosinophils/100 leukocytes 1.0 % Normal 0.0-8.1 [facility] Comment on above: Performed By: #### 2 [id number] ####[facility] [address] [facility] [place] [address] Erythrocyte distribution width Auto Ratio (RBC) 12.0 % Normal 12.0-15.4 [facility] Comment on above: Performed By: #### 2 [id number] ####[facility] [address] [facility] [place] [address] Erythrocytes (RBC) 0.00 10*3/uL Normal [facility] Comment on above: Performed By: #### 2 [id number] ####[facility] [address] [place] [address] Erythrocytes (RBC) 0.0 /100{WBCs} Normal [facility] Comment on above: Performed By: #### 2 [id number] ####[facility] [address] [place] [address] Erythrocytes (RBC) 4.27 10*6/uL Normal 4.10-5.10 [facility] Comment on above: Performed By: #### 2 [id number] ####[facility] [address] [place] [address] Hematocrit (HCT) 37.6 % Normal 37.0-49.0 [facility] Comment on above: Performed By: #### 2 [id number] ####[address] [address] Hemoglobin mass conc (Bld) 12.9 g/dL Normal 12.4-14.8 [facility] Comment on above: Performed By: #### 2 [id number] ####[address] [address] Imm Grans Absolute 0.03 10*3/uL Normal 0.00-0.21 [facility] Comment on above: Performed By: #### 2 [id number] ####[address] [address] Immature granulocytes #/vol (Bld) 0.3 % Normal [facility] Comment on above: Performed By: #### 2 [id number] ####[address] [address] Lymphocytes 1.96 10*3/uL Normal 0.40-2.84 [facility] Comment on above: Performed By: #### 2 [id number] ####[address] [address] Lymphocytes/100 leukocytes 17.1 % Normal 15.7-50.5 [facility] Comment on above: Performed By: #### 2 [id number] ####[address] [address] MCH 30.2 pg Normal 25.0-35.0 [facility] Comment on above: Performed By: #### 2 [id number] ####[address] [place] [address] MCHC mass conc (RBC) 34.3 g/dL Normal 32.0-35.9 [facility] Comment on above: Performed By: #### 2 [id number] ####[address] [address] MCV 88.1 fL Normal 78.0-100.0 [facility] Comment on above: Performed By: #### 2 [id number] ####[facility] [address] [facility] [place] [address] Monocytes 0.71 10*3/uL Normal 0.25-0.83 [facility] Comment on above: Performed By: #### 2 608693 ####[facility] [address] [facility] [place] [address] Monocytes/100 leukocytes 6.2 % Normal 4.8-12.7 [facility] Comment on above: Performed By: #### 2 [id number] ####[facility] [address] [place] [address] Neutrophils 8.63 10*3/uL High 1.95-6.85 [facility] Comment on above: Performed By: #### 2 [id number] ####[facility] [address] [place] [address] Neutrophils/100 leukocytes 75.1 % High 36.8-73.2 [facility] Comment on above: Performed By: #### 2 [id number] ####[facility] [address] [place] [address] Platelet mean volume (PMV) 9.7 fL Low 9.9-12.1 [facility] Comment on above: Performed By: #### 2 [id number] ####[facility] [address] [place] [address] Platelets 514 10*3/uL High 155-404 [facility] Comment on above: Performed By: #### 2 [id number] ####[facility] [address] [place] [address] RDW SD 38.9 fL Low 39.3-48.6 [facility] Comment on above: Performed By: #### 2 092460 ####[facility] [address] [place] [address] WBC (Leukocytes) 11.5 10*3/uL Normal 4.5-13.5 [facility] Comment on above: Performed By: #### 2 240832 ####[facility] [address] [facility] [place] [address] Comprehensive Metabolic Pane gila 12-29-2017 Alanine aminotransferase (ALT) 29 U/L Normal 7-45 [facility] Comment on above: Performed By: #### 1 [id number] ####[facility] [address] [place] [address] Albumin 4.8 g/dL Normal 3.4-5.2 [facility] Comment on above: Performed By: #### 1 [id number] ####[facility] [address] [facility] [place] [address] Albumin/Globulin Ratio 1.5 {ratio} Normal 0.9-2.4 [facility] Comment on above: Performed By: #### 1 [id number] ####[facility] Hgd[address] [facility] [place] [address] Alkaline phosphatase (ALP) 57 U/L Normal 42-254 [facility] Comment on above: Performed By: #### 1 [id number] ####[facility] Wlf470 [facility] [place] [address] Anion gap 16 mmol/L Normal 10-20 [facility] Comment on above: Performed By: #### 1 [id number] ####[facility] [address] [place] [address] Aspartate aminotransferase (AST) 20 U/L Normal 10-60 [facility] Comment on above: Performed By: #### 1 [id number] ####[facility] Rkm239 [facility] [place] [address] Bicarbonate (HCO3) 22 mmol/L Normal 18-27 [facility] Comment on above: Performed By: #### 1 [id number] ####[facility] Wtc[address] [facility] [place] [address] Bilirubin (total) 0.8 mg/dL Normal 0.0-1.2 [facility] Comment on above: Performed By: #### 1 [id number] ####[facility] [address] [place] [address] BUN/Creatinine Ratio 16 mg/mg Normal 5-25 [facility] Comment on above: Performed By: #### 1 [id number] ####[facility] [address] [place] [address] Calcium 9.7 mg/dL Normal 8.5-10.7 [facility] Comment on above: Performed By: #### 1 [id number] ####[facility] [address] [facility] [place] [address] Chloride 103 mmol/L Normal 98-107 [facility] Comment on above: Performed By: #### 1 [id number] ####[facility] Psd037 [facility] [place] [address] Creatinine 0.70 mg/dL Normal 0.50-1.20 [facility] Comment on above: Performed By: #### 1 [id number] ####[facility] Vgw529 [facility] [place] [address] eGFR (MDRD) See Below Normal [facility] Comment on above: Result Comment: GFR not calculated on patients <18 years of age Performed By: #### 1 [id number] ####[facility] Mxm938 [facility] [place] [address] Glucose mass conc 94 mg/dL Normal 70-106 [facility] Comment on above: Performed By: #### 1 [id number] ####[facility] Ipt480 [facility] [place] [address] Potassium molar conc 3.8 mmol/L Normal 3.4-4.7 [facility] Comment on above: Performed By: #### 1 [id number] ####[facility] Gct[address] [place] [address] Protein 8.0 g/dL Normal 6.4-8.2 [facility] Comment on above: Performed By: #### 1 [id number] ####[facility] [address] [facility] [place] [address] Sodium 137 mmol/L Normal 136-145 [facility] Comment on above: Performed By: #### 1 [id number] ####[facility] [address] [facility] [place] [address] Urea nitrogen 11 mg/dL Normal 6-23 [facility] Comment on above: Performed By: #### 1 [id number] ####[facility] Ixx[address] [place] [address] Drugs of Abuse, Urine(7)on 0 12-29-2017 Amphetamines/Metamphet amines, Urine Not Detected Normal [facility] Comment on above: Performed By: #### 7 [id number] ####[facility] [address] [place] [address] Barbiturates, Urine Not Detected Normal [facility] Comment on above: Performed By: #### 7 [id number] ####[facility] [address] [place] [address] Benzodiazepines, Urine Not Detected Normal [facility] Comment on above: Performed By: #### 7 [id number] ####[facility] [address] [place] [address] Cannabinoids, Urine Not Detected Normal [facility] Comment on above: Performed By: #### 7 [id number] ####[facility] [address] [place] [address] Cocaine, Urine Not Detected Normal [facility] Comment on above: Performed By: #### 7 [id number] ####[facility] [address] [place] [address] Methadone, Urine Not Detected Normal [facility] Comment on above: Performed By: #### 7 [id number] ####[facility] [address]kt[address] [place] [address] Opiates, Urine Not Detected Normal [facility] Comment on above: Performed By: #### 7 [id number] ####[facility] [address] [place] [address] PCP, Urine Not Detected Normal [facility] Comment on above: Result Comment: Urin e toxicology screen results are to be used for medicalpurposes only. It is recommended that any result reportedas Detected be confirmed by a more specific alternativechemical method.Drug Analyzed Cutoff Concentration(ng/mL)Barbiturates 200Benzodiazepines 200Cocaine 150Opiates 300Amphetamines 500Cannabinoids 50Methadone 150PCP 25 Performed By: #### 7 [id number] ####[facility] Bxg624 [facility] [place] [address] Lactic Acidon 12-29-2017 Lactate 1.60 mmol/L Normal 1.00-2.40 [facility] Comment on above: Performed By: #### 1 [id number] ####[facility] Tjj[address] [facility] [place] [address] Test (Serum)on Test, Serum Negative Normal [facility] Comment on above: Performed By: #### 3 [id number] ####[facility] Tpc[address] [place] [address] Salicylateon 12-29-2017 Salicylate <3 Low <30 [facility] Comment on above: Performed By: #### 7 [id number] ####[facility] Xnh[address] [place] [address] Urinalysis with Reflex Cultu reon 12-29-2017 Ascorbic Acid Negative Normal Negative [facility] Comment on above: Performed By: #### U ARFX ####[facility] Mqx[address] [place] [address] Automated Urine Microscopy Not indicated Normal [facility] Comment on above: Performed By: #### U ARFX ####[facility] Plt[address] [facility] [place] [address] Bilirubin Ql (U) Negative Normal Negative [facility] Comment on above: Performed By: #### U ARFX ####[facility] Jrz[address] [facility] [place] [address] Blood Negative Normal Negative [facility] Comment on above: Performed By: #### U ARFX ####[facility] Oyt[address] [place] [address] Glucose mass conc Negative Normal Negative [facility] Comment on above: Performed By: #### U ARFX ####[facility] Tgb[address] [facility] [place] [address] Protein Negative Normal Negative [facility] Comment on above: Performed By: #### U ARFX ####[facility] Gge[address] [facility] [place] [address] Urine, appearance Clear Normal Clear [facility] Comment on above: Performed By: #### U ARFX ####[facility] [address] [place] [address] Urine, color Straw Normal [facility] Comment on above: Performed By: #### U ARFX ####[facility] [address] [place] [address] Urine, ketones presence 5 mg/dL Abnormal Negative [facility] Comment on above: Performed By: #### U ARFX ####[facility] [address] [place] [address] Urine, nitrite presence Negative Normal Negative [facility] Comment on above: Performed By: #### U ARFX ####[facility] [address] [place] [address] Urine, pH 5.0 [pH] Normal 5.0-9.0 [facility] Comment on above: Performed By: #### U ARFX ####[facility] [address] [place] [address] Urine, specific gravity 1.017 Normal 1.003-1.035 [facility] Comment on above: Performed By: #### U ARFX ####[facility] [address] [place] [address] Urine, urobilinogen <2.0 Normal Negative [facility] Comment on above: Performed By: #### U ARFX ####[facility] [address] [facility] [place] [address] WBC (Leukocytes) Negative Normal Negative [facility] Comment on above: Performed By: #### U ARFX ####[facility] [address] [place] [address] COMPREHENSIVE PANELon 2017 Alanine aminotransferase (ALT) 15 U/L Normal 3 - 28 [facility] Comment on above: Result Comment: Gabrielle ents treated with Sulfasalazine may generate falsely decreased results for ALT. Performed By: #### C MP ####[facility] [place] [address] Albumin 4.8 g/dL Normal 3.4 - 5.0 [facility] Comment on above: Performed By: #### C MP ####[facility] [place] [address] Alkaline phosphatase (ALP) 55 U/L Normal 52 - 239 [facility] Comment on above: Performed By: #### C MP ####[facility] [place] [address] Anion gap 16 mmol/L Normal 10 - 30 [facility] Comment on above: Performed By: #### C MP ####[facility] [place] [address] Aspartate aminotransferase (AST) 16 U/L Normal 9 - 24 [facility] Comment on above: Performed By: #### C MP ####[facility] [place] [address] Bicarbonate (HCO3) 25 mmol/L Normal 18 - 27 [facility] Comment on above: Performed By: #### C MP ####[facility] [place] [address] Bilirubin (total) 0.8 mg/dL Normal 0.0 - 0.9 [facility] Comment on above: Performed By: #### C MP ####[facility] [place] [address] Calcium 10.0 mg/dL Normal 8.5 - 10.7 [facility] Comment on above: Performed By: #### C MP ####[facility] [place] [address] Chloride 100 mmol/L Normal 98 - 107 [facility] Comment on above: Performed By: #### C MP ####[facility] [place] [address] Creatinine 0.65 mg/dL Normal 0.50 - 1.00 [facility] Comment on above: Performed By: #### C MP ####[facility] [place] [address] Glucose mass conc 80 mg/dL Normal 74 - 99 [facility] Comment on above: Performed By: #### C MP ####[facility] [place] [address] Potassium molar conc 3.7 mmol/L Normal 3.5 - 5.3 [facility] Comment on above: Performed By: #### C MP ####[facility] [place] [address] Protein 7.6 g/dL Normal 6.2 - 7.7 [facility] Comment on above: Performed By: #### C MP ####[facility] [place] [address] Sodium 137 mmol/L Normal 136 - 145 [facility] Comment on above: Performed By: #### C MP ####[facility] [place] [address] Urea nitrogen 10 mg/dL Normal 6 - 23 [facility] Comment on above: Performed By: #### C MP ####[facility] [place] [address] INSULINon 09-07-2017 INSULIN 9 uIU/ml Normal 3 - 19 [facility] Comment on above: Performed By: #### I NSUL ####[facility] [place] [address] LIPID PANEL (CORONARY RISK 2 )on 09-07-2017 Cholesterol 119 mg/dL Normal 0 - 199 [facility] Comment on above: Result Comment: . AG E DESIRABLE BORDERLINE HIGH HIGH 0-19 Y 0 - 169 170 - 199 >/= 200 20-24 Y 0 - 189 190 - 224 >/= 225 >24 Y 0 - 199 200 - 239 >/= 240 All ranges are based on fasting samples. Specific therapeutic targets will vary based on patient-specific cardiac risk.. Pediatric guidelines reference:Pediatrics 2011, 128(S5). Adult guidelines reference: NCEP ATPIII Guidelines, ZAFAR 2001, 258:2486-97. Venipuncture immediately after or during the administration of Metamizole may lead to falsely low results. Testing should be performed immediately prior to Metamizole dosing. Performed By: #### L IPID ####[facility] [place] [address] Cholesterol in VLDL mass conc 12 mg/dL Normal 0 - 40 [facility] Comment on above: Performed By: #### L IPID ####[facility] [place] [address] Cholesterol to HDL Ratio 2.4 {ratio} Normal [facility] Comment on above: Result Comment: REF VALUESDESIRABLE < 3.4HIGH RISK > 5.0 Performed By: #### L IPID ####[facility] [place] [address] HDL Cholesterol 50.4 mg/dL Normal [facility] Comment on above: Result Comment: . AG E VERY LOW LOW NORMAL HIGH 0-19 Y < 35 < 40 40-45 ---- 20-24 Y ---- < 40 >45 ---- >24 Y ---- < 40 40-60 >60. Performed By: #### L IPID ####[facility] [place] [address] LDL Cholesterol 57 mg/dL Normal 0 - 109 [facility] Comment on above: Result Comment: . SEBAS RICHEY AGE DESIRABLE OPTIMAL HIGH HIGH VERY HIGH 0-19 Y 0 - 109 --- 110-129 >/= 130 ---- 20-24 Y 0 - 119 --- 120-159 >/= 160 ---- >24 Y 0 - 99 100-129 130-159 160-189 >/=190. Performed By: #### L IPID ####[facility] [place] [address] NON-HDL CHOLESTEROL 69 mg/dL Normal 0 - 119 [facility] Comment on above: Result Comment: AGE DESIRABLE BORDERLINE HIGH HIGH VERY HIGH 0-19 Y 0 - 119 120 - 144 >/= 145 >/= 160 20-24 Y 0 - 149 150 - 189 >/= 190 ---- >24 Y 30 MG/DL ABOVE LDL CHOLESTEROL GOAL. Performed By: #### L IPID ####[facility] [place] [address] Triglyceride 60 mg/dL Normal 0 - 149 [facility] Comment on above: Result Comment: . AG E DESIRABLE BORDERLINE HIGH HIGH VERY HIGH 0 D-90 D 19 - 174 ---- ---- ----91 D- 9 Y 0 - 74 75 - 99 >/= 100 ---- 10-19 Y 0 - 89 90 - 129 >/= 130 ---- 20-24 Y 0 - 114 115 - 149 >/= 150 ---- >24 Y 0 - 149 150 - 199 200- 499 >/= 500. Venipuncture immediately after or during the administration of Metamizole may lead to falsely low results. Testing should be performed immediately prior to Metamizole dosing. Performed By: #### L IPID ####[facility] [place] [address] TSH WITH REFLEX TO FREE T4 I F ABNORMALon 09-07-2017 Thyroid stimulating hormone (TSH) 1.39 m[IU]/L Normal 0.44 - 3.98 [facility] Comment on above: Result Comment: TSH testing is performed using different testing methodology at [facility] than at other [facility]. Direct result comparisons should only be made within the same method.. Patients receiving more than 5 mg/day of biotin may have interference in test results. A sample should be taken no sooner than eight hours after previous dose. Contact [phone] for additional information. Performed By: #### T HYDS ####[facility] [place] [address] Vital Signs Date Time Vital Sign Value Performing Clinician Facility 05-18-2025 15:35-0400 Body height 160.02 cm Ori PAIGE Work Phone: [facility] 05-18-2025 15:35-0400 Body mass index (BMI) [Ratio] 39.2 kg/m2 Ori PAIGE Work Phone: [facility] 05-18-2025 15:35-0400 Body weight 100.32 kg Ori PAIGE Work Phone: [facility] 05-18-2025 15:35-0400 Diastolic blood pressure 83 mm[Hg] Ori PAIGE Work Phone: [facility] 05-18-2025 15:35-0400 Systolic blood pressure 141 mm[Hg] Ori Marcy PA Work Phone: [facility] 04-20-2025 15:11-0400 Body height 160 cm Ori Hastings PA-C Work Phone: [facility] 04-20-2025 15:11-0400 Body mass index (BMI) [Ratio] 39.86 kg/m2 Ori Hastings PA-C Work Phone: [facility] 04-20-2025 15:11-0400 Body weight 102.06 kg Ori Marcy PA-C Work Phone: [facility] 04-20-2025 15:11-0400 Diastolic blood pressure 80 mm[Hg] Ori Marcy PA-C Work Phone: [facility] 04-20-2025 15:11-0400 Heart rate 106 /min Ori Marcy PA-C Work Phone: [facility] 04-20-2025 15:11-0400 Systolic blood pressure 119 mm[Hg] Ori Marcy PA-C Work Phone: [facility] 03-27-2025 11:45-0400 Body mass index (BMI) [Ratio] 39.33 kg/m2 Ryan Luther MD MPH Work Phone: [facility] 03-27-2025 11:45-0400 Body weight 100.7 kg Ryan Luther MD MPH Work Phone: [facility] 03-27-2025 11:45-0400 Diastolic blood pressure 87 mm[Hg] Ryan Luther MD MPH Work Phone: [facility] 03-27-2025 11:45-0400 Heart rate 89 /min Ryan Luther MD MPH Work Phone: [facility] 03-27-2025 11:45-0400 Systolic blood pressure 127 mm[Hg] Ryan Luther MD MPH Work Phone: [facility] 03-01-2025 20:50-0400 Diastolic blood pressure 74 mm[Hg] Ivette Mehdi DO Work Phone: [facility] 03-01-2025 20:50-0400 Heart rate 102 /min Ivette Mehdi DO Work Phone: [facility] 03-01-2025 20:50-0400 Respiratory rate 16 /min Ivette Mehdi DO Work Phone: [facility] 03-01-2025 20:50-0400 SaO2% (BldA) [Mass fraction] 96 % Ivette Mehdi DO Work Phone: [facility] 03-01-2025 20:50-0400 Systolic blood pressure 141 mm[Hg] Ivette Mehdi DO Work Phone: [facility] 03-01-2025 17:46-0400 Body height 160 cm Ivette Mehdi DO Work Phone: [facility] 03-01-2025 17:46-0400 Body mass index (BMI) [Ratio] 38.97 kg/m2 Ivette Mehdi DO Work Phone: [facility] 03-01-2025 17:46-0400 Body temperature 97 [degF] Ivette Mehdi DO Work Phone: [facility] 03-01-2025 17:46-0400 Body weight 99.79 kg Ivette Mehdi DO Work Phone: [facility] 01-18-2025 14:52-0400 Body height 160 cm Ori PAIGE-C Work Phone: [facility] 01-18-2025 14:52-0400 Body mass index (BMI) [Ratio] 38.97 kg/m2 Ori PAIGE-C Work Phone: [facility] 01-18-2025 14:52-0400 Body weight 99.79 kg Ori PAIGE-C Work Phone: [facility] 01-18-2025 14:52-0400 Diastolic blood pressure 81 mm[Hg] Ori Marcy PA-C Work Phone: [facility] 01-18-2025 14:52-0400 Heart rate 108 /min Ori Marcy PA-C Work Phone: [facility] 01-18-2025 14:52-0400 SaO2% (BldA) [Mass fraction] 95 % Ori Hastings PA-C Work Phone: [facility] 01-18-2025 14:52-0400 Systolic blood pressure 119 mm[Hg] Ori Marcy PA-C Work Phone: [facility] 12-14-2024 10:27-0400 Diastolic blood pressure 82 mm[Hg] Ori Hastings PA-C Work Phone: [facility] 12-14-2024 10:27-0400 Systolic blood pressure 124 mm[Hg] Ori Marcy PA-C Work Phone: [facility] 12-14-2024 09:57-0400 Body height 160 cm Ori Hastings PA-C Work Phone: [facility] 12-14-2024 09:57-0400 Body mass index (BMI) [Ratio] 38.16 kg/m2 Ori Hastings PA-C Work Phone: [facility] 12-14-2024 09:57-0400 Body weight 97.7 kg Ori Hastings PA-C Work Phone: [facility] 12-14-2024 09:57-0400 Heart rate 109 /min Ori Marcy PA-C Work Phone: [facility] 12-12-2024 15:46-0400 Body height 160 cm Ryan Luther MD MPH Work Phone: [facility] 12-12-2024 15:46-0400 Body mass index (BMI) [Ratio] 37.2 kg/m2 Ryan Luther MD MPH Work Phone: [facility] 12-12-2024 15:46-0400 Body weight 95.25 kg Ryan Luther MD MPH Work Phone: [facility] 12-12-2024 15:46-0400 Diastolic blood pressure 99 mm[Hg] Ryan Luther MD MPH Work Phone: [facility] 12-12-2024 15:46-0400 Heart rate 115 /min Ryan Luther MD MPH Work Phone: [facility] 12-12-2024 15:46-0400 Systolic blood pressure 169 mm[Hg] Ryan Luther MD MPH Work Phone: [facility] 10-18-2024 15:01-0500 Body height 157.5 cm Ori Vidal PA-C Work Phone: [facility] 10-18-2024 15:01-0500 Body mass index (BMI) [Ratio] 37.68 kg/m2 Ori Vidal PA-C Work Phone: [facility] 10-18-2024 15:01-0500 Body weight 93.44 kg Ori Vidal PA-C Work Phone: [facility] 09-22-2024 12:59-0500 Body height 160 cm Mitchell Telles MD Work Phone: [facility] 09-22-2024 12:59-0500 Body mass index (BMI) [Ratio] 36.5 kg/m2 Mitchell Telles MD Work Phone: [facility] 09-22-2024 12:59-0500 Body weight 93.44 kg Mitchell Telles MD Work Phone: [facility] Comment on above: WT USED FROM LAST VISIT 09-22-2024 12:59-0500 Diastolic blood pressure 80 mm[Hg] Mitchell Telles MD Work Phone: 4(198)069-609078 [place] [address] 09-22-2024 12:59-0500 Heart rate 109 /min Mitchell Telles MD Work Phone: 1(145)695-938278 [place] [address] 09-22-2024 12:59-0500 Systolic blood pressure 140 mm[Hg] Mitchell Telles MD Work Phone: 7(169)926-224578 [place] [address] 09-07-2024 12:00-0500 Diastolic blood pressure 84 mm[Hg] Mitchell Telles MD Work Phone: 1(536)180-524527 [address] 09-07-2024 12:00-0500 Heart rate 90 /min Mitchell Telles MD Work Phone: 0(681)335-691827 [address] 09-07-2024 12:00-0500 Respiratory rate 16 /min Mitchell Telles MD Work Phone: 7(778)836-550678 [place] [address] 09-07-2024 12:00-0500 SaO2% (BldA) [Mass fraction] 100 % Mitchell Telles MD Work Phone: 3(446)760-369478 [place] [address] 09-07-2024 12:00-0500 Systolic blood pressure 138 mm[Hg] Mitchell Telles MD Work Phone: 5(992)525-550178 [place] [address] 09-07-2024 11:05-0500 Body temperature 97.3 [degF] Mitchell Telles MD Work Phone: 1(073)274-497278 [place] [address] 09-07-2024 08:33-0500 Body height 160 cm Mitchell Telles MD Work Phone: 6(259)323-587227 [address] 09-07-2024 08:33-0500 Body mass index (BMI) [Ratio] 36.64 kg/m2 Mitchell Telles MD Work Phone: 2(187)596-592778 [place] [address] 09-07-2024 08:33-0500 Body weight 93.8 kg Mitchell Telles MD Work Phone: 4(839)687-403827 [address] 08-24-2024 12:53-0500 Body height 160 cm Ori Marcy PA-C Work Phone: [facility] 08-24-2024 12:53-0500 Body mass index (BMI) [Ratio] 37.24 kg/m2 Ori Marcy PA-C Work Phone: [facility] 08-24-2024 12:53-0500 Body weight 95.35 kg Ori Hastings PA-C Work Phone: [facility] 08-24-2024 12:53-0500 Diastolic blood pressure 75 mm[Hg] Ori Hastings PA-C Work Phone: [facility] 08-24-2024 12:53-0500 Heart rate 105 /min Ori Marcy PA-C Work Phone: [facility] 08-24-2024 12:53-0500 Systolic blood pressure 114 mm[Hg] Ori Hastings PA-C Work Phone: [facility] 08-23-2024 09:50-0500 Body height 160 cm Guera Gibson MD Work Phone: [facility] 08-23-2024 09:50-0500 Body mass index (BMI) [Ratio] 37.16 kg/m2 Guera Gibson MD Work Phone: [facility] 08-23-2024 09:50-0500 Body weight 95.17 kg Guera Gibson MD Work Phone: [facility] 08-23-2024 09:50-0500 Diastolic blood pressure 80 mm[Hg] Guera Gibson MD Work Phone: [facility] 08-23-2024 09:50-0500 Heart rate 100 /min Guera Gibson MD [facility] [facility] 08-23-2024 09:50-0500 Systolic blood pressure 132 mm[Hg] Guera Gibson MD Work Phone: [facility] 04-14-2024 16:14-0400 Diastolic blood pressure 84 mm[Hg] Ori Hastings PA-C Work Phone: [facility] 04-14-2024 16:14-0400 Systolic blood pressure 138 mm[Hg] Ori Marcy PA-C Work Phone: [facility] 04-14-2024 15:32-0400 Body height 160 cm Ori Hastings PA-C Work Phone: [facility] 04-14-2024 15:32-0400 Body mass index (BMI) [Ratio] 38.44 kg/m2 Ori Marcy PA-C Work Phone: [facility] 04-14-2024 15:32-0400 Body weight 98.43 kg Ori Hastings PA-C Work Phone: [facility] 04-14-2024 15:32-0400 Heart rate 101 /min Ori Hastings PA-C Work Phone: [facility] 01-13-2024 10:56-0400 Body height 160 cm Ori Hastings PA-C Work Phone: [facility] 01-13-2024 10:56-0400 Body mass index (BMI) [Ratio] 39.86 kg/m2 Ori Hastings PA-C Work Phone: [facility] 01-13-2024 10:56-0400 Body weight 102.06 kg Ori Hastings PA-C Work Phone: [facility] 01-13-2024 10:56-0400 Diastolic blood pressure 86 mm[Hg] Ori Hastings PA-C Work Phone: [facility] 01-13-2024 10:56-0400 Heart rate 99 /min Ori Hastings PA-C Work Phone: [facility] 01-13-2024 10:56-0400 Systolic blood pressure 136 mm[Hg] Ori Hastings PA-C Work Phone: [facility] 12-24-2023 14:36-0400 Body height 160 cm Ori Vidal PA-C Work Phone: [facility] 12-24-2023 14:36-0400 Body mass index (BMI) [Ratio] 40.21 kg/m2 Ori Vidal PA-C Work Phone: [facility] 12-24-2023 14:36-0400 Body weight 102.97 kg Ori Vidal PA-C Work Phone: [facility] 03-03-2022 10:05-0400 Body height 160 cm Sarah Alcazar MD Work Phone: [facility] 03-03-2022 10:05-0400 Body mass index (BMI) [Percentile] Per age and sex 98.02 % Sarah Alcazar MD Work Phone: [facility] 03-03-2022 10:05-0400 Body weight 94.8 kg Sarah Alcazar MD Work Phone: [facility] 11-01-2021 17:31-0400 Body height 160.02 cm Loreto Scanlon Work Phone: [facility] 100 Work Phone: 11-01-2021 17:31-0400 Body mass index (BMI) [Ratio] 34.37 kg/m2 Loreto Scanlon Work Phone: [facility] 100 Work Phone: 11-01-2021 17:31-0400 Body surface area Derived from formula 1.91 m2 Loreto Scanlon Work Phone: [facility] 100 Work Phone: 11-01-2021 17:31-0400 Body temperature 98.2 [degF] Loreto Scanlon [facility] Work Phone: 11-01-2021 17:31-0400 Body weight 88 kg Loretochidi Calderaaugusto Work Phone: [facility] Work Phone: 11-01-2021 17:31-0400 Diastolic blood pressure 89 mm[Hg] Loreto Scanlon Work Phone: [facility] Work Phone: 11-01-2021 17:31-0400 Heart rate 102 /min Loreto Scanlon Work Phone: [facility] Work Phone: 11-01-2021 17:31-0400 Respiratory rate 16 /min Loreto Scanlon Work Phone: [facility] Work Phone: 11-01-2021 17:31-0400 SaO2% (BldA) [Mass fraction] 99 % Loreto Scanlon Work Phone: [facility] Work Phone: 11-01-2021 17:31-0400 Systolic blood pressure 138 mm[Hg] Loreto Scanlon Work Phone: [facility] Work Phone: 11-01-2021 17:31-0400 97 1 Loreto Calderabro Work Phone: [facility] Work Phone: Comment on above: BMIPerc 2-20_WPerc 11-01-2021 17:31-0400 32 1 Loreto Scanlon Work Phone: [facility] Work Phone: Comment on above: 2-20_SPerc 02-24-2022 18:36-0500 Body height 160.02 cm Loreto Scanlon Work Phone: [facility] 100 Work Phone: 10-10-2021 18:36-0500 Body mass index (BMI) [Ratio] 35.07 kg/m2 Loreto Scanlon Work Phone: [facility] 100 Work Phone: 10-10-2021 18:36-0500 Body surface area Derived from formula 1.93 m2 Loreto Scanlon Work Phone: [facility] 100 Work Phone: 10-10-2021 18:36-0500 Body temperature 97.6 [degF] Loreto Scanlon Work Phone: [facility] 100 Work Phone: 10-10-2021 18:36-0500 Body weight 89.81 kg Loreto Scanlon Work Phone: [facility] 100 Work Phone: 10-10-2021 18:36-0500 Diastolic blood pressure 84 mm[Hg] Loreto Scanlon Work Phone: [facility] 100 Work Phone: 10-10-2021 18:36-0500 Heart rate 111 /min Loreto Scanlon Work Phone: [facility] 100 Work Phone: 10-10-2021 18:36-0500 Respiratory rate 16 /min Loreto Scanlon Work Phone: [facility] 100 Work Phone: 10-10-2021 18:36-0500 SaO2% (BldA) [Mass fraction] 99 % Loreto Scanlon Work Phone: [facility] Work Phone: 10-10-2021 18:36-0500 Systolic blood pressure 138 mm[Hg] Loreto Scanlon Work Phone: [facility] Work Phone: 10-10-2021 18:36-0500 97 1 Loreto Scanlon Work Phone: [facility] Work Phone: Comment on above: 2-20_WPerc 10-10-2021 18:36-0500 32 1 Loreto Scanlon Work Phone: [facility] Work Phone: Comment on above: 2-20_SPerc 10-10-2021 18:36-0500 98 1 Loreto Scanlon Work Phone: [facility] Work Phone: Comment on above: BMIPerc 05-29-2021 18:22-0400 Body height 160.02 cm Loreto Scanlon Work Phone: [facility] Work Phone: 05-29-2021 18:22-0400 Body mass index (BMI) [Ratio] 34.37 kg/m2 Loreto Scanlon Work Phone: [facility] Work Phone: 05-29-2021 18:22-0400 Body surface area Derived from formula 1.91 m2 Loreto Scanlon Work Phone: [facility] Work Phone: 05-29-2021 18:22-0400 Body temperature 97.9 [degF] Loreto Scanlon Work Phone: [facility] Work Phone: 05-29-2021 18:22-0400 Body weight 88 kg Loreto L Capo Work Phone: [facility] Work Phone: 05-29-2021 18:22-0400 Diastolic blood pressure 87 mm[Hg] Loreto Scanlon Work Phone: [facility] Work Phone: 05-29-2021 18:22-0400 Heart rate 115 /min Loreto Scanlon Work Phone: [facility] Work Phone: 05-29-2021 18:22-0400 Respiratory rate 16 /min Loreto Scanlon Work Phone: [facility] Work Phone: 05-29-2021 18:22-0400 SaO2% (BldA) [Mass fraction] 99 % Loreto Scanlon Work Phone: [facility] Work Phone: 05-29-2021 18:22-0400 Systolic blood pressure 140 mm[Hg] Loreto Scanlon Work Phone: [facility] Work Phone: 05-29-2021 18:22-0400 97 1 Loreto Scanlon Work Phone: [facility] Work Phone: Comment on above: 2-20_WPerc BMIPerc 05-29-2021 18:22-0400 32 1 Loreto Scanlon Work Phone: [facility] Work Phone: Comment on above: 2-20_SPerc Encounters Encounter Date Encounter Type Care Provider Facility Start: 07-03-2025 ambulatory Drea Jimenez Facility :[facility] Start: 06-15-2025 ambulatory Drea Jimenez Facility :[facility] Start: 05-18-2025 End: 05-18-2025 Patient encounter procedure Drea Jimenez SUTURE GAUGER-C -[facility] Work Phone: Start: 05-18-2025 End: 05-18-2025 Patient encounter status Drea Jimenez SHERRY-C [facility] Start: 05-18-2025 End: 05-18-2025 ambulatory Ori PAIGE Work Phone: -[facility] Start: 05-02-2025 End: 05-02-2025 Subsequent hospital visit by physician Joe X-Ray 1 [facility] Comment on above: Acute pain of right shoulder Start: 05-02-2025 End: 05-02-2025 ambulatory [facility] Start: 04-20-2025 End: 04-20-2025 Office outpatient visit 25 minutes Ori Vidal PA-C Work Phone: [facility] Comment on above: Type 2 diabetes heather itus with hyperglycemia, without long-term current use of insulin (Primary Dx); Hypertension associated with diabetes; Hypercholesterolemia; Vitamin D deficiency; PCOS (polycystic ovarian syndrome); Low vitamin B12 level; Class 2 obesity due to excess calories without serious comorbidity with body mass index (BMI) of 39.0 to 39.9 in adult; Fatty liver; Renal calculi Start: 04-20-2025 End: 04-20-2025 ambulatory [facility] Start: 03-27-2025 End: 03-27-2025 Office outpatient new 45 minutes Ryan Luther MD MPH Work Phone: [facility] Comment on above: Renal calculi (Prima ry Dx) Start: 03-27-2025 End: 03-27-2025 ambulatory RYAN KHAN TRENT [facility] Ambulatory Start: 03-15-2025 End: 03-19-[address] [facility] Start: 03-15-2025 End: 03-15-2025 Nutrition therapy Ori Vidal ROYAL-C Work Phone: [facility] Comment on above: Inadequately control led diabetes mellitus (HCC) [E11.65] (Primary Dx) Start: 03-13-2025 End: 05-06-2025 ambulatory ORI VIDAL Facility:[id number] Start: 03-13-2025 End: 05-06-2025 PMR Adult Series ORI VIDAL [employer] Start: 03-01-2025 End: 03-01-2025 Emergency department patient visit Ivette Harding DO Work Phone: [facility] Emergency Medicine Comment on above: Flank pain (Primary Dx) Start: 02-16-2025 End: 02-16-2025 ambulatory RYANOscar KHAN [facility] Start: 02-16-2025 End: 02-16-2025 Subsequent hospital visit by physician Joe X-Ray 1 [facility] Comment on above: Renal calculi Start: 02-13-2025 End: 02-13-2025 Nutrition therapy Ori Vidal ROYAL-C Work Phone: [facility] Comment on above: Inadequately control led diabetes mellitus (HCC) [E11.65] (Primary Dx) Start: 02-13-2025 End: 02-17-[address] [facility] Start: 01-25-2025 End: 01-25-2025 Subsequent hospital visit by physician Joe X-Ray 1 [facility] Comment on above: Acute mid back pain Acute midline low ba ck pain without sciatica Start: 01-25-2025 End: 01-25-2025 ambulatory NEW BLAINE Seun [facility] Start: 01-18-2025 End: 01-18-2025 Office outpatient visit 25 minutes Ori Vidal PA-C Work Phone: [facility] Comment on above: Type 2 diabetes heather itus with hyperglycemia, without long-term current use of insulin (Primary Dx); Acute midline low back pain without sciatica; Acute mid back pain; Hypertension associated with diabetes; PCOS (polycystic ovarian syndrome); Class 2 obesity due to excess calories without serious comorbidity with body mass index (BMI) of 38.0 to 38.9 in adult; Renal calculi Start: 01-18-2025 End: 01-18-2025 ambulatory [facility] Start: 01-13-2025 End: 01-13-2025 Nutrition therapy Ori Keysha Vidal PA-C Work Phone: [facility] Comment on above: Type 2 diabetes heather itus with hyperglycemia, without long-term current use of insulin (HCC) Start: 01-13-2025 End: 01-17-[address] [facility] Start: 12-14-2024 End: 12-14-2024 Office outpatient visit 25 minutes Ori Vidal PA-C Work Phone: [facility] Comment on above: Type 2 diabetes heather itus with hyperglycemia, without long-term current use of insulin (Primary Dx); Encounter for dietary counseling and surveillance; Hypertension associated with diabetes; PCOS (polycystic ovarian syndrome); Class 2 obesity due to excess calories without serious comorbidity with body mass index (BMI) of 38.0 to 38.9 in adult Start: 12-14-2024 End: 12-14-2024 ambulatory [facility] Start: 12-12-2024 End: 12-12-2024 Office outpatient new 45 minutes Ryan Luther MD MPH Work Phone: [facility] Comment on above: Renal calculi (Prima ry Dx) Start: 12-12-2024 End: 12-12-2024 ambulatory RYANOscar KHAN [facility] Ambulatory Start: 10-18-2024 End: 10-18-2024 Office outpatient visit 25 minutes Ori Vidal PA-C Work Phone: [facility] Comment on above: Type 2 diabetes heather itus with hyperglycemia, without long-term current use of insulin (Primary Dx); Open abdominal incision with drainage, subsequent encounter; PCOS (polycystic ovarian syndrome); Renal calculi; Fatty liver; Excess body and facial hair; Class 2 obesity due to excess calories without serious comorbidity with body mass index (BMI) of 37.0 to 37.9 in adult; Hypercholesterolemia; Vitamin D deficiency; Low vitamin B12 level; Hypertension associated with diabetes (Multi); Thrombocytosis Start: 10-18-2024 End: 10-18-2024 ambulatory [facility] Start: 09-22-2024 End: 09-22-2024 Postop follow up visit related to original px Mitchell Telles MD Work Phone: [facility] Comment on above: Postoperative visit (Primary Dx) Start: 09-22-2024 End: 09-22-2024 ambulatory [facility] Start: 09-21-2024 End: 09-21-2024 ambulatory [facility] Start: 09-21-2024 End: 09-21-2024 [facility] Facility:[facility] Start: 09-07-2024 End: 09-07-2024 Subsequent hospital visit by physician Mitchell Telles MD Work Phone: [facility] [place] Comment on above: Calculus of gallblad vivek without cholecystitis without obstruction (Primary Dx); Post-operative pain Start: 09-01-2024 ambulatory [facility] Start: 08-31-2024 ambulatory [facility] Start: 08-24-2024 End: 08-24-2024 Office outpatient visit 25 minutes Ori Vidal PA-C Work Phone: [facility] Comment on above: Calculus of gallblad vivek without cholecystitis without obstruction (Primary Dx); Left flank pain; Constipation, unspecified constipation type; Nephrolithiasis; Hypertension associated with diabetes (Multi); Type 2 diabetes mellitus with hyperglycemia, without long-term current use of insulin; Class 2 obesity due to excess calories without serious comorbidity with body mass index (BMI) of 37.0 to 37.9 in adult; Fatty liver; Gastroesophageal reflux disease without esophagitis Start: 08-24-2024 End: 08-24-2024 ambulatory ORI Seun [facility] Ambulatory Start: 08-23-2024 End: 08-23-2024 ambulatory GUERA GIBSON [facility] Amb[facility] Start: 08-23-2024 End: 08-23-2024 Office outpatient new 45 minutes Guera Gibson MD Work Phone: [facility] Comment on above: Calculus of gallblad vivek without cholecystitis without obstruction (Primary Dx) Start: 08-18-2024 End: 08-18-2024 Emergency department patient visit ORI B [facility] Start: 04-14-2024 End: 04-14-2024 Office outpatient visit 25 minutes Ori Vidal PA-C Work Phone: [facility] Comment on above: Type 2 diabetes heather itus with hyperglycemia, without long-term current use of insulin (Multi) (Primary Dx); Low vitamin B12 level; PCOS (polycystic ovarian syndrome); Class 2 obesity due to excess calories without serious comorbidity with body mass index (BMI) of 39.0 to 39.9 in adult; Vitamin D deficiency; Rash and other nonspecific skin eruption; Hypertension associated with diabetes (Multi) Start: 04-09-2024 End: 04-09-2024 ambulatory [facility] Start: 01-13-2024 End: 01-13-2024 Office outpatient visit 25 minutes Ori Vidal PA-C Work Phone: [facility] Comment on above: Type 2 diabetes heather itus with hyperglycemia, without long-term current use of insulin (Multi) (Primary Dx); PCOS (polycystic ovarian syndrome); Fatty liver; Class 2 obesity due to excess calories without serious comorbidity with body mass index (BMI) of 39.0 to 39.9 in adult; Vitamin D deficiency; Low vitamin B12 level; Excess body and facial hair Start: 01-04-2024 End: 01-04-[address] Start: 12-24-2023 End: 12-24-2023 Office outpatient new 45 minutes Ori Vidal PA-C Work Phone: [facility] Comment on above: Gastroesophageal ref lux disease without esophagitis (Primary Dx); Missed menses; Excess body and facial hair; Class 3 severe obesity due to excess calories without serious comorbidity with body mass index (BMI) of 40.0 to 44.9 in adult (Multi); Glucose intolerance (impaired glucose tolerance); Hypercholesterolemia; Gallstones; Renal calculi; Vitamin D deficiency; Fatty liver Start: 11-09-2023 End: 11-09-2023 Subsequent hospital visit by physician [facility] Comment on above: Elbow pain, left Start: 11-09-2023 End: 11-09-2023 ambulatory EVE Lal [facility] Start: 11-08-2022 ambulatory Micheline Elmore APRN.CNP Work Phone: Telemedicine Comment on above: Treatment not availa ble (Primary Dx) Start: 11-01-2022 Refill Sarah Alcazar MD Work Phone: [facility] Comment on above: Refill Request Start: 05-09-2022 End: 05-10-2022 ambulatory [facility] Facility:[facility] Start: 04-24-2022 End: 04-24-2022 Emergency department patient visit [facility] Facility:[facility] Start: 04-22-2022 End: 04-22-2022 Emergency department patient visit [facility] Facility:[facility] Start: 03-28-2022 ambulatory [facility] Facility :[facility] Start: 03-28-2022 End: 03-28-2022 Subsequent hospital visit by physician Maliha [facility] Work Phone: Vascular Testing Comment on above: Hypertension, unspec ified type [I10] Start: 03-24-2022 End: 03-24-2022 Subsequent hospital visit by physician Josefa Levine Work Phone: CARDIOVASCULAR TESTING Comment on above: Hypertension, unspec ified type [I10] Start: 03-24-2022 End: 03-24-2022 ambulatory [facility] Facility:[facility] Start: 03-03-2022 End: 03-03-2022 Patient encounter procedure Sarah Alcazar MD Work Phone: [facility] Comment on above: Hypertension, unspec ified type (Primary Dx); Chronic migraine without aura without status migrainosus, not intractable; Epistaxis Start: 11-01-2021 Current tobacco non- user cad cap copd pv dm Loreto Scanlon Work Phone: [facility] Work Phone: Start: 11-01-2021 Patient encounter procedure Loreto Scanlon Work Phone: [facility] Work Phone: Start: 10-10-2021 Current tobacco non- user cad cap copd pv dm Loreto CalderaMobivery Work Phone: [facility] Work Phone: Start: 05-29-2021 Office outpatient vi sit 25 minutes Loreto Scanlon Work Phone: [facility] Work Phone: Start: 05-29-2021 Patient encounter procedure Loreto Scanlon Work Phone: [facility] Work Phone: Start: 03-06-2021 Current tobacco non- user cad cap copd pv dm Loreto Scanlon Work Phone: [facility] Work Phone: Start: 12-29-2017 End: 12-29-2017 Emergency department patient visit GUERA HERNANDEZ Facility:[facility] [employer] Start: 11-17-2017 Ambulatory JORGE LUIS [place] ty:[id number] Start: 08-31-2017 Ambulatory Jose Ramesh Facility:[id number] Patient encounter status Loreto Scanlon Work Phone: [facility] Work Phone: Procedures Date Procedure Procedure Detail Performing Clinician Start: 04-15-2025 Lipid 1996 panel - S polly or Plasma Ori Vidal PA-C Work Phone: Start: 03-01-2025 Ct abdomen & pelvis w/o contrast material Ivette Harding DO Work Phone: Start: 03-01-2025 Comprehensive metabo lic panel Ivette Harding DO Work Phone: Start: 03-01-2025 End: 03-01-2025 Urnls dip stick/tablet rgnt auto w/o microscopy Ivette Harding DO Work Phone: Start: 09-07-2024 Glucose quantitative blood xcpt reagent strip Mitchell Telles MD Work Phone: Start: 09-07-2024 Urine test visual color cmprsn meths Mitchell Telles MD Work Phone: Start: 09-07-2024 PULSE OXIMETRY, SPOT Ma malia Gibson MD Work Phone: Start: 01-04-2024 CBC W Auto Different ial panel - Blood EVE POLLACK Start: 01-04-2024 Comprehensive metabo lic 2000 panel - Serum or Plasma EVE POLLACK Start: 01-04-2024 Cyanocobalamin vitam in b-12 EVE POLLACK Start: 01-04-2024 DHEA EVE PO LLACK Start: 01-04-2024 ESTROGENS, TOTAL REBECC A POLLACK Start: 01-04-2024 FOLLICLE STIMULATING HORMONE EVE POLLACK Start: 01-04-2024 Hemoglobin A1c/Hemoglobin.total in Blood EVE POLLACK Start: 01-04-2024 HUMAN CHORIONIC GONADOTROPIN, SERUM QUANTITATIVE EVE POLLACK Start: 01-04-2024 Lipid panel EVE PO LLACK Start: 01-04-2024 LUTEINIZING HORMONE MARCE ECCA POLLACK Start: 01-04-2024 Magnesium [Mass/volu me] in Serum or Plasma EVE POLLACK Start: 01-04-2024 PROGESTERONE EVE PO LLACK Start: 01-04-2024 TESTOSTERONE,FREE AN D TOTAL EVE POLLACK Start: 01-04-2024 Thyrotropin [Units/volume] in Serum or Plasma EVE POLLACK Start: 01-04-2024 THYROXINE, FREE EVE NANCY Start: 01-04-2024 VITAMIN D 25-HYDROXY,TOTAL EVE NANCY Start: 01-04-2024 Lipid 1996 panel - S polly or Plasma Ori Vidal PA-C Work Phone: Start: 11-09-2023 XR URGENT CARE XRAY MARCE ECCA NANCY Start: 11-09-2023 XR URGENT CARE XRAY Marce ecca 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 Denies Surgery Loreto Scanlon Work Phone: Plan of Treatment Date Care Activity Detail Author Start: 2053 Zoster Vaccines (1 of 2) Zoster Vaccines (1 of 2) [facility] Start: 03-23-2034 DTaP/Tdap/Td Vaccines (9 - Td or Tdap) DTaP/Tdap/Td Vaccines (9 - Td or Tdap) [facility] Start: 03-23-2034 Tetanus vaccination Tetanus: Every 10yrs [facility] Start: 04-15-2026 Lipid panel Lipid Panel [facility] Start: 04-15-2026 Urine screening for protein Diabetes: Urine Protein Screening [facility] Start: 10-19-2025 End: 10-19-2025 Patient encounter procedure 10/19/2025 3:20 PM EST Office Visit [facility] [address] [place] [phone] Ori Vidal PA-C [address] [place] [phone] [facility] Start: 10-18-2025 End: 04-20-2026 25-hydroxyvitamin D3 [Mass/volume] in Serum or Plasma Vitamin D 25-Hydroxy,Total (for eval of Vitamin D levels) Lab Routine Vitamin D deficiency Type 2 diabetes mellitus with hyperglycemia, without long-term current use of insulin Expected: 10/18/2025 (Approximate), Expires: 04/20/2026 [facility] Work Phone: Comment on above: Expected: 10/18/2025 (Approximate), Expi res: 04/20/2026 Start: 10-18-2025 End: 04-20-2026 CBC W Auto Differential panel - Blood CBC and Auto Differential Lab Routine Type 2 diabetes mellitus with hyperglycemia, without long-term current use of insulin Expected: 10/18/2025 (Approximate), Expires: 04/20/2026 [facility] Work Phone: Comment on above: Expected: 10/18/2025 (Approximate), Expi res: 04/20/2026 Start: 10-18-2025 End: 04-20-2026 Comprehensive metabolic 2000 panel - Serum or Plasma Comprehensive Metabolic Panel Lab Routine Type 2 diabetes mellitus with hyperglycemia, without long-term current use of insulin Expected: 10/18/2025 (Approximate), Expires: 04/20/2026 [facility] Work Phone: Comment on above: Expected: 10/18/2025 (Approximate), Expi res: 04/20/2026 Start: 10-18-2025 End: 04-20-2026 Hemoglobin A1c/Hemoglobin.total in Blood Hemoglobin A1C Lab Routine Type 2 diabetes mellitus with hyperglycemia, without long-term current use of insulin Expected: 10/18/2025 (Approximate), Expires: 04/20/2026 [facility] Work Phone: Comment on above: Expected: 10/18/2025 (Approximate), Expi res: 04/20/2026 Start: 10-18-2025 End: 04-20-2026 Magnesium [Mass/volume] in Serum or Plasma Magnesium Lab Routine Type 2 diabetes mellitus with hyperglycemia, without long-term current use of insulin Expected: 10/18/2025 (Approximate), Expires: 04/20/2026 [facility] Work Phone: Comment on above: Expected: 10/18/2025 (Approximate), Expi res: 04/20/2026 Start: 10-18-2025 End: 04-20-2026 Microalbumin/Creatinine [Mass Ratio] in Urine Albumin-Creatinine Ratio, Urine Random Lab Routine Type 2 diabetes mellitus with hyperglycemia, without long-term current use of insulin Expected: 10/18/2025 (Approximate), Expires: 04/20/2026 [facility] Service Area Work Phone: Comment on above: Expected: 10/18/2025 (Approximate), Expi res: 04/20/2026 Start: 07-16-2025 Hemoglobin A1c measurement [facility] Start: 05-18-2025 Serum progesterone measurement [facility] Start: 05-18-2025 [facility] Start: 04-20-2025 End: 04-20-2025 Patient encounter procedure 04/20/2025 3:20 PM EDT Office Visit [facility] [address] [place] [phone] Ori Vidal PA-C [address] [place] [address] [facility] Start: 04-20-2025 End: 10-18-2025 25-hydroxyvitamin D3 [Mass/volume] in Serum or Plasma Vitamin D 25-Hydroxy,Total (for eval of Vitamin D levels) Lab Routine Vitamin D deficiency Expected: 04/20/2025 (Approximate), Expires: 10/18/2025 [facility] Work Phone: Comment on above: Expected: 04/20/2025 (Approximate), Expi res: 10/18/2025 Start: 04-20-2025 End: 10-18-2025 CBC W Auto Differential panel - Blood CBC and Auto Differential Lab Routine Type 2 diabetes mellitus with hyperglycemia, without long-term current use of insulin Expected: 04/20/2025 (Approximate), Expires: 10/18/2025 [facility] Work Phone: Comment on above: Expected: 04/20/2025 (Approximate), Expi res: 10/18/2025 Start: 04-20-2025 End: 10-18-2025 Cobalamin (Vitamin B12) [Mass/volume] in Serum or Plasma Vitamin B12 Lab Routine Low vitamin B12 level Expected: 04/20/2025 (Approximate), Expires: 10/18/2025 [facility] Work Phone: Comment on above: Expected: 04/20/2025 (Approximate), Expi res: 10/18/2025 Start: 04-20-2025 End: 10-18-2025 Comprehensive metabolic 2000 panel - Serum or Plasma Comprehensive Metabolic Panel Lab Routine Type 2 diabetes mellitus with hyperglycemia, without long-term current use of insulin Expected: 04/20/2025 (Approximate), Expires: 10/18/2025 [facility] Work Phone: Comment on above: Expected: 04/20/2025 (Approximate), Expi res: 10/18/2025 Start: 04-20-2025 End: 10-18-2025 Hemoglobin A1c/Hemoglobin.total in Blood Hemoglobin A1C Lab Routine Type 2 diabetes mellitus with hyperglycemia, without long-term current use of insulin Expected: 04/20/2025 (Approximate), Expires: 10/18/2025 [facility] Work Phone: Comment on above: Expected: 04/20/2025 (Approximate), Expi res: 10/18/2025 Start: 04-20-2025 End: 10-18-2025 Lipid 1996 panel - Serum or Plasma Lipid Panel Lab Routine Hypercholesterolemia Expected: 04/20/2025 (Approximate), Expires: 10/18/2025 [facility] Work Phone: Comment on above: Expected: 04/20/2025 (Approximate), Expi res: 10/18/2025 Start: 04-20-2025 End: 10-18-2025 Magnesium [Mass/volume] in Serum or Plasma Magnesium Lab Routine Type 2 diabetes mellitus with hyperglycemia, without long-term current use of insulin Expected: 04/20/2025 (Approximate), Expires: 10/18/2025 [facility] Work Phone: Comment on above: Expected: 04/20/2025 (Approximate), Expi res: 10/18/2025 Start: 04-20-2025 End: 10-18-2025 Microalbumin/Creatinine [Mass Ratio] in Urine Albumin-Creatinine Ratio, Urine Random Lab Routine Type 2 diabetes mellitus with hyperglycemia, without long-term current use of insulin Expected: 04/20/2025 (Approximate), Expires: 10/18/2025 [facility] Work Phone: Comment on above: Expected: 04/20/2025 (Approximate), Expi res: 10/18/2025 Start: 04-20-2025 End: 10-18-2025 Thyrotropin [Units/volume] in Serum or Plasma Thyroid Stimulating Hormone Lab Routine Hypercholesterolemia Expected: 04/20/2025 (Approximate), Expires: 10/18/2025 [facility] Work Phone: Comment on above: Expected: 04/20/2025 (Approximate), Expi res: 10/18/2025 Start: 04-20-2025 End: 10-18-2025 Thyroxine (T4) free [Mass/volume] in Serum or Plasma Thyroxine, Free Lab Routine Hypercholesterolemia Expected: 04/20/2025 (Approximate), Expires: 10/18/2025 [facility] Work Phone: Comment on above: Expected: 04/20/2025 (Approximate), Expi res: 10/18/2025 Start: 04-17-2025 COVID-19 Vaccine ( season) COVID-19 Vaccine ( season) [facility] Start: 04-17-2025 Influenza vaccination [facility] Start: 04-16-2025 Hemoglobin A1c measurement Diabetes: Hemoglobin A[facility]C [facility] Start: 04-10-2025 End: 04-10-2025 Patient encounter procedure 04/10/2025 3:15 PM EDT Office Visit [address] [place] [phone] yRan Lozano MD MPH [address] [place] [address] [facility] Start: 04-09-2025 Urine screening for protein Diabetes: Urine Protein Screening [facility] Start: 04-03-2025 Hemoglobin A1c measurement A1C [facility] Start: 03-27-2025 End: 03-27-2026 US Kidney - bilateral and Urinary bladder US renal complete Imaging Routine Renal calculi Expected: 03/27/2025, Expires: 03/27/2026 [facility] Work Phone: Comment on above: Expected: 03/27/2025, Expires: Start: 03-27-2025 End: 03-27-2026 XR Abdomen Single view XR abdomen 1 view Imaging Routine Renal calculi Expected: 03/27/2025, Expires: 03/27/2026 [facility] Service Area Work Phone: Comment on above: Expected: 03/27/2025, Expires: Start: 03-27-2025 End: 03-27-2025 Patient encounter procedure 03/27/2025 11:45 AM EDT Office Visit [address] [phone] Ryan Lozano MD MPH [address] [place] [address] [facility] Start: 03-15-2025 End: 03-15-2025 Nutrition therapy 03/15/2025 3:00 PM EDT Nutrition [facility] [place] [phone] [address] [facility] Start: 02-16-2025 End: 02-16-2025 Patient encounter procedure 02/16/2025 2:00 PM EDT Appointment [facility] [address] [place] [phone] [facility] Start: 02-13-2025 End: 02-13-2025 Nutrition therapy 02/13/2025 3:00 PM EDT Nutrition [facility] [address] [place] [address] [facility] Start: 01-18-2025 End: 01-18-2025 Patient encounter procedure 01/18/2025 3:00 PM EDT Office Visit [facility] [address] [place] [phone] Ori Vidal PA-C [address] [place] [address] [facility] Start: 01-18-2025 End: 01-18-2026 XR Lumbar spine 2 or 3 Views XR lumbar spine 2-3 views Imaging Routine Acute midline low back pain without sciatica Expected: 01/18/2025, Expires: 01/18/2026 [facility] Work Phone: Comment on above: Expected: 01/18/2025, Expires: Start: 01-18-2025 End: 01-18-2026 XR Thoracic spine 2 Views XR thoracic spine 2 views Imaging Routine Acute mid back pain Expected: 01/18/2025, Expires: 01/18/2026 [facility] Service Area Work Phone: Comment on above: Expected: 01/18/2025, Expires: Start: 01-03-2025 Lipid panel Lipid Panel [facility] Start: 01-01-2025 Hemoglobin A1c measurement Diabetes: Hemoglobin A1C [facility] Start: 12-14-2024 End: 12-14-2025 Hemoglobin A1c/Hemoglobin.total in Blood Hemoglobin A1c Lab Routine Type 2 diabetes mellitus with hyperglycemia, without long-term current use of insulin Expected: 12/14/2024 (Approximate), Expires: 12/14/2025 [facility] Service Area Work Phone: Comment on above: Expected: 12/14/2024 (Approximate), Expi res: 12/14/2025 Start: 12-14-2024 End: 12-14-2024 Patient encounter procedure 12/14/2024 10:00 AM EDT Office Visit [facility] [address] [place] [phone] Ori Vidal, PA-C [address] [place], [place] [phone] [facility] Start: 12-12-2024 End: 12-12-2025 US Kidney - bilateral and Urinary bladder US renal complete Imaging Routine Renal calculi Expected: 12/12/2024, Expires: 12/12/2025 [facility] Service Area Work Phone: Comment on above: Expected: 12/12/2024, Expires: Start: 12-12-2024 End: 12-12-2025 XR Abdomen Single view XR abdomen 1 view Imaging Routine Renal calculi Expected: 12/12/2024, Expires: 12/12/2025 [facility] Work Phone: Comment on above: Expected: 12/12/2024, Expires: Start: 10-18-2024 End: 10-18-2024 Patient encounter procedure 10/18/2024 3:20 PM EST Office Visit [facility] [address] [place] [phone] Ori Vidal, PA-C [address] [place] [address] [facility] Start: 10-18-2024 End: 10-18-2025 CBC W Auto Differential panel - Blood CBC and Auto Differential Lab Routine Thrombocytosis Expected: 10/18/2024 (Approximate), Expires: 10/18/2025 [facility] Service Area Work Phone: Comment on above: Expected: 10/18/2024 (Approximate), Expi res: 10/18/2025 Start: 10-14-2024 End: 04-14-2025 25-hydroxyvitamin D3 [Mass/volume] in Serum or Plasma Vitamin D 25-Hydroxy,Total (for eval of Vitamin D levels) Lab Routine Vitamin D deficiency Expected: 10/14/2024 (Approximate), Expires: 04/14/2025 [facility] Work Phone: Comment on above: Expected: 10/14/2024 (Approximate), Expi res: 04/14/2025 Start: 10-14-2024 End: 04-14-2025 CBC W Auto Differential panel - Blood CBC and Auto Differential Lab Routine Type 2 diabetes mellitus with hyperglycemia, without long-term current use of insulin (Multi) Expected: 10/14/2024 (Approximate), Expires: 04/14/2025 [facility] Area Work Phone: Comment on above: Expected: 10/14/2024 (Approximate), Expi res: 04/14/2025 Start: 10-14-2024 End: 04-14-2025 Cobalamin (Vitamin B12) [Mass/volume] in Serum or Plasma Vitamin B12 Lab Routine Low vitamin B12 level Expected: 10/14/2024 (Approximate), Expires: 04/14/2025 [facility] Work Phone: Comment on above: Expected: 10/14/2024 (Approximate), Expi res: 04/14/2025 Start: 10-14-2024 End: 04-14-2025 Comprehensive metabolic 2000 panel - Serum or Plasma Comprehensive Metabolic Panel Lab Routine Type 2 diabetes mellitus with hyperglycemia, without long-term current use of insulin (Multi) Expected: 10/14/2024 (Approximate), Expires: 04/14/2025 [facility] Work Phone: Comment on above: Expected: 10/14/2024 (Approximate), Expi res: 04/14/2025 Start: 10-14-2024 End: 04-14-2025 Hemoglobin A1c/Hemoglobin.total in Blood Hemoglobin A1C Lab Routine Type 2 diabetes mellitus with hyperglycemia, without long-term current use of insulin (Multi) Expected: 10/14/2024 (Approximate), Expires: 04/14/2025 [facility] Work Phone: Comment on above: Expected: 10/14/2024 (Approximate), Expi res: 04/14/2025 Start: 10-14-2024 End: 04-14-2025 Magnesium [Mass/volume] in Serum or Plasma Magnesium Lab Routine Type 2 diabetes mellitus with hyperglycemia, without long-term current use of insulin (Multi) Expected: 10/14/2024 (Approximate), Expires: 04/14/2025 [facility] Work Phone: Comment on above: Expected: 10/14/2024 (Approximate), Expi res: 04/14/2025 Start: 09-22-2024 End: 09-22-2024 Patient encounter procedure 09/22/2024 1:15 PM EST Office Visit [facility] [address] [phone] Mitchell Telles MD [facility] [place] [address] [facility] Start: 09-07-2024 End: 09-07-2024 Laparoscopy surg cholecystectomy CHOLECYSTECTOMY, LAPAROSCOPIC Calculus of gallbladder without cholecystitis without obstruction 09/07/2024 9:07 AM EST Virtual [facility] Start: 08-24-2024 End: 08-24-2024 Patient encounter procedure 08/24/2024 1:00 PM EST Office Visit [facility] [address] [place] [phone] Ori Vidal, PASheylaC [address] [place] [address] [facility] Start: 07-22-2024 DTaP/Tdap/Td Vaccines (7 - Td or Tdap) DTaP/Tdap/Td Vaccines (7 - Td or Tdap) [facility] Start: 07-22-2024 Urine microalbumin profile DTAP,TDAP,TD (7 - Td or Tdap) [facility] Start: 07-10-2024 Hemoglobin A1c measurement Diabetes: Hemoglobin A1C [facility] Start: 04-17-2024 COVID-19 Vaccine ( season) COVID-19 Vaccine ( season) [facility] Start: 04-17-2024 COVID-19 Vaccine ( season) COVID-19 Vaccine () [facility] Start: 04-17-2024 Influenza vaccination [facility] Start: 04-14-2024 End: 04-14-2024 Patient encounter procedure 04/14/2024 3:20 PM EDT Office Visit [facility] [address] [place] [phone] Ori Vidal, PASheylaC [address] [place] [address] [facility] Start: 04-14-2024 End: 01-12-2025 25-hydroxyvitamin D3 [Mass/volume] in Serum or Plasma Vitamin D 25-Hydroxy,Total (for eval of Vitamin D levels) Lab Routine Vitamin D deficiency Expected: 04/14/2024 (Approximate), Expires: 01/12/2025 [facility] Work Phone: Comment on above: Expected: 04/14/2024 (Approximate), Expi res: 01/12/2025 Start: 04-14-2024 End: 01-12-2025 CBC W Auto Differential panel - Blood CBC and Auto Differential Lab Routine Type 2 diabetes mellitus with hyperglycemia, without long-term current use of insulin (Multi) Expected: 04/14/2024 (Approximate), Expires: 01/12/2025 [facility] Work Phone: Comment on above: Expected: 04/14/2024 (Approximate), Expi res: 01/12/2025 Start: 04-14-2024 End: 01-12-2025 Cobalamin (Vitamin B12) [Mass/volume] in Serum or Plasma Vitamin B12 Lab Routine Low vitamin B12 level Expected: 04/14/2024 (Approximate), Expires: 01/12/2025 [facility] Work Phone: Comment on above: Expected: 04/14/2024 (Approximate), Expi res: 01/12/2025 Start: 04-14-2024 End: 01-12-2025 Comprehensive metabolic 2000 panel - Serum or Plasma Comprehensive Metabolic Panel Lab Routine Type 2 diabetes mellitus with hyperglycemia, without long-term current use of insulin (Multi) Expected: 04/14/2024 (Approximate), Expires: 01/12/2025 [facility] Work Phone: Comment on above: Expected: 04/14/2024 (Approximate), Expi res: 01/12/2025 Start: 04-14-2024 End: 01-12-2025 Hemoglobin A1c/Hemoglobin.total in Blood Hemoglobin A1C Lab Routine Type 2 diabetes mellitus with hyperglycemia, without long-term current use of insulin (Multi) Expected: 04/14/2024 (Approximate), Expires: 01/12/2025 [facility] Work Phone: Comment on above: Expected: 04/14/2024 (Approximate), Expi res: 01/12/2025 Start: 04-14-2024 End: 01-12-2025 Microalbumin/Creatinine [Mass Ratio] in Urine Albumin , Urine Random Lab Routine Type 2 diabetes mellitus with hyperglycemia, without long-term current use of insulin (Multi) Expected: 04/14/2024 (Approximate), Expires: 01/12/2025 [facility] Service Area Work Phone: Comment on above: Expected: 04/14/2024 (Approximate), Expi res: 01/12/2025 Start: 04-05-2024 Hemoglobin A1c measurement Diabetes: Hemoglobin A1C [facility] Start: 02-21-2024 Screening for malignant neoplasm of cervix [facility] Start: 02-02-2024 End: 02-02-2024 Patient encounter procedure 02/02/2024 3:20 PM EDT Office Visit [facility] [address] [place] [phone] Ori Vidal PA-C [address] [place] [address] [facility] Start: 12-24-2023 End: 12-23-2024 25-hydroxyvitamin D3 [Mass/volume] in Serum or Plasma Vitamin D 25-Hydroxy,Total (for eval of Vitamin D levels) Lab Routine Vitamin D deficiency Expected: 12/24/2023 (Approximate), Expires: 12/23/2024 [facility] Work Phone: Comment on above: Expected: 12/24/2023 (Approximate), Expi res: 12/23/2024 Start: 12-24-2023 End: 12-23-2024 CBC W Auto Differential panel - Blood CBC and Auto Differential Lab Routine Glucose intolerance (impaired glucose tolerance) Expected: 12/24/2023 (Approximate), Expires: 12/23/2024 [facility] Service Area Work Phone: Comment on above: Expected: 12/24/2023 (Approximate), Expi res: 12/23/2024 Start: 12-24-2023 End: 12-23-2024 Choriogonadotropin.beta subunit [Units/volume] in Serum or Plasma HCG, quantitative, Lab Routine Missed menses Excess body and facial hair Expected: 12/24/2023 (Approximate), Expires: 12/23/2024 [facility] Work Phone: Comment on above: Expected: 12/24/2023 (Approximate), Expi res: 12/23/2024 Start: 12-24-2023 End: 12-23-2024 Cobalamin (Vitamin B12) [Mass/volume] in Serum or Plasma Vitamin B12 Lab Routine Glucose intolerance (impaired glucose tolerance) Hypercholesterolemia Expected: 12/24/2023 (Approximate), Expires: 12/23/2024 [facility] Work Phone: Comment on above: Expected: 12/24/2023 (Approximate), Expi res: 12/23/2024 Start: 12-24-2023 End: 12-23-2024 Comprehensive metabolic 2000 panel - Serum or Plasma Comprehensive Metabolic Panel Lab Routine Glucose intolerance (impaired glucose tolerance) Expected: 12/24/2023 (Approximate), Expires: 12/23/2024 [facility] Work Phone: Comment on above: Expected: 12/24/2023 (Approximate), Expi res: 12/23/2024 Start: 12-24-2023 End: 12-23-2024 Dehydroepiandrosterone (DHEA) [Mass/volume] in Serum or Plasma DHEA Lab Routine Missed menses Excess body and facial hair Expected: 12/24/2023 (Approximate), Expires: 12/23/2024 [facility] Work Phone: Comment on above: Expected: 12/24/2023 (Approximate), Expi res: 12/23/2024 Start: 12-24-2023 End: 12-23-2024 Estrogen [Mass/volume] in Serum or Plasma Estrogens, Total Lab Routine Missed menses Excess body and facial hair Expected: 12/24/2023 (Approximate), Expires: 12/23/2024 [facility] Work Phone: Comment on above: Expected: 12/24/2023 (Approximate), Expi res: 12/23/2024 Start: 12-24-2023 End: 12-23-2024 Follitropin [Units/volume] in Serum or Plasma FSH Lab Routine Missed menses Excess body and facial hair Expected: 12/24/2023 (Approximate), Expires: 12/23/2024 [facility] Work Phone: Comment on above: Expected: 12/24/2023 (Approximate), Expi res: 12/23/2024 Start: 12-24-2023 End: 12-23-2024 Hemoglobin A1c/Hemoglobin.total in Blood Hemoglobin A1C Lab Routine Glucose intolerance (impaired glucose tolerance) Expected: 12/24/2023 (Approximate), Expires: 12/23/2024 [facility] Work Phone: Comment on above: Expected: 12/24/2023 (Approximate), Expi res: 12/23/2024 Start: 12-24-2023 End: 12-23-2024 Lipid 1996 panel - Serum or Plasma Lipid Panel Lab Routine Hypercholesterolemia Expected: 12/24/2023 (Approximate), Expires: 12/23/2024 [facility] Work Phone: Comment on above: Expected: 12/24/2023 (Approximate), Expi res: 12/23/2024 Start: 12-24-2023 End: 12-23-2024 Lutropin [Units/volume] in Serum or Plasma Luteinizing hormone Lab Routine Missed menses Excess body and facial hair Expected: 12/24/2023 (Approximate), Expires: 12/23/2024 [facility] Work Phone: Comment on above: Expected: 12/24/2023 (Approximate), Expi res: 12/23/2024 Start: 12-24-2023 End: 12-23-2024 Magnesium [Mass/volume] in Serum or Plasma Magnesium Lab Routine Glucose intolerance (impaired glucose tolerance) Hypercholesterolemia Expected: 12/24/2023 (Approximate), Expires: 12/23/2024 [facility] Work Phone: Comment on above: Expected: 12/24/2023 (Approximate), Expi res: 12/23/2024 Start: 12-24-2023 End: 12-23-2024 Progesterone [Mass/volume] in Serum or Plasma Progesterone Lab Routine Missed menses Excess body and facial hair Expected: 12/24/2023 (Approximate), Expires: 12/23/2024 [facility] Work Phone: Comment on above: Expected: 12/24/2023 (Approximate), Expi res: 12/23/2024 Start: 12-24-2023 End: 12-23-2024 Testosterone,Free and Total Testosterone,Free and Total Lab Routine Missed menses Excess body and facial hair Expected: 12/24/2023 (Approximate), Expires: 12/23/2024 [facility] Work Phone: Comment on above: Expected: 12/24/2023 (Approximate), Expi res: 12/23/2024 Start: 12-24-2023 End: 12-23-2024 Thyrotropin [Units/volume] in Serum or Plasma Thyroid Stimulating Hormone Lab Routine Hypercholesterolemia Expected: 12/24/2023 (Approximate), Expires: 12/23/2024 [facility] Work Phone: Comment on above: Expected: 12/24/2023 (Approximate), Expi res: 12/23/2024 Start: 12-24-2023 End: 12-23-2024 Thyroxine (T4) free [Mass/volume] in Serum or Plasma Thyroxine, Free Lab Routine Hypercholesterolemia Expected: 12/24/2023 (Approximate), Expires: 12/23/2024 [facility] Work Phone: Comment on above: Expected: 12/24/2023 (Approximate), Expi res: 12/23/2024 Start: 05-08-2023 ANNUAL PCP TEAM CHRONIC DISEASE VISIT ANNUAL PCP TEAM CHRONIC DISEASE VISIT [facility] Start: 04-24-2023 CHLAMYDIA SCREENING (18-24) CHLAMYDIA SCREENING (18-24) [facility] Start: 04-24-2023 GC (GONORRHEA) SCREENING (18-24) GC (GONORRHEA) SCREENING (18-24) [facility] Start: 04-24-2023 Screening for Chlamydia trachomatis Chlamydia Screening [facility] Start: 04-17-2023 COVID-19 Vaccine ( season) COVID-19 Vaccine ( season) [facility] Start: 04-17-2023 Influenza vaccination Influenza Vaccine (#1) [facility] Start: 03-03-2023 Adult depression screening assessment DEPRESSION SCREENING [facility] Start: 03-03-2023 COVID-19 VACCINE (#1) COVID-19 VACCINE (#1) [facility] Comment on above: Postponed from 2003 (Declined at t his time) Start: 03-03-2023 HIV SCREENING HIV SCREENING [facility] Comment on above: Postponed from 2021 (Declined at t his time) Start: 09-07-2022 Lipid panel Lipid Panel [facility] Start: 08-17-2022 DEPRESSION ASSESSMENT DEPRESSION ASSESSMENT [facility] Start: 04-17-2022 Influenza vaccination INFLUENZA (#1) [facility] Start: 03-03-2022 End: 05-03-2022 25-hydroxyvitamin D3 [Mass/volume] in Serum or Plasma VITAMIN D 25 HYDROXY Lab Routine Hypertension, unspecified type Expected: 03/03/2022, Expires: 05/03/2022 [email or web address] [facility] Work Phone: Comment on above: Expected: 03/03/2022, Expires: 2 Start: 03-03-2022 End: 05-03-2022 ALBUMIN/CREAT RATIO RND UR ALBUMIN/CREAT RATIO RND UR Lab Routine Hypertension, unspecified type Expected: 03/03/2022, Expires: 05/03/2022 [employer] Work Phone: Comment on above: Expected: 03/03/2022, Expires: 2 Start: 03-03-2022 End: 05-03-2022 CBC W Auto Differential panel - Blood CBC + DIFF Lab Routine Hypertension, unspecified type Expected: 03/03/2022, Expires: 05/03/2022 [employer] Work Phone: Comment on above: Expected: 03/03/2022, Expires: 2 Start: 03-03-2022 End: 05-03-2022 Cobalamin (Vitamin B12) [Mass/volume] in Serum or Plasma VITAMIN B12 BLOOD Lab Routine Hypertension, unspecified type Expected: 03/03/2022, Expires: 05/03/2022 [employer] Work Phone: Comment on above: Expected: 03/03/2022, Expires: 2 Start: 03-03-2022 End: 05-03-2022 Comprehensive metabolic 2000 panel - Serum or Plasma COMP METABOLIC PANEL Lab Routine Hypertension, unspecified type Expected: 03/03/2022, Expires: 05/03/2022 [employer] Work Phone: Comment on above: Expected: 03/03/2022, Expires: 2 Start: 03-03-2022 End: 05-03-2022 Lipid 1996 panel - Serum or Plasma LIPID PANEL BASIC Lab Routine Hypertension, unspecified type Expected: 03/03/2022, Expires: 05/03/2022 [email or web address] [facility] Work Phone: Comment on above: Expected: 03/03/2022, Expires: 2 Start: 03-03-2022 End: 05-03-2022 Magnesium [Mass/volume] in Serum or Plasma MAGNESIUM BLD Lab Routine Hypertension, unspecified type Expected: 03/03/2022, Expires: 05/03/2022 [employer] Work Phone: Comment on above: Expected: 03/03/2022, Expires: 2 Start: 03-03-2022 End: 05-03-2022 Thyrotropin [Units/volume] in Serum or Plasma TSH BLD Lab Routine Hypertension, unspecified type Expected: 03/03/2022, Expires: 05/03/2022 [employer] Work Phone: Comment on above: Expected: 03/03/2022, Expires: 2 Start: 03-03-2022 End: 05-03-2022 URINALYSIS, DIPSTICK ONLY URINALYSIS, DIPSTICK ONLY Lab Routine Hypertension, unspecified type Expected: 03/03/2022, Expires: 05/03/2022 [employer] Work Phone: Comment on above: Expected: 03/03/2022, Expires: 2 Start: 2022 Urine screening for protein Diabetes: Urine Protein Screening [facility] Start: 2021 BP CONTROLLED (<130/80) BP CONTROLLED (<130/80) [facility] Start: 2021 CHLAMYDIA SCREENING (18-24) CHLAMYDIA SCREENING (18-24) [facility] Start: 2021 GC (GONORRHEA) SCREENING (18-24) GC (GONORRHEA) SCREENING (18-24) [facility] Start: 07-07-2021 HEPATITIS C SCREENING HEPATITIS C SCREENING [facility] Start: 2021 Hepatitis C screening Hepatitis C Screening [facility] Start: 2019 Meningococcal B Vaccine (1 of 2 - Standard) Meningococcal B Vaccine (1 of 2 - Standard) [facility] Start: 2018 HIV screening HIV Screening [facility] Start: 2017 PEDS TO ADULT TRANSITION ANNUAL ASSESSMENT PEDS TO ADULT TRANSITION ANNUAL ASSESSMENT [facility] Start: 2015 Depression screening using PHQ-9 (Patient Health Questionnaire 9) score Depression Screening/Follow-Up (PHQ-2/9) [facility] Start: 2015 PEDS TO ADULT TRANSITION INITIAL DISCUSSION PEDS TO ADULT TRANSITION INITIAL DISCUSSION [facility] Start: 2013 Diabetic foot examination [facility] Start: 2013 eGFR Diabetes eGFR Diabetes [facility] Start: 2013 Glaucoma screening [facility] Start: 2013 MENINGOCOCCAL B: Consider based on risk (1 of 2 - Risk Bexsero 2-dose series) MENINGOCOCCAL B: Consider based on risk (1 of 2 - Risk Bexsero 2-dose series) [facility] Start: 2013 Urine screening for protein Urine (micro)albumin/creatinine ratio - Diabetes [facility] Start: 10-06-2009 Pneumococcal Vaccine: Ped or At-Risk (2 of 2 - PCV) Pneumococcal Vaccine: Ped or At-Risk (2 of 2 - PCV) [facility] Start: 10-06-2009 Pneumococcal Vaccine: Pediatrics (0 to 5 Years) and At-Risk Patients (6 to 64 Years) (2 of 2 - PCV) Pneumococcal Vaccine: Pediatrics (0 to 5 Years) and At-Risk Patients (6 to 64 Years) (2 of 2 - PCV) [facility] Start: 10-06-2009 Pneumococcal Vaccine: Pediatrics and At-Risk Adult Patients (2 of 2 - PCV) Pneumococcal Vaccine: Pediatrics and At-Risk Adult Patients (2 of 2 - PCV) [facility] Start: 2007 Hearing Screening (#1) Hearing Screening (#1) [facility] Start: 2006 History and physical examination, annual for health maintenance Wellness Visit [facility] Start: 2006 Well Child Visit (WCV) - Annual Well Child Visit (WCV) - Annual [facility] Start: 2003 COVID-19 Vaccine (#1) COVID-19 Vaccine (#1) [facility] Start: 2003 Hearing Screening (#1) Hearing Screening (#1) [facility] Start: 2003 HIV screening HIV Screening [facility] Start: 2003 Screening for Chlamydia trachomatis Chlamydia and Gonorrhea Screening [facility] Start: 2003 Yearly Adult Physical Yearly Adult Physical [facility] End: 09-07-2024 Choriogonadotropin ( test) [Presence] in Urine POCT , urine Point of Care Testing Routine Once (Lab) for 1 Occurrences starting 09/07/2024 until 09/07/2024 [facility] Work Phone: Comment on above: Once (Lab) for 1 Occurrences starting until 09/07/2024 End: 09-07-2024 Continuous Pulse oximetry, In Phase 1 Continuous Pulse oximetry, In Phase 1 Respiratory Care Routine Continuous until discontinued starting 09/07/2024 [facility] Work Phone: Comment on above: Continuous until discontinued starting 0 09/07/2024 Ecg routine ecg w/le ast 12 lds w/i&r EKG WITH INTERPRETATION Cardiology Routine Hypertension, unspecified type Ordered: 03/03/2022 [employer] [facility] Work Phone: Comment on above: Ordered: 03/03/2022 End: 03-03-2023 Echocardiography ECHO Cardiology Routine Hypertension, unspecified type 1 Occurrences starting 03/03/2022 until 03/03/2023 [employer] Work Phone: Comment on above: 1 Occurrences starting 03/03/2022 until 03/03/2023 End: 03-01-2025 Extra Urine [place] Tube [facility] Work Phone: Comment on above: Once for 1 Occurrences starting 03/01/20 until 03/01/2025 End: 09-07-2024 Glucose [Mass/volume] in Serum or Plasma POCT Glucose Point of Care Testing - Docked Device Routine Once (Lab) for 1 Occurrences starting 09/07/2024 until 09/07/2024 [facility] Service Area Work Phone: Comment on above: Once (Lab) for 1 Occurrences starting until 09/07/2024 Laparoscopy surg cholecystectomy CHOLECYSTECTOMY, LAPAROSCOPIC Calculus of gallbladder without cholecystitis without obstruction [facility] OR Surgical pathology study Surgica l Pathology Exam Pathology and Cytology Routine Calculus of gallbladder without cholecystitis without obstruction Release Upon Ordering for 1 Occurrences starting 09/07/2024 [facility] Work Phone: Comment on above: Release Upon Ordering for 1 Occurrences starting 09/07/2024 End: 03-01-2025 Urinalysis complete W Reflex Culture panel - Urine [facility] Work Phone: Comment on above: STAT (Lab) for 1 Occurrences starting until 03/01/2025 End: 02-16-2025 US Kidney - bilateral and Urinary bladder [facility] Work Phone: Comment on above: Once for 1 Occurrences starting 02/17/20 until 02/16/2025 End: 03-03-2023 US [facility] Vascular Lab Routine Hypertension, unspecified type 1 Occurrences starting 03/03/2022 until 03/03/2023 CP COMPREHENSIVE PRIMARY CARE [facility] Work Phone: Comment on above: 1 Occurrences starting 03/03/2022 until 03/03/2023 End: 02-16-2025 XR Abdomen Single view [facility] Service Area Work Phone: Comment on above: Once for 1 Occurrences starting 02/17/20 until 02/16/2025 End: 01-25-2025 XR Lumbar spine 2 or 3 Views [facility] Servic e Area Work Phone: Comment on above: Once for 1 Occurrences starting 01/26/20 until 01/25/2025 End: 05-02-2025 XR Shoulder - right 2 Views [facility] Service Area Work Phone: Comment on above: Once for 1 Occurrences starting 05/02/20 until 05/02/2025 End: 01-25-2025 XR Thoracic spine 3 Views [facility] Service A kan Work Phone: Comment on above: Once for 1 Occurrences starting 01/26/20 until 01/25/2025 [facility] Immunizations Immunization Date Immunization Notes Care Provider Simone gimenez 03-23-2024 tetanus toxoid, redu jorge diphtheria toxoid, and acellular pertussis vaccine, adsorbed Ori Vidal PA-C Work Phone: [facility] Work Phone: 01-13-2024 tetanus toxoid, redu jorge diphtheria toxoid, and acellular pertussis vaccine, adsorbed Ori Vidal PA-C Work Phone: [facility] 03-29-2020 meningococcal polysaccharide (groups A, C, Y and W-135) diphtheria toxoid conjugate vaccine (MCV4P) Sarah Alcazar MD Work Phone: [facility] 06-16-2016 influenza, injectabl e, quadrivalent, preservative free Loreto Scanlon Work Phone: [facility] Comment on above: Series: 06-16-2016 influenza virus vaccine, unspecified formulation Wellst Xr1 [facility] Work Phone: 07-21-2015 Human Papillomavirus 9-valent vaccine; Translations: [Gardasil 9 Intramuscular Suspension] Loreto Scanlon Work Phone: [facility] Comment on above: Series: 07-21-2015 influenza virus vaccine, split virus (incl. purified surface antigen); Translations: [Influenza (Split)] Loreto Scanlon Work Phone: [facility] Work Phone: Comment on above: Series: 07-21-2015 influenza, injectabl e, quadrivalent, preservative free Sarah Alcazar MD Work Phone: [facility] 03-19-2015 human papilloma viru s vaccine, quadrivalent; Translations: [HPV (Gardasil)] Loreto Scanlon Work Phone: [facility] Comment on above: Series: 01-15-2015 hepatitis A vaccine, pediatric/adolescent dosage, 2 dose schedule; Translations: [Hepatitis A, Ped/Adol] Loreto Scanlon Work Phone: [facility] Comment on above: Series: 01-15-2015 human papilloma viru s vaccine, quadrivalent; Translations: [HPV (Gardasil)] [facility] Work Phone: [facility] Comment on above: Series: 07-22-2014 influenza virus vaccine, unspecified formulation; Translations: [Influenza] [facility] Work Phone: [place] [id number] Work Phone: Comment on above: Series: 07-22-2014 meningococcal polysaccharide (groups A, C, Y and W-135) diphtheria toxoid conjugate vaccine (MCV4P); Translations: [Meningo (Menactra)] [facility] Work Phone: [place] [id number] Work Phone: Comment on above: Series: 07-22-2014 tetanus toxoid, redu jorge diphtheria toxoid, and acellular pertussis vaccine, adsorbed; Translations: [Tdap] Loreto Scanlon Work Phone: [facility] Comment on above: Series: 04-30-2013 hepatitis A vaccine, pediatric/adolescent dosage, 2 dose schedule; Translations: [Vaqta 25 UNIT/0.5ML Intramuscular Suspension] [facility] Work Phone: [place] [id number] Work Phone: Comment on above: Series: 04-30-2013 influenza, seasonal, injectable; Translations: [Fluzone INJ] [facility] Work Phone: [place] [id number] Work Phone: Comment on above: Series: 04-26-2011 influenza virus vaccine, unspecified formulation [facility] Work Phone: [place] [id number] Work Phone: Comment on above: Series: 06-06-2010 influenza virus vaccine, unspecified formulation Loreto Scanlon Work Phone: [place] [id number] Work Phone: Comment on above: Series: 04-14-2009 influenza, seasonal, injectable Loreto Scanlon Work Phone: [facility] Comment on above: Series: 10-06-2008 pneumococcal polysaccharide vaccine, 23 valent Sarah Alcazar MD Work Phone: [facility] 02-17-2008 diphtheria, tetanus toxoids and acellular pertussis vaccine Loreto Scanlon Work Phone: [place] [id number] Work Phone: Comment on above: Series: 02-17-2008 diphtheria, tetanus toxoids and acellular pertussis vaccine, unspecified formulation Sarah Alcazar MD Work Phone: [facility] 02-17-2008 measles, mumps and rubella virus vaccine Loreto Scanlon Work Phone: [facility] Comment on above: Series: 02-17-2008 poliovirus vaccine, inactivated Loreto Scanlon Work Phone: [facility] Comment on above: Series: 02-17-2008 varicella virus vaccine Justus Scanlon Work Phone: [facility] Comment on above: Series: 07-31-2007 influenza, seasonal, injectable Loreto L Capo Work Phone: [facility] Comment on above: Series: 06-22-2006 influenza, seasonal, injectable Sarah Alcazar MD Work Phone: [facility] 09-07-2004 diphtheria, tetanus toxoids and acellular pertussis vaccine Loreto L Capo Work Phone: [place] [id number] Work Phone: Comment on above: Series: 09-07-2004 diphtheria, tetanus toxoids and acellular pertussis vaccine, unspecified formulation Sarah Alcazar MD Work Phone: [facility] 09-07-2004 pneumococcal conjuga te vaccine, 7 valent Loreto Scanlon Work Phone: [facility] Comment on above: Series: 09-07-2004 poliovirus vaccine, inactivated Loreto Scanlon Work Phone: [facility] Comment on above: Series: 05-31-2004 measles, mumps and rubella virus vaccine Loreto Scanlon Work Phone: [facility] Comment on above: Series: 05-31-2004 varicella virus vaccine Justus Scanlon Work Phone: [facility] Comment on above: Series: 02-26-2004 haemophilus influenz ae type b vaccine, PRP-T conjugate Loreto Scanlon Work Phone: [facility] Comment on above: Series: 02-26-2004 pneumococcal conjuga te vaccine, 7 valent Loreto Scanlon Work Phone: [facility] Comment on above: Series: 2003 hepatitis B vaccine, pediatric or pediatric/adolescent dosage Loreto Scanlon Work Phone: [facility] Comment on above: Series: 2003 diphtheria, tetanus toxoids and acellular pertussis vaccine Loreto Scanlon Work Phone: [place] [address] Work Phone: Comment on above: Series: 2003 diphtheria, tetanus toxoids and acellular pertussis vaccine, unspecified formulation Sarah Alcazar MD Work Phone: [facility] 2003 haemophilus influenz ae type b vaccine, PRP-T conjugate Loreto Scanlon Work Phone: [facility] Comment on above: Series: 2003 pneumococcal conjuga te vaccine, 7 valent Loreto Scanlon Work Phone: [facility] Comment on above: Series: 2003 diphtheria, tetanus toxoids and acellular pertussis vaccine Loreto Scanlon Work Phone: [place] [address] Work Phone: Comment on above: Series: 2003 diphtheria, tetanus toxoids and acellular pertussis vaccine, unspecified formulation Sarah Alcazar MD Work Phone: [facility] 2003 haemophilus influenz ae type b vaccine, PRP-T conjugate Loreto Scanlon Work Phone: [facility] Comment on above: Series: 2003 hepatitis B vaccine, pediatric or pediatric/adolescent dosage Loreto L Capo Work Phone: [facility] Comment on above: Series: 2003 poliovirus vaccine, inactivated Loreto L Capo Work Phone: [facility] Comment on above: Series: 2003 diphtheria, tetanus toxoids and acellular pertussis vaccine Loreto Celena Scanlon Work Phone: [place] [address] Work Phone: Comment on above: Series: 2003 diphtheria, tetanus toxoids and acellular pertussis vaccine, unspecified formulation Sarah Alcazar MD Work Phone: [facility] 2003 haemophilus influenz ae type b vaccine, PRP-T conjugate Loreto Scanlon Work Phone: [facility] Comment on above: Series: 2003 pneumococcal conjuga te vaccine, 7 valent Loreto Scanlon Work Phone: [facility] Comment on above: Series: 2003 poliovirus vaccine, inactivated Loreto L Capo Work Phone: [facility] Comment on above: Series: 2003 hepatitis B vaccine, pediatric or pediatric/adolescent dosage Loreto Scanlon Work Phone: [facility] Comment on above: Series: Payers Date Payer Category Payer Self-pay 2023 [facility] JACKLYN ISA UE/PREF/HMO/PPO [id number] 2023 [employer] [facility] [id number] 2023 Unknown [id number] 2014 Unknown [id number] 2008 Unknown 2003 Unknown [id number] 2.16.840.1.440583.3.579.2. 124 2003 Unknown [id number] 2.16.840.1.011459.3.579.2. 124 2003 Unknown [id number] 2.16.840.1.931899.3.579.2. 903 2003 Unknown [id number] 2.16.840.1.486000.3.579.2. 3 2003 Unknown [id number] 2.16.840.1.674611.3.579.2. 2003 Unknown [id number] 2.16.840.1.882501.3.579.2. 1243 2003 Unknown [id number] 2.16.840.1.069454.3.579.2. 1243 2003 Unknown [id number] 2.16.840.1.676317.3.579.2. 1243 2003 Unknown [id number] 2.16.840.1.617193.3.579.2. 1243 2003 Unknown [id number] 2.16840.1.345440.3.579.2. 1243 2003 Unknown [id number] 2.16840.1.239917.3.579.2. 1243 2003 Unknown [id number] 2.16840.1.359301.3.579.2. 1243 2003 Unknown [id number] 2.16840.1.383124.3.579.2. 1243 2003 Unknown [id number] 2.16840.1.944128.3.579.2. 1243 2003 Unknown [id number] 2.16840.1.697927.3.579.2. 1242 2003 Unknown [id number] 2.16.840.1.563104.3.579.2. 1242 2003 Unknown [id number] 2.16.840.1.045192.3.579.2. 1242 2003 Unknown [id number] 2.16.840.1.757113.3.579.2. 1242 2003 Unknown [id number] 2.16840.1.432005.3.579.2. 1242 2003 Unknown [id number] 2.16.840.1.225869.3.579.2. 1243 2003 Unknown [id number] 2.16.840.1.607002.3.579.2. 1243 2003 Unknown [id number] 2.16.840.1.846607.3.579.2. 1243 2003 Unknown [id number] 2.16.840.1.602424.3.579.2. 159 Unknown [id number] Unknown [id number] 2.16.840.1.596404.3.579.2. 462 Unknown [id number] 2.16.840.1.445458.3.579.2. 462 Unknown [id number] 2.16.840.1.562328.3.579.2. 462 Unknown [id number] 2.16.840.1.492364.3.579.2. 462 Unknown [id number] 2.16.840.1.628303.3.579.2. 462 Unknown [id number] 2.16.840.1.754233.3.579.2. 462 Social History Date Type Detail Facility Start: 12-24-2023 End: 04-20-2025 Living With Parents Living With Parents [facility] Work Phone: Start: 04-25-2019 End: 05-12-2024 Tobacco smoking status VAIS Never smoked tobacco [facility] Start: 04-25-2019 End: 12-24-2023 Tobacco use and exposure Smokeless tobacco non-user [facility] Start: 03-03-2022 End: 04-14-2024 Alcohol intake Lifetime non-drinker (finding) [facility] Start: 04-25-2019 History SDOH Alcohol Frequency 1 [facility] Start: 2003 Sex Assigned At Not on file [facility] Start: 03-14-2022 End: 01-25-2025 Exposure to SARS-CoV-2 (event) Not sure [facility] Work Phone: Start: 12-24-2023 End: 04-20-2025 Gender identity Not on file [facility] Work Phone: Start: 2003 Sex assigned at Female [facility] Start: 12-21-2023 Gender identity Identifies as female gender (finding) [facility] Work Phone: Start: 08-23-2024 End: 04-20-2025 Alcoholic beverage intake Current drinker of alcohol (finding) [facility] Work Phone: Start: 08-23-2024 Alcohol Comment rarely drinks wine coolers [facility] Work Phone: Start: 01-13-2025 Sexual orientation Heterosexual (finding) [facility] Start: 07-11-2022 Sex Female [facility] Tobacco smoking status [facility] Start: 03-06-2025 Sex Female (finding) [facility] Medical Equipment Procedure Code Equipment Code Equipment Origin al Text Equipment Identifier Dates 1 each early in the morning.. [id number] Start: 12-14-2024 Use to check glu cose once a day prn [id number] Start: 12-14-2024 Functional Status Date Assessment Result Facility 04-20-2025 [facility] ionnaire 2 item (PHQ-2) [Reported] [facility] 03-27-2025 [facility] ionnaire 2 item (PHQ-2) [Reported] [facility] Work Phone: 03-01-2025 [facility] s everity rating scale screener - recent [C-SSRS] [facility] Work Phone: 01-18-2025 [facility] ionnaire 2 item (PHQ-2) [Reported] [facility] Work Phone: 12-14-2024 [facility] ionnaire 2 item (PHQ-2) [Reported] [facility] Work Phone: 12-12-2024 [facility] ionnaire 2 item (PHQ-2) [Reported] [facility] Work Phone: Clinical Notes 04-05-2021 to 04-20-2025 Ori Vidal PA-C - 04/20/2025 3:20 PM Cash Luther MD MPH - 03/27/2025 11:45 AM EDSabina Harvey, RD - 03/15/2025 4:06 PM Jesus Rodriguez, - 03/01/2025 8:50 PM EDT Note Date & Type Note Facility 04-20-2025 History of Present illness Narrative Subjective Patient ID: Gregory Lacy is a 20 y.o. female who presents for Follow-up (6 MO WITH LABS. C/O LT SIDE PAIN ON/OFF/) HPI LABS Diabetic concerns Has been on ozempic 1 mg but dec back to the 0.5 given extreme fluctuation of her BS readings. She is now questioning if it was a prob with the meter or something else Suggest cont the 0.5 mg weekly dose as she is getting in 2 weeks and insurance will pillai but pt can call in in the next 1-2 mo if she would like to do a trial back up to the 1 mg or change to mounjaro for better results L sided pain on and off x years Hx of kidney stones She has since followed with Dr Luther Pt notes the discomfort 2-3 x/month Sharp pain for 30-min to days No known alleviating factors No known aggrevating factors BM daily - denies diarrhea /constipation Occasional loose stool with hx of cholecystectomy Occasionally straining We discussed trying Ibuprofen prn when she notes symptoms and she has a standing order for KUB. Consider need for the stone to be sent for path to determine type of stone and diet recommendations R shoulder pain x few days - admits to sleeping on this funny We discussed the tizanadine she has, rest, ice, topical, and will cont to monitor med check Hx of Kidney stones - Fatty liver - hx of imaging - working on diet and ex GERD-PPI PCOS ? - hx of irregular menses other than when she was on BCP. Denies known cycst but admits to inc facial hair -following with [facility] [employer] in [place] and is on provera to assist. She would like to try meds to help with the facial hair. I explained this is not preg safe and if she finds out she is preg she needs to stop this and lisinopril. If decides she wants to get preg and is actively pursuing it then she needs to stop these meds as well She is on progesterone given dec in menstural freq and cont to follow with [employer] Pelvic pain - has been doing pelvic floor therapy with [employer] Hx of anxiety /depression - stable off meds vit D - taking weekly B12- daily DM - ozempic HTN + DM - lisinopril Consider start on statin for added protection in addition to the recommendation of following with eye dr and pod annually as well as discussed Preventative testing PAP Mammo DEXA Colon Fall - NEG October 2024 PHQ2 NEG October 2024 Problem List[1] Review of Systems Constitutional: Negative for chills, fatigue and fever. HENT: Negative for congestion, rhinorrhea, sinus pain, sore throat and tinnitus. Eyes: Negative for discharge, redness and visual disturbance. Respiratory: Negative for cough, chest tightness, shortness of breath and wheezing. Cardiovascular: Negative for chest pain, palpitations and leg swelling. Gastrointestinal: Positive for abdominal pain. Negative for constipation, diarrhea, nausea and vomiting. Endocrine: Negative for cold intolerance and heat intolerance. Genitourinary: Negative for flank pain, frequency and urgency. Musculoskeletal: Positive for arthralgias. Negative for back pain, gait problem and neck pain. Skin: Negative for rash and wound. Neurological: Negative for dizziness, tremors, syncope, numbness and headaches. Hematological: Does not bruise/bleed easily. Psychiatric/Behavioral: Negative for confusion, sleep disturbance and suicidal ideas. Medical History[2] Surgical History[3] Family History[4] Social History[5] Allergies[6] Current Medications[7] Objective BP 119/80 Pulse 106 Ht 1.6 m (5' 3) Wt 102 kg (225 lb) BMI 39.86 kg/m Physical Exam Vitals reviewed. Constitutional: Appearance: Normal appearance. She is obese. HENT: Head: Normocephalic. Right Ear: External ear normal. Left Ear: External ear normal. Nose: Nose normal. No congestion or rhinorrhea. Mouth/Throat: Mouth: Mucous membranes are moist. Eyes: Extraocular Movements: Extraocular movements intact. Conjunctiva/sclera: Conjunctivae normal. Pupils: Pupils are equal, round, and reactive to light. Cardiovascular: Rate and Rhythm: Normal rate and regular rhythm. Pulses: Normal pulses. Pulmonary: Effort: Pulmonary effort is normal. Breath sounds: Normal breath sounds. Abdominal: General: Bowel sounds are normal. Palpations: Abdomen is soft. Tenderness: There is no abdominal tenderness. There is no right CVA tenderness or left CVA tenderness. Musculoskeletal: General: No tenderness. Normal range of motion. Cervical back: Normal range of motion and neck supple. No tenderness. Skin: General: Skin is warm and dry. Neurological: General: No focal deficit present. Mental Status: She is alert and oriented to person, place, and time. Psychiatric: Mood and Affect: Mood normal. Behavior: Behavior normal. Testing Component Latest Ref [facility] 04/15/2025 WHITE BLOOD CELL COUNT 3.8 - 10.8 Thousand/uL 8.8 RED BLOOD CELL COUNT 3.80 - 5.10 Million/uL 4.50 HEMOGLOBIN 11.7 - 15.5 g/dL 13.2 HEMATOCRIT 35.0 - 45.0 % 40.5 MCV 80.0 - 100.0 fL 90.0 MCH 27.0 - 33.0 pg 29.3 MCHC 32.0 - 36.0 g/dL 32.6 RDW 11.0 - 15.0 % 12.8 PLATELET COUNT 140 - 400 Thousand/uL 418 (H) MPV 7.5 - 12.5 fL 9.6 ABSOLUTE NEUTROPHILS 1,500 - 7,800 cells/uL 5,236 ABSOLUTE LYMPHOCYTES 850 - 3,900 cells/uL 2,473 ABSOLUTE MONOCYTES 200 - 950 cells/uL 810 ABSOLUTE EOSINOPHILS 15 - 500 cells/uL 238 ABSOLUTE BASOPHILS 0 - 200 cells/uL 44 NEUTROPHILS % 59.5 LYMPHOCYTES % 28.1 MONOCYTES % 9.2 EOSINOPHILS % 2.7 BASOPHILS % 0.5 GLUCOSE 65 - 99 mg/dL 87 UREA NITROGEN (BUN) 7 - 25 mg/dL 9 CREATININE 0.50 - 0.96 mg/dL 0.60 EGFR > OR = 60 mL/min/1.73m2 130 SODIUM 135 - 146 mmol/L 141 POTASSIUM 3.5 - 5.3 mmol/L 4.2 CHLORIDE 98 - 110 mmol/L 107 CARBON DIOXIDE 20 - 32 mmol/L 25 ELECTROLYTE BALANCE 7 - 17 mmol/L (calc) 9 CALCIUM 8.6 - 10.2 mg/dL 9.8 PROTEIN, TOTAL 6.1 - 8.1 g/dL 7.3 ALBUMIN 3.6 - 5.1 g/dL 4.4 BILIRUBIN, TOTAL 0.2 - 1.2 mg/dL 0.5 ALKALINE PHOSPHATASE 31 - 125 U/L 29 (L) AST 10 - 30 U/L 51 (H) ALT 6 - 29 U/L 86 (H) CHOLESTEROL, TOTAL <200 mg/dL 157 HDL CHOLESTEROL > OR = 50 mg/dL 41 (L) TRIGLYCERIDES <150 mg/dL 90 LDL-CHOLESTEROL mg/dL (calc) 98 CHOL/HDLC RATIO <5.0 (calc) 3.8 NON HDL CHOLESTEROL <130 mg/dL (calc) 116 CREATININE, RANDOM URINE 20 - 275 mg/dL 37 ALBUMIN, URINE See Note: mg/dL 3.9 ALBUMIN/CREATININE RATIO, RANDOM URINE <30 mg/g creat 105 (H) HEMOGLOBIN A1c <5.7 % 5.8 (H) eAG (mg/dL) mg/dL 120 eAG (mmol/L) mmol/L 6.6 TSH mIU/L 2.57 T4, FREE 0.8 - 1.8 ng/dL 1.0 MAGNESIUM 1.5 - 2.5 mg/dL 2.0 VITAMIN B12 200 - 1,100 pg/mL 580 VITAMIN D,25-OH,TOTAL,IA 30 - 100 ng/mL 42 Reviewed recent XRAY, US and CT Impression MDM 1) COMPLEXITY: MORE THAN 1 STABLE CHRONIC CONDITION ADDRESSED 2)DATA: TESTS INTERPRETED AND OR ORDERED, TOOK INDEPENDENT HISTORY OR RECORDS REVIEWED 3)RISK: MODERATE RISK DUE TO NATURE OF MEDICAL CONDITIONS/COMORBIDITY OR MEDICATIONS ORDERED OR SURGICAL OR PROCEDURE REFERRAL, . Reviewed labs and Testing on file Patient to follow diet low in cholesterol, fat, and sodium. Patient is advised to increase Exercise. Patient is recommended to lose weight. Reviewed Meds and discussed common side effects Continue as directed Patient is strongly advised to be compliant with recommendations. Return to Clinic sooner if needed. Patient denies further questions/concerns at this time Assessment/Plan Problem List Items Addressed This Visit ICD-10-CM Fatty liver K76.0 Renal calculi N20.0 Class 2 obesity due to excess calories without serious comorbidity with body mass index (BMI) of 39.0 to 39.9 in adult E66.812, E66.09, Z68.39 Type 2 diabetes mellitus with hyperglycemia, without long-term current use of insulin - Primary E11.65 Relevant Orders Albumin-Creatinine Ratio, Urine Random CBC and Auto Differential Comprehensive Metabolic Panel Hemoglobin A1C Magnesium Vitamin D 25-Hydroxy,Total (for eval of Vitamin D levels) Hypercholesterolemia E78.00 Vitamin D deficiency E55.9 Relevant Orders Vitamin D 25-Hydroxy,Total (for eval of Vitamin D levels) PCOS (polycystic ovarian syndrome) E28.2 Low vitamin B12 level R79.89 Hypertension associated with diabetes E11.59, I15.2 FU in 6 mo with labs at [facility] fasting and med check [1] Patient Active Problem List Diagnosis Fatty liver Gallstones Renal calculi Excess body and facial hair Class 2 obesity due to excess calories without serious comorbidity with body mass index (BMI) of 38.0 to 38.9 in adult Type 2 diabetes mellitus with hyperglycemia, without long-term current use of insulin Hypercholesterolemia Gastroesophageal reflux disease without esophagitis Vitamin D deficiency PCOS (polycystic ovarian syndrome) Low vitamin B12 level Hypertension associated with diabetes Calculus of gallbladder without cholecystitis without obstruction Post-operative pain Acute midline low back pain without sciatica [2] Past Medical History: Diagnosis Date Abnormal weight gain 12/24/2023 Acquired acanthosis nigricans 12/24/2023 Acute bacterial sinusitis 12/24/2023 Comment on above: Added by Problem List Migration; 2012-11-14; Moved to [facility] Jul 11 2013 9:35PM; Acute bilateral otitis media 12/24/2023 Acute erythematous eruption of skin 12/24/2023 Acute pain of both ears 12/24/2023 Allergic Allergic rhinitis 12/24/2023 Anxiety 12/24/2023 Anxiety 12/29/2017 Depression Diabetes (Multi) Diarrhea, unspecified 10/29/2016 Diarrhea, unspecified type Eczema Encounter for immunization 07/21/2015 Encounter for immunization Fatty liver 04/24/2022 Folliculitis 12/24/2023 Folliculitis 12/24/2023 Gallstones 04/24/2022 GERD (gastroesophageal reflux disease) Headache History of endocrine disorder 12/24/2023 Hypertension Impacted cerumen of left ear 12/24/2023 Insulin resistance 12/24/2023 Kidney stone 04/24/2022 Obesity 12/24/2023 Obesity with body mass index 30 or greater 12/24/2023 Obesity, Class II, BMI 35-39.9 04/07/2022 Overweight 12/24/2023 Pap smear, as part of routine gynecological examination 05/12/2024 NORMAL Paronychia of toe of right foot 12/24/2023 PCOS (polycystic ovarian syndrome) Personal history of diseases of the skin and subcutaneous tissue 09/29/2015 History of seborrheic dermatitis Personal history of other diseases of the digestive system 10/29/2016 History of constipation Right upper quadrant pain 10/29/2016 Abdominal pain, RUQ Sore throat 12/24/2023 Unilateral otalgia 12/24/2023 Unspecified visual loss 04/30/2013 Vision problems Urinary tract infection Urinary tract infection without hematuria 04/24/2022 [3] Past Surgical History: Procedure Laterality Date CHOLECYSTECTOMY N/A 09/07/[address] Telles for symptomatic cholelithiasis [4] Family History Problem Relation Name Age of Onset Irritable bowel syndrome Mother Alcohol abuse Father Depression Mother's Sister Anxiety disorder Mother's Sister Depression Mother's Brother Hypertension Maternal Grandmother Muscular dystrophy Maternal Grandfather Stroke Maternal Grandfather Bipolar disorder Paternal Grandmother Alcohol abuse Paternal Grandmother Diabetes Paternal Grandmother Stroke Paternal Grandmother Alcohol abuse Paternal Grandfather Alcohol abuse Father's Brother Justus Bambi Depression Mother's Sister Sabina Ronyhel Depression Mother's Brother Mane Huertaurray Alcohol abuse Father's Brother Justus Lacy Depression Mother's Sister Sabina Heschel Depression Mother's Brother Mane Mack [5] Social History Tobacco Use Smoking status: Never Smokeless tobacco: Never Vaping Use Vaping status: Never Used Substance Use Topics Alcohol use: Yes Comment: rarely drinks wine coolers Drug use: Never [6] No Known Allergies [7] Current Outpatient Medications Medication Sig Dispense Refill blood sugar diagnostic (OneTouch Verio test strips) 1 each early in the morning.. 100 strip 11 blood-glucose meter misc Use as directed- check BS daily and PRN symptoms 1 each 0 cyanocobalamin (Vitamin B-12) 1,000 mcg tablet TAKE 1 TABLET (1,000 MCG) BY MOUTH ONCE DAILY 30 tablet 11 ergocalciferol (Vitamin D-2) 1250 mcg (50,000 units) capsule TAKE 1 CAPSULE (43622 UNITS) BY MOUTH ONE TIME PER WEEK 4 capsule 11 lancets misc Use to check glucose once a day prn 100 each 11 lisinopril 10 mg tablet TAKE 1 TABLET BY MOUTH EVERY DAY 30 tablet 11 omeprazole (PriLOSEC) [address] capsule TAKE 1 CAPSULE (20 MG) BY MOUTH ONCE DAILY DO NOT CRUSH OR CHEW 90 capsule 1 115/iron/folic acid ( 19 ORAL) Take 1 tablet by mouth once daily. semaglutide 0.25 mg or 0.5 mg (2 mg/3 mL) pen injector Inject 0.5 mg under the skin 1 (one) time per week. 3 mL 5 spironolactone (Aldactone) 50 mg tablet TAKE 1 TABLET BY MOUTH EVERY DAY 30 tablet 5 flash glucose scanning reader (FreeStyle Ivan 2 [place]) misc Use as instructed 1 each 0 flash glucose sensor kit (FreeStyle Ivan 2 Sensor) kit USE INSTRUCTED (Patient not taking: Reported on 01/18/2025) 2 each 5 FreeStyle Ivan 3 Sensor device USE TO CHECK GLUCOSE BID 2 each 3 medroxyPROGESTERone (Provera) 10 mg tablet TAKE 1 TABLET ORALLY DAILY FOR 5 DAYS TAKE X 5 DAYS IF NO MENSES FOR GREATER THAN 60 DAYS. (Patient not taking: Reported on 04/20/2025) tiZANidine (Zanaflex) 2 mg tablet Take 1 tablet (2 mg) by mouth every 8 hours if needed for muscle spasms for up to 5 days. 15 tablet 0 No current facility-administered medications for this visit. documented in this encounter [facility] Work Phone: 03-27-2025 History of Present illness Narrative Subjective Patient ID: Gregory Lacy is a 20 y.o. female HPI 20 y.o. female who presents to establish for kidney stone. Patient has a history of kidney stones. She was referred by her PCP Dr. Vidal. CT on 08/2024 revealed a Nonobstructing 5 mm upper pole left renal stone. Patient presented to the ED on 03/01/2025 with complaints of left flank pain and urinary frequency. She stated she also had a urinary tract infection at that time. She stated she never passed the stone. She had follow-up with urology in December and she stated she recently had an ultrasound for follow-up and it was 7 mm at that time. Patient stated that urology was waiting to see if she would pass it. She denies fever but did have nausea without vomiting. Denied hematuria. Today, she reports left sided flank pain. The most recent CT abdomen pelvis wo IV contrast, conducted on 03/01/2025, revealed: 1. No acute findings or obstructive uropathy. 2. Small nonobstructing left kidney stone. 3. Hepatic steatosis and mild hepatomegaly. The most recent KUB, conducted on 02/16/2025, revealed: 1. No definite nephroureteral stones are visualized. CT of the abdomen and pelvis can be considered for more sensitive characterization. The most recent Renal US, conducted on 02/16/2025, revealed: 7 mm left upper pole calculus, without hydronephrosis. Review of Systems All systems were reviewed. Anything negative was noted in the HPI. Objective Physical Exam General: Well developed, well nourished, alert and cooperative, appears in no acute distress Eyes: Non-injected conjunctiva, sclera clear, no proptosis Cardiac: Extremities are warm and well perfused. No edema, cyanosis or pallor Lungs: Breathing is easy, non-labored. Speaking in clear and complete sentences. Normal diaphragmatic movement MSK: Ambulatory with steady gait, unassisted Neuro: Alert and oriented to person, place, and time Psych: Demonstrates good judgment and reason, without hallucinations, abnormal affect or abnormal behaviors Skin: No obvious lesions, no rashes No CVA tenderness bilaterally No suprapubic pain or discomfort Medical History[1] Surgical History[2] Assessment/Plan Left flank pain, 5 mm upper pole left renal stone, negative KUB. 20 y.o. female who presents for the above condition, 5 mm upper pole left renal stone. We had a very long and extensive discussion with the patient regarding her condition. I discussed with her the pathophysiology, differential diagnosis, risk factor, management of ureteral and renal stones. Explained to her that the stone is most probably not the reason of her persistent pain given the recent CT. I gave the patient 3 options of management including observation which I highly encouraged given size of the location of the stone. Explained that she has likely chance of spontaneous passage of the stone. We also discussed ESWL which would be appropriate for the size of the location of stone. We discussed at length a left ureteroscopy, laser stone fragmentation, left retrograde pyelogram, left double-J stent insertion. We discussed in detail the risk, benefit, potential complication, adverse events including hematuria, pneumaturia, pain, stent discomfort and pain, fever, chills, infection, urosepsis, I explained to him that most likely he needs a second procedure at the first wound will be probably only a stent placement. I explained that the second procedure would be the actual laser stone fragmentation and exchange of his stent. Patient presents and elect to proceed. - Advised pt to drink at least 60 to 80 ounces of water daily. - Advised pt to avoid foods high in oxalate (coffee and tea, nuts and chocolate, kale and spinach). Plan: - Follow-up in 1 year with: - KUB - Renal US E&M visit today is associated with current or anticipated ongoing medical care services related to a patient's single, serious condition or a complex condition. 03/27/2025 Scribe Attestation By signing my name below, I, Abimael Benz attest that this documentation has been prepared under the direction and in the presence of Dr. Ryan Luther. [1] Past Medical History: Diagnosis Date Abnormal weight gain 12/24/2023 Acquired acanthosis nigricans 12/24/2023 Acute bacterial sinusitis 12/24/2023 Comment on above: Added by Problem List Migration; 2012-11-14; Moved to [facility] Jul 11 2013 9:35PM; Acute bilateral otitis media 12/24/2023 Acute erythematous eruption of skin 12/24/2023 Acute pain of both ears 12/24/2023 Allergic rhinitis 12/24/2023 Anxiety 12/24/2023 Anxiety 12/29/2017 Diabetes (Multi) Diarrhea, unspecified 10/29/2016 Diarrhea, unspecified type Encounter for immunization 07/21/2015 Encounter for immunization Fatty liver 04/24/2022 Folliculitis 12/24/2023 Folliculitis 12/24/2023 Gallstones 04/24/2022 History of endocrine disorder 12/24/2023 Hypertension Impacted cerumen of left ear 12/24/2023 Insulin resistance 12/24/2023 Kidney stone 04/24/2022 Obesity 12/24/2023 Obesity with body mass index 30 or greater 12/24/2023 Obesity, Class II, BMI 35-39.9 04/07/2022 Overweight 12/24/2023 Pap smear, as part of routine gynecological examination 05/12/2024 NORMAL Paronychia of toe of right foot 12/24/2023 PCOS (polycystic ovarian syndrome) Personal history of diseases of the skin and subcutaneous tissue 09/29/2015 History of seborrheic dermatitis Personal history of other diseases of the digestive system 10/29/2016 History of constipation Right upper quadrant pain 10/29/2016 Abdominal pain, RUQ Sore throat 12/24/2023 Unilateral otalgia 12/24/2023 Unspecified visual loss 04/30/2013 Vision problems Urinary tract infection without hematuria 04/24/2022 [2] Past Surgical History: Procedure Laterality Date CHOLECYSTECTOMY N/A 09/07/[address] Telles for symptomatic cholelithiasis documented in this encounter [facility] Work Phone: 03-15-2025 History of Present illness Narrative Patient Name: Gregory Lacy Patient : 2005 Primary Care Provider: Ori Vidal PA-C Referred By: Ori Vidal* Referral Diagnosis: Diabetes Type 2 Start Time: 1500 End Time: 1545 Prior Nutrition Diagnosis: Inconsistent carbohydrate intake related to food and nutrition related knowledge deficit of diabetic meal planning as evidenced by diet history - complete New Nutrition Diagnosis: Pt with inadequate fluid intake related to history of kidney stones as evidenced by pt consumption of 64-80oz/day Goal Progress:I will look up a yoga video on ytube this week and plan to do stretches before bed to calm my body- 3 times a week. I will plan out my meals before I grocery shopping - met Nutrition Goals: I will aim to drink 100oz+ fluid a day. I will read labels to raise awareness of sodium intake. Follow Up: Contact information provided for additional questions Assessment: Pt reports she has been planning out her meals and this has made grocery shopping and dinner meal time much easier. Pt with meal plan at visit today and it shows good knowledge of meal planning and healthy snack choices. Pt with 2# wt loss at visit today. Pt started yoga 3 times a week at night before bed. She enjoys yoga but has not helped with sleep. Pt admits that she is not eating vegetables as often as she would like as it has not become an established habit but will continue to work to increase. Pt eating 1-3 serving vegetables/day. Pt with history of kidney stones and reports was at ER recently and passed a stone but imaging has found additional stone forming. Reason for Visit: follow up Support Person Present: none Height: 63 Current Weight: 220# BMI: 39 BMI Classification: Obese Class II (35.0-39.9) Weight History: Pt with 2# wt loss Wt Readings from Last 10 Encounters: No data found for Wt Diet History/Recall: 3 meals with 2 snacks daily Food Purchase/Prep: self Breakfast: protein drink pr mini pancakes and protein drink Lunch: leftovers Dinner: salmon, backed potatoes, asparagus or chicken pepper and rice stir mittal or taco salad and chips Snacks: nuts or probiotic fruit bites Daily Fluids: water 4-bottles/day and 16oz core fairlife protein drink PMHx: Nutrition related history: kidney stones No past medical history on file. Current/Pertinent Medications: Current Medications[1] Pt reports taking PNV- encouraged pt to check that Vit C is not above 100% DV due to kidney stone history Lab Values: No results found for: HGBA1C No results found for: CHOL No results found for: TRIG No results found for: HDL No results found for: LDL Current Activity Level: Lightly Active- work, ADL Estimated Nutritional Needs: Calorie Needs: 1750kcal/day (miff st jeor X 1.3-500) Intervention/Education Provided: meal planning, hydration, sodium, high oxalate foods, calcium intake, supplementation, Patient/Family Education: Learner: patient Readiness: action - ready to set action plan and implement Method: explanation and handout Response: needs reinforcement Education Materials Provided: kidney stone nutrition, goal sheet Monitoring/Evaluation: Weight, Food Record/Recall, Meal Planning, Physical Activity, Medication Management, Goal Assessment This note has been communicated to referring healthcare provider. Sabina Puente RDN, [facility] Office [1] No current outpatient medications on file. documented in this encounter [facility] 03-01-2025 History of Present illness Narrative Emergency Medicine Transition of Care Note. I received Gregory Lacy in signout from Dr. Harding. Please see the previous ED provider note for all HPI, PE and MDM up to the time of signout at 1900. This is in addition to the primary record. In brief Gregory Lacy is an 20 y.o. female presenting for Chief Complaint Patient presents with Flank Pain Patient states left flank pain since Thursday. States history of kidney stones, had imaging done that showed a 7mm stone on the left. Also reports urinary burning since yesterday. Took a home UTI test that came back positive At the time of signout we were awaiting: CT of the abdomen pelvis without contrast. Diagnoses as of 03/01/252049 Flank pain Medical Decision Making No evidence of ureteral lithiasis. Small kidney stone within the kidney. No UTI. Patient was treated with Dilaudid, Norflex, prednisone. Feeling improved on reevaluation. Will be discharged with oral ketorolac, tramadol, tizanidine, prednisone. Advised on follow-up with primary care and asked to return for new or worsening symptoms. Stable at time of discharge. Final diagnoses: [R10.9] Flank pain Procedure Procedures Faisal Rodriguez DO documented in this encounter [facility] Work Phone: 02-13-2025 History of Present illness Narrative Patient Name: Gregory Lacy Patient : 2005 Primary Care Provider: Ori Vidal PA-C Referred By: Ori Vidal* Referral Diagnosis: Diabetes Type 2 Start Time: 1500 End Time: 1545 Prior Nutrition Diagnosis: Food and nutrition related knowledge deficit related to lack of exposure to nutrition information as evidenced by patient interview Nutrition Diagnosis: Inconsistent carbohydrate intake related to food and nutrition related knowledge deficit of diabetic meal planning as evidenced by diet history Prior Goal Progress: I will have more carbohydrate at my dinner with a goal fo 30-45g per meal- improving. I will find a yoga youtube video and practice in the evenings 4-5 times a week- not met. I will add a vegetable to my lunch and dinner daily- improving. Nutrition Goals: I will look up a yoga video on ytube this week and plan to do stretches before bed to calm my body. I will plan out my meals before I grocery shopping Follow Up: Follow up appointment scheduled by patient Assessment: Pt reports continues to feel on the go all the time with work 8-10 hours a day and had been planning for graduation parties for family. States tired at night and does not feel like exercising. Pt does not some troubles with staying asleep at night and will wake multiple times throughout the night. Continues at 0.5mg dose of Ozempic. Eating 2-3 meals a day with snacks. Pt notes often feels on the run and does not take time to eat and will have protein or glucerna drinks. Discussed meal planning to help organize weekday meals and keep her on track with healthy snacks and breakfast ideas based on her schedule for the week and pt feels she may benefit from this. Current diet appears inconsistent with CHO intake with pt not reading labels at her meals and may skip meals as well. Diet continues to be low in nonstarchy vegetables but pt has been trying to add more to dinner meals or as snack. Reason for Visit: follow up Support Person Present: none Height: 63 Current Weight: 222# BMI: 39 BMI Classification: Obese Class II (35.0-39.9) Weight History: wt gain of 6# from last visit Wt Readings from Last 10 Encounters: No data found for Wt Diet History/Recall: 2-3 meals with snacks Food Purchase/Prep: self Breakfast: protein chocolate milk- shake or granola bar or glucerna Snack: none or animal crackers or eduardo crackers or peppers with cream cheese-whipped Lunch: salami, SF jello cup, noodles 5pm Dinner: chicken, 1 cup potatoes, 1 ear corn, and peppers Snacks: none after dinner Daily Fluids: water- has increased 6-7 water bottles- lemon Meals Away From Home: 1-2 times a week PMHx: No past medical history on file. Current/Pertinent Medications: Current Medications[1] Lab Values: Testing FBS and pre lunch 81-122 per pt, no logs today No results found for: HGBA1C No results found for: CHOL No results found for: TRIG No results found for: HDL No results found for: LDL Current Activity Level: Lightly Active- active with work, ADL Estimated Nutritional Needs: Calorie Needs: 1750kcal/day (miff st jeor X 1.3-500) Intervention/Education Provided: healthy snacks, , adding nonstarchy vegetables, meal planning, reading labels. Patient/Family Education: Learner: patient Readiness: action - ready to set action plan and implement Method: explanation and handout Response: needs reinforcement Education Materials Provided: blank meal planning sheets Monitoring/Evaluation: Weight, Food Record/Recall, Meal Planning, Physical Activity, Medication Management, Goal Assessment This note has been communicated to referring healthcare provider. JAQUELINE Reynoso RDN Office [1] No current outpatient medications on file. documented in this encounter [facility] 01-18-2025 History of Present illness Narrative Subjective Patient ID: Gregory Lacy is a 19 y.o. female who presents for Follow-up (4-6 week fu + labs ) HPI Diabetic concerns BS fluctuating quite a bit Pt states the highest she has seen was 230-240 Pt states has also had a low about 1 hr after eating where it was in the 50s and noted blurred vision and shaking She states often in the AM BS are 65-80s She has been ozempic for >6 mo and A1c is well controlled. She was started on this also for PCOS and weight loss but has noted no change in either of those. We discussed dec ozempic to 0.5 mg and monitor symptoms. Advised to eat small freq meals and smart choices throughout the day ____ She has been doing the 0.5 mg weekly dose the last month and notes maybe 1 low which was when she was sick. She does note inc in appetite and has gained about 5 lb Suggest cont the 0.5 mg weekly dose but pt to call if symptoms of high or low. Consider after next labs pending results to taper down, keep the same or changes to mounjaro type med as she would benefit from additional wt loss if BS are stable med check Hx of Kidney stones -following with uro and set for additional testing Fatty liver - CT apr 2022 - working on diet and ex GERD-PPI PCOS ? - hx of irregular menses other than when she was on BCP. Denies known cycst but admits to inc facial hair -following with [facility] in [place] and is on provera to assist. She would like to try meds to help with the facial hair. I explained this is not preg safe and if she finds out she is preg she needs to stop this and lisinopril. If decides she wants to get preg and is actively pursuing it then she needs to stop these meds as well She is on progesterone given dec in menstural freq and cont to follow with [facility] Pelvic pain - has been doing pelvic floor therapy with E[facility] [employer] [facility] but notes inc in back pain - will get updated xray and consider back therapy or this could be kidney related Hx of anxiety /depression - stable off meds vit D - taking weekly B12- daily DM - ozempic HTN + DM - lisinopril Consider start on statin for added protection in addition to the recommendation of following with eye dr and pod annually as well as discussed Preventative testing PAP Mammo DEXA Colon Fall - NEG October 2024 PHQ2 NEG October 2024 Problem List[1] Review of Systems Constitutional: Negative for chills, fatigue and fever. HENT: Negative for congestion, rhinorrhea, sinus pain, sore throat and tinnitus. Eyes: Negative for discharge, redness and visual disturbance. Respiratory: Negative for cough, chest tightness, shortness of breath and wheezing. Cardiovascular: Negative for chest pain, palpitations and leg swelling. Gastrointestinal: Negative for abdominal pain, constipation, diarrhea, nausea and vomiting. Endocrine: Negative for cold intolerance and heat intolerance. Genitourinary: Positive for menstrual problem. Negative for flank pain, frequency and urgency. Musculoskeletal: Positive for back pain. Negative for gait problem and neck pain. Skin: Negative for rash and wound. Neurological: Negative for dizziness, tremors, syncope, numbness and headaches. Hematological: Does not bruise/bleed easily. Psychiatric/Behavioral: Negative for confusion, sleep disturbance and suicidal ideas. Medical History[2] Surgical History[3] Family History[4] Social History[5] Allergies[6] Current Medications[7] Objective BP 119/81 Pulse 108 Ht 1.6 m (5' 3) Wt 99.8 kg (220 lb) SpO2 95% BMI 38.97 kg/m Physical Exam Vitals reviewed. Constitutional: Appearance: Normal appearance. She is obese. HENT: Head: Normocephalic. Right Ear: External ear normal. Left Ear: External ear normal. Nose: Nose normal. No congestion or rhinorrhea. Mouth/Throat: Mouth: Mucous membranes are moist. Eyes: Extraocular Movements: Extraocular movements intact. Conjunctiva/sclera: Conjunctivae normal. Pupils: Pupils are equal, round, and reactive to light. Cardiovascular: Rate and Rhythm: Normal rate and regular rhythm. Pulses: Normal pulses. Pulmonary: Effort: Pulmonary effort is normal. Breath sounds: Normal breath sounds. Abdominal: General: Bowel sounds are normal. Palpations: Abdomen is soft. Tenderness: There is no abdominal tenderness. There is no right CVA tenderness or left CVA tenderness. Musculoskeletal: General: Tenderness present. Normal range of motion. Cervical back: Normal range of motion and neck supple. No tenderness. Skin: General: Skin is warm and dry. Neurological: General: No focal deficit present. Mental Status: She is alert and oriented to person, place, and time. Psychiatric: Mood and Affect: Mood normal. Behavior: Behavior normal. Testing Component Latest Ref [facility] 01/14/2025 WHITE BLOOD CELL COUNT 3.8 - 10.8 Thousand/uL 9.3 RED BLOOD CELL COUNT 3.80 - 5.10 Million/uL 4.67 HEMOGLOBIN 11.7 - 15.5 g/dL 13.4 HEMATOCRIT 35.0 - 45.0 % 41.5 MCV 80.0 - 100.0 fL 88.9 MCH 27.0 - 33.0 pg 28.7 MCHC 32.0 - 36.0 g/dL 32.3 RDW 11.0 - 15.0 % 12.3 PLATELET COUNT 140 - 400 Thousand/uL 449 (H) MPV 7.5 - 12.5 fL 9.9 ABSOLUTE NEUTROPHILS 1,500 - 7,800 cells/uL 5,813 ABSOLUTE LYMPHOCYTES 850 - 3,900 cells/uL 2,446 ABSOLUTE MONOCYTES 200 - 950 cells/uL 679 ABSOLUTE EOSINOPHILS 15 - 500 cells/uL 316 ABSOLUTE BASOPHILS 0 - 200 cells/uL 47 NEUTROPHILS % 62.5 LYMPHOCYTES % 26.3 MONOCYTES % 7.3 EOSINOPHILS % 3.4 BASOPHILS % 0.5 HEMOGLOBIN A1c <5.7 % 5.7 (H) eAG (mg/dL) mg/dL 117 eAG (mmol/L) mmol/L 6.5 thrombocytosis - improved but still high Will monitor as she denies prior prob or fam hx of blood issues. If this is >500 and stays elevated we discussed need for referral or sooner pending symptoms Impression MDM 1) COMPLEXITY: MORE THAN 1 STABLE CHRONIC CONDITION ADDRESSED 2)DATA: TESTS INTERPRETED AND OR ORDERED, TOOK INDEPENDENT HISTORY OR RECORDS REVIEWED 3)RISK: MODERATE RISK DUE TO NATURE OF MEDICAL CONDITIONS/COMORBIDITY OR MEDICATIONS ORDERED OR SURGICAL OR PROCEDURE REFERRAL, . Reviewed labs and Testing on file Patient to follow diet low in cholesterol, fat, and sodium. Patient is advised to increase Exercise. Patient is recommended to lose weight. Reviewed Meds and discussed common side effects Continue as directed Patient is strongly advised to be compliant with recommendations. Return to Clinic sooner if needed. Patient denies further questions/concerns at this time Assessment/Plan Problem List Items Addressed This Visit ICD-10-CM Renal calculi N20.0 Class 2 obesity due to excess calories without serious comorbidity with body mass index (BMI) of 38.0 to 38.9 in adult E66.812, E66.09, Z68.38 Type 2 diabetes mellitus with hyperglycemia, without long-term current use of insulin - Primary E11.65 PCOS (polycystic ovarian syndrome) E28.2 Hypertension associated with diabetes E11.59, I15.2 Other Visit Diagnoses Codes Acute midline low back pain without sciatica M54.50 Relevant Orders XR lumbar spine 2-3 views Acute mid back pain M54.9 Relevant Orders XR thoracic spine 2 views FU as before in apr with labs and med check [1] Patient Active Problem List Diagnosis Fatty liver Gallstones Renal calculi Excess body and facial hair Class 2 obesity due to excess calories without serious comorbidity with body mass index (BMI) of 38.0 to 38.9 in adult Type 2 diabetes mellitus with hyperglycemia, without long-term current use of insulin Hypercholesterolemia Gastroesophageal reflux disease without esophagitis Vitamin D deficiency PCOS (polycystic ovarian syndrome) Low vitamin B12 level Hypertension associated with diabetes Calculus of gallbladder without cholecystitis without obstruction Post-operative pain [2] Past Medical History: Diagnosis Date Abnormal weight gain 12/24/2023 Acquired acanthosis nigricans 12/24/2023 Acute bacterial sinusitis 12/24/2023 Comment on above: Added by Problem List Migration; 2012-11-14; Moved to [facility] Jul 11 2013 9:35PM; Acute bilateral otitis media 12/24/2023 Acute erythematous eruption of skin 12/24/2023 Acute pain of both ears 12/24/2023 Allergic rhinitis 12/24/2023 Anxiety 12/24/2023 Anxiety 12/29/2017 Diabetes (Multi) Diarrhea, unspecified 10/29/2016 Diarrhea, unspecified type Encounter for immunization 07/21/2015 Encounter for immunization Fatty liver 04/24/2022 Folliculitis 12/24/2023 Folliculitis 12/24/2023 Gallstones 04/24/2022 History of endocrine disorder 12/24/2023 Hypertension Impacted cerumen of left ear 12/24/2023 Insulin resistance 12/24/2023 Kidney stone 04/24/2022 Obesity 12/24/2023 Obesity with body mass index 30 or greater 12/24/2023 Obesity, Class II, BMI 35-39.9 04/07/2022 Overweight 12/24/2023 Pap smear, as part of routine gynecological examination 05/12/2024 NORMAL Paronychia of toe of right foot 12/24/2023 PCOS (polycystic ovarian syndrome) Personal history of diseases of the skin and subcutaneous tissue 09/29/2015 History of seborrheic dermatitis Personal history of other diseases of the digestive system 10/29/2016 History of constipation Right upper quadrant pain 10/29/2016 Abdominal pain, RUQ Sore throat 12/24/2023 Unilateral otalgia 12/24/2023 Unspecified visual loss 04/30/2013 Vision problems Urinary tract infection without hematuria 04/24/2022 [3] Past Surgical History: Procedure Laterality Date CHOLECYSTECTOMY N/A 09/07/[address] Telles for symptomatic cholelithiasis [4] Family History Problem Relation Name Age of Onset Irritable bowel syndrome Mother Alcohol abuse Father Depression Mother's Sister Anxiety disorder Mother's Sister Depression Mother's Brother Hypertension Maternal Grandmother Muscular dystrophy Maternal Grandfather Stroke Maternal Grandfather Bipolar disorder Paternal Grandmother Alcohol abuse Paternal Grandmother Diabetes Paternal Grandmother Stroke Paternal Grandmother Alcohol abuse Paternal Grandfather [5] Social History Tobacco Use Smoking status: Never Smokeless tobacco: Never Vaping Use Vaping status: Never Used Substance Use Topics Alcohol use: Yes Comment: rarely drinks wine coolers Drug use: Never [6] No Known Allergies [7] Current Outpatient Medications Medication Sig Dispense Refill blood sugar diagnostic ([employer] Verio test strips) 1 each early in the morning.. 100 strip 11 cyanocobalamin (Vitamin B-12) 1,000 mcg tablet Take 1 tablet (1,000 mcg) by mouth once daily. 30 tablet 11 ergocalciferol (Vitamin D-2) 1250 mcg (50,000 units) capsule TAKE 1 CAPSULE (34026 UNITS) BY MOUTH ONE TIME PER WEEK 4 capsule 11 flash glucose scanning reader (FreeStyle Ivan 2 [place]) misc Use as instructed 1 each 0 FreeStyle Ivan 3 Sensor device USE TO CHECK GLUCOSE BID 2 each 3 lancets misc Use to check glucose once a day prn 100 each 11 lisinopril 10 mg tablet Take 1 tablet (10 mg) by mouth once daily. 30 tablet 11 medroxyPROGESTERone (Provera) 10 mg tablet TAKE 1 TABLET ORALLY DAILY FOR 5 DAYS TAKE X 5 DAYS IF NO MENSES FOR GREATER THAN 60 DAYS. omeprazole (PriLOSEC) [address] capsule TAKE 1 CAPSULE (20 MG) BY MOUTH ONCE DAILY DO NOT CRUSH OR CHEW 90 capsule 1 semaglutide 0.25 mg or 0.5 mg (2 mg/3 mL) pen injector Inject 0.5 mg under the skin 1 (one) time per week. 3 mL 5 spironolactone (Aldactone) 50 mg tablet Take 1 tablet (50 mg) by mouth once daily. 30 tablet 5 blood-glucose meter misc Use as directed- check BS daily and PRN symptoms (Patient not taking: Reported on 01/18/2025) 1 each 0 flash glucose sensor kit (FreeStyle Ivan 2 Sensor) kit USE INSTRUCTED (Patient not taking: Reported on 01/18/2025) 2 each 5 No current facility-administered medications for this visit. documented in this encounter [facility] Work Phone: 01-13-2025 History of Present illness Narrative Patient Name: Gregory Lacy Patient : 2005 Primary Care Provider: Ori Vidal PA-C Referred By: Ori Vidal* Referral Diagnosis: Diabetes Type 2 Start Time: 1330 End Time: 1430 Nutrition Diagnosis: Food and nutrition related knowledge deficit related to lack of exposure to nutrition information as evidenced by patient interview Nutrition Goals: I will have more carbohydrate at my dinner with a goal fo 30-45g per meal. I will find a yoga youtube video and practice in the evenings 4-5 times a week. I will add a vegetable to my lunch and dinner daily. Follow Up: Follow up appointment scheduled by patient Assessment: Dx with DM and PCOS one year ago. Was using CGM but it was irritating arm so has been testing blood sugars 3-4 times daily with meter/fingerstick. Most readings between 90-150 but pt reporting days in which her numbers in the upper 100's all day long. Pt does note high amounts of stress at this time. Taking ozempic and dose recently decreased to 0.5mg/day. Currently eating three meals with snack daily. Has been attempting to cut back added sugars in drinks and foods and is watching CHO intake at meals. Pt enjoys many fruits and vegetables but tends to eat more fruit and has higher portions with fruit. Current diet appears low in nonstarchy vegetable and whole grains. Meal and snack schedule well balance. Current diet with inconsistent CHO intake with pt consuming 10-45 g CHO/meal and can go long periods with minimal CHO intake which may be leading to hypoglycemia pt is experiencing. Reason for Visit: DM Support Person Present: none Other Social Support: fiance Language or Literacy Factors: none Height: 63 Current Weight: 216# BMI: 38 BMI Classification: Obese Class II (35.0-39.9) Weight History: 215#- stable over last year Wt Readings from Last 10 Encounters: No data found for Wt Diet History/Recall: 3 meals/day with snacks Food Purchase/Prep: self- lives with finance Breakfast: glucerna drink Mid morning snack 12:30 Lunch: turkey and cheese wrap or tuna wrap, fruit, cheese stick Dinner: chicken nuggets, 10 and strawberry lemonade- special occasion Snacks: eduardo crackers or animal crackers Daily Fluids: water, 1/2 energy drink - SF Alcohol use: occasionally- 1-2 drinks Tobacco use: none Meals Away From Home: 1-2 times a week PMHx: Nutrition related history: PCOS, DM, HTN, reflux, gallbladder removed, kidney stones No past medical history on file. Current/Pertinent Medications: Current Medications[1] Ozempic, lisinopril, omeperozole, Vit D, Vit B12 Lab Values: SMBG: Prebreakfast 101-122 PreDinner 91-147 Bedtime 152 Hypoglycemia- 52 - drank OJ, took glucose tablets No results found for: HGBA1C No results found for: CHOL No results found for: TRIG No results found for: HDL No results found for: LDL Nutrition Focused Findings: Dentition: none Changes in appetite: increases since up back ozempic GI/food intolerances: high greasy foods Food allergies: none Cultural or Congregation dietary needs: Current Activity Level: Lightly Active- with work, ADL Food Insecurity Survey: Within the past 12 months, we worried whether our food would run out before we got money to buy more. Never True [0] Within the past 12 months, the food we bought just didn't last and we didn't have the money to get more. Never True [0] Estimated Nutritional Needs: Calorie Needs: 1750kcal/day (miff st jeor X 1.3-500) Intervention/Education Provided:balancing of macronutrients at meals and snacks, hypoglycemia, healthy drinks, fiber, label reading, exercise Patient/Family Education: Learner: patient Readiness: action - ready to set action plan and implement Method: explanation and handout Response: needs reinforcement Education Materials Provided: meal and snack planning, hypoglycemia, diabetes ABC's Monitoring/Evaluation: Weight, Food Record/Recall, Meal Planning, Physical Activity, Medication Management, Goal Assessment This note has been communicated to referring healthcare provider. Sabina Puente RDN, JAQUELINE Office [1] No current outpatient medications on file. documented in this encounter [facility] 12-14-2024 History of Present illness Narrative Subjective Patient ID: Gregory Lacy is a 19 y.o. female who presents for Follow-up (C/O FLUCTUATING GLUCOSE READINGS RANGING FROM VERY HIGH TO VERY LOW. EPISODES OF BLURRED VISION OFF/ON FOR THE LAST COUPLE WEEKS. ) HPI Diabetic concerns BS fluctuating quite a bit over the last few weeks Pt states the highest she has seen was 230-240 Pt states has also had a low about 1 hr after eating where it was in the 50s and noted blurred vision and shaking She states often in the AM BS are 65-80s She has been ozempic for >6 mo and A1c is well controlled. She was started on this also for PCOS and weight loss but has noted no change in either of those. We discussed dec ozempic to 0.5 mg and monitor symptoms. Advised to eat small freq meals and smart choices throughout the day Advised vision check as she is overdue Suggest A1c and follow up sooner as well med check Hx of Kidney stones -referral to uro Fatty liver - CT apr 2022 - working on diet and ex GERD-PPI PCOS ? - hx of irregular menses other than when she was on BCP. Denies known cycst but admits to inc facial hair -following with [facility] in [place] and is on provera to assist. She would like to try meds to help with the facial hair. I explained this is not preg safe and if she finds out she is preg she needs to stop this and lisinopril. If decides she wants to get preg and is actively pursuing it then she needs to stop these meds as well Hx of anxiety /depression - stable off meds vit D - taking weekly B12- daily DM - ozempic HTN + DM - lisinopril Consider start on statin for added protection in addition to the recommendation of following with eye dr and pod annually as well as discussed Preventative testing PAP Mammo DEXA Colon Fall - NEG October 2024 PHQ2 NEG October 2024 Problem List[1] Review of Systems Constitutional: Negative for chills, fatigue and fever. HENT: Negative for congestion, rhinorrhea, sinus pain, sore throat and tinnitus. Eyes: Positive for visual disturbance. Negative for discharge and redness. Respiratory: Negative for cough, chest tightness, shortness of breath and wheezing. Cardiovascular: Negative for chest pain, palpitations and leg swelling. Gastrointestinal: Negative for abdominal pain, constipation, diarrhea, nausea and vomiting. Endocrine: Negative for cold intolerance and heat intolerance. Genitourinary: Negative for flank pain, frequency and urgency. Musculoskeletal: Negative for back pain, gait problem and neck pain. Skin: Negative for rash and wound. Neurological: Negative for dizziness, tremors, syncope, numbness and headaches. Hematological: Does not bruise/bleed easily. Psychiatric/Behavioral: Negative for confusion, sleep disturbance and suicidal ideas. Medical History[2] Surgical History[3] Family History[4] Social History[5] Allergies[6] Current Medications[7] Objective BP 124/82 Pulse 109 Ht 1.6 m (5' 3) Wt 97.7 kg (215 lb 6.4 oz) BMI 38.16 kg/m Physical Exam Vitals reviewed. Constitutional: Appearance: Normal appearance. She is obese. HENT: Head: Normocephalic. Right Ear: External ear normal. Left Ear: External ear normal. Nose: Nose normal. No congestion or rhinorrhea. Mouth/Throat: Mouth: Mucous membranes are moist. Eyes: Extraocular Movements: Extraocular movements intact. Conjunctiva/sclera: Conjunctivae normal. Pupils: Pupils are equal, round, and reactive to light. Cardiovascular: Rate and Rhythm: Normal rate and regular rhythm. Pulses: Normal pulses. Pulmonary: Effort: Pulmonary effort is normal. Breath sounds: Normal breath sounds. Abdominal: General: Bowel sounds are normal. Palpations: Abdomen is soft. Tenderness: There is no abdominal tenderness. There is no right CVA tenderness or left CVA tenderness. Musculoskeletal: General: No tenderness. Normal range of motion. Cervical back: Normal range of motion and neck supple. No tenderness. Skin: General: Skin is warm and dry. Neurological: General: No focal deficit present. Mental Status: She is alert and oriented to person, place, and time. Psychiatric: Mood and Affect: Mood normal. Behavior: Behavior normal. Testing A1c in SEP 21.5 Impression MDM 1) COMPLEXITY: 1 OR MORE CHRONIC CONDITION WITH EXACERBATION, OR PROGRESSION OR SIDE EFFECT OF TREATMENT ADDRESSED 2)DATA: TESTS INTERPRETED AND OR ORDERED, TOOK INDEPENDENT HISTORY OR RECORDS REVIEWED 3)RISK: MODERATE RISK DUE TO NATURE OF MEDICAL CONDITIONS/COMORBIDITY OR MEDICATIONS ORDERED OR SURGICAL OR PROCEDURE REFERRAL, . Reviewed labs and Testing on file Patient to follow diet low in cholesterol, fat, and sodium. Patient is advised to increase Exercise. Patient is recommended to lose weight. Reviewed Meds and discussed common side effects Continue as directed Patient is strongly advised to be compliant with recommendations. Return to Clinic sooner if needed. Patient denies further questions/concerns at this time Assessment/Plan Problem List Items Addressed This Visit ICD-10-CM Class 2 obesity due to excess calories without serious comorbidity with body mass index (BMI) of 38.0 to 38.9 in adult E66.812, E66.09, Z68.38 Type 2 diabetes mellitus with hyperglycemia, without long-term current use of insulin - Primary E11.65 Relevant Medications semaglutide 0.25 mg or 0.5 mg (2 mg/3 mL) pen injector (Start on 12/18/2024) lancets [facility] blood sugar diagnostic (OneTouch Verio test strips) Other Relevant Orders Hemoglobin A1c Referral to Nutrition Services PCOS (polycystic ovarian syndrome) E28.2 Hypertension associated with diabetes E11.59, I15.2 Other Visit Diagnoses Codes Encounter for dietary counseling and surveillance Z71.3 Relevant Orders Referral to Nutrition Services FU in 4-6 weeks with A1c/ BS check 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, 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 [1] Patient Active Problem List Diagnosis Fatty liver Gallstones Renal calculi Excess body and facial hair Class 2 obesity due to excess calories without serious comorbidity with body mass index (BMI) of 37.0 to 37.9 in adult Type 2 diabetes mellitus with hyperglycemia, without long-term current use of insulin Hypercholesterolemia Gastroesophageal reflux disease without esophagitis Vitamin D deficiency PCOS (polycystic ovarian syndrome) Low vitamin B12 level Hypertension associated with diabetes Calculus of gallbladder without cholecystitis without obstruction Post-operative pain [2] Past Medical History: Diagnosis Date Abnormal weight gain 12/24/2023 Acquired acanthosis nigricans 12/24/2023 Acute bacterial sinusitis 12/24/2023 Comment on above: Added by Problem List Migration; 2012-11-14; Moved to [facility] Jul 11 2013 9:35PM; Acute bilateral otitis media 12/24/2023 Acute erythematous eruption of skin 12/24/2023 Acute pain of both ears 12/24/2023 Allergic rhinitis 12/24/2023 Anxiety 12/24/2023 Anxiety 12/29/2017 Diabetes (Multi) Diarrhea, unspecified 10/29/2016 Diarrhea, unspecified type Encounter for immunization 07/21/2015 Encounter for immunization Fatty liver 04/24/2022 Folliculitis 12/24/2023 Folliculitis 12/24/2023 Gallstones 04/24/2022 History of endocrine disorder 12/24/2023 Hypertension Impacted cerumen of left ear 12/24/2023 Insulin resistance 12/24/2023 Kidney stone 04/24/2022 Obesity 12/24/2023 Obesity with body mass index 30 or greater 12/24/2023 Obesity, Class II, BMI 35-39.9 04/07/2022 Overweight 12/24/2023 Pap smear, as part of routine gynecological examination 05/12/2024 NORMAL Paronychia of toe of right foot 12/24/2023 PCOS (polycystic ovarian syndrome) Personal history of diseases of the skin and subcutaneous tissue 09/29/2015 History of seborrheic dermatitis Personal history of other diseases of the digestive system 10/29/2016 History of constipation Right upper quadrant pain 10/29/2016 Abdominal pain, RUQ Sore throat 12/24/2023 Unilateral otalgia 12/24/2023 Unspecified visual loss 04/30/2013 Vision problems Urinary tract infection without hematuria 04/24/2022 [3] Past Surgical History: Procedure Laterality Date CHOLECYSTECTOMY N/A 09/07/[address] Telles for symptomatic cholelithiasis [4] Family History Problem Relation Name Age of Onset Irritable bowel syndrome Mother Alcohol abuse Father Depression Mother's Sister Anxiety disorder Mother's Sister Depression Mother's Brother Hypertension Maternal Grandmother Muscular dystrophy Maternal Grandfather Stroke Maternal Grandfather Bipolar disorder Paternal Grandmother Alcohol abuse Paternal Grandmother Diabetes Paternal Grandmother Alcohol abuse Paternal Grandfather [5] Social History Tobacco Use Smoking status: Never Smokeless tobacco: Never Vaping Use Vaping status: Never Used Substance Use Topics Alcohol use: Yes Comment: rarely drinks wine coolers Drug use: Never [6] No Known Allergies [7] Current Outpatient Medications Medication Sig Dispense Refill cyanocobalamin (Vitamin B-12) 1,000 mcg tablet Take 1 tablet (1,000 mcg) by mouth once daily. 30 tablet 11 [START ON 12/18/2024] ergocalciferol (Vitamin D-2) 1250 mcg (50,000 units) capsule TAKE 1 CAPSULE (30879 UNITS) BY MOUTH ONE TIME PER WEEK 4 capsule 11 flash glucose scanning reader (FreeStyle Ivan 2 [place]) [facility] [place] as instructed 1 each 0 FreeStyle Ivan 3 Sensor device USE TO CHECK GLUCOSE BID 2 each 3 lisinopril 10 mg tablet Take 1 tablet (10 mg) by mouth once daily. 30 tablet 11 medroxyPROGESTERone (Provera) 10 mg tablet TAKE 1 TABLET ORALLY DAILY FOR 5 DAYS TAKE X 5 DAYS IF NO MENSES FOR GREATER THAN 60 DAYS. omeprazole (PriLOSEC) [address] capsule TAKE 1 CAPSULE (20 MG) BY MOUTH ONCE DAILY DO NOT CRUSH OR CHEW 90 capsule 1 semaglutide (OZEMPIC) 1 mg/dose (4 mg/3 mL) pen injector Inject 1 mg under the skin 1 (one) time per week. 3 mL 11 spironolactone (Aldactone) 50 mg tablet Take 1 tablet (50 mg) by mouth once daily. 30 tablet 5 blood-glucose meter misc Use as directed- check BS daily and PRN symptoms (Patient not taking: Reported on 12/14/2024) 1 each 0 flash glucose sensor kit (FreeStyle Ivan 2 Sensor) kit USE INSTRUCTED (Patient not taking: Reported on 12/14/2024) 2 each 5 No current facility-administered medications for this visit. documented in this encounter [facility] Work Phone: 12-12-2024 History of Present illness Narrative Subjective Patient ID: Gregory Lacy is a 19 y.o. female HPI 19 y.o. female who presents to establish for kidney stone. Patient has a history of kidney stones. She was referred by her PCP Dr. Vidal. CT on 08/2024 revealed a Nonobstructing 5 mm upper pole left renal stone. The most recent CT abdomen pelvis wo IV contrast, conducted on 08/18/2024, revealed: 1. Cholelithiasis. 2. Nonobstructing 5 mm upper pole left renal stone. 3. Large amount of stool within the colon. She is having non specific left flank pain. Review of Systems All systems were reviewed. Anything negative was noted in the HPI. Objective Physical Exam General: Well developed, well nourished, alert and cooperative, appears in no acute distress Eyes: Non-injected conjunctiva, sclera clear, no proptosis Cardiac: Extremities are warm and well perfused. No edema, cyanosis or pallor Lungs: Breathing is easy, non-labored. Speaking in clear and complete sentences. Normal diaphragmatic movement MSK: Ambulatory with steady gait, unassisted Neuro: Alert and oriented to person, place, and time Psych: Demonstrates good judgment and reason, without hallucinations, abnormal affect or abnormal behaviors Skin: No obvious lesions, no rashes No CVA tenderness bilaterally No suprapubic pain or discomfort Medical History[1] Surgical History[2] Assessment/Plan Left flank pain, 5 mm upper pole left renal stone. 19 y.o. female who presents for the above condition, 5 mm upper pole left renal stone. We had a very long and extensive discussion with the patient regarding his condition. I discussed with her the pathophysiology, differential diagnosis, risk factor, management of ureteral stones. Explained to her that the stone is most probably notthe reason of her persistent pain given the recent CT. I gave the patient 3 options of management including observation which I encouraged given size of the location of the stone. Explained that she has likely chance of spontaneous passage of the stone. We also discussed ESWL which would be appropriate for the size of the location of stone. We discussed at length a left ureteroscopy, laser stone fragmentation, left retrograde pyelogram, left double-J stent insertion. We discussed in detail the risk, benefit, potential complication, adverse events including hematuria, pneumaturia, pain, stent discomfort and pain, fever, chills, infection, urosepsis, I explained to him that most likely he needs a second procedure at the first wound will be probably only a stent placement. I explained that the second procedure would be the actual laser stone fragmentation and exchange of his stent. Patient presents and elect to proceed. Plan: - KUB and renal US E&M visit today is associated with current or anticipated ongoing medical care services related to a patient's single, serious condition or a complex condition. 12/12/2024 Scribe Attestation By signing my name below, I, Abimael Benz attest that this documentation has been prepared under the direction and in the presence of Dr. Ryan Luther. [1] Past Medical History: Diagnosis Date Abnormal weight gain 12/24/2023 Acquired acanthosis nigricans 12/24/2023 Acute bacterial sinusitis 12/24/2023 Comment on above: Added by Problem List Migration; 2012-11-14; Moved to [facility] Jul 11 2013 9:35PM; Acute bilateral otitis media 12/24/2023 Acute erythematous eruption of skin 12/24/2023 Acute pain of both ears 12/24/2023 Allergic rhinitis 12/24/2023 Anxiety 12/24/2023 Anxiety 12/29/2017 Diabetes (Multi) Diarrhea, unspecified 10/29/2016 Diarrhea, unspecified type Encounter for immunization 07/21/2015 Encounter for immunization Fatty liver 04/24/2022 Folliculitis 12/24/2023 Folliculitis 12/24/2023 Gallstones 04/24/2022 History of endocrine disorder 12/24/2023 Hypertension Impacted cerumen of left ear 12/24/2023 Insulin resistance 12/24/2023 Kidney stone 04/24/2022 Obesity 12/24/2023 Obesity with body mass index 30 or greater 12/24/2023 Obesity, Class II, BMI 35-39.9 04/07/2022 Overweight 12/24/2023 Pap smear, as part of routine gynecological examination 05/12/2024 NORMAL Paronychia of toe of right foot 12/24/2023 PCOS (polycystic ovarian syndrome) Personal history of diseases of the skin and subcutaneous tissue 09/29/2015 History of seborrheic dermatitis Personal history of other diseases of the digestive system 10/29/2016 History of constipation Right upper quadrant pain 10/29/2016 Abdominal pain, RUQ Sore throat 12/24/2023 Unilateral otalgia 12/24/2023 Unspecified visual loss 04/30/2013 Vision problems Urinary tract infection without hematuria 04/24/2022 [2] Past Surgical History: Procedure Laterality Date CHOLECYSTECTOMY N/A 09/07/[address] Telles for symptomatic cholelithiasis documented in this encounter [facility] Work Phone: 10-18-2024 History of Present illness Narrative An interactive audio and video telecommunication system which permits real time communication between the patient (at home) and the provider (at the office) was utilized to provide this telehealth service Virtual or Telephone Consent Verbal consent was requested and obtained from Gregory Lacy on this date, 10/18/24 for a telehealth visit and the patient's location was confirmed at the time of the visit. Subjective Patient ID: Gregory Lacy is a 19 y.o. female who presents for Follow-up (6 month follow up labs and med check ) HPI LABS FU cholecystectomy - overall doing well but notes incisional concern just in last 1-2 days Discharge - slight ooze since surgery but last 2 days had noted inc pus and redness. Maybe warmth when asked. She denies fever. She states her surgeon did look at it about 1 mo ago and with min drainage she said it was ok however I am concerned 1 mo later with the inc and change in drainage. We discussed Abx and monitor for signs of infection - if sx worsen to call surgeon office or our office for in person eval Nephrolithiasis - referral to uro - starts was told dr jarrell is no longer taking new patients but she could call back to be scheduled with a diff uro - she will call me if she needs new referral placed. Stone is 5mm so we discussed she could pass on her own but she may need surgery.- she would like us to place new referral at this time med check Hx of Kidney stones -referral to uro Fatty liver - CT apr 2022 - working on diet and ex GERD-PPI PCOS ? - hx of irregular menses other than when she was on BCP. Denies known cycst but admits to inc facial hair -following with [employer]UCK [employer]PER[employer] in [place] and is on provera to assist. She would like to try meds to help with the facial hair. I explained this is not preg safe and if she finds out she is preg she needs to stop this and lisinopril. If decides she wants to get preg and is actively pursuing it then she needs to stop these meds as well Hx of anxiety /depression - stable off meds vit D - taking weekly B12- daily DM - doing well with ozempic HTN + DM - lisinopril Consider start on statin for added protection in addition to the recommendation of following with eye dr and pod annually as well as discussed Preventative testing PAP Mammo DEXA Colon Fall - NEG October 2024 PHQ2 NEG October 2024 Patient Active Problem List Diagnosis Fatty liver Gallstones Renal calculi Excess body and facial hair Class 2 obesity due to excess calories without serious comorbidity with body mass index (BMI) of 37.0 to 37.9 in adult Type 2 diabetes mellitus with hyperglycemia, without long-term current use of insulin Hypercholesterolemia Gastroesophageal reflux disease without esophagitis Vitamin D deficiency PCOS (polycystic ovarian syndrome) Low vitamin B12 level Hypertension associated with diabetes (Multi) Calculus of gallbladder without cholecystitis without obstruction Post-operative pain Review of Systems Constitutional: Positive for fatigue. Negative for chills and fever. HENT: Negative for congestion, rhinorrhea, sinus pain, sore throat and tinnitus. Eyes: Negative for discharge, redness and visual disturbance. Respiratory: Negative for cough, chest tightness, shortness of breath and wheezing. Cardiovascular: Negative for chest pain, palpitations and leg swelling. Gastrointestinal: Negative for abdominal pain, constipation, diarrhea, nausea and vomiting. Endocrine: Negative for cold intolerance and heat intolerance. Genitourinary: Negative for flank pain, frequency and urgency. Musculoskeletal: Negative for back pain, gait problem and neck pain. Skin: Positive for wound. Negative for rash. Neurological: Negative for dizziness, tremors, syncope, numbness and headaches. Hematological: Does not bruise/bleed easily. Psychiatric/Behavioral: Negative for confusion, sleep disturbance and suicidal ideas. Past Medical History: Diagnosis Date Abnormal weight gain 12/24/2023 Acquired acanthosis nigricans 12/24/2023 Acute bacterial sinusitis 12/24/2023 Comment on above: Added by Problem List Migration; 2012-11-14; Moved to [facility] Jul 11 2013 9:35PM; Acute bilateral otitis media 12/24/2023 Acute erythematous eruption of skin 12/24/2023 Acute pain of both ears 12/24/2023 Allergic rhinitis 12/24/2023 Anxiety 12/24/2023 Anxiety 12/29/2017 Diabetes (Multi) Diarrhea, unspecified 10/29/2016 Diarrhea, unspecified type Encounter for immunization 07/21/2015 Encounter for immunization Fatty liver 04/24/2022 Folliculitis 12/24/2023 Folliculitis 12/24/2023 Gallstones 04/24/2022 History of endocrine disorder 12/24/2023 Hypertension Impacted cerumen of left ear 12/24/2023 Insulin resistance 12/24/2023 Kidney stone 04/24/2022 Obesity 12/24/2023 Obesity with body mass index 30 or greater 12/24/2023 Obesity, Class II, BMI 35-39.9 04/07/2022 Overweight 12/24/2023 Pap smear, as part of routine gynecological examination 05/12/2024 NORMAL Paronychia of toe of right foot 12/24/2023 PCOS (polycystic ovarian syndrome) Personal history of diseases of the skin and subcutaneous tissue 09/29/2015 History of seborrheic dermatitis Personal history of other diseases of the digestive system 10/29/2016 History of constipation Right upper quadrant pain 10/29/2016 Abdominal pain, RUQ Sore throat 12/24/2023 Unilateral otalgia 12/24/2023 Unspecified visual loss 04/30/2013 Vision problems Urinary tract infection without hematuria 04/24/2022 Past Surgical History: Procedure Laterality Date CHOLECYSTECTOMY N/A 09/07/[address] Telles for symptomatic cholelithiasis Family History Problem Relation Name Age of Onset Irritable bowel syndrome Mother Alcohol abuse Father Depression Mother's Sister Anxiety disorder Mother's Sister Depression Mother's Brother Hypertension Maternal Grandmother Muscular dystrophy Maternal Grandfather Stroke Maternal Grandfather Bipolar disorder Paternal Grandmother Alcohol abuse Paternal Grandmother Diabetes Paternal Grandmother Alcohol abuse Paternal Grandfather Social History Tobacco Use Smoking status: Never Smokeless tobacco: Never Vaping Use Vaping status: Never Used Substance Use Topics Alcohol use: Yes Comment: rarely drinks wine coolers Drug use: Never No Known Allergies Current Outpatient Medications Medication Sig Dispense Refill cefdinir (Omnicef) 300 mg capsule TAKE 1 CAPSULE BY MOUTH TWCIE DAILY FOR 7 DAYS cyanocobalamin (Vitamin B-12) 1,000 mcg tablet Take 1 tablet (1,000 mcg) by mouth once daily. 30 tablet 11 ergocalciferol (Vitamin D-2) 1.25 MG (46940 UT) capsule Take 1 capsule (50,000 Units) by mouth 1 (one) time per week. 4 capsule 11 flash glucose scanning reader (FREESTYLE IVAN 2 READER MISC) flash glucose scanning reader (FreeStyle Ivan 2 [place]) misc Use as instructed 1 each 0 flash glucose sensor kit (FreeStyle Ivan 2 Sensor) kit USE INSTRUCTED 2 each 5 lisinopril 10 mg tablet Take 1 tablet (10 mg) by mouth once daily. 30 tablet 11 medroxyPROGESTERone (Provera) 10 mg tablet TAKE 1 TABLET ORALLY DAILY FOR 5 DAYS TAKE X 5 DAYS IF NO MENSES FOR GREATER THAN 60 DAYS. omeprazole (PriLOSEC) [address] capsule TAKE 1 CAPSULE (20 MG) BY MOUTH ONCE DAILY DO NOT CRUSH OR CHEW 90 capsule 1 semaglutide (OZEMPIC) 1 mg/dose (4 mg/3 mL) pen injector Inject 1 mg under the skin 1 (one) time per week. 3 mL 11 No current facility-administered medications for this visit. Objective Ht 1.575 m (5' 2) Wt 93.4 kg (206 lb) BMI 37.68 kg/m Physical Exam Vitals reviewed. Constitutional: Appearance: Normal appearance. She is obese. HENT: Head: Normocephalic. Eyes: Conjunctiva/sclera: Conjunctivae normal. Musculoskeletal: General: Normal range of motion. Skin: Comments: Abd incision irritation - limited PE with virtual visit Neurological: General: No focal deficit present. Mental Status: She is alert and oriented to person, place, and time. Psychiatric: Mood and Affect: Mood normal. Behavior: Behavior normal. Testing Component Latest Ref Rng 10/04/2024 WHITE BLOOD CELL COUNT 3.8 - 10.8 Thousand/uL 10.6 RED BLOOD CELL COUNT 3.80 - 5.10 Million/uL 4.76 HEMOGLOBIN 11.7 - 15.5 g/dL 14.0 HEMATOCRIT 35.0 - 45.0 % 42.8 MCV 80.0 - 100.0 fL 89.9 MCH 27.0 - 33.0 pg 29.4 MCHC 32.0 - 36.0 g/dL 32.7 RDW 11.0 - 15.0 % 12.7 PLATELET COUNT 140 - 400 Thousand/uL 503 (H) MPV 7.5 - 12.5 fL 10.1 ABSOLUTE NEUTROPHILS 1,500 - 7,800 cells/uL 6,466 ABSOLUTE LYMPHOCYTES 850 - 3,900 cells/uL 3,053 ABSOLUTE MONOCYTES 200 - 950 cells/uL 806 ABSOLUTE EOSINOPHILS 15 - 500 cells/uL 223 ABSOLUTE BASOPHILS 0 - 200 cells/uL 53 NEUTROPHILS % 61 LYMPHOCYTES % 28.8 MONOCYTES % 7.6 EOSINOPHILS % 2.1 BASOPHILS % 0.5 GLUCOSE 65 - 99 mg/dL 94 UREA NITROGEN (BUN) 7 - 25 mg/dL 11 CREATININE 0.50 - 0.96 mg/dL 0.68 EGFR > OR = 60 mL/min/1.73m2 127 SODIUM 135 - 146 mmol/L 139 POTASSIUM 3.5 - 5.3 mmol/L 4.3 CHLORIDE 98 - 110 mmol/L 104 CARBON DIOXIDE 20 - 32 mmol/L 26 ELECTROLYTE BALANCE 7 - 17 mmol/L (calc) 9 CALCIUM 8.6 - 10.2 mg/dL 9.8 PROTEIN, TOTAL 6.1 - 8.1 g/dL 8.0 ALBUMIN 3.6 - 5.1 g/dL 4.9 BILIRUBIN, TOTAL 0.2 - 1.2 mg/dL 0.7 ALKALINE PHOSPHATASE 31 - 125 U/L 31 AST 10 - 30 U/L 28 ALT 6 - 29 U/L 49 (H) HEMOGLOBIN A1c <5.7 % of total Hgb 5.5 eAG (mg/dL) mg/dL 111 eAG (mmol/L) mmol/L 6.2 MAGNESIUM 1.5 - 2.5 mg/dL 1.8 VITAMIN B12 200 - 1,100 pg/mL 557 VITAMIN D,25-OH,TOTAL,IA 30 - 100 ng/mL 43 fatty liver -stable - cont with diet and ex Vit D- cont supplement B12- cont supplement DM - to goal with meds Thrombocytosis - I suspect reactive but suggest repeat labs in 1-2 mo for recheck and discussed heme referral - pt to call if she wants to pursue Impression MDM 1) COMPLEXITY: MORE THAN 1 STABLE CHRONIC CONDITION ADDRESSED 2)DATA: TESTS INTERPRETED AND OR ORDERED, TOOK INDEPENDENT HISTORY OR RECORDS REVIEWED 3)RISK: MODERATE RISK DUE TO NATURE OF MEDICAL CONDITIONS/COMORBIDITY OR MEDICATIONS ORDERED OR SURGICAL OR PROCEDURE REFERRAL, . Reviewed labs and Testing on file Patient to follow diet low in cholesterol, fat, and sodium. Patient is advised to increase Exercise. Patient is recommended to lose weight. Reviewed Meds and discussed common side effects Continue as directed Patient is strongly advised to be compliant with recommendations. Return to Clinic sooner if needed. Patient denies further questions/concerns at this time Assessment/Plan Problem List Items Addressed This Visit ICD-10-CM Fatty liver K76.0 Renal calculi N20.0 Relevant Orders Referral to Urology Excess body and facial hair L68.9 Class 2 obesity due to excess calories without serious comorbidity with body mass index (BMI) of 37.0 to 37.9 in adult E66.812, E66.09, Z68.37 Type 2 diabetes mellitus with hyperglycemia, without long-term current use of insulin - Primary E11.65 Relevant Medications spironolactone (Aldactone) 50 mg tablet Other Relevant Orders Albumin-Creatinine Ratio, Urine Random CBC and Auto Differential Comprehensive Metabolic Panel Hemoglobin A1C Magnesium Hypercholesterolemia E78.00 Relevant Orders Lipid Panel Thyroid Stimulating Hormone Thyroxine, Free Vitamin D deficiency E55.9 Relevant Orders Vitamin D 25-Hydroxy,Total (for eval of Vitamin D levels) PCOS (polycystic ovarian syndrome) E28.2 Relevant Medications spironolactone (Aldactone) 50 mg tablet Low vitamin B12 level R79.89 Relevant Orders Vitamin B12 Hypertension associated with diabetes (Multi) E11.59, I15.2 Other Visit Diagnoses Codes Open abdominal incision with drainage, subsequent encounter T81.321D Relevant Medications cephalexin (Keflex) 500 mg capsule Thrombocytosis D75.839 Relevant Orders CBC and Auto Differential FU in 2 weeks for abd incision drainage check Pt to call in 1-2 mo for CBC /platelet results FU in 6 mo with labs at [facility] fasting and med check Referral to uro - [place] or [place] - renal calculi- not urgent documented in this encounter [facility] Work Phone: 09-07-2024 Note Formatting of this n ote might be different from the original. [facility] Operative Report Patient: Gregory Lacy : 2005 Date of Operation: 09/07/24 Pre-Operative Diagnosis: Symptomatic Cholelithiasis Post-Operative Diagnosis: Symptomatic Cholelithiasis Procedure: Laparoscopic Cholecystectomy Surgeon: Mitchell Telles MD Diesel Technician Mechanic: n/a Anesthesia: General Findings: Distended gallbladder. Multiple gallstones. Fatty liver. Otherwise, normal anatomy. EBL: 10 ml Specimen: Gallbladder Case Type: Clean-Contaminated Disposition: PACU Indication: Patient is a 19 y.o. female with symptomatic cholelithiasis. Risks and benefits of cholecystectomy were discussed and the patient was agreeable to proceed with surgery. Description: The patient was brought to the operating room and placed in supine position. General anesthesia was induced. The patient's abdomen was prepped and draped. Through a vertical umbilical incision, a 12mm port was placed using Ar technique. Three 5mm ports were placed in the upper abdomen under direct visualization. The patient was placed in reverse Trendelenburg position and tilted slightly towards the left. The gallbladder was distended but otherwise appeared normal. The gallbladder was grasped by the fundus and retracted cephalad. She had a large, fatty liver. Adhesions to the infundibulum were taken down with combination of blunt dissection and electrocautery. The peritoneum was opened to separate the lower third of the gallbladder from the liver. The cystic duct and artery were dissected and a critical view of safety was obtained. The cystic duct and artery were clipped, with two clips proximally and one clip distally, and divided. The gallbladder was removed from the hepatic bed using electrocautery. There was no spillage of bile at any point during the case. Hemostasis was confirmed. The camera was changed to a 5mm scope. The gallbladder was placed in an Endocatch bag and removed via the umbilical port. The 5mm ports were removed. The fascial defect at the umbilicus was closed with 0 Vicryl. Skin incisions were closed with 4-0 Vicryl and steri strips. The patient tolerated the procedure well, was extubated and transferred to PACU in stable condition. Mitchell Telles MD 09/07/2024 [facility] Work Phone: 09-07-2024 Miscellaneous Notes [facility] Operative Report Patient: Gregory Lacy : 2005 Date of Operation: 09/07/24 Pre-Operative Diagnosis: Symptomatic Cholelithiasis Post-Operative Diagnosis: Symptomatic Cholelithiasis Procedure: Laparoscopic Cholecystectomy Surgeon: Mitchell Telles MD Diesel Technician Mechanic: n/a Anesthesia: General Findings: Distended gallbladder. Multiple gallstones. Fatty liver. Otherwise, normal anatomy. EBL: 10 ml Specimen: Gallbladder Case Type: Clean-Contaminated Disposition: PACU Indication: Patient is a 19 y.o. female with symptomatic cholelithiasis. Risks and benefits of cholecystectomy were discussed and the patient was agreeable to proceed with surgery. Description: The patient was brought to the operating room and placed in supine position. General anesthesia was induced. The patient's abdomen was prepped and draped. Through a vertical umbilical incision, a 12mm port was placed using Ar technique. Three 5mm ports were placed in the upper abdomen under direct visualization. The patient was placed in reverse Trendelenburg position and tilted slightly towards the left. The gallbladder was distended but otherwise appeared normal. The gallbladder was grasped by the fundus and retracted cephalad. She had a large, fatty liver. Adhesions to the infundibulum were taken down with combination of blunt dissection and electrocautery. The peritoneum was opened to separate the lower third of the gallbladder from the liver. The cystic duct and artery were dissected and a critical view of safety was obtained. The cystic duct and artery were clipped, with two clips proximally and one clip distally, and divided. The gallbladder was removed from the hepatic bed using electrocautery. There was no spillage of bile at any point during the case. Hemostasis was confirmed. The camera was changed to a 5mm scope. The gallbladder was placed in an Endocatch bag and removed via the umbilical port. The 5mm ports were removed. The fascial defect at the umbilicus was closed with 0 Vicryl. Skin incisions were closed with 4-0 Vicryl and steri strips. The patient tolerated the procedure well, was extubated and transferred to PACU in stable condition. Mitchell Telles MD 09/07/2024 NPO Instructions: Do not eat any food after midnight the night before your surgery/procedure. You may have clear liquids until TWO hours before surgery/procedure. This includes water, black tea/coffee, (no milk or cream) apple juice and electrolyte drinks (Gatorade). Additional Instructions: Will need putaway driver home, will receive call day before surgery with arrival time documented in this encounter [facility] Work Phone: 09-07-2024 History and physical note General Surgery H&P Patient: Gregory Lacy : 2005 Date: 09/07/24 Primary Care Provider: Ori Vidal PA-C Chief Complaint: Gallstones History of Present Illness: Gregory Lacy is a 19 y.o. old female seen for evaluation of gallstones. She was in the emergency department on 08/18/2024 with left-sided abdominal pain. She was found to have a kidney stone. However, on imaging, she also had numerous moderate-sized gallstones. She gets intermittent postprandial right upper quadrant abdominal pain. This occurs a couple times per month. It is worse after greasy or fried foods. She denies any yellowing of the skin or eyes or dark-colored urine at time of pain. She denies any fever associated with this pain. She gets nausea, but no vomiting. She also has loose bowel movements if eating greasy foods. Medical History: Symptomatic cholelithiasis Hypertension Diabetes Fatty liver disease PCOS Obesity, BMI 37 Anxiety Kidney stone Surgical History: No previous abdominal surgery. Home Medications: Prior to Admission medications Medication Sig Start Date End Date Taking? Authorizing Provider flash glucose scanning reader (FREESTYLE IVAN 2 READER MISC) Yes Ori Vidal PA-C flash glucose scanning reader (FreeStyle Ivan 2 [place]) [facility] [place] Use as instructed 01/13/24 Yes Ori Vidal PA-C flash glucose sensor kit (FreeStyle Ivan 2 Sensor) kit USE INSTRUCTED 06/16/24 Yes Ori Vidal PA-C cyanocobalamin (Vitamin B-12) 1,000 mcg tablet Take 1 tablet (1,000 mcg) by mouth once daily. 04/14/24 04/14/25 Ori Vidal PA-C dicyclomine (Bentyl) 20 mg tablet Take 1 tablet (20 mg) by mouth 4 times a day before meals. 08/18/24 Faisal Rodriguez DO ergocalciferol (Vitamin D-2) 1.25 MG (78609 UT) capsule Take 1 capsule (50,000 Units) by mouth 1 (one) time per week. 01/17/24 Ori Vidal PA-C lisinopril 10 mg tablet Take 1 tablet (10 mg) by mouth once daily. 04/14/24 Ori Vidal PA-C omeprazole (PriLOSEC) [address] capsule TAKE 1 CAPSULE (20 MG) BY MOUTH ONCE DAILY DO NOT CRUSH OR CHEW 04/21/24 10/18/24 Ori Vidal PA-C ondansetron ODT (Zofran-ODT) 4 mg disintegrating tablet Dissolve 1 tablet (4 mg) in the mouth every 8 hours if needed for nausea or vomiting. 08/18/24 Faisal Rodriguez DO semaglutide (OZEMPIC) 1 mg/dose (4 mg/3 mL) pen injector Inject 1 mg under the skin 1 (one) time per week. 04/14/24 Ori Vidal PA-C Allergies: No Known Allergies Family History: Mother with IBS. Social History: Non-smoker. Rare alcohol use (wine cooler). No drug use. ROS: Constitutional: no fever, sweats, and chills Cardiovascular: No chest pain Respiratory: No cough or shortness of breath Gastrointestinal: + Postprandial right upper quadrant abdominal pain with associated nausea. No vomiting. + Loose bowel movements with greasy foods. Genitourinary: no dark-colored urine, + kidney stone Musculoskeletal: no weakness or swelling Integumentary: no jaundice Neurological: no confusion Endocrine: no heat or cold intolerance Heme/Lymph: no easy bruising or bleeding Objective: Wt 95.3 kg (210 lb) LMP (Within Months) BMI 37.20 kg/m Physical Exam: Constitutional: No acute distress, conversant, pleasant, mother and fianc at bedside Neurologic: alert and oriented Psych: appropriate affect Ears, Nose, Mouth and Throat: mucus membranes moist Pulmonary: No labored breathing Cardiovascular: Regular rate and rhythm Abdomen: soft, non-distended, BMI 37, non-tender Musculoskeletal: Moves all extremities, no edema Skin: no jaundice Labs: Labs from 08/18/24 reviewed: WBC 10.4, ALT mildly elevated at 63, LFTs otherwise within normal limits including T. bili 0.8 Imaging: CT abdomen and pelvis from 08/18/2024 reviewed: Numerous calcified moderate sized gallstones without acute inflammatory changes around the gallbladder. Large stool burden within the colon. Assessment and Plan: Gregory Lacy is a 19 y.o. old female with symptomatic cholelithiasis. Risks, benefits and alternatives of laparoscopic cholecystectomy were discussed with the patient. This included risk of bleeding, infection, viscus injury, conversion to an open procedure, bile leakage or bile duct injury, post-cholecystectomy diarrhea, and possible need for subsequent endoscopic or surgical interventions. The patient was agreeable to proceed with surgery. Mitchell Telles MD 09/07/2024 [facility] Work Phone: 09-07-2024 History and physical note General Surgery H&P Patient: Gregory Lacy : 2005 Date: 09/07/24 Primary Care Provider: Ori Vidal PA-C Chief Complaint: Gallstones History of Present Illness: Gregory Lacy is a 19 y.o. old female seen for evaluation of gallstones. She was in the emergency department on 08/18/2024 with left-sided abdominal pain. She was found to have a kidney stone. However, on imaging, she also had numerous moderate-sized gallstones. She gets intermittent postprandial right upper quadrant abdominal pain. This occurs a couple times per month. It is worse after greasy or fried foods. She denies any yellowing of the skin or eyes or dark-colored urine at time of pain. She denies any fever associated with this pain. She gets nausea, but no vomiting. She also has loose bowel movements if eating greasy foods. Medical History: Symptomatic cholelithiasis Hypertension Diabetes Fatty liver disease PCOS Obesity, BMI 37 Anxiety Kidney stone Surgical History: No previous abdominal surgery. Home Medications: Prior to Admission medications Medication Sig Start Date End Date Taking? Authorizing Provider flash glucose scanning reader (FREESTYLE IVAN 2 READER MISC) Yes Ori Vidal PA-C flash glucose scanning reader (FreeStyle Ivan 2 [place]) misc Use as instructed 01/13/24 Yes Ori Vidal PA-C flash glucose sensor kit (FreeStyle Ivan 2 Sensor) kit USE INSTRUCTED 06/16/24 Yes Ori Vidal PA-C cyanocobalamin (Vitamin B-12) 1,000 mcg tablet Take 1 tablet (1,000 mcg) by mouth once daily. 04/14/24 04/14/25 Ori Vidal PA-C dicyclomine (Bentyl) 20 mg tablet Take 1 tablet (20 mg) by mouth 4 times a day before meals. 08/18/24 Faisal Rodriguez, ergocalciferol (Vitamin D-2) 1.25 MG (52341 UT) capsule Take 1 capsule (50,000 Units) by mouth 1 (one) time per week. 01/17/24 Ori Vidal PA-C lisinopril 10 mg tablet Take 1 tablet (10 mg) by mouth once daily. 04/14/24 Ori Vidal PA-C omeprazole (PriLOSEC) [address] capsule TAKE 1 CAPSULE (20 MG) BY MOUTH ONCE DAILY DO NOT CRUSH OR CHEW 04/21/24 10/18/24 Ori Vidal PA-C ondansetron ODT (Zofran-ODT) 4 mg disintegrating tablet Dissolve 1 tablet (4 mg) in the mouth every 8 hours if needed for nausea or vomiting. 08/18/24 Faisal Rodriguez, semaglutide (OZEMPIC) 1 mg/dose (4 mg/3 mL) pen injector Inject 1 mg under the skin 1 (one) time per week. 04/14/24 Ori Vidal PA-C Allergies: No Known Allergies Family History: Mother with IBS. Social History: Non-smoker. Rare alcohol use (wine cooler). No drug use. ROS: Constitutional: no fever, sweats, and chills Cardiovascular: No chest pain Respiratory: No cough or shortness of breath Gastrointestinal: + Postprandial right upper quadrant abdominal pain with associated nausea. No vomiting. + Loose bowel movements with greasy foods. Genitourinary: no dark-colored urine, + kidney stone Musculoskeletal: no weakness or swelling Integumentary: no jaundice Neurological: no confusion Endocrine: no heat or cold intolerance Heme/Lymph: no easy bruising or bleeding Objective: Wt 95.3 kg (210 lb) LMP (Within Months) BMI 37.20 kg/m Physical Exam: Constitutional: No acute distress, conversant, pleasant, mother and fianc at bedside Neurologic: alert and oriented Psych: appropriate affect Ears, Nose, Mouth and Throat: mucus membranes moist Pulmonary: No labored breathing Cardiovascular: Regular rate and rhythm Abdomen: soft, non-distended, BMI 37, non-tender Musculoskeletal: Moves all extremities, no edema Skin: no jaundice Labs: Labs from 08/18/24 reviewed: WBC 10.4, ALT mildly elevated at 63, LFTs otherwise within normal limits including T. bili 0.8 Imaging: CT abdomen and pelvis from 08/18/2024 reviewed: Numerous calcified moderate sized gallstones without acute inflammatory changes around the gallbladder. Large stool burden within the colon. Assessment and Plan: Gregory Lacy is a 19 y.o. old female with symptomatic cholelithiasis. Risks, benefits and alternatives of laparoscopic cholecystectomy were discussed with the patient. This included risk of bleeding, infection, viscus injury, conversion to an open procedure, bile leakage or bile duct injury, post-cholecystectomy diarrhea, and possible need for subsequent endoscopic or surgical interventions. The patient was agreeable to proceed with surgery. Mitchell Telles MD 09/07/2024 documented in this encounter [facility] Work Phone: 09-01-2024 Note Formatting of this n ote might be different from the original. NPO Instructions: Do not eat any food after midnight the night before your surgery/procedure. You may have clear liquids until TWO hours before surgery/procedure. This includes water, black tea/coffee, (no milk or cream) apple juice and electrolyte drinks (Gatorade). Additional Instructions: Will need putaway driver home, will receive call day before surgery with arrival time [facility] 08-31-2024 History of Present illness Narrative Pharmacy Medication History Review Gregory Lacy is a 19 y.o. female admitted for Calculus of gallbladder without cholecystitis without obstruction. Pharmacy reviewed the patient's [id number] medications and allergies for accuracy. The list below reflectives the updated CLEARANCE REPRESENTATIVE list. Please review each medication in order reconciliation for additional clarification and justification. No medications prior to admission. The list below reflectives the updated allergy list. Please review each documented allergy for additional clarification and justification. Allergies Reviewed by Gayla Stout on 08/31/2024 No Known Allergies Below are additional concerns with the patient's CLEARANCE REPRESENTATIVE list. Gayla Stout Cosigned by Guera Gibson MD at 09/01/2024 8:16 AM EST documented in this encounter [facility] Work Phone: 08-24-2024 History of Present illness Narrative Subjective Patient ID: Gregory Lacy is a 19 y.o. female who presents for Follow-up (ER F/U FOR GALL STONES) HPI Patient presents today for ER follow up [place] Cholelithiasis, - has followed with gen surgery and believes will have surgery in the near future- will call if pre op needed so we can order labs sooner Nephrolithiasis - referral to uro - starts was told dr jarrell is no longer taking new patients but she could call back to be scheduled with a diff uro - she will call me if she needs new referral placed. Stone is 5mm so we discussed she could pass on her own but she may need surgery. Suggest focus on following up in the near future but her gallbladder surgery is her focus right now Constipation - stable at thi stime med check Hx of Kidney stones -CT apr 2022- denies ever having procedure or seeing specialist for this Gallstones - Fatty liver - CT apr 2022 - working on diet and ex GERD- hx on PPI but not recently - no longer relief with tums PCOS ? - hx of irregular menses other than when she was on BCP. Denies known cycst but admits to inc facial hair - set to follow with [facility] in [place] 1 mo Hx of anxiety /depression - stable off meds vit D - taking weekly DM - doing well with ozempic HTN + DM - will start on lisinopril Consider start on statin for added protection in addition to the recommendation of following with eye dr and pod annually as well as discussed Preventative testing PAP Mammo DEXA Colon Fall - NEG Aug 2023 PHQ2 NEG Aug 2023 Patient Active Problem List Diagnosis Fatty liver Gallstones Renal calculi Excess body and facial hair Class 2 obesity due to excess calories without serious comorbidity with body mass index (BMI) of 39.0 to 39.9 in adult Type 2 diabetes mellitus with hyperglycemia, without long-term current use of insulin Hypercholesterolemia Gastroesophageal reflux disease without esophagitis Vitamin D deficiency PCOS (polycystic ovarian syndrome) Low vitamin B12 level Hypertension associated with diabetes (Multi) Review of Systems Constitutional: Positive for fatigue. Negative for chills and fever. HENT: Negative for congestion, rhinorrhea, sinus pain, sore throat and tinnitus. Eyes: Negative for discharge, redness and visual disturbance. Respiratory: Negative for cough, chest tightness, shortness of breath and wheezing. Cardiovascular: Negative for chest pain, palpitations and leg swelling. Gastrointestinal: Positive for abdominal pain, constipation and nausea. Negative for diarrhea and vomiting. Endocrine: Negative for cold intolerance and heat intolerance. Genitourinary: Positive for flank pain. Negative for frequency and urgency. Musculoskeletal: Negative for back pain, gait problem and neck pain. Skin: Negative for rash and wound. Neurological: Negative for dizziness, tremors, syncope, numbness and headaches. Hematological: Does not bruise/bleed easily. Psychiatric/Behavioral: Negative for confusion, sleep disturbance and suicidal ideas. Past Medical History: Diagnosis Date Abnormal weight gain 12/24/2023 Acquired acanthosis nigricans 12/24/2023 Acute bacterial sinusitis 12/24/2023 Comment on above: Added by Problem List Migration; 2012-11-14; Moved to [facility] Jul 11 2013 9:35PM; Acute bilateral otitis media 12/24/2023 Acute erythematous eruption of skin 12/24/2023 Acute pain of both ears 12/24/2023 Allergic rhinitis 12/24/2023 Anxiety 12/24/2023 Anxiety 12/29/2017 Diabetes (Multi) Diarrhea, unspecified 10/29/2016 Diarrhea, unspecified type Encounter for immunization 07/21/2015 Encounter for immunization Fatty liver 04/24/2022 Folliculitis 12/24/2023 Folliculitis 12/24/2023 Gallstones 04/24/2022 History of endocrine disorder 12/24/2023 Hypertension Impacted cerumen of left ear 12/24/2023 Insulin resistance 12/24/2023 Kidney stone 04/24/2022 Obesity 12/24/2023 Obesity with body mass index 30 or greater 12/24/2023 Obesity, Class II, BMI 35-39.9 04/07/2022 Overweight 12/24/2023 Pap smear, as part of routine gynecological examination 05/12/2024 NORMAL Paronychia of toe of right foot 12/24/2023 PCOS (polycystic ovarian syndrome) Personal history of diseases of the skin and subcutaneous tissue 09/29/2015 History of seborrheic dermatitis Personal history of other diseases of the digestive system 10/29/2016 History of constipation Right upper quadrant pain 10/29/2016 Abdominal pain, RUQ Sore throat 12/24/2023 Unilateral otalgia 12/24/2023 Unspecified visual loss 04/30/2013 Vision problems Urinary tract infection without hematuria 04/24/2022 History reviewed. No pertinent surgical history. Family History Problem Relation Name Age of Onset Irritable bowel syndrome Mother Alcohol abuse Father Depression Mother's Sister Anxiety disorder Mother's Sister Depression Mother's Brother Hypertension Maternal Grandmother Muscular dystrophy Maternal Grandfather Stroke Maternal Grandfather Bipolar disorder Paternal Grandmother Alcohol abuse Paternal Grandmother Diabetes Paternal Grandmother Alcohol abuse Paternal Grandfather Social History Tobacco Use Smoking status: Never Smokeless tobacco: Never Vaping Use Vaping status: Never Used Substance Use Topics Alcohol use: Yes Comment: rarely drinks wine coolers Drug use: Never No Known Allergies Current Outpatient Medications Medication Sig Dispense Refill cyanocobalamin (Vitamin B-12) 1,000 mcg tablet Take 1 tablet (1,000 mcg) by mouth once daily. 30 tablet 11 dicyclomine (Bentyl) 20 mg tablet Take 1 tablet (20 mg) by mouth 4 times a day before meals. 30 tablet 0 ergocalciferol (Vitamin D-2) 1.25 MG (28673 UT) capsule Take 1 capsule (50,000 Units) by mouth 1 (one) time per week. 4 capsule 11 flash glucose scanning reader (FREESTYLE IVAN 2 READER MISC) flash glucose scanning reader (FreeStyle Ivan 2 [place]) [facility] Use as instructed 1 each 0 flash glucose sensor kit (FreeStyle Ivan 2 Sensor) kit USE INSTRUCTED 2 each 5 lisinopril 10 mg tablet Take 1 tablet (10 mg) by mouth once daily. 30 tablet 11 omeprazole (PriLOSEC) [address] capsule TAKE 1 CAPSULE (20 MG) BY MOUTH ONCE DAILY DO NOT CRUSH OR CHEW 90 capsule 1 ondansetron ODT (Zofran-ODT) 4 mg disintegrating tablet Dissolve 1 tablet (4 mg) in the mouth every 8 hours if needed for nausea or vomiting. 15 tablet 0 semaglutide (OZEMPIC) 1 mg/dose (4 mg/3 mL) pen injector Inject 1 mg under the skin 1 (one) time per week. 3 mL 11 polyethylene glycol (Glycolax, Miralax) 17 gram packet Take 17 g by mouth once daily for 7 days. (Patient not taking: Reported on 08/24/2024) 7 packet 0 semaglutide 0.25 mg or 0.5 mg (2 mg/3 mL) pen injector Inject 0.5 mg under the skin 1 (one) time per week. 3 mL 2 No current facility-administered medications for this visit. Objective BP 114/75 Pulse 105 Ht 1.6 m (5' 3) Wt 95.3 kg (210 lb 3.2 oz) BMI 37.24 kg/m Physical Exam Vitals reviewed. Constitutional: Appearance: Normal appearance. She is obese. HENT: Head: Normocephalic. Right Ear: External ear normal. Left Ear: External ear normal. Nose: Nose normal. No congestion or rhinorrhea. Mouth/Throat: Mouth: Mucous membranes are moist. Eyes: Extraocular Movements: Extraocular movements intact. Conjunctiva/sclera: Conjunctivae normal. Pupils: Pupils are equal, round, and reactive to light. Cardiovascular: Rate and Rhythm: Normal rate and regular rhythm. Pulses: Normal pulses. Pulmonary: Effort: Pulmonary effort is normal. Breath sounds: Normal breath sounds. Abdominal: General: Bowel sounds are normal. Palpations: Abdomen is soft. Tenderness: There is no abdominal tenderness. There is no right CVA tenderness or left CVA tenderness. Musculoskeletal: General: No tenderness. Normal range of motion. Cervical back: Normal range of motion and neck supple. No tenderness. Skin: General: Skin is warm and dry. Neurological: General: No focal deficit present. Mental Status: She is alert and oriented to person, place, and time. Psychiatric: Mood and Affect: Mood normal. Behavior: Behavior normal. Testing Reviewed ER labs Reviewed CT Reviewed prior labs done in mar Reviewed labs ordered to be done in 2 mo Impression MDM 1) COMPLEXITY: MORE THAN 1 STABLE CHRONIC CONDITION ADDRESSED 2)DATA: TESTS INTERPRETED AND OR ORDERED, TOOK INDEPENDENT HISTORY OR RECORDS REVIEWED 3)RISK: MODERATE RISK DUE TO NATURE OF MEDICAL CONDITIONS/COMORBIDITY OR MEDICATIONS ORDERED OR SURGICAL OR PROCEDURE REFERRAL, . Reviewed labs and Testing on file Patient to follow diet low in cholesterol, fat, and sodium. Patient is advised to increase Exercise. Patient is recommended to lose weight. Reviewed Meds and discussed common side effects Continue as directed Patient is strongly advised to be compliant with recommendations. Return to Clinic sooner if needed. Patient denies further questions/concerns at this time Assessment/Plan Problem List Items Addressed This Visit ICD-10-CM Fatty liver K76.0 Class 2 obesity due to excess calories without serious comorbidity with body mass index (BMI) of 37.0 to 37.9 in adult E66.812, E66.09, Z68.37 Type 2 diabetes mellitus with hyperglycemia, without long-term current use of insulin E11.65 Gastroesophageal reflux disease without esophagitis K21.9 Hypertension associated with diabetes (Multi) E11.59, I15.2 Other Visit Diagnoses Codes Calculus of gallbladder without cholecystitis without obstruction - Primary K80.20 Left flank pain R10.9 Constipation, unspecified constipation type K59.00 Nephrolithiasis N20.0 FU as before in in October with labs at [facility] fasting and med check documented in this encounter [facility] Work Phone: 08-23-2024 History of Present illness Narrative General Surgery Consultation Patient: Gregory Lacy : 2005 Date of Consultation: 08/23/24 Primary Care Provider: Ori Vidal PA-C Referring Provider: Faisal Rodriguez DO Chief Complaint: Cholelithiasis History of Present Illness: Gregory Lacy is a 19 y.o. old female seen at the request of Faisal Rodriguez DO for evaluation of cholelithiasis. Patient states that she is known she has had gallstones for a number of years. She also had kidney stones. She recently had some discomfort on her left side but also on her right. She went to the ER where CT scan of the abdomen and pelvis was done. The ER physician apparently told her that the number of gallstones had increased and she should have her gallbladder removed. The patient does state that she does have some postprandial symptoms. She would like to proceed with cholecystectomy. Medical History: Past Medical History: Diagnosis Date Abnormal weight gain 12/24/2023 Acquired acanthosis nigricans 12/24/2023 Acute bacterial sinusitis 12/24/2023 Comment on above: Added by Problem List Migration; 2012-11-14; Moved to [facility] Jul 11 2013 9:35PM; Acute bilateral otitis media 12/24/2023 Acute erythematous eruption of skin 12/24/2023 Acute pain of both ears 12/24/2023 Allergic rhinitis 12/24/2023 Anxiety 12/24/2023 Anxiety 12/29/2017 Diabetes (Multi) Diarrhea, unspecified 10/29/2016 Diarrhea, unspecified type Encounter for immunization 07/21/2015 Encounter for immunization Fatty liver 04/24/2022 Folliculitis 12/24/2023 Folliculitis 12/24/2023 Gallstones 04/24/2022 History of endocrine disorder 12/24/2023 Hypertension Impacted cerumen of left ear 12/24/2023 Insulin resistance 12/24/2023 Kidney stone 04/24/2022 Obesity 12/24/2023 Obesity with body mass index 30 or greater 12/24/2023 Obesity, Class II, BMI 35-39.9 04/07/2022 Overweight 12/24/2023 Pap smear, as part of routine gynecological examination 05/12/2024 NORMAL Paronychia of toe of right foot 12/24/2023 PCOS (polycystic ovarian syndrome) Personal history of diseases of the skin and subcutaneous tissue 09/29/2015 History of seborrheic dermatitis Personal history of other diseases of the digestive system 10/29/2016 History of constipation Right upper quadrant pain 10/29/2016 Abdominal pain, RUQ Sore throat 12/24/2023 Unilateral otalgia 12/24/2023 Unspecified visual loss 04/30/2013 Vision problems Urinary tract infection without hematuria 04/24/2022 Surgical History: History reviewed. No pertinent surgical history. Home Medications: Prior to Admission medications Medication Sig Start Date End Date Taking? Authorizing Provider cyanocobalamin (Vitamin B-12) 1,000 mcg tablet Take 1 tablet (1,000 mcg) by mouth once daily. 04/14/24 04/14/25 Yes Ori Vidal PA-C dicyclomine (Bentyl) 20 mg tablet Take 1 tablet (20 mg) by mouth 4 times a day before meals. 08/18/24 Yes Faisal Rodriguez DO ergocalciferol (Vitamin D-2) 1.25 MG (29707 UT) capsule Take 1 capsule (50,000 Units) by mouth 1 (one) time per week. 01/17/24 Yes Ori Vidal PA-C flash glucose scanning reader (FREESTYLE IVAN 2 READER MISC) Yes Ori Vidal PA-C flash glucose scanning reader (FreeStyle Ivan 2 [place]) misc Use as instructed 01/13/24 Yes Ori Vidal PA-C flash glucose sensor kit (FreeStyle Ivan 2 Sensor) kit USE INSTRUCTED 06/16/24 Yes Ori Vidal PA-C ketorolac (Toradol) 10 mg tablet Take 1 tablet (10 mg) by mouth every 6 hours if needed for moderate pain (4 - 6) for up to 5 days. 08/18/24 08/23/24 Yes Faisal Rodriguez DO lisinopril 10 mg tablet Take 1 tablet (10 mg) by mouth once daily. 04/14/24 Yes Ori Vidal PA-C omeprazole (PriLOSEC) [address] capsule TAKE 1 CAPSULE (20 MG) BY MOUTH ONCE DAILY DO NOT CRUSH OR CHEW 04/21/24 10/18/24 Yes Ori Vidal PA-C ondansetron ODT (Zofran-ODT) 4 mg disintegrating tablet Dissolve 1 tablet (4 mg) in the mouth every 8 hours if needed for nausea or vomiting. 08/18/24 Yes Faisal Rodriguez, DO polyethylene glycol (Glycolax, Miralax) 17 gram packet Take 17 g by mouth once daily for 7 days. 08/18/24 08/25/24 Yes Faisal Rodriguez, DO semaglutide (OZEMPIC) 1 mg/dose (4 mg/3 mL) pen injector Inject 1 mg under the skin 1 (one) time per week. 04/14/24 Yes Ori Vidal PA-C semaglutide 0.25 mg or 0.5 mg (2 mg/3 mL) pen injector Inject 0.5 mg under the skin 1 (one) time per week. 02/15/24 Yes Ori Vidal PA-C Allergies: No Known Allergies has No Known Allergies. Family History: Family History Problem Relation Name Age of Onset Irritable bowel syndrome Mother Alcohol abuse Father Depression Mother's Sister Anxiety disorder Mother's Sister Depression Mother's Brother Hypertension Maternal Grandmother Muscular dystrophy Maternal Grandfather Stroke Maternal Grandfather Bipolar disorder Paternal Grandmother Alcohol abuse Paternal Grandmother Diabetes Paternal Grandmother Alcohol abuse Paternal Grandfather Social History: Social History Socioeconomic History Marital status: Single Tobacco Use Smoking status: Never Smokeless tobacco: Never Vaping Use Vaping status: Never Used Substance and Sexual Activity Alcohol use: Yes Comment: rarely drinks wine coolers Drug use: Never Sexual activity: Defer ROS: Constitutional: no fever, sweats, and chills Cardiovascular: No chest pain Respiratory: No cough or shortness of breath Gastrointestinal: Postprandial upper abdominal pain left greater than right Genitourinary: no dysuria Musculoskeletal: no weakness or swelling Integumentary: no rashes Neurological: no confusion Endocrine: no heat or cold intolerance Heme/Lymph: no easy bruising or bleeding Objective: BP 132/80 Pulse 100 Ht 1.6 m (5' 3) Wt 95.2 kg (209 lb 12.8 oz) LMP (Within Months) BMI 37.16 kg/m Physical Exam: Constitutional: No acute distress, conversant, pleasant Neurologic: alert and oriented Psych: appropriate affect Ears, Nose, Mouth and Throat: mucus membranes moist Pulmonary: No labored breathing Cardiovascular: Regular rate and rhythm Abdomen: soft, non-distended, non-tender Musculoskeletal: Moves all extremities, no edema Skin: warm and dry Labs: Patient had had some elevation of her AST and ALT which with weight reduction under GLP's have come down. She still is isolated AST elevation. She states that she was thought to have a fatty liver and that if her weight improves these would also. Assessment and Plan: Gregory Lacy is a 19 y.o. old female with cholelithiasis. We discussed the fact she does have some postprandial symptoms but the left upper quadrant discomfort is somewhat atypical. She would like to pursue cholecystectomy. I have explained cholecystectomy will remove the issues coming from her gallstones but not other etiologies. I discussed with her the fact that I am just getting back to doing gallbladders and Dr. Nunes will assist me or the patient has the alternative of simply seeing Dr. Nunes. She feels comfortable proceeding with me as the primary surgeon. Risks, benefits and alternatives of laparoscopic cholecystectomy were discussed with the patient. This included risk of bleeding, infection, viscus injury, conversion to an open procedure, bile leak or bile duct injury, post-cholecystectomy diarrhea, possible non-resolution or recurrence of symptoms, and possible need for subsequent endoscopic or surgical interventions. The patient was agreeable to proceed with surgery. Guera Gibson MD 08/23/2024 documented in this encounter [facility] Work Phone: 04-14-2024 History of Present illness Narrative ___ Note was fully documented and signed the day she was seen - Apr 14, However Apr 19 I had notification the note was not completed. I got into patients chart and half of my documentation was missing in addition to the note not being signed or billing dropped. I have re-completed the documentation and dropped the charges again. Subjective Patient ID: Gregory Lacy is a 19 y.o. female who presents for Follow-up (3 MONTH FOLLOW UP +LABS WERE DONE C/O RASH ON CHEST STARTED THURSDAY NIGHT ) HPI Rash on chest x 2 days - denies pain or itching Fever on Thursday and mild illness symptoms but since fairly resolved She did question if rash was related to illness and possible covid but has done COVID testing with work and [facility] Labs med check Hx of Kidney stones -CT apr 2022- denies ever having procedure or seeing specialist for this Gallstones - - seen on CT apr 2022- rarely has flare up so cont to monitor Fatty liver - CT apr 2022 - working on diet and ex GERD- hx on PPI but not recently - no longer relief with tums PCOS ? - hx of irregular menses other than when she was on BCP. Denies known cycst but admits to inc facial hair - set to follow with [employer] in [place] 1 mo Hx of anxiety /depression - stable off meds vit D - taking weekly DM - doing well with ozempic - will inc to 1 mg weekly dose. HTN + DM - will start on lisinopril Consider start on statin for added protection in addition to the recommendation of following with eye dr and pod annually as well as discussed Preventative testing PAP Mammo DEXA Colon Fall - NEG DECEMBER 2023 PHQ2 NEG DECEMBER 2023 Patient Active Problem List Diagnosis Fatty liver Gallstones Renal calculi Excess body and facial hair Class 2 obesity due to excess calories without serious comorbidity with body mass index (BMI) of 39.0 to 39.9 in adult Type 2 diabetes mellitus with hyperglycemia, without long-term current use of insulin (Multi) Hypercholesterolemia Gastroesophageal reflux disease without esophagitis Vitamin D deficiency PCOS (polycystic ovarian syndrome) Low vitamin B12 level Review of Systems Constitutional: Negative for chills, fatigue and fever. HENT: Negative for congestion, rhinorrhea, sinus pain, sore throat and tinnitus. Eyes: Negative for discharge, redness and visual disturbance. Respiratory: Negative for cough, chest tightness, shortness of breath and wheezing. Cardiovascular: Negative for chest pain, palpitations and leg swelling. Gastrointestinal: Negative for abdominal pain, constipation, diarrhea, nausea and vomiting. Endocrine: Negative for cold intolerance and heat intolerance. Genitourinary: Negative for flank pain, frequency and urgency. Musculoskeletal: Negative for back pain, gait problem and neck pain. Skin: Positive for rash. Negative for wound. Neurological: Negative for dizziness, tremors, syncope, numbness and headaches. Hematological: Does not bruise/bleed easily. Psychiatric/Behavioral: Negative for confusion, sleep disturbance and suicidal ideas. Past Medical History: Diagnosis Date Abnormal weight gain 12/24/2023 Acquired acanthosis nigricans 12/24/2023 Acute bacterial sinusitis 12/24/2023 Comment on above: Added by Problem List Migration; 2012-11-14; Moved to [facility] Jul 11 2013 9:35PM; Acute bilateral otitis media 12/24/2023 Acute erythematous eruption of skin 12/24/2023 Acute pain of both ears 12/24/2023 Allergic rhinitis 12/24/2023 Anxiety 12/24/2023 Anxiety 12/29/2017 Diarrhea, unspecified 10/29/2016 Diarrhea, unspecified type Encounter for immunization 07/21/2015 Encounter for immunization Fatty liver 04/24/2022 Folliculitis 12/24/2023 Folliculitis 12/24/2023 Gallstones 04/24/2022 History of endocrine disorder 12/24/2023 Impacted cerumen of left ear 12/24/2023 Insulin resistance 12/24/2023 Kidney stone 04/24/2022 Obesity 12/24/2023 Obesity with body mass index 30 or greater 12/24/2023 Obesity, Class II, BMI 35-39.9 04/07/2022 Overweight 12/24/2023 Paronychia of toe of right foot 12/24/2023 Personal history of diseases of the skin and subcutaneous tissue 09/29/2015 History of seborrheic dermatitis Personal history of other diseases of the digestive system 10/29/2016 History of constipation Right upper quadrant pain 10/29/2016 Abdominal pain, RUQ Sore throat 12/24/2023 Unilateral otalgia 12/24/2023 Unspecified visual loss 04/30/2013 Vision problems Urinary tract infection without hematuria 04/24/2022 History reviewed. No pertinent surgical history. Family History Problem Relation Name Age of Onset No Known Problems Mother Alcohol abuse Father Depression Mother's Sister Anxiety disorder Mother's Sister Depression Mother's Brother Hypertension Maternal Grandmother Muscular dystrophy Maternal Grandfather Stroke Maternal Grandfather Bipolar disorder Paternal Grandmother Alcohol abuse Paternal Grandmother Alcohol abuse Paternal Grandfather Social History Tobacco Use Smoking status: Never Smokeless tobacco: Never Vaping Use Vaping status: Never Used Substance Use Topics Alcohol use: Never Drug use: Never No Known Allergies Current Outpatient Medications Medication Sig Dispense Refill ergocalciferol (Vitamin D-2) 1.25 MG (26374 UT) capsule Take 1 capsule (50,000 Units) by mouth 1 (one) time per week. 4 capsule 11 flash glucose scanning reader (FreeStyle Ivan 2 [place] [facility] [place] Use as instructed 1 each 0 flash glucose sensor kit (FreeStyle Ivan 2 Sensor) kit Use as instructed 2 each 5 omeprazole (PriLOSEC) [address] capsule Take 1 capsule (20 mg) by mouth once daily. Do not crush or chew. 30 capsule 5 semaglutide 0.25 mg or 0.5 mg (2 mg/3 mL) pen injector Inject 0.5 mg under the skin 1 (one) time per week. 3 mL 2 amoxicillin-pot clavulanate (Augmentin) 875-125 mg tablet Take 1 tablet (875 mg) by mouth 2 times a day for 10 days. 20 tablet 0 cyanocobalamin (Vitamin B-12) 1,000 mcg tablet Take 1 tablet (1,000 mcg) by mouth once daily. 30 tablet 11 flash glucose scanning reader (FREESTYLE IVAN 2 READER [facility] [place] lisinopril 10 mg tablet Take 1 tablet (10 mg) by mouth once daily. 30 tablet 11 semaglutide (OZEMPIC) 1 mg/dose (4 mg/3 mL) pen injector Inject 1 mg under the skin 1 (one) time per week. 3 mL 11 No current facility-administered medications for this visit. Objective BP 138/84 (BP Location: Right arm, Patient Position: Sitting) Pulse 101 Ht 1.6 m (5' 3) Wt 98.4 kg (217 lb) BMI 38.44 kg/m Physical Exam Vitals reviewed. Constitutional: Appearance: Normal appearance. She is obese. HENT: Head: Normocephalic. Right Ear: External ear normal. Left Ear: External ear normal. Nose: Nose normal. No congestion or rhinorrhea. Mouth/Throat: Mouth: Mucous membranes are moist. Eyes: Extraocular Movements: Extraocular movements intact. Conjunctiva/sclera: Conjunctivae normal. Pupils: Pupils are equal, round, and reactive to light. Cardiovascular: Rate and Rhythm: Normal rate and regular rhythm. Pulses: Normal pulses. Pulmonary: Effort: Pulmonary effort is normal. Breath sounds: Normal breath sounds. Abdominal: General: Bowel sounds are normal. Palpations: Abdomen is soft. Tenderness: There is no abdominal tenderness. There is no right CVA tenderness or left CVA tenderness. Musculoskeletal: General: No tenderness. Normal range of motion. Cervical back: Normal range of motion and neck supple. No tenderness. Skin: General: Skin is warm and dry. Findings: Rash present. Comments: Pustular more bacterial in appearance - consider contact DERM but would expect diff appearance and in other location as well Neurological: General: No focal deficit present. Mental Status: She is alert and oriented to person, place, and time. Psychiatric: Mood and Affect: Mood normal. Behavior: Behavior normal. Testing Component Latest Ref [facility] 04/09/2024 WBC 4.4 - 11.3 x10*3/uL 11.9 (H) nRBC 0.0 - 0.0 /100 WBCs 0.0 RBC 4.00 - 5.20 x10*6/uL 4.71 HEMOGLOBIN 12.0 - 16.0 g/dL 14.0 HEMATOCRIT 36.0 - 46.0 % 41.8 MCV 80 - 100 fL 89 MCH 26.0 - 34.0 pg 29.7 MCHC 32.0 - 36.0 g/dL 33.5 RED CELL DISTRIBUTION WIDTH 11.5 - 14.5 % 12.4 Platelets 150 - 450 x10*3/uL 476 (H) Neutrophils % 40.0 - 80.0 % 62.9 Immature Granulocytes %, Automated 0.0 - 0.9 % 0.2 Lymphocytes % 13.0 - 44.0 % 27.7 Monocytes % 2.0 - 10.0 % 6.9 Eosinophils % 0.0 - 6.0 % 1.8 Basophils % 0.0 - 2.0 % 0.5 Neutrophils Absolute 1.20 - 7.70 x10*3/uL 7.46 Immature Granulocytes Absolute, Automated 0.00 - 0.70 x10*3/uL 0.02 Lymphocytes Absolute 1.20 - 4.80 x10*3/uL 3.28 Monocytes Absolute 0.10 - 1.00 x10*3/uL 0.82 Eosinophils Absolute 0.00 - 0.70 x10*3/uL 0.21 Basophils Absolute 0.00 - 0.10 x10*3/uL 0.06 GLUCOSE 74 - 99 mg/dL 89 SODIUM 136 - 145 mmol/L 138 POTASSIUM 3.5 - 5.3 mmol/L 3.9 CHLORIDE 98 - 107 mmol/L 104 Bicarbonate 21 - 32 mmol/L 26 Anion Gap 10 - 20 mmol/L 12 Blood Urea Nitrogen 6 - 23 mg/dL 10 Creatinine 0.50 - 1.05 mg/dL 0.65 EGFR >60 mL/min/1.73m*2 >90 Calcium 8.6 - 10.3 mg/dL 9.7 Albumin 3.4 - 5.0 g/dL 4.5 Alkaline Phosphatase 33 - 110 U/L 45 Total Protein 6.4 - 8.2 g/dL 7.9 AST 9 - 39 U/L 48 (H) Bilirubin Total 0.0 - 1.2 mg/dL 1.2 ALT 7 - 45 U/L 87 (H) Albumin, Urine Random Not established mg/L <7.0 Creatinine, Urine Random 20.0 - 320.0 mg/dL 71.3 Albumin/Creatinine Ratio -- Hemoglobin A1C see below % 5.9 (H) Estimated Average Glucose Not Established mg/dL 123 Vitamin B12 211 - 911 pg/mL 345 Vitamin D, 25-Hydroxy, Total 30 - 100 ng/mL 48 Impression MDM 1) COMPLEXITY: MORE THAN 1 STABLE CHRONIC CONDITION ADDRESSED 2)DATA: TESTS INTERPRETED AND OR ORDERED, TOOK INDEPENDENT HISTORY OR RECORDS REVIEWED 3)RISK: MODERATE RISK DUE TO NATURE OF MEDICAL CONDITIONS/COMORBIDITY OR MEDICATIONS ORDERED OR SURGICAL OR PROCEDURE REFERRAL, . Reviewed labs and Testing on file Patient to follow diet low in cholesterol, fat, and sodium. Patient is advised to increase Exercise. Patient is recommended to lose weight. Reviewed Meds and discussed common side effects Continue as directed DM - well controlled Fatty liver - well controlled Vit D - cont on meds B12 - start on meds Rash - likely bacterial - will do trial of Abx DM kidney protection in addition to HTN - start on lisinopril Suggest follow up in 6mo with labs and med check Patient is strongly advised to be compliant with recommendations. Return to Clinic sooner if needed. Patient denies further questions/concerns at this time Assessment/Plan Problem List Items Addressed This Visit ICD-10-CM Class 2 obesity due to excess calories without serious comorbidity with body mass index (BMI) of 39.0 to 39.9 in adult E66.09, Z68.39 Relevant Medications semaglutide (OZEMPIC) 1 mg/dose (4 mg/3 mL) pen injector Type 2 diabetes mellitus with hyperglycemia, without long-term current use of insulin (Multi) - Primary E11.65 Relevant Medications semaglutide (OZEMPIC) 1 mg/dose (4 mg/3 mL) pen injector Other Relevant Orders CBC and Auto Differential Comprehensive Metabolic Panel Hemoglobin A1C Magnesium Vitamin D deficiency E55.9 Relevant Orders Vitamin D 25-Hydroxy,Total (for eval of Vitamin D levels) PCOS (polycystic ovarian syndrome) E28.2 Low vitamin B12 level R79.89 Relevant Medications cyanocobalamin (Vitamin B-12) 1,000 mcg tablet Other Relevant Orders Vitamin B12 Hypertension associated with diabetes (Multi) E11.59, I15.2 Relevant Medications lisinopril 10 mg tablet Other Visit Diagnoses Codes Rash and other nonspecific skin eruption R21 Relevant Medications amoxicillin-pot clavulanate (Augmentin) 875-125 mg tablet FU in 6 mo with labs at [facility] fasting and med check ___ Note was fully documented and signed the day she was seen - Apr 14, However Apr 19 I had notification the note was not completed. I got into patients chart and half of my documentation was missing in addition to the note not being signed or billing dropped. I have re-completed the documentation and dropped the charges again. documented in this encounter [facility] Work Phone: 01-13-2024 History of Present illness Narrative Subjective Patient ID: Gregory Lacy is a 18 y.o. female who presents for Follow-up (PT STARTED A NEW JOB AND NEEDS IMMUNIZATIONS/PHYSICAL ) HPI Patient presents today for Job physical Pt denies symptoms or concerns that she feels would negative affect her ability to care for kids She needs a tetanus booster and once this is completed and proof we can complete the form for her Labs med check Hx of Kidney stones -CT apr 2022- denies ever having procedure or seeing specialist for this Gallstones - - seen on CT apr 2022- rarely has flare up so cont to monitor Fatty liver - CT apr 2022 - working on diet and ex GERD- hx on PPI but not recently - no longer relief with tums PCOS ? - hx of irregular menses other than when she was on BCP. Denies known cycst but admits to inc facial hair Borderline BS -hx on metformin years ago for this Borderline HTN - denies being on meds in the past for this Hx of anxiety /depression - stable off meds Preventative testing PAP Mammo DEXA Colon Fall - NEG DECEMBER 2023 PHQ2 NEG DECEMBER 2023 Patient Active Problem List Diagnosis Fatty liver Gallstones Renal calculi Excess body and facial hair Class 3 severe obesity due to excess calories without serious comorbidity with body mass index (BMI) of 40.0 to 44.9 in adult (Multi) Glucose intolerance (impaired glucose tolerance) Hypercholesterolemia Gastroesophageal reflux disease without esophagitis Vitamin D deficiency Review of Systems Constitutional: Negative for chills, fatigue and fever. HENT: Negative for congestion, rhinorrhea, sinus pain, sore throat and tinnitus. Eyes: Negative for discharge, redness and visual disturbance. Respiratory: Negative for cough, chest tightness, shortness of breath and wheezing. Cardiovascular: Negative for chest pain, palpitations and leg swelling. Gastrointestinal: Negative for abdominal pain, constipation, diarrhea, nausea and vomiting. Endocrine: Negative for cold intolerance and heat intolerance. Genitourinary: Negative for flank pain, frequency and urgency. Musculoskeletal: Negative for back pain, gait problem and neck pain. Skin: Negative for rash and wound. Neurological: Negative for dizziness, tremors, syncope, numbness and headaches. Hematological: Does not bruise/bleed easily. Psychiatric/Behavioral: Negative for confusion, sleep disturbance and suicidal ideas. Past Medical History: Diagnosis Date Abnormal weight gain 12/24/2023 Acquired acanthosis nigricans 12/24/2023 Acute bacterial sinusitis 12/24/2023 Comment on above: Added by Problem List Migration; 2012-11-14; Moved to [facility] Jul 11 2013 9:35PM; Acute bilateral otitis media 12/24/2023 Acute erythematous eruption of skin 12/24/2023 Acute pain of both ears 12/24/2023 Allergic rhinitis 12/24/2023 Anxiety 12/24/2023 Anxiety 12/29/2017 Diarrhea, unspecified 10/29/2016 Diarrhea, unspecified type Encounter for immunization 07/21/2015 Encounter for immunization Fatty liver 04/24/2022 Folliculitis 12/24/2023 Folliculitis 12/24/2023 Gallstones 04/24/2022 History of endocrine disorder 12/24/2023 Impacted cerumen of left ear 12/24/2023 Insulin resistance 12/24/2023 Kidney stone 04/24/2022 Obesity 12/24/2023 Obesity with body mass index 30 or greater 12/24/2023 Obesity, Class II, BMI 35-39.9 04/07/2022 Overweight 12/24/2023 Paronychia of toe of right foot 12/24/2023 Personal history of diseases of the skin and subcutaneous tissue 09/29/2015 History of seborrheic dermatitis Personal history of other diseases of the digestive system 10/29/2016 History of constipation Right upper quadrant pain 10/29/2016 Abdominal pain, RUQ Sore throat 12/24/2023 Unilateral otalgia 12/24/2023 Unspecified visual loss 04/30/2013 Vision problems Urinary tract infection without hematuria 04/24/2022 History reviewed. No pertinent surgical history. Family History Problem Relation Name Age of Onset No Known Problems Mother Alcohol abuse Father Depression Mother's Sister Anxiety disorder Mother's Sister Depression Mother's Brother Hypertension Maternal Grandmother Muscular dystrophy Maternal Grandfather Stroke Maternal Grandfather Bipolar disorder Paternal Grandmother Alcohol abuse Paternal Grandmother Alcohol abuse Paternal Grandfather Social History Tobacco Use Smoking status: Never Smokeless tobacco: Never Vaping Use Vaping status: Never Used Substance Use Topics Alcohol use: Never Drug use: Never No Known Allergies Current Outpatient Medications Medication Sig Dispense Refill omeprazole (PriLOSEC) [address] capsule Take 1 capsule (20 mg) by mouth once daily. Do not crush or chew. 30 capsule 5 No current facility-administered medications for this visit. Objective BP 136/86 Pulse 99 Ht 1.6 m (5' 3) Wt 102 kg (225 lb) BMI 39.86 kg/m Physical Exam Vitals reviewed. Constitutional: Appearance: Normal appearance. She is obese. HENT: Head: Normocephalic. Right Ear: External ear normal. Left Ear: External ear normal. Nose: Nose normal. No congestion or rhinorrhea. Mouth/Throat: Mouth: Mucous membranes are moist. Eyes: Extraocular Movements: Extraocular movements intact. Conjunctiva/sclera: Conjunctivae normal. Pupils: Pupils are equal, round, and reactive to light. Cardiovascular: Rate and Rhythm: Normal rate and regular rhythm. Pulses: Normal pulses. Pulmonary: Effort: Pulmonary effort is normal. Breath sounds: Normal breath sounds. Abdominal: General: Bowel sounds are normal. Palpations: Abdomen is soft. Tenderness: There is no abdominal tenderness. There is no right CVA tenderness or left CVA tenderness. Musculoskeletal: General: No tenderness. Normal range of motion. Cervical back: Normal range of motion and neck supple. No tenderness. Skin: General: Skin is warm and dry. Neurological: General: No focal deficit present. Mental Status: She is alert and oriented to person, place, and time. Psychiatric: Mood and Affect: Mood normal. Behavior: Behavior normal. Testing Component Latest Ref [facility] 01/04/2024 LEUKOCYTES (10*3/UL) IN BLOOD BY AUTOMATED COUNT, [facility] 4.4 - 11.3 x10*3/uL 8.5 nRBC 0.0 - 0.0 /100 WBCs 0.0 ERYTHROCYTES (10*6/UL) IN BLOOD BY AUTOMATED COUNT, [facility] 4.00 - 5.20 x10*6/uL 4.81 HEMOGLOBIN 12.0 - 16.0 g/dL 14.1 HEMATOCRIT 36.0 - 46.0 % 42.9 MCV 80 - 100 fL 89 MCH 26.0 - 34.0 pg 29.3 MCHC 32.0 - 36.0 g/dL 32.9 RED CELL DISTRIBUTION WIDTH 11.5 - 14.5 % 12.4 PLATELETS (10*3/UL) IN BLOOD AUTOMATED COUNT, [facility] 150 - 450 x10*3/uL 394 NEUTROPHILS/100 LEUKOCYTES IN BLOOD BY AUTOMATED COUNT, [facility] 40.0 - 80.0 % 57.4 Immature Granulocytes %, Automated 0.0 - 0.9 % 0.2 Lymphocytes % 13.0 - 44.0 % 31.3 Monocytes % 2.0 - 10.0 % 7.5 Eosinophils % 0.0 - 6.0 % 3.1 Basophils % 0.0 - 2.0 % 0.5 NEUTROPHILS (10*3/UL) IN BLOOD BY AUTOMATED COUNT, [facility] 1.20 - 7.70 x10*3/uL 4.89 Immature Granulocytes Absolute, Automated 0.00 - 0.70 x10*3/uL 0.02 Lymphocytes Absolute 1.20 - 4.80 x10*3/uL 2.66 Monocytes Absolute 0.10 - 1.00 x10*3/uL 0.64 Eosinophils Absolute 0.00 - 0.70 x10*3/uL 0.26 Basophils Absolute 0.00 - 0.10 x10*3/uL 0.04 GLUCOSE 74 - 99 mg/dL 171 (H) SODIUM 136 - 145 mmol/L 137 POTASSIUM 3.5 - 5.3 mmol/L 4.4 CHLORIDE 98 - 107 mmol/L 103 Bicarbonate 21 - 32 mmol/L 23 Anion Gap 10 - 20 mmol/L 15 Blood Urea Nitrogen 6 - 23 mg/dL 7 Creatinine 0.50 - 1.05 mg/dL 0.62 EGFR >60 mL/min/1.73m*2 >90 Calcium 8.6 - 10.3 mg/dL 9.4 Albumin 3.4 - 5.0 g/dL 4.4 Alkaline Phosphatase 33 - 110 U/L 53 Total Protein 6.4 - 8.2 g/dL 7.3 AST 9 - 39 U/L 180 (H) Bilirubin Total 0.0 - 1.2 mg/dL 1.0 ALT 7 - 45 U/L 217 (H) CHOLESTEROL 0 - 199 mg/dL 153 HDL CHOLESTEROL mg/dL 33.0 Cholesterol/HDL Ratio 4.6 LDL Calculated <=109 mg/dL 92 VLDL 0 - 40 mg/dL 28 TRIGLYCERIDES 0 - 149 mg/dL 141 Non HDL Cholesterol 0 - 119 mg/dL 120 (H) Hemoglobin A1C see below % 8.7 (H) Estimated Average Glucose Not Established mg/dL 203 Testosterone, Free 0.1 - 6.4 pg/mL 12.2 (H) Testosterone, Total, LC-MS/MS 2 - 45 ng/dL 45 Thyroid Stimulating Hormone 0.44 - 3.98 mIU/L 3.02 Thyroxine, Free 0.61 - 1.12 ng/dL 0.63 MAGNESIUM 1.60 - 2.40 mg/dL 1.72 Vitamin B12 211 - 911 pg/mL 369 Vitamin D, 25-Hydroxy, Total 30 - 100 ng/mL 21 (L) DHEA 1.330 - 7.780 ng/mL 6.141 FOLLICLE STIMULATING HORMONE IU/L 4.8 LH IU/L 6.1 Estrogen pg/mL 291 Progesterone ng/mL 0.6 HCG, Beta-Quantitative <5 mIU/mL <2 Impression MDM 1) COMPLEXITY: 1 UNDIAGNOSED NEW PROBLEM WITH UNCERTAIN PROGNOSIS 2)DATA: TESTS INTERPRETED AND OR ORDERED, TOOK INDEPENDENT HISTORY OR RECORDS REVIEWED 3)RISK: MODERATE RISK DUE TO NATURE OF MEDICAL CONDITIONS/COMORBIDITY OR MEDICATIONS ORDERED OR SURGICAL OR PROCEDURE REFERRAL, . Reviewed labs and Testing on file Patient to follow diet low in cholesterol, fat, and sodium. Patient is advised to increase Exercise. Patient is recommended to lose weight. Reviewed Meds and discussed common side effects Continue as directed New diabetes - and not a good candidate for metformin given her liver - will try ozempic Discussed the benefit of statin as a diabetic but given her LFT will place on hold Discussed the benefit of ACEI as a diabetic - will consider adding this on in the near future Discussed the benefit of eye and foot exams Elevated LFT - hopefully will improve with weight loss and diet and ex. Consider gallbladder contributing factor too - will monitor labs and pending her levels consider referral to hep Suspect PCOS given her testosterone level, symptoms and irreg menses - unfort she is not an ideal candidate for BCP, aldactone and metformin until her liver levels are better. Will try ozempic and start referral to [facility] for further eval Pt advised to start pre--jose Will start on vit D supplement Suggest follow up in 3 mo with labs Follow up sooner for BS log check Will complete work physical form pending approp vaccines completed Patient is strongly advised to be compliant with recommendations. Return to Clinic sooner if needed. Patient denies further questions/concerns at this time Assessment/Plan Problem List Items Addressed This Visit ICD-10-CM Fatty liver K76.0 Excess body and facial hair L68.9 Class 2 obesity due to excess calories without serious comorbidity with body mass index (BMI) of 39.0 to 39.9 in adult E66.09, Z68.39 Relevant Medications semaglutide 0.25 mg or 0.5 mg (2 mg/3 mL) pen injector (Start on 01/17/2024) Type 2 diabetes mellitus with hyperglycemia, without long-term current use of insulin (Multi) - Primary E11.65 Relevant Medications semaglutide 0.25 mg or 0.5 mg (2 mg/3 mL) pen injector (Start on 01/17/2024) flash glucose sensor kit (FreeStyle Ivan 2 Sensor) kit flash glucose scanning reader (FreeStyle Ivan 2 [place]) misc Other Relevant Orders Albumin , Urine Random CBC and Auto Differential Comprehensive Metabolic Panel Hemoglobin A1C Vitamin D deficiency E55.9 Relevant Medications ergocalciferol (Vitamin D-2) 1.25 MG (92580 UT) capsule (Start on 01/17/2024) Other Relevant Orders Vitamin D 25-Hydroxy,Total (for eval of Vitamin D levels) PCOS (polycystic ovarian syndrome) E28.2 Relevant Medications semaglutide 0.25 mg or 0.5 mg (2 mg/3 mL) pen injector (Start on 01/17/2024) Other Relevant Orders Referral to Gynecology Low vitamin B12 level R79.89 Relevant Orders Vitamin B12 Fu in 4-6 weeks with BS log check /med check Fu in 3 mo with labs at [facility] fasting and med check Referral to [facility]PER[facility] - lanie- suspected PCOS documented in this encounter [facility] Work Phone: 12-24-2023 History of Present illness Narrative Subjective Patient ID: Gregory Lacy is a 18 y.o. female who presents for New Patient Visit (PT STATES SHE HAS NOT HAD A PERIOD IN OVER A YEAR AND SHE IS NOT ON BC AT THIS TIME. DID GET OFF BC 3 YEARS AGO AND AFTER SHE GOT OFF SHE WOULD HAVE REG PERIODS AND THEN DIDN'T GET HER PERIOD FOR 9 MONTHS INTO A YEAR. DX WITH KIDNEY STONES AND GALL STONES X1YEAR AGO. C/O HEART BURN X2 MONTHS. SHE DID TAKE TUMS BEFORE NOW THEY AREN'T EFFECTIVE ANYMORE. ) HPI Patient presents today for... 1 est as new patient 2 med check Hx of Kidney stones -CT apr 2022- denies ever having procedure or seeing specialist for this Gallstones - - seen on CT apr 2022- rarely has flare up so cont to monitor Fatty liver - CT apr 2022 - working on diet and ex GERD- hx on PPI but not recently - no longer relief with tums PCOS ? - hx of irregular menses other than when she was on BCP. Denies known cycst but admits to inc facial hair Borderline BS -hx on metformin years ago for this Borderline HTN - denies being on meds in the past for this Hx of anxiety /depression - stable off meds Preventative testing PAP Mammo DEXA Colon Patient Active Problem List Diagnosis (none) - all problems resolved or deleted Review of Systems Constitutional: Positive for fatigue. Negative for chills and fever. HENT: Negative for congestion, rhinorrhea, sinus pain, sore throat and tinnitus. Eyes: Negative for discharge, redness and visual disturbance. Respiratory: Negative for cough, chest tightness, shortness of breath and wheezing. Cardiovascular: Negative for chest pain, palpitations and leg swelling. Gastrointestinal: Negative for abdominal pain, constipation, diarrhea, nausea and vomiting. Endocrine: Negative for cold intolerance and heat intolerance. Genitourinary: Positive for menstrual problem. Negative for flank pain, frequency and urgency. Musculoskeletal: Negative for back pain, gait problem and neck pain. Skin: Negative for rash and wound. Neurological: Negative for dizziness, tremors, syncope, numbness and headaches. Hematological: Does not bruise/bleed easily. Psychiatric/Behavioral: Negative for confusion, sleep disturbance and suicidal ideas. Past Medical History: Diagnosis Date Abnormal weight gain 12/24/2023 Acquired acanthosis nigricans 12/24/2023 Acute bacterial sinusitis 12/24/2023 Comment on above: Added by Problem List Migration; 2012-11-14; Moved to [facility] Jul 11 2013 9:35PM; Acute bilateral otitis media 12/24/2023 Acute erythematous eruption of skin 12/24/2023 Acute pain of both ears 12/24/2023 Allergic rhinitis 12/24/2023 Anxiety 12/24/2023 Anxiety 12/29/2017 Diarrhea, unspecified 10/29/2016 Diarrhea, unspecified type Encounter for immunization 07/21/2015 Encounter for immunization Fatty liver 04/24/2022 Folliculitis 12/24/2023 Folliculitis 12/24/2023 Gallstones 04/24/2022 History of endocrine disorder 12/24/2023 Impacted cerumen of left ear 12/24/2023 Insulin resistance 12/24/2023 Kidney stone 04/24/2022 Obesity 12/24/2023 Obesity with body mass index 30 or greater 12/24/2023 Obesity, Class II, BMI 35-39.9 04/07/2022 Overweight 12/24/2023 Paronychia of toe of right foot 12/24/2023 Personal history of diseases of the skin and subcutaneous tissue 09/29/2015 History of seborrheic dermatitis Personal history of other diseases of the digestive system 10/29/2016 History of constipation Right upper quadrant pain 10/29/2016 Abdominal pain, RUQ Sore throat 12/24/2023 Unilateral otalgia 12/24/2023 Unspecified visual loss 04/30/2013 Vision problems Urinary tract infection without hematuria 04/24/2022 History reviewed. No pertinent surgical history. Family History Problem Relation Name Age of Onset No Known Problems Mother Alcohol abuse Father Depression Mother's Sister Anxiety disorder Mother's Sister Depression Mother's Brother Hypertension Maternal Grandmother Muscular dystrophy Maternal Grandfather Stroke Maternal Grandfather Bipolar disorder Paternal Grandmother Alcohol abuse Paternal Grandmother Alcohol abuse Paternal Grandfather Social History Tobacco Use Smoking status: Never Smokeless tobacco: Never Vaping Use Vaping status: Never Used Substance Use Topics Alcohol use: Never Drug use: Never No Known Allergies No current outpatient medications on file. No current facility-administered medications for this visit. Objective Ht 1.6 m (5' 3) Wt 103 kg (227 lb) BMI 40.21 kg/m Physical Exam Vitals reviewed. Constitutional: Appearance: Normal appearance. She is obese. HENT: Head: Normocephalic. Right Ear: External ear normal. Left Ear: External ear normal. Nose: Nose normal. No congestion or rhinorrhea. Mouth/Throat: Mouth: Mucous membranes are moist. Eyes: Extraocular Movements: Extraocular movements intact. Conjunctiva/sclera: Conjunctivae normal. Pupils: Pupils are equal, round, and reactive to light. Cardiovascular: Rate and Rhythm: Normal rate and regular rhythm. Pulses: Normal pulses. Pulmonary: Effort: Pulmonary effort is normal. Breath sounds: Normal breath sounds. Abdominal: General: Bowel sounds are normal. Palpations: Abdomen is soft. Tenderness: There is no abdominal tenderness. There is no right CVA tenderness or left CVA tenderness. Musculoskeletal: General: No tenderness. Normal range of motion. Cervical back: Normal range of motion and neck supple. No tenderness. Skin: General: Skin is warm and dry. Neurological: General: No focal deficit present. Mental Status: She is alert and oriented to person, place, and time. Psychiatric: Mood and Affect: Mood normal. Behavior: Behavior normal. Testing Reviewed old labs and testing on file Impression MDM 1) COMPLEXITY: 1 UNDIAGNOSED NEW PROBLEM WITH UNCERTAIN PROGNOSIS 2)DATA: TESTS INTERPRETED AND OR ORDERED, TOOK INDEPENDENT HISTORY OR RECORDS REVIEWED 3)RISK: MODERATE RISK DUE TO NATURE OF MEDICAL CONDITIONS/COMORBIDITY OR MEDICATIONS ORDERED OR SURGICAL OR PROCEDURE REFERRAL, . Reviewed labs and Testing on file Patient to follow diet low in cholesterol, fat, and sodium. Patient is advised to increase Exercise. Patient is recommended to lose weight. Reviewed Meds and discussed common side effects Continue as directed Suspected PCOS - will check labs - consider est with [facility] Discussed possible meds to assist with many symptoms Dyspepsia - start on PPI x 1 mo and taper off if tolerated Discussed weight loss options but start with gen labs for baseline first Consider need for sleep study Patient is strongly advised to be compliant with recommendations. Return to Clinic sooner if needed. Patient denies further questions/concerns at this time Assessment/Plan Problem List Items Addressed This Visit ICD-10-CM Fatty liver K76.0 Gallstones K80.20 Renal calculi N20.0 Excess body and facial hair L68.9 Relevant Orders Testosterone,Free and Total DHEA FSH Luteinizing hormone Estrogens, Total Progesterone HCG, quantitative, Class 3 severe obesity due to excess calories without serious comorbidity with body mass index (BMI) of 40.0 to 44.9 in adult (Multi) E66.01, Z68.41 Glucose intolerance (impaired glucose tolerance) R73.02 Relevant Orders CBC and Auto Differential Comprehensive Metabolic Panel Hemoglobin A1C Magnesium Vitamin B12 Hypercholesterolemia E78.00 Relevant Orders Lipid Panel Thyroid Stimulating Hormone Thyroxine, Free Magnesium Vitamin B12 Gastroesophageal reflux disease without esophagitis - Primary K21.9 Relevant Medications omeprazole (PriLOSEC) [address] capsule Vitamin D deficiency E55.9 Relevant Orders Vitamin D 25-Hydroxy,Total (for eval of Vitamin D levels) Other Visit Diagnoses Codes Missed menses N92.6 Relevant Orders Testosterone,Free and Total DHEA FSH Luteinizing hormone Estrogens, Total Progesterone HCG, quantitative, FU in 1-2 mo with labs at [facility] fasting and med check documented in this encounter [facility] Work Phone: 11-08-2022 Note HNO ID: [id number] Author: Micheline Elmore APRN.[employer] Service: ? Author Type: Nurse Practitioner Type: Progress Notes Filed: 11/08/2022 3:50 PM Note Text: This is an Express [facility] eVisit note for Gregory Lacy eVisit/Questionnaire reviewed The chief complaint for the visit - Patient presents with: Eye Problem Urinary Problem Recommendations/Treatment plan - See My Chart Message to patient Micheline Elmore APRN.CNP I spent <5 minutes on this eVisit in chart review and coordination of care. [facility] 11-08-2022 History of Present illness Narrative This is an Express Care eVisit note for Gregory Lacy eVisit/Questionnaire reviewed The chief complaint for the visit - Patient presents with: Eye Problem Urinary Problem Recommendations/Treatment plan - See My Chart Message to patient Micheline Elmore APRN.CNP I spent <5 minutes on this eVisit in chart review and coordination of care. documented in this encounter [facility] 04-07-2022 Note HNO ID: [id number] Author: Sarah Alcazar MD Service: ? Author Type: Physician Type: Progress Notes Filed: 04/07/2022 3:11 PM Note Text: SUBJECTIVE: Gregory Lacy is a 17 year old female here today for follow up. She follows with different physician for gynecological exams. She is performing self-breast exams? Yes Any concerns about her breasts? No Any family history of breast cancer? No Patient's last menstrual period was 03/08/2022. Her medications were reviewed today and her list is now up to date. She is compliant on taking her medications :Yes She is tolerating her medication(s) without side effects: Yes She is trying to eat a balanced diet: Yes REVIEW OF SYSTEMS: Problems with vision? No Problems with hearing? No Chest pains? No Shortness of breath? No Changes in bowel function? No Changes in urination? No Changes in mood? No GENERAL: No weight loss, malaise or fevers., SEE HPI HEENT: Negative for frequent or significant headaches, No changes in hearing or vision, no nose bleeds or other nasal problems NECK: Negative for lumps, goiter, pain and significant neck swelling RESPIRATORY: Negative for cough, wheezing or shortness of breath. CARDIOVASCULAR: Negative for chest pain, leg swelling or palpitations. GI: Negative for abdominal discomfort, blood in stools or black stools or change in bowel habits MUSCULOSKELETAL: Negative for joint pain or swelling, back pain or muscle pain. SKIN: Negative for lesions, rash, and itching. NEURO: No history of headaches, syncope, paralysis, seizures or tremors All other reviewed and negative other than HPI. No past medical history on file. No past surgical history on file. No family history on file. Social History Tobacco Use Smoking status: Never Smokeless tobacco: Never Substance Use Topics Alcohol use: Never ACTIVE PROBLEM LIST Obesity, Class II, Bmi 35-39.9 ALLERGIES No Known Allergies No current outpatient medications on file prior to visit. No current facility-administered medications on file prior to visit. PHYSICAL EXAMINATION: BP 148/88 Pulse 112 Ht 160 cm (5' 3) Wt 95.7 kg (211 lb) LMP 03/08/2022 SpO2 98% BMI 37.38 kg/m? BMI 37.38 kg/(m2) General appearance: Well appearing, alert, in no acute distress, well-hydrated, well nourished. Skin: Skin color, texture, turgor normal, no suspicious rashes Nose/Sinuses: Nares normal, septum midline, mucosa normal, no drainage or sinus tenderness Oropharynx: Lips, mucosa, and tongue normal, teeth and gums normal, oropharynx normal Neck: Supple, no adenopathy; thyroid symmetric, normal size, no bruits Lungs: Lungs clear to auscultation. No wheezing, rhonchi, rales Heart: RRR without murmur, gallop, or rubs. No ectopy Abdomen: Normal abdominal exam, Abdomen soft, non-tender. Bowel sounds normal. No masses, organomegaly. Extremities: No deformities, edema, skin discoloration, clubbing or cyanosis. Good capillary refill. ASSESSMENT/PLAN: 1. Hypertension, unspecified type - ICD9: 401.9, ICD10: I10 (primary diagnosis) - suboptimal control - Encouraged dietary sodium restriction/DASH diet - Recommended regular aerobic exercise. - Recommend home blood pressure monitoring, to bring results in on next visit - Goal of BP <130/80 - start Bystolic 2.5 mg daily 2. Chronic migraine without aura without status migrainosus, not intractable - ICD9: 346.70, ICD10: G43.709 - on topamax, f/u Dr Ward 3. Epistaxis - ICD9: 784.7, ICD10: R04.0 - resolved with cauterization Sarah Alcazar MD Common side effects of medications discussed. Patient agrees and verbalizes understanding. Follow up sooner should any issues arise. [facility] 03-09-2022 Note COVID 19 RESULT: SARS-CoV-2 (Agent of COVID-19) Detected by RT-PCR or equivalent method. This test has been authorized by FDA under an Emergency Use Authorization (EUA). INFLUENZA A PCR: Negative for Influenza A by RT-PCR INFLUENZA B PCR: Negative for Influenza B by RT-PCR RSV PCR: Negative for Respiratory Syncytial Virus (RSV) by PCR [facility] Comment on above: Performed By: #### 9 [id number] #### [facility] CLIA [id number] [place] [address] [place] 03-03-2022 Note HNO ID: [id number] Author: Sarah Alcazar MD Service: ? Author Type: Physician Type: Progress Notes Filed: 03/04/2022 5:55 PM Note Text: SUBJECTIVE: Gregory Lacy is a 17 year old female here today for an annual physical. I reviewed her past medical, surgical, social, and family histories today and updated chart. Allergies, chronic medications, and supplements were also reviewed and her list is now up to date. She follows with different physician for gynecological exams. She is performing self-breast exams? Yes Any concerns about her breasts? No Any family history of breast cancer? No Patient's last menstrual period was 09/02/2015. Her medications were reviewed today and her list is now up to date. She is compliant on taking her medications :Yes She is tolerating her medication(s) without side effects: Yes She is trying to eat a balanced diet: Yes REVIEW OF SYSTEMS: Problems with vision? No Problems with hearing? No Chest pains? No Shortness of breath? No Changes in bowel function? No Changes in urination? No Changes in mood? No GENERAL: No weight loss, malaise or fevers., SEE HPI HEENT: Negative for frequent or significant headaches, No changes in hearing or vision, no nose bleeds or other nasal problems NECK: Negative for lumps, goiter, pain and significant neck swelling RESPIRATORY: Negative for cough, wheezing or shortness of breath. CARDIOVASCULAR: Negative for chest pain, leg swelling or palpitations. GI: Negative for abdominal discomfort, blood in stools or black stools or change in bowel habits MUSCULOSKELETAL: Negative for joint pain or swelling, back pain or muscle pain. SKIN: Negative for lesions, rash, and itching. NEURO: No history of headaches, syncope, paralysis, seizures or tremors All other reviewed and negative other than HPI. No past medical history on file. No past surgical history on file. No family history on file. Social History Tobacco Use - Smoking status: Never Smoker - Smokeless tobacco: Never Used Substance Use Topics - Alcohol use: Never - Drug use: Not on file There is no problem list on file for this patient. ALLERGIES No Known Allergies No current outpatient medications on file prior to visit. No current facility-administered medications on file prior to visit. PHYSICAL EXAMINATION: Ht 160 cm (5' 3) Wt 94.8 kg (209 lb) LMP 09/02/2015 BMI 37.02 kg/m? BMI 37.02 kg/(m2) General appearance: Well appearing, alert, in no acute distress, well-hydrated, well nourished. Skin: Skin color, texture, turgor normal, no suspicious rashes Nose/Sinuses: Nares normal, septum midline, mucosa normal, no drainage or sinus tenderness Oropharynx: Lips, mucosa, and tongue normal, teeth and gums normal, oropharynx normal Neck: Supple, no adenopathy; thyroid symmetric, normal size, no bruits Lungs: Lungs clear to auscultation. No wheezing, rhonchi, rales Heart: RRR without murmur, gallop, or rubs. No ectopy Abdomen: Normal abdominal exam, Abdomen soft, non-tender. Bowel sounds normal. No masses, organomegaly. Extremities: No deformities, edema, skin discoloration, clubbing or cyanosis. Good capillary refill. ASSESSMENT/PLAN: 1. Hypertension, unspecified type - ICD9: 401.9, ICD10: I10 (primary diagnosis) - suboptimal control - Encouraged dietary sodium restriction/DASH diet - Recommended regular aerobic exercise. - Recommend home blood pressure monitoring, to bring results in on next visit - Goal of BP <130/80 - COMP METABOLIC PANEL - CBC + DIFF - ALBUMIN/CREAT RATIO RND UR - LIPID PANEL BASIC - MAGNESIUM BLD - VITAMIN D 25 HYDROXY - VITAMIN B12 BLOOD - TSH BLD - URINALYSIS, DIPSTICK ONLY - ECHO - PERFLUTREN LIPID MICROSPHERES 1.1 MG/ML INJECTION IN NS 10 ML - SODIUM CHLORIDE 0.9 % (FLUSH) INJECTION SYRINGE - EKG WITH INTERPRETATION - US RENAL ARTERY [facility] 2. Chronic migraine without aura without status migrainosus, not intractable - ICD9: 346.70, ICD10: G43.709 - on topamax, f/u Dr Ward 3. Epistaxis - ICD9: 784.7, ICD10: R04.0 - CONSULT TO ENT Sarah Alcazar MD Common side effects of medications discussed. Patient agrees and verbalizes understanding. Follow up sooner should any issues arise. [facility] 03-03-2022 History of Present illness Narrative SUBJECTIVE: Gregory Lacy is a 17 year old female here today for an annual physical. I reviewed her past medical, surgical, social, and family histories today and updated chart. Allergies, chronic medications, and supplements were also reviewed and her list is now up to date. She follows with different physician for gynecological exams. She is performing self-breast exams? Yes Any concerns about her breasts? No Any family history of breast cancer? No Patient's last menstrual period was 09/02/2015. Her medications were reviewed today and her list is now up to date. She is compliant on taking her medications :Yes She is tolerating her medication(s) without side effects: Yes She is trying to eat a balanced diet: Yes REVIEW OF SYSTEMS: Problems with vision? No Problems with hearing? No Chest pains? No Shortness of breath? No Changes in bowel function? No Changes in urination? No Changes in mood? No GENERAL: No weight loss, malaise or fevers., SEE HPI HEENT: Negative for frequent or significant headaches, No changes in hearing or vision, no nose bleeds or other nasal problems NECK: Negative for lumps, goiter, pain and significant neck swelling RESPIRATORY: Negative for cough, wheezing or shortness of breath. CARDIOVASCULAR: Negative for chest pain, leg swelling or palpitations. GI: Negative for abdominal discomfort, blood in stools or black stools or change in bowel habits MUSCULOSKELETAL: Negative for joint pain or swelling, back pain or muscle pain. SKIN: Negative for lesions, rash, and itching. NEURO: No history of headaches, syncope, paralysis, seizures or tremors All other reviewed and negative other than HPI. No past medical history on file. No past surgical history on file. No family history on file. Social History Tobacco Use Smoking status: Never Smoker Smokeless tobacco: Never Used Substance Use Topics Alcohol use: Never Drug use: Not on file There is no problem list on file for this patient. ALLERGIES No Known Allergies No current outpatient medications on file prior to visit. No current facility-administered medications on file prior to visit. PHYSICAL EXAMINATION: Ht 160 cm (5' 3) Wt 94.8 kg (209 lb) LMP 09/02/2015 BMI 37.02 kg/m BMI 37.02 kg/(m^2) General appearance: Well appearing, alert, in no acute distress, well-hydrated, well nourished. Skin: Skin color, texture, turgor normal, no suspicious rashes Nose/Sinuses: Nares normal, septum midline, mucosa normal, no drainage or sinus tenderness Oropharynx: Lips, mucosa, and tongue normal, teeth and gums normal, oropharynx normal Neck: Supple, no adenopathy; thyroid symmetric, normal size, no bruits Lungs: Lungs clear to auscultation. No wheezing, rhonchi, rales Heart: RRR without murmur, gallop, or rubs. No ectopy Abdomen: Normal abdominal exam, Abdomen soft, non-tender. Bowel sounds normal. No masses, organomegaly. Extremities: No deformities, edema, skin discoloration, clubbing or cyanosis. Good capillary refill. ASSESSMENT/PLAN: 1. Hypertension, unspecified type - ICD9: 401.9, ICD10: I10 (primary diagnosis) - suboptimal control - Encouraged dietary sodium restriction/DASH diet - Recommended regular aerobic exercise. - Recommend home blood pressure monitoring, to bring results in on next visit - Goal of BP <130/80 - COMP METABOLIC PANEL - CBC + DIFF - ALBUMIN/CREAT RATIO RND UR - LIPID PANEL BASIC - MAGNESIUM BLD - VITAMIN D 25 HYDROXY - VITAMIN B12 BLOOD - TSH BLD - URINALYSIS, DIPSTICK ONLY - ECHO - PERFLUTREN LIPID MICROSPHERES 1.1 MG/ML INJECTION IN NS 10 ML - SODIUM CHLORIDE 0.9 % (FLUSH) INJECTION SYRINGE - EKG WITH INTERPRETATION - US RENAL [facility] 2. Chronic migraine without aura without status migrainosus, not intractable - ICD9: 346.70, ICD10: G43.709 - on topamax, f/u Dr Ward 3. Epistaxis - ICD9: 784.7, ICD10: R04.0 - CONSULT TO ENT Sarah Alcazar MD Common side effects of medications discussed. Patient agrees and verbalizes understanding. Follow up sooner should any issues arise. documented in this encounter [facility] 11-01-2021 History of Present illness Narrative Patient is a 16 Y/O Presenting for EAR ACHE.Patient was last seen by LM on 11.01.2021.Patient's PCP isPatient is currently taking all medications without difficulty.Symptoms: dry cough, bilateral ear ache 8 out of 10, sore throat, fever 99.8, nausea,Length of Symptoms: 2 weeksDenies: sinus pressure, SOB, diarrhea, vomitingFactors that effect symptoms: Sudafed with minimal relief of symptomsRelated Information:Quality MetricsAWV: N/ABMI: 35.07Colon CA Screening: N/AHgB A1C: N/ALMP: N/AMammogram: N/A [facility] 100 Work Phone: 11-01-2021 History of Present illness Narrative Patient is a 16 Y/O Presenting for EAR ACHE.Patient was last seen by on 11.01.2021.Patient's PCP isPatient is currently taking all medications without difficulty.Symptoms: dry cough, bilateral ear ache 8 out of 10, sore throat, fever 99.8, nausea,Length of Symptoms: 2 weeksDenies: sinus pressure, SOB, diarrhea, vomitingFactors that effect symptoms: Sudafed with minimal relief of symptomsRelated Information:Quality MetricsAWV: N/ABMI: 35.07Colon CA Screening: N/AHgB A1C: N/ALMP: N/AMammogram: N/A [facility] 100 Work Phone: 09-11-2021 Note HNO ID: [id number] Author: Mane Benoit RT(R) Service: ? Author Type: Technologist Type: Progress Notes Filed: 09/11/2021 11:22 AM Note Text: RADIOLOGY SERVICE PROGRESS NOTE SERVICE DATE: 09/11/2021 SERVICE TIME: 11:21 AM PATIENT IDENTITY VERIFICATION COMPLETED USING TWO (2) STANDARD IDENTIFIERS: Name and Date of confirmed by patient verbally and Name and Date of confirmed by identification band FALL SCREENING: Has the patient had 2 falls in the last year or 1 fall with injury or currently using an Ambulatory Assistive Device (Walker, Cane, Wheelchair, Crutches, etc.)? No PATIENT GENDER DATA: .female : No ALLERGIES: Reviewed and unchanged MEDICATIONS REVIEWED: No PATIENT RELEVANT IMPLANT DATA REVIEWED: Not Applicable CREATININE: Creatinine Date Value Ref Range Status 01/11/2020 0.52 (L) 0.58 - 0.96 mg/dL Final Comment: Reference ranges for this patient's age group have not been established. These reference ranges reflect verified or established ranges for the adult population. Interpret these ranges with caution using the clinical context and additional reference resources. P.O.C.T. RESULTS: N/A September 11, [address] PERFORMED: No IV SITE: Ambulatory: A peripheral IV was started in the Right antecubital site with a Angio cath: 22 gauge. POST EXAM PIV STATUS: Discontinued PROCEDURE TYPE: NM INJECT: HIDA scan with EF . 5.3 mCi Tc99m CHOLETEC. No other medications given.. ADMINISTRATION TIME: 0955 PATIENT DISCHARGED TO: Ambulatory patient, left AR department area. A Diagnostic radioactive procedure has taken place, with no further precautions necessary other than routine body substance precautions. More information regarding radiation safety can be found using this link: [email or web address] SIGNATURE: PHILLIP Ryan) PATIENT NAME: Gregory Lacy DATE: September 11, 2021 TIME: 11:21 AM PAGER/CONTACT #: [facility] 07-28-2021 Note HNO ID: [id number] Author: Nivia Molina RDMS, SHERRON Service: Radiology Author Type: Police Liaison Type: Progress Notes Filed: 07/28/2021 8:04 AM Note Text: Radiology Service Progress Note PATIENT NAME: Gregory Lacy DATE OF SERVICE: July 28, 2021 TIME: 8:02 AM PATIENT IDENTITY VERIFICATION COMPLETED USING TWO (2) IDENTIFIERS: Name and Date of confirmed by patient verbally. FALL SCREENING: Has the patient had 2 falls in the last year or 1 fall with injury or currently using an Ambulatory Assistive Device (Walker, Cane, Wheelchair, Crutches, etc.)? No PATIENT GENDER DATA: Female. status: Unknown status: N/A PATIENT RELEVANT IMPLANT DATA REVIEWED: Not Applicable RADIOLOGY DEPARTMENT: Ultrasound PERIPHERAL IV DATA: Not applicable SIGNED BY: Nivia Molina RDMS, SHERRON July 28, 2021 8:02 AM [facility] 05-29-2021 History of Present illness Narrative Patient is a 16 Y/O Presenting for RASH.Patient was last seen by on 05.29.2021.Patient's PCP is MCPatient is currently taking all medications without difficulty.Symptoms: bilateral itchy rash that spreads down the side within the armpits, rash that was on neck disappeared,Length of Symptoms: 1 weekDenies: food, change on laundry soap,Factors that effect symptoms: Hydrogen peroxide,Related Information:Quality MetricsAWV: -----BMI: 34.37Colon CA Screening: ----HgB A1C: -----LMP: -----Mammogram: ---- [facility] Work Phone: 05-29-2021 History of Present illness Narrative Patient is a 16 Y/O Presenting for RASH.Patient was last seen by J on 05.29.2021.Patient's PCP is MCPatient is currently taking all medications without difficulty.Symptoms: bilateral itchy rash that spreads down the side and under the armpits, rash initially started on neck but has since resolved.Length of Symptoms: 1 weekDenies: changes in food, laundry soap, body wash, shampooFactors that effect symptoms: Hydrogen peroxide with minimal relief of symptomsQuality MetricsBMI: 34.37LMP:2 weeks ago [facility] Work Phone: 05-27-2021 History of Present illness Narrative CC: ear acheSymptoms: both ears hurt, right is worse, sore throat, occasional cough,Onset of Symptoms: few weeks agoDenies: runny / stuffy, fever, chills, headache, nausea, vomiting, diarrhea, sobFactors that Affect Symptoms: sudafed with minimal relief of symptomsRate of Pain: 7.5 out of 10Related Info: [facility] Work Phone: 05-08-2021 History of Present illness Narrative CC: ear acheSymptoms: both ears hurt, right is worse, sore throat, occasional cough,Onset of Symptoms: few weeks agoDenies: runny / stuffy, fever, chills, headache, nausea, vomiting, diarrhea, sobFactors that Affect Symptoms: sudafed with minimal relief of symptomsRate of Pain: 7.5 out of 10Related Info: [facility] Work Phone: 04-05-2021 History of Present illness Narrative CC:bilateral Ear PainSymptoms: headache (pt has history of migraines), stabbing pain in bilateral ears, feels like fluid in ear, sore throat, jaw painOnset of Symptoms: two days agoRate of pain: 7 out of 10 Left Ear. 5 out of 10 Right Ear.OTC Medicines: Topamax for migraine with minimal relief of symptomsstrep negative [place] [id number] Work Phone: Evaluation + Plan note No data available for this section [employer] Evaluation note Diagnosis Hypertension, unspecified type- Primary Chronic migraine without aura without status migrainosus, not intractable Chronic migraine without aura, without mention of intractable migraine without mention of status migrainosus Epistaxis [facility] [place] [facility] Diagnosis Hypertension, unspecified type documented in this encounter [facility]* Diagnosis Hypertension, unspecified type documented in this encounter [facility] note* Diagnosis Treatment not available- Primary Procedure not carried out for other reasons documented in this encounter [facility] note* Diagnosis Elbow pain, left Pain in joint, upper arm documented in this encounter [facility] Work Phone: Evaluation note* Diagnosis Gastroesophageal reflux disease without esophagitis- Primary Esophageal reflux Missed menses Excess body and facial hair Hirsutism Class 3 severe obesity due to excess calories without serious comorbidity with body mass index (BMI) of 40.0 to 44.9 in adult (Multi) Glucose intolerance (impaired glucose tolerance) Impaired glucose tolerance test Hypercholesterolemia Pure hypercholesterolemia Gallstones Calculus of gallbladder without mention of cholecystitis or obstruction Renal calculi Calculus of kidney Vitamin D deficiency Fatty liver Other chronic nonalcoholic liver disease documented in this encounter [facility] Work Phone: Evaluation note* Diagnosis Type 2 diabetes mellitus with hyperglycemia, without long-term current use of insulin (Multi)- Primary PCOS (polycystic ovarian syndrome) Polycystic ovaries Fatty liver Other chronic nonalcoholic liver disease Class 2 obesity due to excess calories without serious comorbidity with body mass index (BMI) of 39.0 to 39.9 in adult Vitamin D deficiency Low vitamin B12 level Excess body and facial hair Hirsutism documented in this encounter [facility] Work Phone: Evaluation note* Diagnosis Type 2 diabetes mellitus with hyperglycemia, without long-term current use of insulin (Multi)- Primary Low vitamin B12 level PCOS (polycystic ovarian syndrome) Polycystic ovaries Class 2 obesity due to excess calories without serious comorbidity with body mass index (BMI) of 39.0 to 39.9 in adult Vitamin D deficiency Rash and other nonspecific skin eruption Hypertension associated with diabetes (Multi) Unspecified essential hypertension documented in this encounter [facility] Work Phone: Evaluation note* Diagnosis Calculus of gallbladder without cholecystitis without obstruction- Primary documented in this encounter [facility] Work Phone: Evaluation note* Diagnosis Calculus of gallbladder without cholecystitis without obstruction- Primary Left flank pain Abdominal pain, unspecified site Constipation, unspecified constipation type Nephrolithiasis Calculus of kidney Hypertension associated with diabetes (Multi) Unspecified essential hypertension Type 2 diabetes mellitus with hyperglycemia, without long-term current use of insulin Class 2 obesity due to excess calories without serious comorbidity with body mass index (BMI) of 37.0 to 37.9 in adult Fatty liver Other chronic nonalcoholic liver disease Gastroesophageal reflux disease without esophagitis Esophageal reflux documented in this encounter [facility] Work Phone: Evaluation note* Diagnosis Calculus of gallbladder without cholecystitis without obstruction- Primary Calculus of gallbladder without cholecystitis without obstruction Post-operative pain Other acute postoperative pain Post-operative pain Other acute postoperative pain documented in this encounter [facility] Work Phone: Evaluation note* Diagnosis Postoperative visit- Primary documented in this encounter [facility] Work Phone: Evaluation note* Diagnosis Type 2 diabetes mellitus with hyperglycemia, without long-term current use of insulin- Primary Open abdominal incision with drainage, subsequent encounter PCOS (polycystic ovarian syndrome) Polycystic ovaries Renal calculi Calculus of kidney Fatty liver Other chronic nonalcoholic liver disease Excess body and facial hair Hirsutism Class 2 obesity due to excess calories without serious comorbidity with body mass index (BMI) of 37.0 to 37.9 in adult Hypercholesterolemia Pure hypercholesterolemia Vitamin D deficiency Low vitamin B12 level Hypertension associated with diabetes (Multi) Unspecified essential hypertension Thrombocytosis Essential thrombocythemia documented in this encounter [facility] Work Phone: Evaluation note* Diagnosis Renal calculi- Primary Calculus of kidney documented in this encounter [facility] Work Phone: Evaluation note* Diagnosis Type 2 diabetes mellitus with hyperglycemia, without long-term current use of insulin- Primary Encounter for dietary counseling and surveillance Hypertension associated with diabetes Unspecified essential hypertension PCOS (polycystic ovarian syndrome) Polycystic ovaries Class 2 obesity due to excess calories without serious comorbidity with body mass index (BMI) of 38.0 to 38.9 in adult documented in this encounter [facility] Work Phone: Evaluation note* Diagnosis Type 2 diabetes mellitus with hyperglycemia, without long-term current use of insulin (HCC) [facility] Type 2 diabetes mellitus with hyperglycemia, without long-term current use of insulin- Primary Acute midline low back pain without sciatica Acute mid back pain Hypertension associated with diabetes Unspecified essential hypertension PCOS (polycystic ovarian syndrome) Polycystic ovaries Class 2 obesity due to excess calories without serious comorbidity with body mass index (BMI) of 38.0 to 38.9 in adult Renal calculi Calculus of kidney documented in this encounter [facility] Work Phone: Evaluation note* Diagnosis Acute mid back pain documented in this encounter [facility] Work Phone: Evaluation note* Diagnosis Acute midline low back pain without sciatica documented in this encounter [facility] Work Phone: Evaluation note* Diagnosis Inadequately controlled diabetes mellitus (HCC) [E11.65]- Primary Type II or unspecified type diabetes mellitus without mention of complication, not stated as uncontrolled [facility] Renal calculi Calculus of kidney documented in this encounter [facility] Work Phone: Evaluation note* Diagnosis Flank pain- Primary Abdominal pain, unspecified site documented in this encounter [facility] Work Phone: Evaluation note* Diagnosis Inadequately controlled diabetes mellitus (HCC) [E11.65]- Primary Type II or unspecified type diabetes mellitus without mention of complication, not stated as uncontrolled [facility] Renal calculi- Primary Calculus of kidney documented in this encounter [facility] Work Phone: Evaluation note* Diagnosis Type 2 diabetes mellitus with hyperglycemia, without long-term current use of insulin- Primary Hypertension associated with diabetes Unspecified essential hypertension Hypercholesterolemia Pure hypercholesterolemia Vitamin D deficiency PCOS (polycystic ovarian syndrome) Polycystic ovaries Low vitamin B12 level Class 2 obesity due to excess calories without serious comorbidity with body mass index (BMI) of 39.0 to 39.9 in adult Fatty liver Other chronic nonalcoholic liver disease Renal calculi Calculus of kidney documented in this encounter [facility] Work Phone: Evaluation note* Diagnosis Acute pain of right shoulder documented in this encounter [facility] Work Phone: Evaluation note* Diagnosis Onset Date Resolution Status Admit Date Encounter for routine gynecological examination noneactive Octobe r 2024 3:33pm [facility] [employer] Work Phone: History of Present illness Narrative* Mitchell Telles MD - 09/22/2024 1:15 PM EST General Surgery Post-Operative Visit Patient: Gregory Lacy : 2005 Date of Visit: 09/22/24 Chief Complaint: s/p laparoscopic cholecystectomy History of Present Illness: Gregory Lacy is a 19 y.o. old female s/p laparoscopic cholecystectomyon 09/07/24 for symptomatic cholelithiasis. Surgical pathology showed cholelithiasis. Prior to surgery, she was having postprandial right upper quadrant abdominal pain that was occurring a couple times per month. Since surgery, has completely resolved. She still gets intermittent left sided pain, but she has a known kidney stone on that side. She is tolerating a diet. She has had a few loose bowelmovements after eating, most recently after eating Swiss food. She had a little bit of drainage from her supraumbilical incision but this has stopped. She now has a small scab in the area that it was previously draining. Home Medications: Prior to Admission medications Medication Sig Start Date End Date Taking? Authorizing Provider cyanocobalamin (Vitamin B-12) 1,000 mcg tablet Take 1 tablet (1,000 mcg) by mouth once daily. 04/14/24 04/14/25 Ori Vidal PA-C dicyclomine (Bentyl) 20 mg tablet Take 1 tablet (20 mg) by mouth 4 times a day before meals. Patient not taking: Reported on 09/07/2024 08/18/24 Faisal Rodriguez DO ergocalciferol (Vitamin D-2) 1.25 MG (38046 UT) capsule Take 1 capsule (50,000 Units) by mouth 1 (one) time per week. 01/17/24 Ori Vidal PA-C flash glucose scanning reader (FREESTYLE IVAN 2 READER [facility] [place] Ori Vidal PA-C flash glucose scanning reader (FreeStyle Ivan 2 [place]) [facility] [place] Use as instructed 01/13/24 Ori Vidal PA-C flash glucose sensor kit (FreeStyle Ivan 2 Sensor) kit USE INSTRUCTED 06/16/24 Ori Vidal PA-C lisinopril 10 mg tablet Take 1 tablet (10 mg) by mouth once daily. 04/14/24 Ori Vidal PA-C omeprazole (PriLOSEC) [address] capsule TAKE 1 CAPSULE (20 MG) BY MOUTH ONCE DAILY DO NOT CRUSH OR CHEW 04/21/24 10/18/24 Ori Vidal PA-C ondansetron ODT (Zofran-ODT) 4 mg disintegrating tablet Dissolve 1 tablet (4 mg) in the mouth every8 hours if needed for nausea or vomiting. 08/18/24 Faisal Rodriguez, DO semaglutide (OZEMPIC) 1 mg/dose (4 mg/3 mL) pen injector Inject 1 mg under the skin 1 (one) time per week. 04/14/24 Ori Vidal PA-C Allergies: No Known Allergies. ROS: No fever or redness at incision. + Small amount of serous drainage from supraumbilical port site incision which has now subsided No yellowing of the skin or eyes or dark-colored urine + Loose bowel movements after eating Objective: BP 140/80 Pulse 109 Ht 1.6 m (5' 2.99) Wt 93.4 kg (206 lb) Comment: WT USED FROM LAST VISIT LMP 06/19/2024 (Exact Date) BMI 36.50 kg/m Physical Exam: No acute distress No labored breathing NSR Abdomen soft, non-distended, incisions clean/dry/intact, she has a small scab in the midportion of the supraumbilical incision, but this is now dry. No surrounding erythema or sign of infection. Assessment and Plan: Gregory Lacy is a 19 y.o. old female s/p laparoscopic cholecystectomy. She is doing well without any signs or symptoms of postoperative complication. We discussed keeping the supraumbilical incision clean and dry. I recommend just washing with regular soap and water. Once the incision looks more like a scar, she could then apply an ointment and in the summer sunscreen to minimize scarring. She will follow-up as needed. Mitchell Telles MD 09/22/2024 documented in this [facility] Work Phone: Hospital Discharge instructions* Attachments The following attachments cannot be sent through Care Everywhere. * Flank Pain (South African) documented in this [facility] Work Phone: Hospital Discharge instructions No data available for this section [facility] Progress note No data available for this section [facility] Reason for referral (narrative)* Outpatient Procedure (Routine) - Closed Specialty Diagnoses / Procedures Referred By Contac t Referred To Contact [facility] Diagnoses Hypertension, unspecified type Procedures ECHO ECHO TTHRC R-T 2D W/WOM-MODE COMPL SPEC&COLR D Sarah Alcazar MD [address] [id number] [place] [phone] Referral ID Status Reason Start Date Expiration Date V isits Requested Visits Authorized [id number] Closed Auto-Generate d Referral 03/03/2022 03/03/2023 1 1 [facility] for referral (narrative)* Outpatient Procedure (Routine) - Closed Specialty Diagnoses / Procedures Referred By Contac t Referred To [facility] Diagnoses Hypertension, unspecified type Procedures US RENAL [facility]ERY [facility] DUP-SCAN ARTL AMBER ABDL/PEL/SCROT&/RPR ORGN COM Sarah Alcazar MD [address] [id number] [place] [phone] Referral ID Status Reason Start Date Expiration Date V isits Requested Visits Authorized [id number] Closed Auto-Generate d Referral 03/03/2022 03/03/2023 1 1 [facility] for referral (narrative)No reason for referral [facility] Work [facility]: Reason for visit Narrative* Outpatient Procedure (Routine) - Closed Specialty Diagnoses / Procedures Referred By Contac t Referred To Contact [facility] Diagnoses Hypertension, unspecified type Procedures ECHO ECHO TTHRC R-T 2D W/WOM-MODE COMPL SPEC&COLR D Sarah Alcazar MD [address] [id number] [address] [address] Referral ID Status Reason Start Date Expiration Date V isits Requested Visits Authorized [id number] Closed Auto-Generate d Referral 03/03/2022 03/03/2023 1 1 [facility] for visit Narrative* Outpatient Procedure (Routine) - Closed Specialty Diagnoses / Procedures Referred By Kali sheikh Referred To Contact [facility] Diagnoses Hypertension, unspecified type Procedures US RENAL [facility] DUP-SCAN ARTL AMBER ABDL/PEL/SCROT&/RPR ORGN COM Sarah Alcazar MD [address] [place] [address] [place] [phone] Referral ID Status Reason Start Date Expiration Date V isits Requested Visits Authorized [id number] Closed Auto-Generate d Referral 03/03/2022 03/03/2023 1 1 [facility] for visit Narrative* Auth/Cert Specialty Diagnoses / Procedures Referred By Kali sheikh Referred To Contact Diagnoses Calculus of gallbladder without cholecystitis without obstruction Calculus of gallbladder without cholecystitis without obstruction [K80.20] Procedures [place] LAPAROSCOPY SURG CHOLECYSTECTOMY Laparoscopic [place], [place] [address] [place] [id number] Phone: tel: fax: [facility] [place] [address] [place] [phone] fax: Referral ID Status Reason Start Date Expiration Date Visits Re quested Visits Authorized [id number] 1 1 [facility] Work Phone: Reason for visit Narrative* Evaluate and Treat (Routine) - Pending Review Specialty Diagnoses / Procedures Referred By Kali sheikh Referred To Contact Nutrition Diagnoses Type 2 diabetes mellitus with hyperglycemia, without long-term current use of insulin (HCC) Ori Vidal PA-C [address] [place] [address] Phone: tel: fax: [facility] [address] [place] [address] Phone: tel: fax: Referral ID Status Reason Start Date Expiration Date V isits Requested Visits Authorized [id number] Pending Review 12/16/2024 12/16/2025 3 3 [facility] for visit Narrative* Imaging (Routine) - Pending Review Specialty Diagnoses / Procedures Referred By Contac t Referred To Contact Radiology Diagnoses Acute mid back pain Procedures XR thoracic spine 3 views XR thoracic spine 2 views Ori Vidal PA-C [address] [place] [address] Phone: tel: fax: Referral ID Status Reason Start Date Expiration Date Visits Requested Visits Authorized [id number] Pending Review Perform Procedure 01/18/2025 01/18/2026 1 1 [facility] Work Phone: Rehpby for visit Narrative* Imaging (Routine) - Authorized Specialty Diagnoses / Procedures Referred By Contac t Referred To Contact Radiology Diagnoses Acute midline low back pain without sciatica Procedures XR lumbar spine 2-3 views Ori Vidal PA-C [address] [place] [address] Phone: tel: fax: Referral ID Status Reason Start Date Expiration Date Visits Requested Visits Authorized [id number] Authorized Perform Procedure 01/18/2025 01/18/2026 1 1 [facility] Work Phone: reason for visit Narrative* Imaging (Routine) - Authorized Specialty Diagnoses / Procedures Referred By Contac t Referred To Contact Radiology Diagnoses Renal calculi Procedures XR abdomen 1 view Ryan Lozano MD M[facility] [address] [place] [address] Phone: tel: fax: Referral ID Status Reason Start Date Expiration Date Visits Requested Visits Authorized [id number] Authorized Perform Procedure 12/12/2024 12/12/2025 1 1 [facility] Work Phone: Reason for visit Narrative* Imaging (Routine) - Authorized Specialty Diagnoses / Procedures Referred By Contac t Referred To Contact Radiology Diagnoses Renal calculi Procedures US renal complete Ryan Lozano MD M[facility] [address] [place] [address] Phone: tel: fax: Referral ID Status Reason Start Date Expiration Date Visits Requested Visits Authorized [id number] Authorized Perform Procedure 12/12/2024 12/12/2025 1 1 [facility] Work Phone: Reason for visit Narrative* Evaluate and Treat (Routine) - Closed Specialty Diagnoses / Procedures Referred By Contac t Referred To Contact Nutrition Diagnoses Type 2 diabetes mellitus with hyperglycemia, without long-term current use of insulin (HCC) Ori Vidal PA-C [address] [place] [address] Phone: tel: fax: [facility] [address] [place] [id number] Phone: tel: fax: Referral ID Status Reason Start Date Expiration Date Visits Re quested Visits Authorized [id number] Closed 12/16/2024 12/16/2025 3 3 [facility] for visit Narrative* Imaging (Routine) - Authorized Specialty Diagnoses / Procedures Referred By Contac t Referred To Contact Radiology Diagnoses Acute pain of right shoulder Procedures XR shoulder right 2+ views Ori Vidal PA-C [address] [place] [address] Phone: tel: fax: Referral ID Status Reason Start Date Expiration Date Visits Requested Visits Authorized [id number] Authorized Perform Procedure 05/01/2025 05/31/2026 1 1 [facility] Work Phone: Summary Purpose Family History No Family History Records FoundUnknown Family Member Name Dates Details Allergic Rhinitis: Family Hi story Status:Active Asthma: Family History(V17.5 ) Status:Active Atopic Dermatitis: Family Hi story Status:Active No pertinent family history: Mother(V49.89, Z78.9) Status:Active Family history of gallbladde r disease: Maternal Aunt(V18.59, Z83.79) Status:Active Family history of kidney sto anuja: Brother(V18.69, Z84.1) Status:Active Family history of malignant neoplasm of breast: Maternal Relatives(V16.3, Z80.3) Status:Active Ovarian cancer: Maternal Rel atives Status:Active Unknown Family Member Name Dates Details Allergic Rhinitis: Family Hi story Status:Active Asthma: Family History(V17.5 ) Status:Active Atopic Dermatitis: Family Hi story Status:Active No pertinent family history: Mother(V49.89, Z78.9) Status:Active Family history of gallbladde r disease: Maternal Aunt(V18.59, Z83.79) Status:Active Family history of kidney sto anuja: Brother(V18.69, Z84.1) Status:Active Family history of malignant neoplasm of breast: Maternal Relatives(V16.3, Z80.3) Status:Active Ovarian cancer: Maternal Rel atives Status:Active Unknown Family Member Name Dates Details Allergic Rhinitis: Family Hi story Status:Active Asthma: Family History(V17.5 ) Status:Active Atopic Dermatitis: Family Hi story Status:Active No pertinent family history: Mother(V49.89, Z78.9) Status:Active Family history of gallbladde r disease: Maternal Aunt(V18.59, Z83.79) Status:Active Family history of kidney sto anuja: Brother(V18.69, Z84.1) Status:Active Family history of malignant neoplasm of breast: Maternal Relatives(V16.3, Z80.3) Status:Active Ovarian cancer: Maternal Rel atives Status:Active Unknown Family Member Name Dates Details Atopic Dermatitis: Family Hi story Status:Active Asthma: Family History(V17.5 ) Status:Active Allergic Rhinitis: Family Hi story Status:Active Family history of malignant neoplasm of breast: Maternal Relatives(V16.3, Z80.3) Status:Active Ovarian cancer: Maternal Rel atives Status:Active Family history of kidney sto anuja: Brother(V18.69, Z84.1) Status:Active Family history of gallbladde r disease: Maternal Aunt(V18.59, Z83.79) Status:Active No pertinent family history: Mother(V49.89, Z78.9) Status:Active Unknown Family Member Name Dates Details Allergic Rhinitis: Family Hi story Status:Active Asthma: Family History(V17.5 ) Status:Active Atopic Dermatitis: Family Hi story Status:Active No pertinent family history: Mother(V49.89, Z78.9) Status:Active Family history of gallbladde r disease: Maternal Aunt(V18.59, Z83.79) Status:Active Family history of kidney sto anuja: Brother(V18.69, Z84.1) Status:Active Family history of malignant neoplasm of breast: Maternal Relatives(V16.3, Z80.3) Status:Active Ovarian cancer: Maternal Rel atives Status:Active Unknown Family Member Name Dates Details Allergic Rhinitis: Family Hi story Status:Active Asthma: Family History(V17.5 ) Status:Active Atopic Dermatitis: Family Hi story Status:Active No pertinent family history: Mother(V49.89, Z78.9) Status:Active Family history of gallbladde r disease: Maternal Aunt(V18.59, Z83.79) Status:Active Family history of kidney sto anuja: Brother(V18.69, Z84.1) Status:Active Ovarian cancer: Maternal Rel atives Status:Active Family history of malignant neoplasm of breast: Maternal Relatives(V16.3, Z80.3) Status:Active Unknown Family Member Name Dates Details Allergic Rhinitis: Family Hi story Status:Active Asthma: Family History(V17.5 ) Status:Active Atopic Dermatitis: Family Hi story Status:Active Ovarian cancer: Maternal Rel atives Status:Active Family history of malignant neoplasm of breast: Maternal Relatives(V16.3, Z80.3) Status:Active Family history of kidney sto anuja: Brother(V18.69, Z84.1) Status:Active Family history of gallbladde r disease: Maternal Aunt(V18.59, Z83.79) Status:Active No pertinent family history: Mother(V49.89, Z78.9) Status:Active Relationship Condition Age at Onset Recorded Date/T shalini grandfather Cerebrovascular accident (CVA) Unknown Advance Directives No Advanced Directives Records Found Date Activated Date Inactivated Comments 09/07/2024 8:23 AM Question Answer Comments Plan of Care: Code Status Discussion Not Compl eted Decision Maker: Provider Rationale: Patient condition does not warra nt discussion Date Activated Date Inactivated Comments 09/07/2024 8:23 AM Question Answer Comments Plan of Care: Code Status Discussion Not Compl eted Decision Maker: Provider Rationale: Patient condition does not warra nt discussion Chief Complaint Sickear acheear acheRASHRASHEAR ACHEEAR ACHE Reason for Referral Specialty Diagnoses / Procedures Referred By Kali sheikh Referred To Contact Ent - Otolaryngology Diagnoses Epistaxis Procedures CONSULT TO ENT OFFICE/OUTPATIENT [facility] 60-74 MINUTES Sarah Alcazar MD [address] [place] [address] Carlos Mariee [address] [place] [address] Referral ID Status Reason Start Date Expiration Date Visits Requested Visits Authorized [id number] Authorized PCP Requested Referral 03/03/2022 06/01/2022 1 1 Specialty Diagnoses / Procedures Referred By Kali sheikh Referred To Contact [facility] Diagnoses Hypertension, unspecified type Procedures US RENAL ARTERY [facility] DUP-SCAN ARTL AMBER ABDL/PEL/SCROT&/RPR ORGN COM Sarah Alcazar MD [address] [place] [address] [facility] [address] [place] [address] Referral ID Status Reason Start Date Expiration Date Visits Requested Visits Authorized [id number] Pending Review Auto-Generat ed Referral 03/03/2022 03/03/2023 1 1 Specialty Diagnoses / Procedures Referred By Kali sheikh Referred To Contact [facility] Diagnoses Hypertension, unspecified type Procedures ECHO ECHO TTHRC R-T 2D W/WOM-MODE COMPL SPEC&COLR D Sarah Alcazar MD [address] [place] [address] [facility] [address] [place] [address] Referral ID Status Reason Start Date Expiration Date Visits Requested Visits Authorized [id number] Pending Review Auto-Generat ed Referral 03/03/2022 03/03/2023 1 1 Specialty Diagnoses / Procedures Referred By Contac t Referred To Contact Radiology Diagnoses Elbow pain, left Procedures Urgent Care Xray Eve Cruz, SITE TECHNICIAN-TOURS CAPTAIN [address] [facility] [address] [place] [address] Referral ID Status Reason Start Date Expiration Date Visits Requested Visits Authorized [id number] Authorized Perform Procedure 11/09/2023 11/08/2024 1 1 Specialty Diagnoses / Procedures Referred By Contac t Referred To Contact Diagnoses PCOS (polycystic ovarian syndrome) Type 2 diabetes mellitus with hyperglycemia, without long-term current use of insulin (Multi) Class 2 obesity due to excess calories without serious comorbidity with body mass index (BMI) of 39.0 to 39.9 in adult Ori Vidal PA-C [address] [place] [address] Referral ID Status Reason Start Date Expiration Date V isits Requested Visits Authorized [id number] Authorized 01/13/2024 01/12/2025 1 1 Specialty Diagnoses / Procedures Referred By Contac t Referred To Contact Obstetrics and Gynecology Diagnoses PCOS (polycystic ovarian syndrome) Ori Vidal PA-C [address] [place] [address] Referral ID Status Reason Start Date Expiration Date Visits Requested Visits Authorized [id number] Authorized Specialty Services Required 01/13/2024 01/12/2025 1 1 Health Concerns Infection Onset Date Last Indicated Resolved Time COVID-19 Confirmed 03/09/2022 03/09/2022 Chief Complaint and Reason for Visit Chief Complaint 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, 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 3: 33pm Reason for Visit Admit Date Encounter for routine gynecological exam ination May 18, 2025 3:33pm Additional Source Comments INFORMATION SOURCE (unrecogn ized section and content) DATE CREATED AUTHOR 02/03/2018 [facility] DATE CREATED AUTHOR AUTHOR'S ORGANIZ ATION 02/04/2018 [facility] DATE CREATED AUTHOR AUTHOR'S ORGANIZ ATION 04/29/2019 [facility] DATE CREATED AUTHOR AUTHOR'S ORGANIZ ATION 09/13/2021 [facility] DATE CREATED AUTHOR AUTHOR'S ORGANIZ ATION 11/25/2021 [facility] DATE CREATED AUTHOR AUTHOR'S ORGANIZ ATION 03/10/2022 [facility] DATE CREATED AUTHOR AUTHOR'S ORGANIZ ATION 04/29/2022 [facility] DATE CREATED AUTHOR AUTHOR'S ORGANIZ ATION 05/19/2022 [facility] DATE CREATED AUTHOR AUTHOR'S ORGANIZ ATION 11/09/2022 [facility] DATE CREATED AUTHOR AUTHOR'S ORGANIZ ATION 04/15/2024 [facility] DATE CREATED AUTHOR AUTHOR'S ORGANIZ ATION 03/20/2025 [facility] DATE CREATED AUTHOR AUTHOR'S ORGANIZ ATION 04/19/2025 [facility] DATE CREATED AUTHOR AUTHOR'S ORGANIZ ATION 04/22/2025 [facility] DATE CREATED AUTHOR AUTHOR'S ORGANIZ ATION 05/06/2025 [facility] DATE CREATED AUTHOR AUTHOR'S ORGANIZ ATION 05/07/2025 [facility] DATE CREATED AUTHOR AUTHOR'S ORGANIZ ATION 06/23/2025 [facility] Source Comments (unrecognize d section and content) In the event this informatio n is protected by the Federal Confidentiality of Alcohol and Drug Abuse Patient Records regulations: The Federal rules restrict any use of the information to criminally investigate or prosecute any alcohol or drug abuse patient.[facility] the event this information is protected by the Federal Confidentiality of Alcohol and Drug Abuse Patient Records regulations: The Federal rules restrict any use of the information to criminally investigate or prosecute any alcohol or drug abuse patient.[facility] the event this information is protected by the Federal Confidentiality of Alcohol and Drug Abuse Patient Records regulations: The Federal rules restrict any use of the information to criminally investigate or prosecute any alcohol or drug abuse patient.[facility] the event this information is protected by the Federal Confidentiality of Alcohol and Drug Abuse Patient Records regulations: The Federal rules restrict any use of the information to criminally investigate or prosecute any alcohol or drug abuse patient.[facility] Center[facility] the event this information is protected by the Federal Confidentiality of Alcohol and Drug Abuse Patient Records regulations: The Federal rules restrict any use of the information to criminally investigate or prosecute any alcohol or drug abuse patient.[facility] Reason for Visit (unrecogniz ed section and content) Reason Comments New Patient Reason Comments Refill Request Reason Comments Eye Problem Urinary Problem Specialty Diagnoses / Procedures Referred By Kali sheikh Referred To Contact Radiology Diagnoses Elbow pain, left Procedures Urgent Care Xray [place] Eve Lukasz, SITE TECHNICIAN-TOURS CAPTAIN [address] [facility] [address] [place] [address] Referral ID Status Reason Start Date Expiration Date Visits Requested Visits Authorized [id number] Authorized Perform Procedure 11/09/2023 11/08/2024 1 1 Reason Comments New Patient Visit PT STATES SHE HAS NO T HAD A PERIOD IN OVER A YEAR AND SHE IS NOT ON BC AT THIS TIME. DID GET OFF BC 3 YEARS AGO AND AFTER SHE GOT OFF SHE WOULD HAVE REG PERIODS AND THEN DIDN'T GET HER PERIOD FOR 9 MONTHS INTO A YEAR. DX WITH KIDNEY STONES AND GALL STONES X1YEAR AGO. C/O HEART BURN X2 MONTHS. SHE DID TAKE TUMS BEFORE NOW THEY AREN'T EFFECTIVE ANYMORE. 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 CT abdomen/pelvis wa done at that time. C/O bilateral flank discomfort right more than left x 2 years with increased pain x 5 days Describes pain as a sharp, stabbing sensation that does not radiate. States pain is intermittent and notices no difference in symptoms with eating any foods. Specialty Diagnoses / Procedures Referred By Kali sheikh Referred To Contact General Surgery Diagnoses Calculus of gallbladder without cholecystitis without obstruction Faisal Rodriguez, DO [address] [facility] Department [place] [address] Phone: tel: fax: Referral ID Status Reason Start Date Expiration Date Visits Requested Visits Authorized [id number] Authorized Specialty Services Required 08/18/2024 08/18/2025 1 1 Reason Comments Follow-up ER F/U FOR GALL STON ES Specialty Diagnoses / Procedures Referred By Kali sheikh Referred To Contact Family Medicine / Primary Care Diagnoses Left flank pain Constipation, unspecified constipation type Calculus of gallbladder without cholecystitis without obstruction Nephrolithiasis Faisal Rodriguez, DO [address] [facility] Department [place] [address] Phone: tel: fax: Referral ID Status Reason Start Date Expiration Date Visits Requested Visits Authorized [id number] Authorized Specialty Services Required 08/18/2024 08/18/2025 1 1 Reason Comments Follow-up 6 month follow up la bs and med check Reason Comments Nephrolithiasis Establishing with Ki dney Stone on Left Side Specialty Diagnoses / Procedures Referred By Kali sheikh Referred To Contact Urology Diagnoses Renal calculi Ori Vidal PA-C Phone: tel: fax: Referral ID Status Reason Start Date Expiration Date Visits Requested Visits Authorized [id number] Authorized Specialty Services Required 10/18/2024 10/18/2025 1 1 Reason Comments Follow-up C/O FLUCTUATING GLUC OSE READINGS RANGING FROM VERY HIGH TO VERY LOW. EPISODES OF BLURRED VISION OFF/ON FOR THE LAST COUPLE WEEKS. Reason Comments Follow-up 4-6 week fu + labs Reason Comments Flank Pain Patient states left flank pain since Thursday. States history of kidney stones, had imaging done that showed a 7mm stone on the left. Also reports urinary burning since yesterday. Took a home UTI test that came back positive Reason Comments Follow-up Kidney stone, seen i n ER one stone passed, another started forming Specialty Diagnoses / Procedures Referred By Kali sheikh Referred To Contact Urology Diagnoses Renal calculi Procedures Follow Up In Urology Ryan Lozano MD MPH [address] [place] [address] Phone: tel: fax: Referral ID Status Reason Start Date Expiration Date V isits Requested Visits Authorized [id number] Authorized 12/12/2024 12/12/2025 1 1 Reason Comments Follow-up 6 MO WITH LABS. C/O LT SIDE PAIN ON/OFF Care Teams (unrecognized sec tion and content) Pediatric Registered Nurse Relationship Specialty Start Date End Date Sarah Alcazar MD [address] [place], [place] [id number] PCP - General Internal Medicine 03/03/22 [facility] 04/22/19 Pediatric Registered Nurse Relationship Specialty Start Date End Date Jourdan Koo, SITE TECHNICIAN.TOURS CAPTAIN [address] [facility] [address] [place] [address] PCP - General Family Practice 03/06/22 [facility] 04/22/19 Pediatric Registered Nurse Relationship Specialty Start Date End Date Jourdan Koo, SITE TECHNICIAN.TOURS CAPTAIN [address] [facility] [address] [place] [address] PCP - General Family Practice 03/06/22 [facility] 04/22/19 Pediatric Registered Nurse Relationship Specialty Start Date End Date Sarah Alcazar MD [address] [address] PCP - General Internal Medicine 04/07/22 [facility] 04/22/19 Pediatric Registered Nurse Relationship Specialty Start Date End Date Sarah Alcazar MD [address] [address] PCP - General Internal Medicine 04/07/22 [facility] 04/22/19 Pediatric Registered Nurse Relationship Specialty Start Date End Date Loreto Scanlon MD [address] [place] [address], [address] [place] [address] PCP - General 12/21/17 Pediatric Registered Nurse Relationship Specialty Start Date End Date Ori Vidal PA-C [address] [place] [address] PCP - General Internal Medicine 12/24/23 Pediatric Registered Nurse Relationship Specialty Start Date End Date Ori Vidal PA-C [address] [place] [address] PCP - General Internal Medicine 12/24/23 Pediatric Registered Nurse Relationship Specialty Start Date End Date Ori Vidal PA-C [address] [place] [address] PCP - General Internal Medicine 12/24/23 Pediatric Registered Nurse Relationship Specialty Start Date End Date Ori Vidal PA-C [address] [facility] [place] [address] PCP - General Internal Medicine 12/24/23 Guera Gibson MD [address] [place] [id number] Surgeon General Surgery 08/23/24 Pediatric Registered Nurse Relationship Specialty Start Date End Date Ori Vidal PA-C [address] [facility] [place] [address] PCP - General Internal Medicine 12/24/23 Guera Gibson MD [address] [facility] [address] [place] [address] Surgeon General Surgery 08/23/24 Pediatric Registered Nurse Relationship Specialty Start Date End Date Ori Vidal PA-C [address] [place] [address] PCP - General Internal Medicine 12/24/23 Guera Gibson MD [address] [place], [place] [id number] Surgeon General Surgery 08/23/24 Pediatric Registered Nurse Relationship Specialty Start Date End Date Ori Vidal PA-C [address] [place] [id number] PCP - General Internal Medicine 12/24/23 Guera Gibson MD [address] [place] [id number] Surgeon General Surgery 08/23/24 Pediatric Registered Nurse Relationship Specialty Start Date End Date Ori Vidal PA-C [address] [place] [id number] PCP - General Internal Medicine 12/24/23 Guera Gibson MD [address] [place] [id number] Surgeon General Surgery 08/23/24 Pediatric Registered Nurse Relationship Specialty Start Date End Date Ori Vidal PA-C [address] [place] [id number] PCP - General Internal Medicine 12/24/23 Guera Gibson MD [address] [place] [id number] Surgeon General Surgery 08/23/24 Pediatric Registered Nurse Relationship Specialty Start Date End Date Ori Vidal PA-C [address] [place] [id number] PCP - General Internal Medicine 12/24/23 Guera Gibson MD [address] [place] [address] Surgeon General Surgery 08/23/24 Pediatric Registered Nurse Relationship Specialty Start Date End Date Ori Vidal PA-C [address] [place] [id number] PCP - General Physician Diesel Technician Mechanic 01/13/25 Pediatric Registered Nurse Relationship Specialty Start Date End Date Ori Vidal PA-C [address] [place] [phone] PCP - General Internal Medicine 12/24/23 Guera Gibson MD [address] [place] [address] Surgeon General Surgery 08/23/24 Pediatric Registered Nurse Relationship Specialty Start Date End Date Ori Vidal PA-C [address] [place] [place] [address] PCP - General Internal Medicine 12/24/23 Guera Gibson MD [address] [place] [address] Surgeon General Surgery 08/23/24 Pediatric Registered Nurse Relationship Specialty Start Date End Date Ori Vidal PA-C [address] [place] [id number] PCP - General Internal Medicine 12/24/23 Guera Gibson MD [address] [place] [id number] Surgeon General Surgery 08/23/24 Pediatric Registered Nurse Relationship Specialty Start Date End Date Ori Vidal PA-C [address] [place] [address] PCP - General Internal Medicine 12/24/23 Guera Gibson MD [address] [place] [address] Surgeon General Surgery 08/23/24 Pediatric Registered Nurse Relationship Specialty Start Date End Date Ori Vidal PA-C [address] [place] [address] PCP - General Physician Diesel Technician Mechanic 01/13/25 Pediatric Registered Nurse Relationship Specialty Start Date End Date Ori Vidal PA-C [address] [place] [address] PCP - General Internal Medicine 12/24/23 Guera Gibson MD [address] [place] [address] Surgeon General Surgery 08/23/24 Pediatric Registered Nurse Relationship Specialty Start Date End Date Ori Vidal PA-C [address] [place] [address] PCP - General Internal Medicine 12/24/23 Guera Gibson MD [address] [place] [address] Surgeon General Surgery 08/23/24 Team Status: Active Member Role/Relationship Status Dates ROYAL Cr Primary care physician Active Team Status: Inactive Member Role/Relationship Status Dates ROYAL Cr Primary care physician Active Start: May 18, 2025 End: May 18, 2025 ROYAL Cr Referring Provider Active Start: May 18, 2025 End: May 18, 2025 SARAN Duggan Attending physician Active Start: May 18, 2025 End: May 18, 2025 Scheduled Active and Recently Administ ered Medications (unrecognized section and content) Medication Order 09/05/2024 09/06/2024 09/07/2024 acetaminophen (Tylenol) tablet 975 mg (COMPLETED) 975 mg, oral, Once, On Thu09/07/24 at 0845, For 1 dose, Preprocedure, Administer with small amount of water preoperatively., If ordered PRN for pain, nurse is permitted to administer this medication for higher pain scores based on patient preference? Yes 0848 (Given - Provid er: Deena Jason RN) cefOXitin (Mefoxin) 2 g in dextrose (iso) IV 50 mL (COMPLETED) 2 g, intravenous, at 100 mL/hr, Administer over 30 Minutes, Once, On Thu09/07/24 at 0845, For 1 dose, Preprocedure, Duplex bag - activate before hanging., Suspected Indication (Select all that apply): Surgical Prophylaxis, Indications: Surgical Prophylaxis 0855 (New Bag - Prov ider: Deena Jason RN)1032 (Stopped - Provider: Chantelle Solano RN) dexAMETHasone (PF) (Decadron) injection 8 mg (COMPLETED) 8 mg, intravenous, Once, On Thu09/07/24 at 0845, For 1 dose, Preprocedure 0849 (Given - Provid er: Deena Jason RN) midazolam (Versed) injection 1 mg (COMPLETED) 1 mg, intravenous, Once, On Thu09/07/24 at 0845, For 1 dose, Preprocedure 0855 (Given - Provid er: Deena Jason RN) ondansetron (Zofran) injection 4 mg (COMPLETED) 4 mg, intravenous, Once, On Thu09/07/24 at 0845, For 1 dose, Preprocedure, When administering via IV Push, administer over 3-5 minutes. 0848 (Given - Provid er: Deena Jason RN) Continuous Medication Order 09/05/2024 09/06/2024 09/07/2024 lactated Ringer's infusion 100 mL/hr, intravenous, Continuous, Starting on Thu09/07/24 at 1100, For 1 day, Recovery (only) 1100 (Due) PRN Medication Order 09/05/2024 09/06/2024 09/07/2024 bupivacaine PF 0.25 % (Marcaine) 0.25 % (2.5 mg/mL) injection (CANCELED) As needed, Starting on Thu09/07/24 at 0930, Intraprocedure 0930 (Given - Provid er: Mitchell Telles MD) labetaloL (Normodyne,Trandate) injection 5 mg 5 mg, intravenous, Administer over 1 Minutes, Once as needed, systolic blood pressure greater than 180 mmHg, dystolic blood pressure greater than 100 mmHg and heart rate greater than 60 BPM, Starting on Thu09/07/24 at 1032, For 1 dose, Recovery (only) morphine injection 2 mg 2 mg, intravenous, Every 5 min PRN, pain moderate (4-6), first line, Starting on Thu09/07/24 at 1032, Recovery (only), Max total of 20 mg regardless of dose. 1050 (Given - Provid er: Chantelle Solano RN - Comment: 2mg/ml concenration given) morphine injection 4 mg 4 mg, intravenous, Every 5 min PRN, pain severe (7-10), first line, Starting on Thu09/07/24 at 1032, Recovery (only), Max total of 20 mg regardless of dose. ondansetron (Zofran) injection 4 mg (COMPLETED) 4 mg, intravenous, Once as needed, nausea/vomiting, first line, Starting on Thu09/07/24 at 1032, For 1 dose, Recovery (only), When administering via IV Push, administer over 3-5 minutes. 1058 (Given - Provid er: Chantelle Solano RN) oxyCODONE (Roxicodone) immediate release tablet 5 mg 5 mg, oral, Every 4 hours PRN, pain mild (1-3), first line, Starting on Thu09/07/24 at 1032, Recovery (only), When able to take oral medications., If ordered PRN for pain, nurse is permitted to administer this medication for higher pain scores based on patient preference? Yes promethazine (Phenergan) 6.25 mg in sodium chloride 0.9% 50 mL IV (COMPLETED) 6.25 mg, intravenous, Administer over 15 Minutes, Once as needed, Nausea/vomiting, second line, Starting on Thu09/07/24 at 1032, For 1 dose, Recovery (only) 1128 (New Bag - Prov ider: Anabella Álvarez, RN)1143 (Stopped - Provider: Anabella Álvarez RN) Scheduled Medication Order 02/27/2025 02/28/2025 03/01/2025 HYDROmorphone (Dilaudid) injection 0.5 mg (COMPLETED) 0.5 mg, intravenous, Once, On Thu03/01/25 at 194, For 1 dose 2003 (Given - Provid er: Alexus Cortez RN) ketorolac (Toradol) injection 15 mg (COMPLETED) 15 mg, intravenous, Once, On Thu03/01/25 at 1800, For 1 dose 1804 (Given - Provid er: Johnna Gabriel RN) morphine injection 4 mg (COMPLETED) 4 mg, intravenous, Once, On Thu03/01/25 at 1800, For 1 dose 1805 (Given - Provid er: Johnna Gabriel RN) ondansetron (Zofran) injection 4 mg (COMPLETED) 4 mg, intravenous, Once, On Thu03/01/25 at 1800, For 1 dose, When administering via IV Push, administer over 3-5 minutes. 1805 (Given - Provid er: Johnna Gabriel RN) orphenadrine (Norflex) injection 60 mg (COMPLETED) 60 mg, intramuscular, Once, On Thu03/01/25 at 194, For 1 dose 2003 (Given - Provid er: Alexus Cortez RN) predniSONE (Deltasone) tablet 60 mg (COMPLETED) 60 mg, oral, Once, On Thu03/01/25 at 1944, For 1 dose 2003 (Given - Provid er: Alexus Cortez RN) Goals (unrecognized section and content) Goals may be documented in a n alternate section FOR RECORDS PERTAINING TO PATIENTS WHO ARE OR HAVE BEEN ENROLLED IN A CHEMICAL DEPENDENCY/SUBSTANCEABUSE PROGRAM, SOME INFORMATION MAY BE OMITTED. This clinical summary was aggregated from multiple sources. Caution should be exercised in using it in the provision of clinical care. This summary normalizes information from multiple sources, and as a consequence, information in this document may materially change the coding, format and clinical context of patient data. In addition, data may be omitted in some cases. CLINICAL DECISIONS SHOULD BE BASED ON THE PRIMARY CLINICAL RECORDS. [employer] [facility]. provides no warranty or guarantee of the accuracy or completeness of information in this document.
[2025-07-26 03:07] LABS: HEPATITIS B SURFACE AG Negative (Negative); Hep C Antibodies Non Reactive (Non Reactive)
== END | disposition home or self-care (01) ==
PROVIDERS: PCP Physician Assistant Medical; Referring Provider Student in an Organized Health Care Education/Training Program; Visit Provider Student in an Organized Health Care Education/Training Program
DX: R79.89 Other specified abnormal findings of blood chemistry (principal)
CPT/HCPCS: 36415; 76705; 80074

== ENCOUNTER → 2025-08-08 | Outpatient (CLI) | payer BC, SELFPAY ==
[2025-08-08 17:14] LABS: AST(SGOT) 118 U/L (<=31); Alanine Aminotransfer ALT/SGPT 150 U/L (<=34); Albumin, Serum 4.6 g/dL (3.5-5.0); Alkaline Phosphatase 47 U/L (35-104); Bilirubin, Direct 0.24 mg/dL (0.00-0.30); Globulin 3.3 g/dL (2.2-4.2)
== END | disposition home or self-care (01) ==
PROVIDERS: PCP Physician Assistant Medical; Visit Provider Student in an Organized Health Care Education/Training Program
DX: R79.89 Other specified abnormal findings of blood chemistry (principal)
CPT/HCPCS: 36415; 80076